=== PATIENT | female | born 1935 | race Caucasian/White ===

== ENCOUNTER 2020-09-19 10:03 | Observation (INO) | payer MEDICARE ==
[2020-09-19] MEDS ORDERED: SODIUM CHLORIDE 0.9% 500 ML 500 ML IV ONE ×2 (10:24→12:01)
--- NOTE | 2020-09-19 10:43 | ED ---
General Adult HPI - General Chief complaint: Chest Pain Stated complaint: chest pain Time Seen by Provider: 09/19/20 10:06 Source: patient, EMS, RN notes reviewed, old records reviewed Mode of arrival: EMS Limitations: no limitations - History of Present Illness Initial comments: 85-year-old female presenting for evaluation of left-sided chest pain which began last night. This is left lateral chest pain. She states she has felt unwell in general and believes she has been dealing with a UTI. She denies significant cough, denies a known history of coronary artery disease. She denies lower extremity pain or swelling. Pain was relieved somewhat with aspirin and nitroglycerin given by EMS. She has minimal pain at the time my evaluation. - Related Data Home Medications Medication Instructions Recorded Confirmed Acetaminophen-Codeine 300-30mg 1 tab PO Q6H PRN 09/19/20 09/19/20 [Tylenol w/codeine #3] Diclofenac Sodium [Voltaren Gel] 4 gram TOPICAL QID PRN 09/19/20 09/19/20 Furosemide [Lasix] 20 mg PO DAILY 09/19/20 09/19/20 Levothyroxine Sodium 88 mcg PO AC-BRKFST 09/19/20 09/19/20 Metoprolol Tartrate [Lopressor] 25 mg PO BID 09/19/20 09/19/20 Mirtazapine 30 mg PO HS 09/19/20 09/19/20 Omeprazole 20 mg PO AC-BRKFST 09/19/20 09/19/20 Pregabalin [Lyrica] 75 mg PO BID 09/19/20 09/19/20 Sulindac [Clinoril] 150 mg PO BID 09/19/20 09/19/20 busPIRone HCl [Buspar] 5 mg PO BID 09/19/20 09/19/20 rOPINIRole HCL [Requip] 0.25 - 0.5 mg PO HS 09/19/20 09/19/20 traZODone HCL [TraZODone HCl] 50 - 100 mg PO HS 09/19/20 09/19/20 Allergies Allergy/AdvReac Type Severity Reaction Status Date / Time diazepam [From Valium] AdvReac Confusion Verified 09/19/20 11:57 Review of Systems ROS Statement: Those systems with pertinent positive or pertinent negative responses have been documented in the HPI. ROS Other: All systems not noted in ROS Statement are negative. Past Medical History Past Medical History: Atrial Fibrillation History of Any Multi-Drug Resistant Organisms: None Reported Past Alcohol Use History: None Reported Past Drug Use History: None Reported General Exam Limitations: no limitations General appearance: alert, in no apparent distress Head exam: Present: atraumatic, normocephalic Eye exam: Present: normal appearance, PERRL ENT exam: Present: mucous membranes dry Neck exam: Present: normal inspection. Absent: tenderness, meningismus Respiratory exam: Present: decreased breath sounds. Absent: respiratory distress, accessory muscle use Cardiovascular Exam: Present: regular rate, normal rhythm GI/Abdominal exam: Present: soft. Absent: distended, tenderness Extremities exam: Present: normal inspection, normal capillary refill. Absent: pedal edema Neurological exam: Present: alert, oriented X3, CN II-XII intact. Absent: motor sensory deficit Psychiatric exam: Present: normal affect, normal mood Skin exam: Present: warm, dry, intact. Absent: cyanosis, diaphoretic Course Vital Signs 09/19/20 09/19/20 09/19/20 10:07 11:22 12:49 Temperature 99.1 F Pulse Rate 103 H 101 H 97 Respiratory 18 18 18 Rate Blood Pressure 141/70 138/70 145/73 O2 Sat by Pulse 94 L 95 97 Oximetry EKG Findings - EKG Comments: EKG Findings:: Normal sinus rhythm, no ST segment elevation, rate of 97, OH interval 128, QRS duration 72, QTC 467 Medical Decision Making - Medical Decision Making 85 year female presenting with chief complaint of chest pain, secondary complaint of dysuria and concern for UTI. Patient has EKG showing sinus rhythm without ST segment elevation. Chest x-ray showing nodularity of uncertain etiology. Patient has a CT angiography which was ordered secondary to elevated d-dimer which is negative for PE. Patient has a negative initial troponin. She has a mild leukocytosis. She has UTI on urinalysis with leukocyte esterase, and multiple white blood cells. Culture pending. Case discussed with Dr. fam he will admit for chest pain rule out. Cardiology placed on consult. Patient will be continued on IV fluids and IV antibiotics for UTI. - Lab Data Result diagrams: 09/19/20 10:40 09/19/20 10:40 Lab Results 09/19/20 09/19/20 09/19/20 Range/Units 10:40 10:40 10:40 WBC 11.2 H (3.8-10.6) k/uL RBC 4.45 (3.80-5.40) m/uL Hgb 13.3 (11.4-16.0) gm/dL Hct 39.8 (34.0-46.0) % MCV 89.4 (80.0-100.0) fL MCH 29.8 (25.0-35.0) pg MCHC 33.4 (31.0-37.0) g/dL RDW 14.7 (11.5-15.5) % Plt Count 320 (150-450) k/uL MPV 7.2 Neutrophils % 72 % Lymphocytes % 16 % Monocytes % 8 % Eosinophils % 1 % Basophils % 1 % Neutrophils # 8.1 H (1.3-7.7) k/uL Lymphocytes # 1.8 (1.0-4.8) k/uL Monocytes # 0.9 (0-1.0) k/uL Eosinophils # 0.1 (0-0.7) k/uL Basophils # 0.1 (0-0.2) k/uL PT 10.5 (9.0-12.0) sec INR 1.0 (<1.2) APTT 24.3 (22.0-30.0) sec D-Dimer 0.82 H (<0.60) mg/L FEU Sodium 135 L (137-145) mmol/L Potassium 3.9 (3.5-5.1) mmol/L Chloride 102 (98-107) mmol/L Carbon Dioxide 25 (22-30) mmol/L Anion Gap 8 mmol/L BUN 11 (7-17) mg/dL Creatinine 0.54 (0.52-1.04) mg/dL Est GFR (CKD-EPI)AfAm >90 (>60 ml/min/1.73 sqM) Est GFR (CKD-EPI)NonAf 85 (>60 ml/min/1.73 sqM) Glucose 98 (74-99) mg/dL Plasma Lactic Acid Frandy (0.7-2.0) mmol/L Calcium 8.6 (8.4-10.2) mg/dL Magnesium 1.8 (1.6-2.3) mg/dL Total Bilirubin 1.0 (0.2-1.3) mg/dL AST 31 (14-36) U/L ALT 31 (4-34) U/L Alkaline Phosphatase 302 H (38-126) U/L Troponin I (0.000-0.034) ng/mL NT-Pro-B Natriuret Pep pg/mL Total Protein 6.4 (6.3-8.2) g/dL Albumin 3.5 (3.5-5.0) g/dL Lipase 77 (23-300) U/L Urine Color Urine Appearance (Clear) Urine pH (5.0-8.0) Ur Specific [place] (1.001-1.035) Urine Protein (Negative) Urine Glucose (UA) (Negative) Urine Ketones (Negative) Urine Blood (Negative) Urine Nitrite (Negative) Urine Bilirubin (Negative) Urine Urobilinogen (<2.0) mg/dL Ur Leukocyte Esterase (Negative) Urine RBC (0-5) /hpf Urine WBC (0-5) /hpf Ur Squamous Epith Cells (0-4) /hpf Urine Bacteria (None) /hpf Urine Mucus (None) /hpf Coronavirus (PCR) (Not Detectd) 09/19/20 09/19/20 09/19/20 Range/Units 10:40 10:40 10:40 WBC (3.8-10.6) k/uL RBC (3.80-5.40) m/uL Hgb (11.4-16.0) gm/dL Hct (34.0-46.0) % MCV (80.0-100.0) fL MCH (25.0-35.0) pg MCHC (31.0-37.0) g/dL RDW (11.5-15.5) % Plt Count (150-450) k/uL MPV Neutrophils % % Lymphocytes % % Monocytes % % Eosinophils % % Basophils % % Neutrophils # (1.3-7.7) k/uL Lymphocytes # (1.0-4.8) k/uL Monocytes # (0-1.0) k/uL Eosinophils # (0-0.7) k/uL Basophils # (0-0.2) k/uL PT (9.0-12.0) sec INR (<1.2) APTT (22.0-30.0) sec D-Dimer (<0.60) mg/L FEU Sodium (137-145) mmol/L Potassium (3.5-5.1) mmol/L Chloride (98-107) mmol/L Carbon Dioxide (22-30) mmol/L Anion Gap mmol/L BUN (7-17) mg/dL Creatinine (0.52-1.04) mg/dL Est GFR (CKD-EPI)AfAm (>60 ml/min/1.73 sqM) Est GFR (CKD-EPI)NonAf (>60 ml/min/1.73 sqM) Glucose (74-99) mg/dL Plasma Lactic Acid Frandy (0.7-2.0) mmol/L Calcium (8.4-10.2) mg/dL Magnesium (1.6-2.3) mg/dL Total Bilirubin (0.2-1.3) mg/dL AST (14-36) U/L ALT (4-34) U/L Alkaline Phosphatase (38-126) U/L Troponin I <0.012 (0.000-0.034) ng/mL NT-Pro-B Natriuret Pep 801 pg/mL Total Protein (6.3-8.2) g/dL Albumin (3.5-5.0) g/dL Lipase (23-300) U/L Urine Color Yellow Urine Appearance Cloudy H (Clear) Urine pH 6.0 (5.0-8.0) Ur Specific [place] 1.017 (1.001-1.035) Urine Protein Trace H (Negative) Urine Glucose (UA) Negative (Negative) Urine Ketones 3+ H (Negative) Urine Blood Trace H (Negative) Urine Nitrite Negative (Negative) Urine Bilirubin Negative (Negative) Urine Urobilinogen <2.0 (<2.0) mg/dL Ur Leukocyte Esterase Large H (Negative) Urine RBC 3 (0-5) /hpf Urine WBC 51 H (0-5) /hpf Ur Squamous Epith Cells 7 H (0-4) /hpf Urine Bacteria Rare H (None) /hpf Urine Mucus Rare H (None) /hpf Coronavirus (PCR) (Not Detectd) 09/19/20 09/19/20 Range/Units 10:40 11:21 WBC (3.8-10.6) k/uL RBC (3.80-5.40) m/uL Hgb (11.4-16.0) gm/dL Hct (34.0-46.0) % MCV (80.0-100.0) fL MCH (25.0-35.0) pg MCHC (31.0-37.0) g/dL RDW (11.5-15.5) % Plt Count (150-450) k/uL MPV Neutrophils % % Lymphocytes % % Monocytes % % Eosinophils % % Basophils % % Neutrophils # (1.3-7.7) k/uL Lymphocytes # (1.0-4.8) k/uL Monocytes # (0-1.0) k/uL Eosinophils # (0-0.7) k/uL Basophils # (0-0.2) k/uL PT (9.0-12.0) sec INR (<1.2) APTT (22.0-30.0) sec D-Dimer (<0.60) mg/L FEU Sodium (137-145) mmol/L Potassium (3.5-5.1) mmol/L Chloride (98-107) mmol/L Carbon Dioxide (22-30) mmol/L Anion Gap mmol/L BUN (7-17) mg/dL Creatinine (0.52-1.04) mg/dL Est GFR (CKD-EPI)AfAm (>60 ml/min/1.73 sqM) Est GFR (CKD-EPI)NonAf (>60 ml/min/1.73 sqM) Glucose (74-99) mg/dL Plasma Lactic Acid Frandy 1.0 (0.7-2.0) mmol/L Calcium (8.4-10.2) mg/dL Magnesium (1.6-2.3) mg/dL Total Bilirubin (0.2-1.3) mg/dL AST (14-36) U/L ALT (4-34) U/L Alkaline Phosphatase (38-126) U/L Troponin I (0.000-0.034) ng/mL NT-Pro-B Natriuret Pep pg/mL Total Protein (6.3-8.2) g/dL Albumin (3.5-5.0) g/dL Lipase (23-300) U/L Urine Color Urine Appearance (Clear) Urine pH (5.0-8.0) Ur Specific [place] (1.001-1.035) Urine Protein (Negative) Urine Glucose (UA) (Negative) Urine Ketones (Negative) Urine Blood (Negative) Urine Nitrite (Negative) Urine Bilirubin (Negative) Urine Urobilinogen (<2.0) mg/dL Ur Leukocyte Esterase (Negative) Urine RBC (0-5) /hpf Urine WBC (0-5) /hpf Ur Squamous Epith Cells (0-4) /hpf Urine Bacteria (None) /hpf Urine Mucus (None) /hpf Coronavirus (PCR) Not Detected (Not Detectd) Disposition Clinical Impression: Chest pain, UTI (urinary tract infection) Disposition: ADMITTED IP TO THIS [facility] Condition: Stable Is patient prescribed a controlled substance at d/c from ED?: No Referrals: Eliza Pollard MD [Primary Care Provider] - 1-2 days Decision to Admit Reason: Admit from EC Decision Date: 09/19/20 Decision Time: 13:33
[2020-09-19 11:01] LABS: Basophils # (A) 0.1 k/uL (0-0.2); Basophils % (A) 1 %; Eosinophils # (A) 0.1 k/uL (0-0.7); Eosinophils % (A) 1 %; HCT 39.8 % (34.0-46.0); HGB 13.3 gm/dL (11.4-16.0); Lymphocytes # (A) 1.8 k/uL (1.0-4.8); Lymphocytes % (A) 16 %; MCH 29.8 pg (25.0-35.0); MCHC 33.4 g/dL (31.0-37.0); MCV 89.4 fL (80.0-100.0); Mean Platelet Volume 7.2; Monocytes # (A) 0.9 k/uL (0-1.0); Monocytes % (A) 8 %; Neutrophils # (A) 8.1 k/uL (1.3-7.7); Neutrophils % (A) 72 %; Platelet Count 320 k/uL (150-450); RBC 4.45 m/uL (3.80-5.40); RDW 14.7 % (11.5-15.5); WBC 11.2 k/uL (3.8-10.6)
[2020-09-19 11:15] LABS: ALT 31 U/L (4-34); AST 31 U/L (14-36); African American GFR (CKD) >90 (>60 ml/min/1.73 sqM); Albumin 3.5 g/dL (3.5-5.0); Alkaline Phosphatase 302 U/L (38-126); Anion Gap 8 mmol/L; Blood Urea Nitrogen 11 mg/dL (7-17); Calcium 8.6 mg/dL (8.4-10.2); Carbon Dioxide 25 mmol/L (22-30); Chloride 102 mmol/L (98-107); Glucose 98 mg/dL (74-99); Lipase 77 U/L (23-300); Magnesium 1.8 mg/dL (1.6-2.3); Non-African American GFR(CKD) 85 (>60 ml/min/1.73 sqM); Potassium 3.9 mmol/L (3.5-5.1); Sodium 135 mmol/L (137-145); Total Protein 6.4 g/dL (6.3-8.2)
[2020-09-19 11:19] LABS: Appearance,Urine Cloudy (Clear); Bacteria,Urine Rare /hpf; Bilirubin,Urine Negative (Negative); Blood,Urine Trace (Negative); Color,Urine Yellow; Glucose,Urine (UA) Negative (Negative); Ketones,Urine 3+ (Negative); Leukocyte Esterase,Urine Large (Negative); Mucus,Urine Rare /hpf; Nitrite,Urine Negative (Negative); Protein,Urine Trace (Negative); RBC,Urine 3 /hpf (0-5); Specific Gravity,Urine 1.017 (1.001-1.035); Squamous Epithelial Cell,Urine 7 /hpf (0-4); Urobilinogen,Urine <2.0 mg/dL (<2.0); WBC,Urine 51 /hpf (0-5)
--- NOTE | 2020-09-19 11:27 | XR ---
EXAMINATION TYPE: XR chest 2V DATE OF EXAM: 09/19/2020 COMPARISON: NONE HISTORY: Chest pain TECHNIQUE: Frontal and lateral views of the chest are obtained. FINDINGS: There is no focal air space opacity, pleural effusion, or pneumothorax seen. The cardiac silhouette size is within normal limits. The aorta is dense. Patient is rotated. Postop changes are noted to the cervical spine. There are overlying cardiac leads. There is evidence of old granulomatou s disease in the right lower lobe. Some probable basilar scarring also present. Thoracic spondylosis is present. The osseous structures are intact. IMPRESSION: Findings suggest old granulomatous disease, some probable basilar scarring. Follow-up as indicated.
[2020-09-19 11:36] LABS: Partial Thromboplastin Time 24.3 sec (22.0-30.0); Prothrombin Time 10.5 sec (9.0-12.0)
[2020-09-19] MEDS ORDERED: ONDANSETRON 4 MG/2 ML VIAL IVP STA (11:49)
[2020-09-19 11:53] LABS: D-Dimer 0.82 mg/L FEU (<0.60)
[2020-09-19] MEDS ORDERED: cefTRIAXone IN SWFI 1,000 MG/10 ML SYRINGE IVP STA (12:00)
--- NOTE | 2020-09-19 13:26 | CT ---
EXAMINATION TYPE: CT angio chest DATE OF EXAM: 09/19/2020 12:54 PM COMPARISON: Chest pain HISTORY: Chest pain with elev. D dimer CT DLP: 158.5 mGycm Automated exposure control for dose reduction was used. CONTRAST: CTA scan of the thorax is performed with IV Contrast, patient injected with 65 mL of Isovue 370, pulm onary embolism protocol. . FINDINGS: There is subsegmental changes involving the lungs most typical of atelectasis. Underlying COPD noted. There is a 5 mm left apical pleural nodule and 2 mm right apical pleural nodule. Additional subpleural nodules measuring 5 mm or less are noted involving the upper lobes. Intraparenc hymal nodules are also seen on axial image 48 in the right middle lobe. Subsegmental area of consolid ation in the right middle lobe is seen. There is an additional pulmonary nodule in the right lower lo be superior segment measuring 5 mm. Multiple additional nodules are seen all measuring 6 mm or less. A calcified nodule in the right lower lobe is compatible with a granuloma area coarsened interlobular septum suggest a degree of underlying interstitial lung disease. There is a indeterminate tubular st ructure in the left upper lobe laterally. Could potentially represent a mucous filled bronchus. Appea rs separate from the pulmonary artery. There is ectasia of the thoracic aorta. Additional 6 mm right lower lobe pulmonary nodule. Heart size is prominent. Pulmonary arteries enhance normally. No diagnostic evidence of pulmonary emb olism. Postcholecystectomy changes are noted. Suggestion of splenic granuloma. IMPRESSION: 1. No diagnostic evidence of pulmonary embolism. There is a low density tubular structure in the genoveva pheral margin of left upper lobe which appears to contain one or 2 calcifications and may represent a dilated distal bronchioles containing mucous plug or endobronchial lesion. Recommend pulmonology con sult. 2. Numerous bilateral subcentimeter pulmonary nodules correlate for history of malignancy. 3. COPD. 4. Ectasia of the aorta with cardiomegaly. Tiny bilateral pleural effusions.
[2020-09-19] MEDS ORDERED: ASPIRIN 325 MG TAB PO STA (13:30)
[2020-09-19] MEDS ORDERED: MORPHINE SULFATE 4 MG/ML SYRINGE IV PRN (13:30)
[2020-09-19] MEDS ORDERED: NALOXONE 0.4 MG/ML 1 ML VIAL IV PRN (13:30)
[2020-09-19] MEDS ORDERED: ACETAMINOPHEN TAB 325 MG TAB PO PRN (13:30)
[2020-09-19] MEDS: SODIUM CHLORIDE 0.9% 1,000 ML IV SCH (13:52)
[2020-09-19] MEDS ORDERED: Acetaminophen-Codeine 300-30mg TAB PO PRN (15:35)
[2020-09-19] MEDS ORDERED: DICLOFENAC SODIUM GEL 100 GM TUBE TOPICAL PRN (15:35)
[2020-09-19] MEDS: FUROSEMIDE 20 MG TAB PO SCH (17:39)
[2020-09-19] MEDS: ETODOLAC 200 MG CAPSULE PO SCH ×2 (17:39→22:19)
[2020-09-19] MEDS: ONDANSETRON 4 MG/2 ML VIAL IVP PRN (17:39)
[2020-09-19] MEDS: PREGABALIN 75 MG CAP PO SCH (22:18)
[2020-09-19] MEDS: traZODone HCL 50 MG TAB PO SCH (22:18)
[2020-09-19] MEDS: busPIRone HCl 5 MG TAB PO SCH (22:18)
[2020-09-19] MEDS: METOPROLOL TARTRATE 25 MG TAB PO SCH (22:18)
[2020-09-19] MEDS: MIRTAZAPINE 15 MG TAB PO SCH (22:19)
[2020-09-20] MEDS: PANTOPRAZOLE 40 MG TABLET PO SCH (06:38)
[2020-09-20] MEDS: ONDANSETRON 4 MG/2 ML VIAL IVP PRN (07:01)
[2020-09-20] MEDS ORDERED: LEVOTHYROXINE 88 MCG TAB PO SCH (07:30)
[2020-09-20] MEDS: PREGABALIN 75 MG CAP PO SCH ×2 (08:49→21:56)
[2020-09-20] MEDS: METOPROLOL TARTRATE 25 MG TAB PO SCH ×2 (08:49→21:56)
[2020-09-20] MEDS: busPIRone HCl 5 MG TAB PO SCH ×2 (08:49→21:57)
[2020-09-20] MEDS: ETODOLAC 200 MG CAPSULE PO SCH ×3 (08:49→21:56)
[2020-09-20] MEDS: SODIUM CHLORIDE 0.9% 1,000 ML IV SCH (08:49)
[2020-09-20] MEDS: FUROSEMIDE 20 MG TAB PO SCH (08:49)
--- NOTE | 2020-09-20 09:28 | P.CRDCN ---
History of Present Illness History of present illness: HISTORY OF PRESENTING ILLNESS This is a pleasant 85-year-old female past medical history significant for hypertension and arthritis. She follows in the office with Dr. Chavez at [facility]. She denies prior history of coronary artery disease. Her history indicates afib however the patient herself is not aware of this diagnosis. We have been asked to see in consultation for chest pain. She states for approximately 2 days ago she started experiencing a pain in the left anterior upper chest described as a tight heavy sensation. There is some reproducibility when chest wall is palpated. She has associated nausea and some intermittent vomiting. The pain does not radiate down the arm, into the neck, jaw or back. She denies shortness of breath, dizziness or palpitations. The pain has been constant with no real alleviating factors. EMS did give NTG and she did feel like that helped somewhat. However, the pain has returned and she has not been given it again. She has been requiring some anti-emetics. Currently also being treated with IV antibiotics for a urinary tract infection. 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 There is no old EKG for comparison. Telemetry tracings indicate sinus mechanism with no acute arrhythmias. Chest xray old granulomatous disease. CTA is negative for pulmonary embolism, low density tubular structure in the peripheral margin of the left upper lobe appears to contain one or 2 calcifications and may represent a dilated distal bronchial containing mucous plug or endobronchial lesion, underlying COPD, numerous bilateral subcentimeter pulmonary nodules and ectasia of the aorta with cardiomegaly and tiny bilateral pleural effusions. Laboratory reviewed, WBC 11.2, hemoglobin 13.3, platelets 320, d-dimer 0.82, sodium 135, potassium 3.9, creatinine 0.54, cardiac enzymes negative 3, NT proBNP 801 and Covid negative. Current cardiac medications include Lopressor 25 mg twice a day and Lasix 20 mg daily. REVIEW OF SYSTEMS At the time of my exam: CONSTITUTIONAL: Denies fever or chills. CARDIOVASCULAR: Denies chest pain, shortness of breath, orthopnea, PND or palpitations. RESPIRATORY: Denies cough. GASTROINTESTINAL: Denies abdominal pain, diarrhea, constipation, nausea or vomiting. MUSCULOSKELETAL: Denies myalgias. NEUROLOGIC: Denies numbness, tingling, headacbe or weakness. ENDOCRINE: Denies fatigue, weight change, polydipsia or polyurina. GENITOURINARY: Denies burning, hematuria or urgency with micturation. HEMATOLOGIC: Denies history of anemia or bleeding. PHYSICAL EXAMINATION Blood pressure 172/72 heart rate 87 afebrile and maintaining oxygen saturation on room air. CONSTITUTIONAL: No apparent distress. Frail. HEENT: Head is normocephalic. Pupils are equal, round. Sclerae anicteric. Mucous membranes of the mouth are moist. No JVD. No carotid bruit. CHEST EXAMINATION: Lungs are clear to auscultation. Mild left lower mid chest wall tenderness is noted on palpation. HEART EXAMINATION: Regular rate and rhythm. S1, S2 heard. No murmurs, gallops or rub. ABDOMEN: Soft, mild epigastric tenderness. Positive bowel sounds. EXTREMITIES: 2+ peripheral pulses, no lower extremity edema and no calf tenderness. NEUROLOGIC EXAMINATION: Patient is awake, alert and oriented x3. ASSESSMENT Chest pain Abdominal pain and tenderness Hypertension Arthritis, takes NSAIDS daily Leukocytosis Urinary tract infection PLAN An acute coronary event has been ruled out. Obtain 2D echocardiogram and doppler study to assess cardiac structure and function. Obtain ultrasound of the abdomen. Discussed with the patient further cardiac testing to include possible cardiac catheterization, she would prefer to try medication and see how she feels over the next 24 hours. We continue lopressor as previously ordered and initiate aspirin and imdur to her regimen. She can eat after her abdominal ultrasound. Request records from her primary template cutter for review. Further recommendations to follow based on clinical course. Thank you kindly for this consultation. Nurse Practitioner note has been reviewed, I agree with a documented findings and plan of care. Patient was seen and examined. Past Medical History Past Medical History: Atrial Fibrillation, Osteoarthritis (OA) History of Any Multi-Drug Resistant Organisms: None Reported Past Surgical History: Bowel Resection, Hysterectomy, Orthopedic Surgery Additional Past Surgical History / Comment(s): Neck sx, right hip sx Past Psychological History: No Psychological Hx Reported Smoking Status: Never smoker Past Alcohol Use History: None Reported Past Drug Use History: None Reported Medications and Allergies Home Medications Medication Instructions Recorded Confirmed Type Acetaminophen-Codeine 300-30mg 1 tab PO Q6H PRN 09/19/20 09/19/20 History [Tylenol w/codeine #3] Diclofenac Sodium [Voltaren Gel] 4 gram TOPICAL QID PRN 09/19/20 09/19/20 History Furosemide [Lasix] 20 mg PO DAILY 09/19/20 09/19/20 History Levothyroxine Sodium 88 mcg PO [facility] 09/19/20 09/19/20 History Metoprolol Tartrate [Lopressor] 25 mg PO BID 09/19/20 09/19/20 History Mirtazapine 30 mg PO HS 09/19/20 09/19/20 History Omeprazole 20 mg PO [facility] 09/19/20 09/19/20 History Pregabalin [Lyrica] 75 mg PO BID 09/19/20 09/19/20 History Sulindac [Clinoril] 150 mg PO BID 09/19/20 09/19/20 History busPIRone HCl [Buspar] 5 mg PO BID 09/19/20 09/19/20 History rOPINIRole HCL [Requip] 0.25 - 0.5 mg PO HS 09/19/20 09/19/20 History traZODone HCL [TraZODone HCl] 50 - 100 mg PO HS 09/19/20 09/19/20 History Allergies Allergy/AdvReac Type Severity Reaction Status Date / Time diazepam [From Valium] AdvReac Confusion Verified 09/19/20 11:57 Physical Exam Vitals: Vital Signs Temp Pulse Pulse Resp BP BP Pulse Ox 09/20/20 07:49 97.4 F L 87 16 172/72 95 09/20/20 04:45 97.9 F 78 18 159/68 95 09/19/20 23:15 127/66 09/19/20 21:58 97.8 F 84 18 172/72 95 09/19/20 18:23 79 136/72 96 09/19/20 14:23 98.0 F 91 166/70 96 09/19/20 13:57 98.1 F 95 18 146/67 97 09/19/20 13:48 90 18 153/65 95 09/19/20 12:49 97 18 145/73 97 09/19/20 11:22 101 H 18 138/70 95 09/19/20 10:07 99.1 F 103 H 18 141/70 94 L Intake and Output 09/19/20 09/20/20 09/20/20 22:59 06:59 14:59 Other: Voiding Method Toilet Toilet Toilet # Voids 1 1 # Bowel Movements 1 1 Results 09/19/20 10:40 09/19/20 10:40 Cardiac Enzymes 09/19/20 09/19/20 09/19/20 Range/Units 10:40 10:40 14:02 AST 31 (14-36) U/L Troponin I <0.012 <0.012 (0.000-0.034) ng/mL 09/19/20 Range/Units 17:11 AST (14-36) U/L Troponin I <0.012 (0.000-0.034) ng/mL Coagulation 09/19/20 Range/Units 10:40 PT 10.5 (9.0-12.0) sec APTT 24.3 (22.0-30.0) sec CBC 09/19/20 Range/Units 10:40 WBC 11.2 H (3.8-10.6) k/uL RBC 4.45 (3.80-5.40) m/uL Hgb 13.3 (11.4-16.0) gm/dL Hct 39.8 (34.0-46.0) % Plt Count 320 (150-450) k/uL Comprehensive Metabolic Panel 09/19/20 Range/Units 10:40 Sodium 135 L (137-145) mmol/L Potassium 3.9 (3.5-5.1) mmol/L Chloride 102 (98-107) mmol/L Carbon Dioxide 25 (22-30) mmol/L BUN 11 (7-17) mg/dL Creatinine 0.54 (0.52-1.04) mg/dL Glucose 98 (74-99) mg/dL Calcium 8.6 (8.4-10.2) mg/dL AST 31 (14-36) U/L ALT 31 (4-34) U/L Alkaline Phosphatase 302 H (38-126) U/L Total Protein 6.4 (6.3-8.2) g/dL Albumin 3.5 (3.5-5.0) g/dL Current Medications Generic Name Dose Route Start Last Admin Trade Name Freq PRN Reason Stop Dose Admin Acetaminophen 650 mg 09/19/20 13:30 09/19/20 13:51 Acetaminophen Tab 325 Mg Tab PO 650 mg Q6HR PRN Administration Mild Pain or Fever > 100.5 Acetaminophen/Codeine Phosphate 1 each 09/19/20 15:35 Acetaminophen-Codeine 300-30mg Tab PO Q6H PRN Pain Buspirone HCl 5 mg 09/19/20 21:00 09/19/20 22:18 Buspirone Hcl 5 Mg Tab PO 5 mg BID RAMÍREZ Administration Diclofenac Sodium 4 gm 09/19/20 15:35 Diclofenac Sodium Gel 100 Gm Tube TOPICAL QID PRN Pain Etodolac 200 mg 09/19/20 16:00 09/19/20 22:19 Etodolac 200 Mg Capsule PO 200 mg TID RAMÍREZ Administration Furosemide 20 mg 09/19/20 15:45 09/19/20 17:39 Furosemide 20 Mg Tab PO Not Given DAILY RAMÍREZ Sodium Chloride 1,000 mls @ 50 mls/hr 09/19/20 13:30 09/19/20 13:52 Saline 0.9% IV 50 mls/hr .Q20H RAMÍREZ Administration Ceftriaxone Sodium 1 gm/ 50 mls @ 100 mls/hr 09/20/20 09:00 Sodium Chloride IVPB Q24HR RAMÍREZ Levothyroxine Sodium 88 mcg 09/20/20 07:30 09/20/20 06:38 Levothyroxine 88 Mcg Tab PO 88 mcg [id number]-[id number] RAMÍREZ Administration Metoprolol Tartrate 25 mg 09/19/20 21:00 09/19/20 22:18 Metoprolol Tartrate 25 Mg Tab PO 25 mg BID RAMÍREZ Administration Mirtazapine 30 mg 09/19/20 21:00 09/19/20 22:19 Mirtazapine 15 Mg Tab PO 30 mg HS RAMÍREZ Administration Morphine Sulfate 4 mg 09/19/20 13:30 09/19/20 16:22 Morphine Sulfate 4 Mg/Ml Syringe IV 4 mg Q4HR PRN Administration Severe Pain Naloxone HCl 0.2 mg 09/19/20 13:30 Naloxone 0.4 Mg/Ml 1 Ml Vial IV Q2M PRN Opioid Reversal Ondansetron HCl 4 mg 09/19/20 16:38 09/20/20 07:01 Ondansetron 4 Mg/2 Ml Vial IVP 4 mg Q6HR PRN Administration Nausea And Vomiting Pantoprazole Sodium 40 mg 09/20/20 07:30 09/20/20 06:38 Pantoprazole 40 Mg Tablet PO 40 mg [id number] RAMÍREZ Administration Pregabalin 75 mg 09/19/20 21:00 09/19/20 22:18 Pregabalin 75 Mg Cap PO 75 mg BID RAMÍREZ Administration Ropinirole HCl 0.25 mg 09/19/20 21:00 09/19/20 22:19 Ropinirole Hcl 0.25 Mg Tab PO 0.25 mg HS RAMÍREZ Administration Trazodone HCl 50 mg 09/19/20 21:00 09/19/20 22:18 Trazodone Hcl 50 Mg Tab PO 50 mg HS RAMÍREZ Administration Intake and Output 09/19/20 09/20/20 09/20/20 22:59 06:59 14:59 Other: Voiding Method Toilet Toilet Toilet # Voids 1 1 # Bowel Movements 1 1 09/19/20 10:40 09/19/20 10:40
[2020-09-20] MEDS: ISOSORBIDE MONONITRATE ER 30 MG TAB.ER.24H PO SCH (10:14)
--- NOTE | 2020-09-20 10:45 | US ---
EXAMINATION TYPE: US abdomen complete DATE OF EXAM: 09/20/2020 COMPARISON: NONE CLINICAL HISTORY: pain. EXAM MEASUREMENTS: Liver Length: 11.4 cm Gallbladder Wall: not visualized CBD: 0.3 cm Spleen: 9.5 cm Right Kidney: 8.6 x 4.1 x 3.9 cm Left Kidney: 8.4 x 4.4 x 4.4 cm Severe midline bowel gas obscuring structures and limiting study. Pancreas: Obscured by bowel gas Liver: portions visualized wnl, somewhat obscured by overlying bowel, dome not visualized Gallbladder: Either surgically absent or obscured by overlying bowel. 85 year old patient unsure if s he has her gallbladder Evidence for sonographic Johnson's sign: no CBD: wnl Spleen: wnl Right Kidney: No hydronephrosis or masses seen, measures small Left Kidney: No hydronephrosis or masses seen, measures small Upper IVC: wnl Abd Aorta: only able to visualized distal, distal wnl IMPRESSION: 1. Gallbladder not seen with certainty. Suggestive of previous cholecystectomy. 2. There is extensive overlying bowel gas consider abdominal x-ray if there is concern for abdominal distention.
[2020-09-20 13:55] VITALS: BMI 18.1
--- NOTE | 2020-09-20 16:46 | ECHOF ---
Referral Reason:cp MEASUREMENTS -------- HEIGHT: 162.6 cm WEIGHT: 48.1 kg BP: 172/72 RVIDd: 3.6 cm (< 3.3) IVSd: 1.5 cm (0.6 - 1.1) LVIDd: 2.8 cm (3.9 - 5.3) LVPWd: 1.2 cm (0.6 - 1.1) IVSs: 1.8 cm LVIDs: 1.9 cm LVPWs: 1.6 cm LAESV Index (A-L): 25.94 ml/m Ao Diam: 3.9 cm (2.0 - 3.7) AV Cusp: 2.1 cm (1.5 - 2.6) MV EXCURSION: 17.153 mm (> 18.000) MV EF SLOPE: 30 mm/s (70 - 150) EPSS: 0.4 cm MV E Robb: 0.54 m/s MV DecT: 224 ms MV A Robb: 0.84 m/s MV E/A Ratio: 0.64 AV maxP.09 mmHg AV meanP.11 mmHg AR PHT: 335 ms RAP: 5.00 mmHg RVSP: 17.12 mmHg FINDINGS -------- Sinus rhythm. This was a technically adequate study. The left ventricular size is normal. There is moderate concentric left ventricular hypertrophy. O verall left ventricular systolic function is low-normal with, an EF between 50 - 55 %. The right ventricle is mildly enlarged. Normal LA size by volume 22+/-6 ml/m2. The right atrial size is normal. Interatrial and interventricular septum intact. The aortic valve is trileaflet and appears structurally normal. There is mild aortic valve sclerosi s. There is [id number] aortic regurgitation. There is no evidence of aortic stenosis. Mild mitral annular calcification present. Mild mitral regurgitation is present. Mild tricuspid regurgitation present. There is no evidence of pulmonary hypertension. There is no pulmonic regurgitation present. The aortic root size is normal. IVC Not well visulized. There is no pericardial effusion. CONCLUSIONS -------- 1. The left ventricular size is normal. 2. There is moderate concentric left ventricular hypertrophy. 3. Overall left ventricular systolic function is low-normal with, an EF between 50 - 55 %. 4. The right ventricle is mildly enlarged. 5. There is mild aortic valve sclerosis. 6. There is [id number] aortic regurgitation. 7. Mild mitral annular calcification present. 8. Mild mitral regurgitation is present. 9. Mild tricuspid regurgitation present. MANUFACTURERS REPRESENTATIVE: Viviana Menezes RDCS
[2020-09-20] MEDS: traZODone HCL 50 MG TAB PO SCH (21:55)
[2020-09-20] MEDS: MIRTAZAPINE 15 MG TAB PO SCH (21:56)
--- NOTE | 2020-09-20 23:08 | P.HPIM ---
History of Present Illness H&P Date: 09/20/20 Chief Complaint: Chest pain History of presenting complaint: This is a pleasant 85-year-old patient of Dr. Pollard. Chronic stable medical conditions include osteoarthritis, hypothyroid, hypertension, depression, restless leg syndrome. Patient presented with left-sided chest pain for a few hours. No radiation. No dizziness, lightheadedness. My shortness of breath. Did break out in a sweat. Decreased appetite. A few days patient is also urinary frequency.. No fever. Does live alone. Does use a walker. Review of systems: GEN.: Tired decreased appetite EYES: None HEENT: None NECK: None RESPIRATORY: None CARDIOVASCULAR: As above GASTROINTESTINAL: None GENITOURINARY: As above MUSCULOSKELETAL: Joint pains LYMPHATICS: None HEMATOLOGICAL: None PSYCHIATRY: None NEUROLOGICAL: Uses a walker Past medical history to include: Osteoarthritis, hypothyroid, hypertension, depression, restless leg syndrome, atrial fibrillation Social history: Lives alone. Uses a walker. No history of alcohol or smoking. Physical examination: VITAL SIGNS: 97.4, 87, 16, 172/72, 95% room air GENERAL: BMI 18.2, laying in bed, but tired. EYES: Pupils equal. Conjunctiva normal. HEENT: External appearance of nose and ears normal, oral cavity grossly normal. NECK: JVD not raised; masses not palpable. HEART: First and second heart sounds are normal; no edema. LUNGS: Respiratory rate normal; clear to auscultation. ABDOMEN: Soft, nontender, liver spleen not palpable, no masses palpable. PSYCH: [Able to answer questions, appropriately. NEUROLOGICAL: Cranial nerves grossly intact; no facial asymmetry, power and sensation grossly intact. LYMPHATICS: No lymph nodes palpable in the axilla and neck INVESTIGATIONS, reviewed in the clinical context: White count 11.2 hemoglobin 13.3 platelets 320 Potassium 3.9 creatinine 0.5 for Troponin I 3 negative proBNP 801 TSH 0.581 UA positive for leukoesterase, WBC Coronavirus, P/Cr-not detected EKG tracing personally reviewed by me-normal sinus rhythm Chest x-ray film personally reviewed by me-some chronic changes possibly CT chest-no evidence of PE. Numerous bilateral subcentimeter pulmonary nodules. Assessment: -Left-sided chest pain lasting for a few hours. No specific EKG changes. Patient rather reluctant for any further testing.. It is very reasonable to manage the patient medically given that she is not keen for any cardiac catheterization. Possible unstable angina -Multiple pulmonary nodules. Given her age and frailty status patient not really a candidate for much intervention. We'll discuss further with the patient. -Primary osteoarthritis -Hypothyroid -Essential hypertension -Restless leg syndrome -Chronic gait dysfunction uses a walker -Acute UTI with cystitis Plan: Patient be continued on ceftriaxone. Gentle hydration. Patient's TSH is on the low side. We'll cut back on the dose of Synthroid. We will skip couple of days given the long half life. Care was discussed with the patient. Questions were answered. Cardiology was consulted. Past Medical History Past Medical History: Atrial Fibrillation, Osteoarthritis (OA) History of Any Multi-Drug Resistant Organisms: None Reported Past Surgical History: Bowel Resection, Hysterectomy, Orthopedic Surgery Additional Past Surgical History / Comment(s): Neck sx, right hip sx Past Psychological History: No Psychological Hx Reported Smoking Status: Never smoker Past Alcohol Use History: None Reported Past Drug Use History: None Reported Medications and Allergies Home Medications Medication Instructions Recorded Confirmed Type Acetaminophen-Codeine 300-30mg 1 tab PO Q6H PRN 09/19/20 09/19/20 History [Tylenol w/codeine #3] Diclofenac Sodium [Voltaren Gel] 4 gram TOPICAL QID PRN 09/19/20 09/19/20 History Furosemide [Lasix] 20 mg PO DAILY 09/19/20 09/19/20 History Levothyroxine [facility] 09/19/20 09/19/20 History Metoprolol Tartrate [Lopressor] 25 mg PO BID 09/19/20 09/19/20 History Mirtazapine 30 mg PO 09/19/20 09/19/20 History Omeprazole 20 mg [facility] 09/19/20 09/19/20 History Pregabalin [Lyrica] 75 mg PO BID 09/19/20 09/19/20 History Sulindac [Clinoril] 150 mg PO BID 09/19/20 09/19/20 History busPIRone HCl [Buspar] 5 mg PO BID 09/19/20 09/19/20 History rOPINIRole HCL [Requip] 0.25 - 0.5 mg PO 09/19/20 09/19/20 History traZODone HCL [TraZODone HCl] 50 - 100 mg PO HS 09/19/20 09/19/20 History Allergies Allergy/AdvReac Type Severity Reaction Status Date / Time diazepam [From Valium] AdvReac Confusion Verified 09/19/20 11:57 Physical Exam Vitals: Vital Signs Temp Pulse Pulse Resp BP BP Pulse Ox 09/20/20 07:49 97.4 F L 87 16 172/72 95 09/20/20 04:45 97.9 F 78 18 159/68 95 09/19/20 23:15 127/66 09/19/20 21:58 97.8 F 84 18 172/72 95 09/19/20 18:23 79 136/72 96 09/19/20 14:23 98.0 F 91 166/70 96 09/19/20 13:57 98.1 F 95 18 146/67 97 09/19/20 13:48 90 18 153/65 95 09/19/20 12:49 97 18 145/73 97 09/19/20 11:22 101 H 18 138/70 95 Intake and Output 09/19/20 09/20/20 09/20/20 22:59 06:59 14:59 Other: Voiding Method Toilet Toilet Toilet # Voids 1 1 # Bowel Movements 1 1 Results CBC & Chem 7: 09/19/20 10:40 09/19/20 10:40 Labs: Abnormal Lab Results - Last 24 Hours (Table) 09/19/20 09/19/20 09/19/20 Range/Units 10:40 10:40 10:40 D-Dimer 0.82 H (<0.60) mg/L FEU Sodium 135 L (137-145) mmol/L Alkaline Phosphatase 302 H (38-126) U/L Urine Appearance Cloudy H (Clear) Urine Protein Trace H (Negative) Urine Ketones 3+ H (Negative) Urine Blood Trace H (Negative) Ur Leukocyte Esterase Large H (Negative) Urine WBC 51 H (0-5) /hpf Ur Squamous Epith Cells 7 H (0-4) /hpf Urine Bacteria Rare H (None) /hpf Urine Mucus Rare H (None) /hpf Microbiology - Last 24 Hours (Table) 09/19/20 10:40 Urine Culture - Preliminary Urine,Voided Thrombosis Risk Factor Assmnt - Choose All That Apply Any of the Below Risk Factors Present?: No Other Risk Factors: Yes Each Risk Factor Represents 3 Points: Age 75 years or older Thrombosis Risk Factor Assessment Total Risk Factor Score: 3 Thrombosis Risk Factor Assessment Level: Moderate Risk
[2020-09-21] MEDS: PANTOPRAZOLE 40 MG TABLET PO SCH (06:37)
[2020-09-21] MEDS: SODIUM CHLORIDE 0.9% 1,000 ML IV SCH (06:37)
[2020-09-21] MEDS ORDERED: NITROGLYCERIN SL TABS 0.4 MG TAB SUBLINGUAL PRN (08:11)
[2020-09-21] MEDS ORDERED: ASPIRIN 325 MG TAB PO STA (08:11)
[2020-09-21] MEDS ORDERED: ATORVASTATIN 80 MG TAB PO STA (08:11)
[2020-09-21 08:21] VITALS: TEMP 98
[2020-09-21] MEDS: FUROSEMIDE 20 MG TAB PO SCH (08:22)
[2020-09-21] MEDS: ISOSORBIDE MONONITRATE ER 30 MG TAB.ER.24H PO SCH (08:23)
[2020-09-21] MEDS: ETODOLAC 200 MG CAPSULE PO SCH (08:23)
[2020-09-21] MEDS: busPIRone HCl 5 MG TAB PO SCH (08:23)
[2020-09-21] MEDS: PREGABALIN 75 MG CAP PO SCH (08:23)
[2020-09-21] MEDS: METOPROLOL TARTRATE 25 MG TAB PO SCH (08:23)
[2020-09-21] MEDS ORDERED: IV FLUID CONTINUATION 700 ML IV ONE (09:33)
[2020-09-21] MEDS ORDERED: LIDOCAINE 1% INJ 10MG/ML (20 ML MDV) ONE (09:47)
[2020-09-21] MEDS ORDERED: MIDAZOLAM 2 MG/2 ML VIAL IV ONE (10:10)
--- NOTE | 2020-09-21 10:10 | P.PN ---
Subjective HISTORY OF PRESENTING ILLNESS This is a pleasant 85-year-old female past medical history significant for hypertension and arthritis. She follows in the office with Dr. Chavez at [facility]. She denies prior history of coronary artery disease. She is seen and examined sitting up in bed in no acute distress. She states she still is hav ing some heaviness in the chest but it has improved since yesterday somewhat. She is no longer nauseated. U/S of the abdomen was unremarkable. Echocardiogram revealed preserved LV systolic function with ejection fraction 50-55% with mild MR, mild TR and mild to moderate aortic regurgitation. Blood pressure 155/62 heart rate 88 afebrile maintaining oxygen saturation on room air. PHYSICAL EXAMINATION CONSTITUTIONAL: No apparent distress. Frail. HEENT: Head is normocephalic. Pupils are equal, round. Sclerae anicteric. Mucous membranes of the mouth are moist. No JVD. No carotid bruit. CHEST EXAMINATION: Lungs are clear to auscultation. Mild left lower mid chest wall tenderness is noted on palpation. HEART EXAMINATION: Regular rate and rhythm. S1, S2 heard. No murmurs, gallops or rub. EXTREMITIES: 2+ peripheral pulses, no lower extremity edema and no calf tenderness. ASSESSMENT Chest pain Abdominal pain and tenderness Hypertension Arthritis, takes NSAIDS daily Leukocytosis Urinary tract infection PLAN Discussed with the patient and she would now like to proceed with catheterization given her ongoing pain and discussion with her family. I have discussed the risks, benefits and alternative therapies for the above-mentioned procedure and for both sedation/analgesia as well as necessary blood product administration, if indicated, as they pertain to this patient. The patient has indicated understanding and acceptance of the risks and procedures discussed. Further recommendations to follow based on clinical course. Nurse Practitioner note has been reviewed, I agree with a documented findings and plan of care. Patient was seen and examined. Objective - Vital Signs Vital signs: Vital Signs Temp 98 F 09/21/20 08:20 Pulse 80 09/21/20 08:20 Resp 16 09/21/20 08:20 BP 155/62 09/21/20 08:20 Pulse Ox 94 L 09/21/20 08:20 Intake & Output 09/20/20 09/21/20 09/21/20 18:59 06:59 18:59 Output Total 2 Balance -2 Weight 48.081 kg Output: Urine/Stool Mix 2 Other: Voiding Method Toilet Toilet # Voids 1 # Bowel Movements 1 1 - Labs CBC & Chem 7: 09/19/20 10:40 09/19/20 10:40 Labs: Microbiology - Last 24 Hours (Table) 09/19/20 10:40 Urine Culture - Final Urine,Voided
[2020-09-21] MEDS ORDERED: LIDOCAINE 1% INJ 10MG/ML (20 ML MDV) SQ ONE (10:11)
[2020-09-21] MEDS ORDERED: RX INFO: IV CONTRAST WAS GIVEN 1 EACH MISC MISCELLANE PRN (10:23)
[2020-09-21] MEDS ORDERED: SODIUM CHLORIDE 0.9% 1,000 ML IV SCH (10:30)
--- NOTE | 2020-09-21 11:06 | CC ---
CARDIAC CATHETERIZATION REPORT DATE OF SERVICE: September 21, 2019 PERFORMING PHYSICIAN: Nicolás Pan MD. PROCEDURE PERFORMED: 1. Selective right and left coronary angiogram. 2. Left heart catheterization. INDICATION: This is an 85-year-old female patient who presented to the hospital with chest discomfort and continues to have ongoing chest discomfort. Because of that, a heart catheterization was advised. APPROACH: Right common femoral artery. COMPLICATION: None. LEVEL OF SEDATION: Moderate with sedation length of 10 minutes. PROCEDURE DESCRIPTION: After obtaining an informed consent, the patient was brought to the cardiac cath lab nurse. The right common femoral artery was cannulated using micropuncture technique and a micropuncture wire passed easily then I placed a 6-Yakut sheath. I did selective right and left coronary angiogram with JR4 and JL4 catheters. Left heart catheterization was performed using 5-Yakut pigtail catheter. The procedure was completed without any complication. SELECTIVE CORONARY ANGIOGRAM: 1. The right coronary artery is a large caliber vessel and it is a dominant vessel. The RCA is angiographically normal. Distally bifurcates into PDA and PLV branches, both appeared to be angiographically normal. 2. The left main is angiographically normal. It bifurcates into LCX and LAD. 3. The LCX is an is a large caliber vessel. It is a nondominant vessel. The LCX is angiographically normal. In the proximal to midportion, it gives rise into OM1 which bifurcates into 2 subbranches both appeared to be angiographically normal. 4. The LAD: The proximal LAD appeared to be angiographically normal. The mid and distal LAD appeared to be angiographically normal as well. The LAD gives rise into a diagonal branch which seems to be angiographically normal. HEMODYNAMIC: The LVEDP was about 10 mmHg without significant gradient across the aortic valve. CONCLUSION: 1. Normal coronary angiogram. 2. Normal LVEDP. POSTPROCEDURE MANAGEMENT: 1. Medical treatment. 2. Follow up with the patient. MMODL / IJN: [id number] /
[2020-09-21 14:01] VITALS: RESP 16
[2020-09-21 15:36] VITALS: BP 100/53; PULSE 90
--- NOTE | 2020-09-21 23:34 | P.DS ---
Providers Date of admission: 09/19/20 13:30 Expected date of discharge: 09/21/20 Attending physician: Nakul Toledo Consults: 09/19/20 13:31 Consult Physician Routine Consulting Provider: Nicolás Pan Consult Reason/Comments: CP R/U Do you want consulting provider notified?: Yes Primary care physician: Eliza Pollard [facility] Course: Chief Complaint: Chest pain History of presenting complaint: This is a pleasant 85-year-old patient of Dr. Pollard. Chronic stable medical conditions include osteoarthritis, hypothyroid, hypertension, depression, restle ss leg syndrome. Patient presented with left-sided chest pain for a few hours. No radiation. No dizziness, lightheadedness. Mild shortness of breath. Did break out in a sweat. Decreased appetite. A few days patient is also urinary frequency.. No fever. Does live alone. Does use a walker. Admitted unstable angina. Acute UTI. Given ceftriaxone. Today-underwent a cardiac catheterization. No stenosis. Chest CT showed some nodules. Discussed with the patient. Given her age and frailty she decided not to pursue the same. Hence to respect her wishes. Otherwise patient is feeling well. Dose of Synthroid cutback to 50 g. Prescription sent to her pharmacy. Discussion and discharge planning more than 35 minutes Consultation: Dr. Mallory from cardiology Past medical history to include: Osteoarthritis, hypothyroid, hypertension, depression, restless leg syndrome, atrial fibrillation Social history: Lives alone. Uses a walker. No history of alcohol or smoking. Physical examination: VITAL SIGNS: Afebrile, 90, 16, 100/53, 96% room air GENERAL: BMI 18.2, laying in bed, comfortable EYES: Pupils equal. Conjunctiva normal. HEENT: External appearance of nose and ears normal, oral cavity grossly normal. NECK: JVD not raised; masses not palpable. HEART: First and second heart sounds are normal; no edema. LUNGS: Respiratory rate normal; clear to auscultation. ABDOMEN: Soft, nontender, liver spleen not palpable, no masses palpable. PSYCH: [Able to answer questions, appropriately. INVESTIGATIONS, reviewed in the clinical context: White count 11.2 hemoglobin 13.3 platelets 320 Potassium 3.9 creatinine 0.5 for Troponin I 3 negative proBNP 801 TSH 0.581 UA positive for leukoesterase, WBC Coronavirus, P/Cr-not detected EKG tracing personally reviewed by me-normal sinus rhythm Chest x-ray film personally reviewed by me-some chronic changes possibly CT chest-no evidence of PE. Numerous bilateral subcentimeter pulmonary nodules. Assessment: -Left chest wall pain. Likely muscular skeletal. -Cardiac catheterization-normal coronaries -Multiple pulmonary nodules. Given her age and frailty status patient not really a candidate for much intervention. Patient does not want any further treatment. -Primary osteoarthritis -Hypothyroid -Essential hypertension -Restless leg syndrome -Chronic gait dysfunction uses a walker -Acute UTI with cystitis Disposition: Home Patient Condition at Discharge: Stable Plan - Discharge Summary New Discharge Prescriptions: Continue rOPINIRole HCL [Requip] 0.25 - 0.5 mg PO HS Sulindac [Clinoril] 150 mg PO BID Pregabalin [Lyrica] 75 mg PO BID Omeprazole 20 mg PO AC-BRKFST Mirtazapine 30 mg PO HS Metoprolol Tartrate [Lopressor] 25 mg PO BID Levothyroxine Sodium 88 mcg PO AC-T busPIRone HCl [Buspar] 5 mg PO BID Diclofenac Sodium [Voltaren Gel] 4 gram TOPICAL QID PRN PRN Reason: Pain Acetaminophen-Codeine 300-30mg [Tylenol w/codeine #3] 1 tab PO Q6H PRN PRN Reason: Pain traZODone HCL 50 - 100 mg PO HS Discontinued Furosemide [Lasix] 20 mg PO DAILY Discharge Medication List Acetaminophen-Codeine 300-30mg [Tylenol w/codeine #3] 1 tab PO Q6H PRN 09/19/20 [History] Diclofenac Sodium [Voltaren Gel] 4 gram TOPICAL QID PRN 09/19/20 [History] Levothyroxine Sodium 88 mcg PO AC-BRKFST 09/19/20 [History] Metoprolol Tartrate [Lopressor] 25 mg PO BID 09/19/20 [History] Mirtazapine 30 mg PO HS 09/19/20 [History] Omeprazole 20 mg PO AC-BRKFST 09/19/20 [History] Pregabalin [Lyrica] 75 mg PO BID 09/19/20 [History] Sulindac [Clinoril] 150 mg PO BID 09/19/20 [History] busPIRone HCl [Buspar] 5 mg PO BID 09/19/20 [History] rOPINIRole HCL [Requip] 0.25 - 0.5 mg PO HS 09/19/20 [History] traZODone HCL 50 - 100 mg PO HS 09/19/20 [History] Follow up Appointment(s)/Referral(s): Nicolás Pan MD [STAFF PHYSICIAN] - 09/29/20 1:45 pm Eliza Pollard MD [Primary Care Provider] - 1-2 days Patient Instructions/Handouts: Chest Pain (DC)
[2020-09-22] MEDS ORDERED: LEVOTHYROXINE 75 MCG TAB PO SCH (06:30)
[2020-09-22] MEDS ORDERED: HEPARIN SODIUM,PORCINE 10,000 UNIT in SODIUM CHLORIDE 0.9% 1,000 ML IRRIGATION PRN (07:00)
[2020-09-22] MEDS ORDERED: HEPARIN SODIUM,PORCINE 2,500 UNIT in SODIUM CHLORIDE 0.9% 250 ML IRRIGATION PRN (07:00)
[2020-09-22] MEDS ORDERED: ASPIRIN 81 MG PO SCH (09:00)
== END 2020-09-21 17:00 ==
LOC: EC 10:03 → 1SOBS 13:30
PROVIDERS: ADMIT Hospitalist; ATTEND Hospitalist
DX: I25.110 Atherosclerotic heart disease of native coronary artery with unstable angina pectoris (principal); R91.8 Other nonspecific abnormal finding of lung field; M19.91 Primary osteoarthritis, unspecified site; E03.9 Hypothyroidism, unspecified; F32.9 Major depressive disorder, single episode, unspecified; I10 Essential (primary) hypertension; G25.81 Restless legs syndrome; I08.3 Combined rheumatic disorders of mitral, aortic and tricuspid valves; Z20.828 Contact with and (suspected) exposure to other viral communicable diseases; R26.9 Unspecified abnormalities of gait and mobility; N30.00 Acute cystitis without hematuria; E78.00 Pure hypercholesterolemia, unspecified; I48.91 Unspecified atrial fibrillation; Z90.49 Acquired absence of other specified parts of digestive tract; Z90.710 Acquired absence of both cervix and uterus; Z98.890 Other specified postprocedural states; Z79.1 Long term (current) use of non-steroidal anti-inflammatories (NSAID); Z79.890 Hormone replacement therapy; Z79.891 Long term (current) use of opiate analgesic; Z79.899 Other long term (current) drug therapy; Z88.8 Allergy status to other drugs, medicaments and biological substances
CPT/HCPCS: 96365; 96375 ×2; 96376 ×3; 99285; 36415; 93005; 93306; 93458; 85379; 83880; 80053; 84443; 83605; 83690; 83735; 84484; 85025; 85610; 85730; 81001; 87086; 87635; 71046; 76700; 71275; G0378 ×3; C1760; C1894; C1769 ×2; J2250; J2270; J2405 ×2; J2001; J0696 ×3; Q9967

== ENCOUNTER 2021-03-17 14:12 | Emergency (ER) | payer MEDICARE ==
[2021-03-17 14:21] VITALS: BP 167/70; PULSE 86; RESP 18; TEMP 98.2
[2021-03-17] MEDS ORDERED: DIPH,PERTUS(ACELL)TETVAC-LF 0.5 ML VIAL IM ONE ×2 (15:22→15:36)
[2021-03-17] MEDS ORDERED: Acetaminophen-Codeine 300-30mg TAB PO STA (15:22)
--- NOTE | 2021-03-17 15:58 | ED ---
General Adult HPI - General Chief complaint: Wound/Laceration Stated complaint: Leg lac Time Seen by Provider: 03/17/21 15:06 Source: patient, EMS, RN notes reviewed Mode of arrival: EMS Limitations: no limitations - History of Present Illness Initial comments: 85-year-old female presents to the emergency room for a chief complaint of skin tear of the right lower leg. Patient reports that she was vacuuming the vacuum handle fell and hit her in the right calf area causing a skin tear. Patient states she has had similar problems before. Patient denies difficulty walking on the leg. Patient does not take blood thinners. She does not think her tetanus is up-to-date in the past 5 years.Patient has no other complaints at this time including shortness of breath, chest pain, abdominal pain, nausea or vomiting, headache, or visual changes. - Related Data Home Medications Medication Instructions Recorded Confirmed Acetaminophen-Codeine 300-30mg 1 tab PO Q6H PRN 09/19/20 09/19/20 [Tylenol w/codeine #3] Diclofenac Sodium [Voltaren Gel] 4 gram TOPICAL QID PRN 09/19/20 09/19/20 Metoprolol Tartrate [Lopressor] 25 mg PO BID 09/19/20 09/19/20 Mirtazapine 30 mg PO HS 09/19/20 09/19/20 Omeprazole 20 mg PO AC-BRKFST 09/19/20 09/19/20 Pregabalin [Lyrica] 75 mg PO BID 09/19/20 09/19/20 Sulindac [Clinoril] 150 mg PO BID 09/19/20 09/19/20 busPIRone HCl [Buspar] 5 mg PO BID 09/19/20 09/19/20 rOPINIRole HCL [Requip] 0.25 - 0.5 mg PO HS 09/19/20 09/19/20 traZODone HCL 50 - 100 mg PO HS 09/19/20 09/19/20 Previous Rx's Medication Instructions Recorded Levothyroxine Sodium [Synthroid] 50 mcg PO DAILY #30 tab 09/21/20 Allergies Allergy/AdvReac Type Severity Reaction Status Date / Time diazepam [From Valium] AdvReac Confusion Verified 09/19/20 11:57 Review of Systems ROS Statement: Those systems with pertinent positive or pertinent negative responses have been documented in the HPI. ROS Other: All systems not noted in ROS Statement are negative. Past Medical History Past Medical History: Atrial Fibrillation, Osteoarthritis (OA) History of Any Multi-Drug Resistant Organisms: None Reported Past Surgical History: Bowel Resection, Hysterectomy, Orthopedic Surgery Additional Past Surgical History / Comment(s): Neck sx, right hip sx Past Psychological History: No Psychological Hx Reported Smoking Status: Never smoker Past Alcohol Use History: None Reported Past Drug Use History: None Reported General Exam Limitations: no limitations General appearance: alert, in no apparent distress Head exam: Present: atraumatic, normocephalic, normal inspection Eye exam: Present: normal appearance, PERRL, EOMI. Absent: scleral icterus, conjunctival injection, periorbital swelling ENT exam: Present: normal exam Neck exam: Present: normal inspection, full ROM Respiratory exam: Present: normal lung sounds bilaterally. Absent: respiratory distress, wheezes Cardiovascular Exam: Present: regular rate, normal rhythm, normal heart sounds GI/Abdominal exam: Present: soft. Absent: distended, tenderness Extremities exam: Present: full ROM (Full range of motion of the right lower extremity.), normal capillary refill (cap Refill less than 2 seconds, DP pulse 2+.), other (Patient has a 10 cm x 4 cm skin tear of the right lower leg, medial aspect calf.) Course Vital Signs 03/17/21 14:17 Temperature 98.2 F Pulse Rate 86 Respiratory 18 Rate Blood Pressure 167/70 O2 Sat by Pulse 97 Oximetry Procedures - Laceration Laceration #1 Consent Obtained: verbal consent Indication: laceration Site: lower extremity Size (cm): 10 Description: flap (Skin tear) Depth: simple, single layer Type of Sutures: other (Steri-Strips) Patient Tolerated Procedure: well, no complications Medical Decision Making - Medical Decision Making Wound margins were approximated as much as possible and Steri-Strips were applied. Vaseline gauze was applied to exposed area and wound was wrapped. I did discuss care parameters. Discussed following up with primary care. Discussed possibility of poor wound healing given the location of wound. She will return here for any worsening symptoms. Patient takes Tylenol 3 at home and was given one here in the emergency room however upon discharge requests additional pain medication. Patient will be given a [place] however heard friend is with her and will be able to stay with her throughout the day and is aware of increased risk of falls. Disposition Clinical Impression: Skin tear Disposition: HOME SELF-CARE Condition: Good Instructions (If sedation given, give patient instructions): Skin Tear (ED) Additional Instructions: Please remove gauze and redressed every 1-2 days. Keep the wound clean with gentle soap and water when you do this. Monitor for signs of infection such as spreading or streaking redness, drainage, or fever and return if these occur. Make sure you leave the Steri-Strips in place until they fall off. Return to the emergency room for any worsening symptoms. In the meantime follow-up with your primary care provider to ensure proper wound healing. Is patient prescribed a controlled substance at d/c from ED?: No Referrals: Eliza Pollard MD [Primary Care Provider] - 1-2 days Time of Disposition: 15:56
[2021-03-17] MEDS ORDERED: HYDROcodone/APAP 5-325MG 1 EACH TAB PO STA (16:07)
== END 2021-03-17 16:21 | disposition home or self-care (01) ==
LOC: EC 14:12
DX: S81.811A Laceration without foreign body, right lower leg, initial encounter (principal); Z23 Encounter for immunization; I48.91 Unspecified atrial fibrillation; M19.90 Unspecified osteoarthritis, unspecified site; Z79.1 Long term (current) use of non-steroidal anti-inflammatories (NSAID); W20.8XXA Other cause of strike by thrown, projected or falling object, initial encounter
CPT/HCPCS: 12004; 90471; 90715; 99283

== ENCOUNTER 2021-06-16 05:04 | Inpatient (IN) | payer MEDICARE ==
[2021-06-16] MEDS ORDERED: LORazepam 2 MG/ML INJ IV STA (05:16)
[2021-06-16] MEDS ORDERED: SODIUM CHLORIDE 0.9% 1,000 ML IV STA ×2 (05:16)
[2021-06-16] MEDS ORDERED: LORazepam 2 MG/ML INJ IV PRN (05:16)
[2021-06-16] MEDS ORDERED: PANTOPRAZOLE 40 MG/10 ML VIAL IVP STA (05:16)
[2021-06-16] MEDS ORDERED: cefTRIAXone IN SWFI 1,000 MG/10 ML SYRINGE IVP STA (05:17)
--- NOTE | 2021-06-16 05:17 | ED ---
GI Bleed HPI - General Chief complaint: GI Bleed Stated complaint: GI bleed Time Seen by Provider: 06/16/21 05:05 Source: EMS Mode of arrival: EMS Limitations: no limitations - Related Data Home Medications Medication Instructions Recorded Confirmed Acetaminophen-Codeine 300-30mg 1 tab PO Q6H PRN 09/19/20 09/19/20 [Tylenol w/codeine #3] Diclofenac Sodium [Voltaren Gel] 4 gram TOPICAL QID PRN 09/19/20 09/19/20 Metoprolol Tartrate [Lopressor] 25 mg PO BID 09/19/20 09/19/20 Mirtazapine 30 mg PO HS 09/19/20 09/19/20 Omeprazole 20 mg PO AC-BRKFST 09/19/20 09/19/20 Pregabalin [Lyrica] 75 mg PO BID 09/19/20 09/19/20 Sulindac [Clinoril] 150 mg PO BID 09/19/20 09/19/20 busPIRone HCl [Buspar] 5 mg PO BID 09/19/20 09/19/20 rOPINIRole HCL [Requip] 0.25 - 0.5 mg PO HS 09/19/20 09/19/20 traZODone HCL 50 - 100 mg PO HS 09/19/20 09/19/20 Previous Rx's Medication Instructions Recorded Levothyroxine Sodium [Synthroid] 50 mcg PO DAILY #30 tab 09/21/20 Allergies Allergy/AdvReac Type Severity Reaction Status Date / Time diazepam [From Valium] AdvReac Confusion Verified 06/16/21 05:10 Review of Systems ROS Statement: Those systems with pertinent positive or pertinent negative responses have been documented in the HPI. ROS Other: All systems not noted in ROS Statement are negative. Past Medical History Past Medical History: Atrial Fibrillation, Osteoarthritis (OA) History of Any Multi-Drug Resistant Organisms: None Reported Past Surgical History: Bowel Resection, Hysterectomy, Orthopedic Surgery Additional Past Surgical History / Comment(s): Neck sx, right hip sx Past Psychological History: No Psychological Hx Reported Smoking Status: Never smoker Past Alcohol Use History: None Reported Past Drug Use History: None Reported General Exam Limitations: no limitations Course Vital Signs 06/16/21 05:06 Temperature 98.6 F Pulse Rate 92 Respiratory 18 Rate Blood Pressure 134/113 O2 Sat by Pulse 95 Oximetry Medical Decision Making - Lab Data Lab Results 06/16/21 Range/Units 05:21 Blood Type Recheck No Previous Record Bld Type Recheck Status CABO Indicated Spec Expiration Date 06/19/2021 - 2320 Disposition Clinical Impression: GI bleed Disposition: ADMITTED IP TO THIS HOSP Condition: Fair Is patient prescribed a controlled substance at d/c from ED?: No Referrals: Eliza Pollard MD [Primary Care Provider] - 1-2 days
[2021-06-16] MEDS ORDERED: NALOXONE 0.4 MG/ML 1 ML VIAL IV PRN (05:31)
[2021-06-16] MEDS ORDERED: MORPHINE SULFATE 4 MG/ML SYRINGE IV PRN (05:31)
[2021-06-16 05:36] LABS: Basophils % (A) 0 %; Eosinophils # (A) 0.1 k/uL (0-0.7); Eosinophils % (A) 1 %; HCT 46.7 % (34.0-46.0); HGB 15.6 gm/dL (11.4-16.0); Lymphocytes # (A) 2.2 k/uL (1.0-4.8); Lymphocytes % (A) 24 %; MCH 31.7 pg (25.0-35.0); MCHC 33.4 g/dL (31.0-37.0); MCV 94.8 fL (80.0-100.0); Mean Platelet Volume 7.9; Monocytes # (A) 0.3 k/uL (0-1.0); Monocytes % (A) 3 %; Neutrophils # (A) 6.6 k/uL (1.3-7.7); Neutrophils % (A) 71 %; Platelet Count 243 k/uL (150-450); RBC 4.92 m/uL (3.80-5.40); RDW 13.8 % (11.5-15.5); WBC 9.3 k/uL (3.8-10.6)
[2021-06-16] MEDS: SODIUM CHLORIDE 0.9% 1,000 ML IV SCH ×5 (05:39→20:53)
[2021-06-16 05:56] LABS: ALT 21 U/L (4-34); AST 33 U/L (14-36); African American GFR (CKD) >90 (>60 ml/min/1.73 sqM); Albumin 4.5 g/dL (3.5-5.0); Alkaline Phosphatase 97 U/L (38-126); Anion Gap 11 mmol/L; Blood Urea Nitrogen 34 mg/dL (7-17); Calcium 9.4 mg/dL (8.4-10.2); Carbon Dioxide 28 mmol/L (22-30); Chloride 101 mmol/L (98-107); Glucose 151 mg/dL (74-99); Lipase 108 U/L (23-300); Non-African American GFR(CKD) 83 (>60 ml/min/1.73 sqM); Potassium 4.2 mmol/L (3.5-5.1); Sodium 140 mmol/L (137-145); Total Bilirubin 0.5 mg/dL (0.2-1.3); Total Protein 7.2 g/dL (6.3-8.2)
[2021-06-16 06:00] LABS: Partial Thromboplastin Time 21.6 sec (22.0-30.0); Prothrombin Time 10.4 sec (9.0-12.0)
[2021-06-16 07:49] LABS: Appearance,Urine Cloudy (Clear); Bacteria,Urine Occasional /hpf; Bilirubin,Urine Negative (Negative); Blood,Urine Large (Negative); Color,Urine Light Yellow; Glucose,Urine (UA) Negative (Negative); Ketones,Urine Negative (Negative); Leukocyte Esterase,Urine Negative (Negative); Mucus,Urine Rare /hpf; Nitrite,Urine Positive (Negative); PH, Urine 5.5 (5.0-8.0); Protein,Urine Negative (Negative); RBC,Urine 1 /hpf (0-5); Specific Gravity,Urine 1.008 (1.001-1.035); Squamous Epithelial Cell,Urine 1 /hpf (0-4); Urobilinogen,Urine <2.0 mg/dL (<2.0); WBC,Urine 1 /hpf (0-5)
[2021-06-16] MEDS: ONDANSETRON 4 MG/2 ML VIAL IVP PRN (08:56)
--- NOTE | 2021-06-16 10:34 | P.HPIM ---
History of Present Illness H&P Date: 06/16/21 This is a 85-year-old female with past medical history noted below that presented to the emergency room with rectal bleeding. Patient was seen by me in the ER. She appeared lethargic and easily arousable. She was a poor historian. Her nurse told me that she just received IV morphine and this why she might be lethargic. Patient was complaining of severe abdominal pain all across her abdomen. Nursing staff informed me that her chief complaint was rectal bleed. Her hemoglobin is stable. Patient is unable to provide any further history. She was evaluated in the ER and placed on observation. Patient heart rate noted to be in the 1:30 at the time of my evaluation. She is hemodynamically stable. No documented fever. Review of Systems Review of system: 14 points review of systems were obtained and were negative except to what were mentioned in the HPI. Past Medical History Past Medical History: Atrial Fibrillation, Osteoarthritis (OA) History of Any Multi-Drug Resistant Organisms: None Reported Past Surgical History: Bowel Resection, Hysterectomy, Orthopedic Surgery Additional Past Surgical History / Comment(s): Neck sx, right hip sx Past Psychological History: No Psychological Hx Reported Smoking Status: Never smoker Past Alcohol Use History: None Reported Past Drug Use History: None Reported Medications and Allergies Home Medications Medication Instructions Recorded Confirmed Type Acetaminophen-Codeine 300-30mg 1 tab PO Q6H PRN 09/19/20 06/16/21 History [Tylenol w/codeine #3] Diclofenac Sodium [Voltaren Gel] 4 gram TOPICAL QID PRN 09/19/20 06/16/21 History Metoprolol Tartrate [Lopressor] 25 mg PO BID 09/19/20 06/16/21 History Mirtazapine 30 mg PO HS 09/19/20 06/16/21 History Omeprazole 20 mg PO AC-BRKFST 09/19/20 06/16/21 History Pregabalin [Lyrica] 75 mg PO BID 09/19/20 06/16/21 History Sulindac [Clinoril] 150 mg PO BID 09/19/20 06/16/21 History busPIRone HCl [Buspar] 5 mg PO BID 09/19/20 06/16/21 History rOPINIRole HCL [Requip] 0.25 - 0.5 mg PO HS 09/19/20 06/16/21 History traZODone HCL 50 - 100 mg PO HS 09/19/20 06/16/21 History Levothyroxine Sodium [Synthroid] 50 mcg PO DAILY #30 tab 09/21/20 06/16/21 Rx Docusate [Colace] 100 mg PO BID 06/16/21 06/16/21 History Lactobacillus Acidophilus 1 cap PO DAILY 06/16/21 06/16/21 History [Acidophilus Probiotic] Mirabegron [Myrbetriq] 25 mg PO DAILY 06/16/21 06/16/21 History Vit C/E/Zn/Coppr/Lutein/Zeaxan 1 cap PO BID 06/16/21 06/16/21 History [Preservision Areds 2 Softgel] Allergies Allergy/AdvReac Type Severity Reaction Status Date / Time diazepam [From Valium] AdvReac Confusion Verified 06/16/21 10:15 Physical Exam Vitals: Vital Signs Temp Pulse Resp BP Pulse Ox 06/16/21 08:43 101 H 18 149/84 91 L 06/16/21 05:06 98.6 F 92 18 134/113 95 Intake and Output 06/15/21 06/16/21 06/16/21 22:59 06:59 14:59 Other: Weight 54.431 kg General: The patient is awake and alert, in no distress Eye: there is normal conjunctiva bilaterally. Neck: The neck is supple, there is no JVD. Cardiovascular: Normal S1-S2, no S3-S4, no murmurs. Respiratory: Lungs clear to auscultation bilaterally Gastrointestinal: Abdomen is distended with moderate to severe palpation all over Musculoskeletal: There is no pedal edema. Neurological:. Speech is normal. Skin: Skin is warm and dry Results CBC & Chem 7: 06/16/21 05:21 06/16/21 05:21 Labs: Abnormal Lab Results - Last 24 Hours (Table) 06/16/21 06/16/21 06/16/21 Range/Units 05:21 05:21 05:21 Hct 46.7 H (34.0-46.0) % APTT 21.6 L (22.0-30.0) sec BUN 34 H (7-17) mg/dL Glucose 151 H (74-99) mg/dL Urine Appearance (Clear) Urine Blood (Negative) Urine Nitrite (Negative) Urine Bacteria (None) /hpf Urine Mucus (None) /hpf 06/16/21 Range/Units 07:28 Hct (34.0-46.0) % APTT (22.0-30.0) sec BUN (7-17) mg/dL Glucose (74-99) mg/dL Urine Appearance Cloudy H (Clear) Urine Blood Large H (Negative) Urine Nitrite Positive H (Negative) Urine Bacteria Occasional H (None) /hpf Urine Mucus Rare H (None) /hpf Assessment and Plan Assessment: 1. Rectal bleed 2. Abdominal pain with distention and tenderness 3. Hematuria with questionable UTI 4. Chronic medical problems: Hypothyroidism, GERD, underlying anxiety Today, I reviewed her medication list and lab work results I would obtain a stat lactic acid Stat computed tomography scan of the abdomen and pelvis for further evaluation Continue empiric antibiotic with IV ceftriaxone 2 g daily awaiting urine culture Pain control and anti-emetic as needed Continue aggressive IV fluid hydration with normal saline at 1:30 per hour Nothing by mouth except ice chips and medications Awaiting general surgery evaluation
--- NOTE | 2021-06-16 12:24 | CT ---
EXAMINATION TYPE: CT abdomen pelvis wo con DATE OF EXAM: 06/16/2021 COMPARISON: None HISTORY: Abdominal pain, distention, rectal bleeding CT DLP: 500.5 mGycm Automated exposure control for dose reduction was used. TECHNIQUE: Helical acquisition of images from the lung bases through the pelvis. FINDINGS: There is motion on the exam. Lack of intravenous contrast could compromise sensitivity. Sma ll hiatal hernia suspected. LUNG BASES: Some dependent atelectatic changes are present, there may be some interstitial changes wi thin the lungs. AORTA: No significant abnormality is appreciated. LIVER/GB: Patient is postcholecystectomy. Prominence of the bile duct especially towards the head of the pancreas may be due to postcholecystectomy change PANCREAS: No significant abnormality is seen. SPLEEN: Punctate calcifications suggest old granulomatous disease.. ADRENALS: No significant abnormality is seen. KIDNEYS: Punctate nonobstructive calculus is present in the lower pole of the left kidney. REPRODUCTIVE ORGANS: No significant abnormality is seen. URINARY BLADDER: Distended with urine. BOWEL: Large amount of retained fecal debris is present withi n the colon. There is colonic wall thickening especially in the sigmoid colon region, redundancy is p resent, large focus of stool which shows increased attenuation is present in the left lower quadrant. There is pneumatosis present at this level. Free air is also noted in the left hemiabdomen, along Ge rota's fascia, and underneath the left hemidiaphragm and along the pericolonic region. Impacted stool s shows a diameter of approximately 6.5 cm in transverse dimension. The sigmoid colon, rectosigmoid region shows extensive diverticular change, colonic wall thickening, there is pericolonic inflammatory change. Within the sigmoid colon more peripherally there is a hypod ense area with focal air collection which is indeterminate and may be related to local intramural abs cess. This area measures approximately 2 cm. Metallic densities associated with the bowel anteriorly in the left for quadrant FREE AIR: No Free Air is visible. ASCITES: None visible. PELVIC ADENOPATHY: None visualized. RETROPERITONEAL ADENOPATHY: No Retroperitoneal Adenopathy visible. OSSEOUS STRUCTURES: Streak artifact from patient's right hip prosthesis could limit sensitivity.. Ma rked degenerative disc changes, scoliosis, facet arthropathy change within the visualized spine IMPRESSION: IMPACTED STOOL BUT PRESENT AT THE LEVEL OF THE DESCENDING COLON AT ITS JUNCTION WITH THE SIGMOID COLO N WITH POSSIBLE LOCAL ISCHEMIC CHANGES, PERFORATION, THERE IS PNEUMOPERITONEUM. RESULTS RELAYED AT TH E TIME OF INTERPRETATION TO THE REFERRING CLINICIAN.
[2021-06-16] MEDS ORDERED: ROCURONIUM 10 MG/ML (5 ML VIAL) IV ONE (14:30)
[2021-06-16] MEDS ORDERED: ETOMIDATE 2 MG/ML 10 ML VIAL ONE (14:30)
[2021-06-16] MEDS ORDERED: SUCCINYLCHOLINE CHLORIDE 100 MG/5 ML SYR IV ONE (14:30)
[2021-06-16] MEDS ORDERED: ALBUMIN HUMAN 5% (25gm) 500 ML VIAL IVPB ONE (14:30)
[2021-06-16] MEDS ORDERED: fentaNYL (PF) 50 MCG/ML 2 ML AMP ONE (14:30)
[2021-06-16] MEDS ORDERED: LIDOCAINE 1% INJ 10MG/ML (20 ML MDV) ONE (14:30)
[2021-06-16] MEDS ORDERED: metroNIDAZOLE-NS PMX 500 MG in SALINE 1 100ML.BAG IVPB STA (14:30)
[2021-06-16] MEDS ORDERED: SODIUM CHLORIDE 0.9% 100 ML with ceFAZolin 2,000 MG IV ONE ×2 (14:35)
[2021-06-16] MEDS ORDERED: LACTATED RINGERS 1,000 ML IV ONE ×3 (14:35)
--- NOTE | 2021-06-16 14:37 | P.GSCN ---
History of Present Illness Consult date: 06/16/21 Reason for Consult: Colon perforation History of present illness: 85-year-old female presents to the ER with complaints of abdominal pain and r ectal bleeding. Patient was seen by the admitting physician and her abdominal examination was impressive. Stat CAT scan was ordered which demonstrates findings consistent with perforation of the left side of her colon. She appears to have had a previous colon resection in the past. She is tachycardic with atrial fibrillation and rapid ventricular response. Her white blood cell count is elevated. She is afebrile. She was evaluated in preop. She is actually quite alert and able to provide good history. She had a bowel resection in the past she states. Her daughter is traveling on a camping trip to [place]. History of chronic constipation. Some blood in her stool recently. Review of Systems The patient denies any acute changes in vision or hearing, no dysphagia or odynophagia, no chest pain or shortness of breath, no dysuria or hematuria, no headache, no runny nose, no melena, no unexplained weight loss Past Medical History Past Medical History: Atrial Fibrillation, Osteoarthritis (OA) History of Any Multi-Drug Resistant Organisms: None Reported Past Surgical History: Bowel Resection, Hysterectomy, Orthopedic Surgery Additional Past Surgical History / Comment(s): Neck sx, right hip sx Past Psychological History: No Psychological Hx Reported Smoking Status: Never smoker Past Alcohol Use History: None Reported Past Drug Use History: None Reported Medications and Allergies Home Medications Medication Instructions Recorded Confirmed Type Acetaminophen-Codeine 300-30mg 1 tab PO Q6H PRN 09/19/20 06/16/21 History [Tylenol w/codeine #3] Diclofenac Sodium [Voltaren Gel] 4 gram TOPICAL QID PRN 09/19/20 06/16/21 History Metoprolol Tartrate [Lopressor] 25 mg PO BID 09/19/20 06/16/21 History Mirtazapine 30 mg PO HS 09/19/20 06/16/21 History Omeprazole 20 mg PO AC-BRKFST 09/19/20 06/16/21 History Pregabalin [Lyrica] 75 mg PO BID 09/19/20 06/16/21 History Sulindac [Clinoril] 150 mg PO BID 09/19/20 06/16/21 History busPIRone HCl [Buspar] 5 mg PO BID 09/19/20 06/16/21 History rOPINIRole HCL [Requip] 0.25 - 0.5 mg PO HS 09/19/20 06/16/21 History traZODone HCL 50 - 100 mg PO HS 09/19/20 06/16/21 History Levothyroxine Sodium [Synthroid] 50 mcg PO DAILY #30 tab 09/21/20 06/16/21 Rx Docusate [Colace] 100 mg PO BID 06/16/21 06/16/21 History Lactobacillus Acidophilus 1 cap PO DAILY 06/16/21 06/16/21 History [Acidophilus Probiotic] Mirabegron [Myrbetriq] 25 mg PO DAILY 06/16/21 06/16/21 History Vit C/E/Zn/Coppr/Lutein/Zeaxan 1 cap PO BID 06/16/21 06/16/21 History [Preservision Areds 2 Softgel] Allergies Allergy/AdvReac Type Severity Reaction Status Date / Time diazepam [From Valium] AdvReac Confusion Verified 06/16/21 10:15 Surgical - Exam Vital Signs Temp Pulse Resp BP Pulse Ox 98.6 F 92 18 134/113 95 06/16/21 05:06 06/16/21 05:06 06/16/21 05:06 06/16/21 05:06 06/16/21 05:06 Physical exam: General: Well-developed, well-nourished HEENT: Normocephalic, sclerae nonicteric Abdomen: Diffuse tenderness with peritonitis Extremities: No edema Neuro: Alert and oriented Results - Labs 06/16/21 05:21 06/16/21 05:21 Abnormal Lab Results - Last 24 Hours (Table) 06/16/21 06/16/21 06/16/21 Range/Units 05:21 05:21 05:21 Hct 46.7 H (34.0-46.0) % APTT 21.6 L (22.0-30.0) sec BUN 34 H (7-17) mg/dL Glucose 151 H (74-99) mg/dL Plasma Lactic Acid Frandy (0.7-2.0) mmol/L Urine Appearance (Clear) Urine Blood (Negative) Urine Nitrite (Negative) Urine Bacteria (None) /hpf Urine Mucus (None) /hpf 06/16/21 06/16/21 Range/Units 07:28 11:12 Hct (34.0-46.0) % APTT (22.0-30.0) sec BUN (7-17) mg/dL Glucose (74-99) mg/dL Plasma Lactic Acid Frandy 2.5 H* (0.7-2.0) mmol/L Urine Appearance Cloudy H (Clear) Urine Blood Large H (Negative) Urine Nitrite Positive H (Negative) Urine Bacteria Occasional H (None) /hpf Urine Mucus Rare H (None) /hpf Diabetes panel 06/16/21 Range/Units 05:21 Sodium 140 (137-145) mmol/L Potassium 4.2 (3.5-5.1) mmol/L Chloride 101 (98-107) mmol/L Carbon Dioxide 28 (22-30) mmol/L BUN 34 H (7-17) mg/dL Creatinine 0.59 (0.52-1.04) mg/dL Glucose 151 H (74-99) mg/dL Calcium 9.4 (8.4-10.2) mg/dL AST 33 (14-36) U/L ALT 21 (4-34) U/L Alkaline Phosphatase 97 (38-126) U/L Total Protein 7.2 (6.3-8.2) g/dL Albumin 4.5 (3.5-5.0) g/dL Calcium panel 06/16/21 Range/Units 05:21 Calcium 9.4 (8.4-10.2) mg/dL Albumin 4.5 (3.5-5.0) g/dL Pituitary panel 06/16/21 Range/Units 05:21 Sodium 140 (137-145) mmol/L Potassium 4.2 (3.5-5.1) mmol/L Chloride 101 (98-107) mmol/L Carbon Dioxide 28 (22-30) mmol/L BUN 34 H (7-17) mg/dL Creatinine 0.59 (0.52-1.04) mg/dL Glucose 151 H (74-99) mg/dL Calcium 9.4 (8.4-10.2) mg/dL Adrenal panel 06/16/21 Range/Units 05:21 Sodium 140 (137-145) mmol/L Potassium 4.2 (3.5-5.1) mmol/L Chloride 101 (98-107) mmol/L Carbon Dioxide 28 (22-30) mmol/L BUN 34 H (7-17) mg/dL Creatinine 0.59 (0.52-1.04) mg/dL Glucose 151 H (74-99) mg/dL Calcium 9.4 (8.4-10.2) mg/dL Total Bilirubin 0.5 (0.2-1.3) mg/dL AST 33 (14-36) U/L ALT 21 (4-34) U/L Alkaline Phosphatase 97 (38-126) U/L Total Protein 7.2 (6.3-8.2) g/dL Albumin 4.5 (3.5-5.0) g/dL Assessment and Plan (1) Colon perforation Narrative/Plan: 85-year-old female with CAT scan findings of colonic perforation. Spoke briefly with the patient's daughter 3 separate times but kept losing our phone signal. She was able to hear that we were taking her for emergency surgery for the colon perforation. I believe she heard that we were proceeding with colostomy at this time. The operative plans were discussed with the patient who is awake and alert and oriented. Need for colectomy with end colostomy reviewed. Risks of bleeding, infection, hernia, abscess, bladder bowel and ureteral injury, respiratory and cardiac failure, reviewed. She understands and wishes to proceed. I will continue to try to reach the patient's daughter who is the [employer]. Current Visit: Yes Status: Acute Code(s): K63.1 - PERFORATION OF INTESTINE (NONTRAUMATIC) SNOMED Code(s): 68288866
[2021-06-16] MEDS ORDERED: ALBUMIN HUMAN 5% 500 ML IVPB ONE (15:15)
[2021-06-16 16:44] LABS: Glucose,Whole Blood 108 mg/dL (75-99)
--- NOTE | 2021-06-16 16:44 | P.OP ---
Date of Procedure: 06/16/21 Procedure(s) Performed: PREOPERATIVE DIAGNOSIS: Colon perforation POSTOPERATIVE DIAGNOSIS: Same PROCEDURE: Partial colectomy with end colostomy, mobilization splenic flexure SURGEON: Zeeshan EBL: 20 mL ANESTHESIA: General COMPLICATIONS: None OPERATIVE PROCEDURE: Patient place in the operative table in the supine position. The patient was placed under general anesthesia. The abdomen was prepped and draped in usual sterile fashion. A vertical incision was made encompassing extending from the supraumbilical to the infraumbilical location. The fascia was divided as well. Serous fluid was identified in the abdomen. The Bookwalter retractor was utilized. The patient had a few adhesions between the small bowel loops and the anterior abdominal wall that were lysed sharply. The patient's left colon was inspected. There was evidence of stool present beneath the peritoneal surface along the left gutter. Blunt dissection entered into a abscess cavity where there was a large piece of stool present that had perforated through a defect in the lateral wall of the descending colon. The bowel was divided distal to this using a linear green load stapler. The mesentery was then divided using the LigaSure device and 0 silk ties. In mobilizing the left colon the splenic flexure was fully mobilized using both electrocautery and the LigaSure. No bleeding was seen. Once we had an adequate section of bowel in the mid transverse colon the bowel was divided using a blue load stapler. The specimen was passed off at this point. A circular incision was made in the left midabdomen. Dissection through the subcutaneous fat and fascia took place using electrocautery. I bluntly entered the peritoneal cavity and this was further bluntly opened. The bowel was brought out through this defect in the left midabdomen. The patient had a large volume of stool that was still firm in nature in the transverse colon. There was softer stool present in the ascending colon. I actually took the staple line off of the end ostomy and we milked out the firm stool into a container. The colostomy was then matured in a [place] fashion using interrupted 3-0 Vicryl sutures. That area was then cleaned off and a Tegaderm dressing was applied to that. The patient's abdomen was copiously irrigated with 4 L of saline. Our gloves had been changed obviously. No bleeding was seen in the abdomen. The midline fascia was then reapproximated using 2 separate double-stranded #1 PDS sutures. The subcutaneous tissues were irrigated. The skin was loosely reapproximated with brooke. A sterile midline dressing was then placed. The ostomy appliance was then placed. DISPOSITION: Stable to recovery room in guarded condition to the ICU on the ventilator. The patient's family was informed of her condition and the operative findings. I spoke to both Lor and her friend Zena.
[2021-06-16] MEDS: METOPROLOL TARTRATE 25 MG TAB PO SCH ×2 (16:49→20:52)
[2021-06-16] MEDS: PANTOPRAZOLE 40 MG/10 ML VIAL IV SCH ×2 (16:49→20:52)
[2021-06-16] MEDS: PIPERACILLIN-TAZOBACTAM 3.375 GM in SODIUM CHLORIDE 0.9% 100 ML IVPB SCH ×2 (16:49→20:53)
[2021-06-16] MEDS ORDERED: propofoL 100 ML IV ONE (16:54)
[2021-06-16 17:33] LABS: ABG Base Excess -5.6 mmol/L; ABG HCO3 21 mmol/L (21-25); ABG Oxygen Saturation 99.7 % (94-97); ABG PCO2 42 mmHg (35-45); ABG PO2 362 mmHg (83-108); ABG TCO2 22 mmol/L (19-24)
--- NOTE | 2021-06-16 17:39 | XR ---
EXAMINATION TYPE: XR chest 1V portable DATE OF EXAM: 06/16/2021 COMPARISON: NONE HISTORY: Tube placement TECHNIQUE: 2 views FINDINGS: There is some mild interstitial infiltrate and atelectasis at the lung bases. There is slig ht blunting left costophrenic angle. There is no gross heart failure. There is endotracheal tube whic h is 1.5 cm extending into the right mainstem bronchus. There is nasogastric tube in the distal stoma ch. There are chest leads. IMPRESSION: There is malposition of the endotracheal tube and should BE pulled back 5 cm. There is so me pleural reaction and mild atelectasis at the lung bases.
--- NOTE | 2021-06-16 18:28 | XR ---
EXAMINATION TYPE: XR chest 1V portable DATE OF EXAM: 06/16/2021 COMPARISON: Today HISTORY: Check tube placement TECHNIQUE: FINDINGS: Endotracheal tube is 4 cm from the urvashi in good position. There is some atelectasis and i nfiltrate left lung base. There is no heart failure. Heart size is normal. There is nasogastric tube in the distal stomach. IMPRESSION: Endotracheal tube in good position. There is some mild infiltrate and atelectasis left michael ng base without change.
[2021-06-16] MEDS: traZODone HCL 50 MG TAB PO SCH (21:36)
[2021-06-16] MEDS: busPIRone HCl 5 MG TAB PO SCH (21:36)
[2021-06-16] MEDS: MIRTAZAPINE 15 MG TAB PO SCH (21:36)
[2021-06-16] MEDS ORDERED: SODIUM CHLORIDE 0.9% 1,000 ML IV ONE (22:20)
[2021-06-16] MEDS: NOREPINEPHRINE 4 MG in SODIUM CHLORIDE 0.9% 250 ML IV SCH (22:32)
[2021-06-17] MEDS: metroNIDAZOLE-NS PMX 500 MG in SALINE 1 100ML.BAG IVPB SCH ×3 (00:14→17:48)
[2021-06-17 00:15] LABS: Glucose,Whole Blood 92 mg/dL (75-99)
[2021-06-17] MEDS ORDERED: SODIUM CHLORIDE 0.9% 500 ML 500 ML IV ONE (01:50)
[2021-06-17 04:34] LABS: HCT 38.4 % (34.0-46.0); MCH 30.6 pg (25.0-35.0); MCHC 32.8 g/dL (31.0-37.0); MCV 93.5 fL (80.0-100.0); Mean Platelet Volume 8.2; Platelet Count 191 k/uL (150-450); RDW 14.3 % (11.5-15.5); WBC 14.5 k/uL (3.8-10.6)
[2021-06-17 04:40] LABS: HGB 12.6 gm/dL (11.4-16.0)
[2021-06-17 05:03] LABS: Calcium 6.9 mg/dL (8.4-10.2); Potassium 3.3 mmol/L (3.5-5.1)
[2021-06-17 05:07] LABS: ABG HCO3 20 mmol/L (21-25); ABG Oxygen Saturation 99.3 % (94-97); ABG PCO2 32 mmHg (35-45); ABG PO2 142 mmHg (83-108); ABG TCO2 21 mmol/L (19-24); Allen Test Performed? Yes
[2021-06-17 05:20] LABS: Band Neutrophils % 14 %; Eosinophils # (M) 0.15 k/uL (0-0.7); Lymphocytes # (M) 1.31 k/uL (1.0-4.8); Monocytes # (M) 0.58 k/uL (0-1.0); Neutrophils % (M) 72 %; Nucleated Red Blood Cells 0 /100 WBC (0-0); Total Cells Counted 100
[2021-06-17] MEDS ORDERED: Potassium Replacement Protocol 1 EACH MISC MISCELLANE PRN (06:20)
[2021-06-17] MEDS: PIPERACILLIN-TAZOBACTAM 3.375 GM in SODIUM CHLORIDE 0.9% 100 ML IVPB SCH ×3 (06:24→20:22)
[2021-06-17] MEDS: SODIUM CHLORIDE 0.9% 1,000 ML IV SCH ×2 (06:24→13:27)
[2021-06-17] MEDS: LEVOTHYROXINE 50 MCG TAB PO SCH (06:25)
[2021-06-17] MEDS: POTASSIUM BICARBONATE/CIT AC 20 MEQ TABLET.EFF NG-TUBE SCH ×3 (06:59→22:01)
[2021-06-17] MEDS: NOREPINEPHRINE 4 MG in SODIUM CHLORIDE 0.9% 250 ML IV SCH (07:10)
--- NOTE | 2021-06-17 07:20 | XR ---
EXAMINATION TYPE: XR chest 1V portable DATE OF EXAM: 06/17/2021 COMPARISON: Chest x-ray 06/16/2021 HISTORY: Intubated TECHNIQUE: Single frontal view of the chest is obtained. FINDINGS: Endotracheal tube and NG tube, overlying leads are present, surgical clips present in the right upper quadrant. Patchy basilar density persists. Cardiac mediastinal silhouette is stable. Ther e is no evident pneumothorax or sizable effusion. Patient is likely kyphotic, rotated. Aorta is dense . IMPRESSION: Probable basilar atelectasis.
[2021-06-17] MEDS: NON FORMULARY DRUG (Mirabegron [Myrbetriq] 25 MG Tablet) PO SCH (11:05)
[2021-06-17] MEDS: ONDANSETRON 4 MG/2 ML VIAL IVP PRN ×2 (11:20→18:55)
[2021-06-17] MEDS: MORPHINE SULFATE 2 MG/ML SYRINGE IV PRN ×3 (11:20→18:55)
[2021-06-17] MEDS: PANTOPRAZOLE 40 MG/10 ML VIAL IV SCH (11:20)
[2021-06-17] MEDS: METOPROLOL TARTRATE 25 MG TAB PO SCH ×2 (11:21→21:05)
[2021-06-17] MEDS: busPIRone HCl 5 MG TAB PO SCH ×2 (11:43→22:01)
--- NOTE | 2021-06-17 11:54 | P.PN ---
Subjective Progress Note Date: 06/17/21 Principal diagnosis: Left-sided colon perforation Patient was extubated this morning around 9:00. Patient had an episode of emesis following that. It sounds like the nasogastric tube may have not been hooked up to suction. After the nursing staff. The nasogastric tube to suction 700 mL of output was obtained. The patient's lactic acid postoperatively yesterday was quite elevated at 6.9. Today is down to 2.1. She has had adequate urine output. White blood cell count 14.5, hemoglobin 12.6. Objective - Vital Signs Vital signs: Vital Signs Temp 99 F 06/17/21 04:00 Pulse 101 H 06/17/21 07:00 Resp 21 06/17/21 07:00 BP 127/61 06/17/21 07:00 Pulse Ox 100 06/17/21 07:00 Intake & Output 06/16/21 06/17/21 06/17/21 18:59 06:59 18:59 Intake Total 6651.594 7471.955 283.921 Output Total 550 595 35 Balance 197.777 9269.955 248.921 Weight 56.2 kg 58.9 kg Intake: IV 1000 2300 100 Sodium Chloride 0.9% 1, 1300 100 000 ml @ 100 mls/hr IV . Q10H STA Rx#:[id number] Sodium Chloride 0.9% 1, 1000 000 ml @ 999 mls/hr IV . Q1H1M STA Rx#:[id number] Intake, IV Titration 8.356 118.955 183.921 Amount Norepinephrine 4 mg In 114.628 126.260 Sodium Chloride 0.9% 250 ml @ 0.05 MCG/KG/MIN 10. 706 mls/hr IV .[id number] RAMÍREZ Rx#:[id number] propofoL 1,000 mg In 8.356 4.327 57.661 Empty Bag 1 bag @ Titrate IV .Q0M RAMÍREZ Rx#: [id number] Output: Urine 500 595 35 Estimated Blood Loss 50 Other: Voiding Method Indwelling Catheter ABP, PAP, CO, CI - Last Documented Arterial Blood Pressure 141/50 - Exam Abdomen: Soft, nondistended, dressing clean and dry, ostomy pink - Labs CBC & Chem 7: 06/17/21 03:55 06/17/21 03:55 Labs: Abnormal Lab Results - Last 24 Hours (Table) 06/16/21 06/16/21 06/16/21 Range/Units 16:37 17:30 18:35 WBC (3.8-10.6) k/uL Neutrophils # (Manual) (1.3-7.7) k/uL ABG pH 7.30 L (7.35-7.45) ABG pCO2 (35-45) mmHg ABG pO2 362 H (83-108) mmHg ABG HCO3 (21-25) mmol/L ABG O2 Saturation 99.7 H (94-97) % Potassium (3.5-5.1) mmol/L Chloride (98-107) mmol/L Carbon Dioxide (22-30) mmol/L BUN (7-17) mg/dL POC Glucose (mg/dL) 108 H (75-99) mg/dL Plasma Lactic Acid Frandy 6.9 H* (0.7-2.0) mmol/L Calcium (8.4-10.2) mg/dL 06/16/21 06/17/21 06/17/21 Range/Units 21:27 00:55 03:55 WBC 14.5 H (3.8-10.6) k/uL Neutrophils # (Manual) 12.40 H (1.3-7.7) k/uL ABG pH (7.35-7.45) ABG pCO2 (35-45) mmHg ABG pO2 (83-108) mmHg ABG HCO3 (21-25) mmol/L ABG O2 Saturation (94-97) % Potassium (3.5-5.1) mmol/L Chloride (98-107) mmol/L Carbon Dioxide (22-30) mmol/L BUN (7-17) mg/dL POC Glucose (mg/dL) (75-99) mg/dL Plasma Lactic Acid Frandy 3.7 H* 2.5 H* (0.7-2.0) mmol/L Calcium (8.4-10.2) mg/dL 06/17/21 06/17/21 06/17/21 Range/Units 03:55 03:55 05:03 WBC (3.8-10.6) k/uL Neutrophils # (Manual) (1.3-7.7) k/uL ABG pH (7.35-7.45) ABG pCO2 32 L (35-45) mmHg ABG pO2 142 H (83-108) mmHg ABG HCO3 20 L (21-25) mmol/L ABG O2 Saturation 99.3 H (94-97) % Potassium 3.3 L (3.5-5.1) mmol/L Chloride 114 H (98-107) mmol/L Carbon Dioxide 19 L (22-30) mmol/L BUN 26 H (7-17) mg/dL POC Glucose (mg/dL) (75-99) mg/dL Plasma Lactic Acid Frandy 2.1 H* (0.7-2.0) mmol/L Calcium 6.9 L (8.4-10.2) mg/dL Microbiology - Last 24 Hours (Table) 06/16/21 20:23 Sputum Culture - Preliminary Sputum Assessment and Plan (1) Colon perforation Narrative/Plan: Patient with episodes of vomiting. Keep nasogastric tube to suction. Continue analgesics. Continue pulmonary toilet. Continue IV antibiotics. Out of bed to chair today hopefully. Current Visit: Yes Status: Acute Code(s): K63.1 - PERFORATION OF INTESTINE (NONTRAUMATIC) SNOMED Code(s): 37260040
[2021-06-17 12:01] LABS: Glucose,Whole Blood 78 mg/dL (75-99)
--- NOTE | 2021-06-17 12:19 | P.CNPUL ---
History of Present Illness Consult date: 06/17/21 Reason for consult: other (Patient is status post partial colectomy with end colostomy, on mechanical ventilation since her surgery.) Chief complaint: Abdominal pain and rectal bleeding History of present illness: This is an 85-year-old female with history of chronic atrial fibrillation, history of bowel resection, hysterectomy, right hip surgery, patient was brought into the ER on 06/16 with acute onset of abdominal pain and rectal bleeding. Computed tomography scan of the abdomen and pelvis showed perforation and free air suggestive of bowel rupture. Patient was also noted to be tachycardic, she was in atrial fibrillation with RVR, and she was noted to have leukocytosis. Patient underwent surgery yesterday by Dr. barney, patient had partial colectomy and end colostomy and mobilization of splenic flexure. There was evidence of stool present beneath that peritoneal surface along the left gutter the patient underwent blunt dissection, and a drainage of abscess cavity and the perforation was basically through a defect in the lateral wall of the descending colon. Postoperatively, the patient was sent to the intensive care unit, intubated and mechanically ventilated. Patient could not be extubated in the recovery room. I saw this patient this morning, and I was made aware of her ventilator settings last night. Today the patient is on assist control rate of 14 volume 400 FiO2 30% and PEEP of 5. ABG showed a pO2 of 142 pCO2 of 32 pH of 7.40 and this was on 40% FiO2. Basic metabolic profile was relatively unremarkable except for low potassium of 3.3 and last night she had a lactic acid of 2.1 patient was noted to be hemodynamically stable, and after evaluating the patient, I discontinued her propofol which was a 55 mcg/kg/m, she was earlier on norepinephrine at 0.08 mcg/kg/m, patient was awakened, placed on a short trial of pressure support of 8 and CPAP, clinically she was noted to tolerate the weaning mode quite well, hence I proceeded to extubating the patient to a nasal cannula. Chest x-ray prior to extubation showed mostly basilar atelectasis, no evidence of infiltrate, and no evidence of pulmonary edema. Review of Systems ROS unobtainable: due to endotracheal tube Past Medical History Past Medical History: Atrial Fibrillation, Osteoarthritis (OA) History of Any Multi-Drug Resistant Organisms: None Reported Date of last positivie culture/infection: 2016 MDRO Source:: stool Past Surgical History: Bowel Resection, Hysterectomy, Orthopedic Surgery Additional Past Surgical History / Comment(s): Neck sx, right hip sx Past Anesthesia/Blood Transfusion Reactions: No Reported Reaction Past Psychological History: No Psychological Hx Reported Smoking Status: Never smoker Past Alcohol Use History: None Reported Past Drug Use History: None Reported Medications and Allergies Home Medications Medication Instructions Recorded Confirmed Type Acetaminophen-Codeine 300-30mg 1 tab PO Q6H PRN 09/19/20 06/16/21 History [Tylenol w/codeine #3] Diclofenac Sodium [Voltaren Gel] 4 gram TOPICAL QID PRN 09/19/20 06/16/21 History Metoprolol Tartrate [Lopressor] 25 mg PO BID 09/19/20 06/16/21 History Mirtazapine 30 mg PO HS 09/19/20 06/16/21 History Omeprazole 20 mg PO AC-BRKFST 09/19/20 06/16/21 History Pregabalin [Lyrica] 75 mg PO BID 09/19/20 06/16/21 History Sulindac [Clinoril] 150 mg PO BID 09/19/20 06/16/21 History busPIRone HCl [Buspar] 5 mg PO BID 09/19/20 06/16/21 History rOPINIRole HCL [Requip] 0.25 - 0.5 mg PO HS 09/19/20 06/16/21 History traZODone HCL 50 - 100 mg PO HS 09/19/20 06/16/21 History Levothyroxine Sodium [Synthroid] 50 mcg PO DAILY #30 tab 09/21/20 06/16/21 Rx Docusate [Colace] 100 mg PO BID 06/16/21 06/16/21 History Lactobacillus Acidophilus 1 cap PO DAILY 06/16/21 06/16/21 History [Acidophilus Probiotic] Mirabegron [Myrbetriq] 25 mg PO DAILY 06/16/21 06/16/21 History Vit C/E/Zn/Coppr/Lutein/Zeaxan 1 cap PO BID 06/16/21 06/16/21 History [Preservision Areds 2 Softgel] Allergies Allergy/AdvReac Type Severity Reaction Status Date / Time diazepam [From Valium] AdvReac Confusion Verified 06/16/21 10:15 Physical Exam Vitals: Vital Signs Temp Pulse Resp BP Pulse Ox 06/17/21 07:00 101 H 21 127/61 100 06/17/21 06:45 101 H 21 100 06/17/21 06:30 100 22 100 06/17/21 06:15 99 22 127/61 100 06/17/21 06:00 98 20 100 06/17/21 05:45 100 21 100 06/17/21 05:30 98 19 100 06/17/21 05:15 100 20 124/62 100 06/17/21 05:00 101 H 20 100 06/17/21 04:45 98 20 100 06/17/21 04:30 98 22 100 06/17/21 04:15 99 20 113/56 100 06/17/21 04:00 99 F 98 20 100 06/17/21 03:45 103 H 18 100 06/17/21 03:30 99 18 100 06/17/21 03:15 101 H 18 100 06/17/21 03:00 99 20 100/51 100 06/17/21 02:45 98 17 100 06/17/21 02:30 98 21 100 06/17/21 02:15 99 15 100 06/17/21 02:00 100 15 96/53 100 06/17/21 01:45 101 H 17 100 06/17/21 01:30 100 19 100 06/17/21 01:15 101 H 17 96/53 100 06/17/21 01:00 99 18 100 06/17/21 00:45 98 24 100 06/17/21 00:30 99 17 100 06/17/21 00:15 99 15 100 06/17/21 00:11 101 H 19 100 06/17/21 00:00 99.5 F 101 H 20 100 06/16/21 23:45 101 H 16 100 06/16/21 23:30 100 18 100 06/16/21 23:15 100 19 87/54 100 06/16/21 23:00 102 H 0 L 100 06/16/21 22:45 105 H 17 100 06/16/21 22:30 108 H 14 100 06/16/21 22:15 112 H 17 97/51 100 06/16/21 22:00 115 H 19 99/56 100 06/16/21 21:45 116 H 20 100 06/16/21 21:30 115 H 20 100 06/16/21 21:15 116 H 19 100 06/16/21 21:00 114 H 12 100 06/16/21 20:45 116 H 8 L 101/52 100 06/16/21 20:30 115 H 17 100 06/16/21 20:15 116 H 11 L 96/51 100 06/16/21 20:00 97.4 F L 116 H 13 105/53 100 06/16/21 19:45 117 H 12 105/53 100 06/16/21 19:30 117 H 14 105/52 100 06/16/21 19:15 116 H 14 105/52 100 06/16/21 19:00 115 H 20 104/62 100 06/16/21 18:45 115 H 12 104/62 100 06/16/21 18:30 115 H 18 101/43 100 06/16/21 18:15 115 H 7 L 101/43 100 06/16/21 18:00 117 H 18 119/57 100 06/16/21 17:45 122 H 18 102/50 100 06/16/21 17:30 117 H 18 98/51 100 06/16/21 17:15 121 H 24 137/65 100 06/16/21 17:00 99.0 F 121 H 28 H 137/64 100 Intake and Output 06/16/21 06/17/21 06/17/21 22:59 06:59 14:59 Intake Total 1515.895 911.416 283.921 Output Total 830 315 35 Balance 685.895 596.416 248.921 Intake: IV 1500 800 100 Sodium Chloride 0.9% 1, 500 800 100 000 ml @ 100 mls/hr IV . Q10H STA Rx#:[id number] Sodium Chloride 0.9% 1, 1000 000 ml @ 999 mls/hr IV . Q1H1M STA Rx#:[id number] Intake, IV Titration 15.895 111.416 183.921 Amount Norepinephrine 4 mg In 3.212 111.416 126.260 Sodium Chloride 0.9% 250 ml @ 0.05 MCG/KG/MIN 10. 706 mls/hr IV .[id number] RAMÍREZ Rx#:[id number] propofoL 1,000 mg In 12.683 57.661 Empty Bag 1 bag @ Titrate IV .Q0M RAMÍREZ Rx#: [id number] Output: Urine 780 315 35 Estimated Blood Loss 50 Other: Voiding Method Indwelling Catheter Indwelling Catheter Weight 58.9 kg ABP, PAP, CO, CI - Last 8 Hours Arterial Blood Pressure 141/50 Arterial Blood Pressure 138/51 Arterial Blood Pressure 140/51 Arterial Blood Pressure 135/51 Arterial Blood Pressure 139/52 Arterial Blood Pressure 137/52 Arterial Blood Pressure 127/50 Arterial Blood Pressure 134/48 Arterial Blood Pressure 144/52 Arterial Blood Pressure 130/46 Arterial Blood Pressure 138/51 Arterial Blood Pressure 135/48 Physical Exam: Revealed an 85-year-old female, intubated and mechanically ventilated, in no distress. Head: Atraumatic, normocephalic. HEENT:[Neck is supple.] [No neck masses.] [No thyromegaly.] [No JVD.] Endotracheal tube and orogastric tube are intact moist mucous membranes noted. Chest: [Symmetrical chest expansion, diminished at the bases, no crackles or rhonchi or wheezes.] Cardiac Exam: [Normal S1 and S2, no S3 gallop, 2/6 systolic murmur thought the precordium. Abdomen: [Postsurgical, soft, nontender, colostomy seems to be intact. Negative bowel sounds Extremities: [No clubbing, no edema, no cyanosis.] Neurological Exam: Arousable, alert oriented, follows simple instructions, no gross focal neurologic deficits. Psychiatric: Normal mood, affect and normal mental status examination. Skin: No rashes Results - Laboratory Findings CBC and BMP: 06/17/21 03:55 06/17/21 03:55 ABG ABG pH 7.40 (7.35-7.45) 06/17/21 05:03 ABG pCO2 32 mmHg (35-45) L 06/17/21 05:03 ABG pO2 142 mmHg (83-108) H 06/17/21 05:03 ABG O2 Saturation 99.3 % (94-97) H 06/17/21 05:03 PT/INR, D-dimer PT 10.4 sec (9.0-12.0) 06/16/21 05:21 INR 1.0 (<1.2) 06/16/21 05:21 Abnormal lab findings: Abnormal Labs 06/16/21 06/16/21 06/16/21 05:21 05:21 05:21 WBC Hct 46.7 H Neutrophils # (Manual) APTT 21.6 L ABG pH ABG pCO2 ABG pO2 ABG HCO3 ABG O2 Saturation Potassium Chloride Carbon Dioxide BUN 34 H Glucose 151 H POC Glucose (mg/dL) Plasma Lactic Acid Frandy Calcium Urine Appearance Urine Blood Urine Nitrite Urine Bacteria Urine Mucus 06/16/21 06/16/21 06/16/21 07:28 11:12 16:37 WBC Hct Neutrophils # (Manual) APTT ABG pH ABG pCO2 ABG pO2 ABG HCO3 ABG O2 Saturation Potassium Chloride Carbon Dioxide BUN Glucose POC Glucose (mg/dL) 108 H Plasma Lactic Acid Frandy 2.5 H* Calcium Urine Appearance Cloudy H Urine Blood Large H Urine Nitrite Positive H Urine Bacteria Occasional H Urine Mucus Rare H 06/16/21 06/16/21 06/16/21 17:30 18:35 21:27 WBC Hct Neutrophils # (Manual) APTT ABG pH 7.30 L ABG pCO2 ABG pO2 362 H ABG HCO3 ABG O2 Saturation 99.7 H Potassium Chloride Carbon Dioxide BUN Glucose POC Glucose (mg/dL) Plasma Lactic Acid Frandy 6.9 H* 3.7 H* Calcium Urine Appearance Urine Blood Urine Nitrite Urine Bacteria Urine Mucus 06/17/21 06/17/21 06/17/21 00:55 03:55 03:55 WBC 14.5 H Hct Neutrophils # (Manual) 12.40 H APTT ABG pH ABG pCO2 ABG pO2 ABG HCO3 ABG O2 Saturation Potassium 3.3 L Chloride 114 H Carbon Dioxide 19 L BUN 26 H Glucose POC Glucose (mg/dL) Plasma Lactic Acid Frandy 2.5 H* Calcium 6.9 L Urine Appearance Urine Blood Urine Nitrite Urine Bacteria Urine Mucus 06/17/21 06/17/21 03:55 05:03 WBC Hct Neutrophils # (Manual) APTT ABG pH ABG pCO2 32 L ABG pO2 142 H ABG HCO3 20 L ABG O2 Saturation 99.3 H Potassium Chloride Carbon Dioxide BUN Glucose POC Glucose (mg/dL) Plasma Lactic Acid Frandy 2.1 H* Calcium Urine Appearance Urine Blood Urine Nitrite Urine Bacteria Urine Mucus - Diagnostic Findings Chest x-ray: image reviewed (As noted in HPI.) Assessment and Plan Assessment: Impression: Status post partial colectomy with end colostomy and mobilization of splenic flexure, postoperative day #1. Acute surgical abdomen secondary to bowel perforation. Requiring surgery as above. Postoperative hypoxic respiratory failure last expected secondary to atrial fibrillation with RVR, and secondary to pain medications, and anesthetic medications intraoperatively. Again this is expected considering the patient's age and multiple medical problems Neck atrial fibrillation. History of previous bowel resection History of degenerative joint disease Recommendation: Patient was seen and evaluated in the ICU, Ventilator settings were noted and reviewed. Trial of weaning was initiated using pressure support and CPAP as the patient was extubated shortly after. Resume home [facility] to see on consultation for her atrial fibrillation. Continue antibiotics for her abdominal sepsis and initial bowel perforation. Continue to monitor in the ICU for the next 24 hours. Encourage incentive spirometer. Early ambulation. Keep the patient nothing by mouth for now, and continue nasogastric tube in place. We'll continue to follow Critical care time is over 55 minutes Time with Patient: Greater than 30
--- NOTE | 2021-06-17 13:48 | P.PN ---
Subjective Patient is awake and alert today. She was extubated this morning. She is postoperative day #1. She is still having some abdominal pain. No acute events overnight reported by nursing staff. Objective - Vital Signs Vital signs: Vital Signs Temp 98.4 F 06/17/21 12:00 Pulse 104 H 06/17/21 13:00 Resp 27 H 06/17/21 13:00 BP 127/61 06/17/21 07:00 Pulse Ox 100 06/17/21 13:00 Intake & Output 06/16/21 06/17/21 06/17/21 18:59 06:59 18:59 Intake Total 9578.270 6998.955 321.241 Output Total 550 595 35 Balance 158.798 4440.955 286.241 Weight 56.2 kg 58.9 kg Intake: IV 1000 2300 100 Sodium Chloride 0.9% 1, 1300 100 000 ml @ 100 mls/hr IV . Q10H STA Rx#:[id number] Sodium Chloride 0.9% 1, 1000 000 ml @ 999 mls/hr IV . Q1H1M STA Rx#:[id number] Intake, IV Titration 8.356 118.955 221.241 Amount Norepinephrine 4 mg In 114.628 159.449 Sodium Chloride 0.9% 250 ml @ 0.05 MCG/KG/MIN 10. 706 mls/hr IV .[id number] RAMÍREZ Rx#:[id number] propofoL 1,000 mg In 8.356 4.327 61.792 Empty Bag 1 bag @ Titrate IV .Q0M RAMÍREZ Rx#: [id number] Output: Urine 500 595 35 Estimated Blood Loss 50 Other: Voiding Method Indwelling Catheter ABP, PAP, CO, CI - Last Documented Arterial Blood Pressure 110/41 - Exam General: The patient is awake and alert, in no distress Eye: there is normal conjunctiva bilaterally. Neck: The neck is supple, there is no JVD. Cardiovascular: Normal S1-S2, no S3-S4, no murmurs. Respiratory: Lungs clear to auscultation bilaterally Gastrointestinal: Abdomen is soft, there is moderate tenderness to palpation throughout the abdomen. Colostomy bag in place. Musculoskeletal: There is no pedal edema. Neurological:. Speech is normal. Skin: Skin is warm and dry - Labs CBC & Chem 7: 06/17/21 03:55 06/17/21 03:55 Labs: Abnormal Lab Results - Last 24 Hours (Table) 06/16/21 06/16/21 06/16/21 Range/Units 16:37 17:30 18:35 WBC (3.8-10.6) k/uL Neutrophils # (Manual) (1.3-7.7) k/uL ABG pH 7.30 L (7.35-7.45) ABG pCO2 (35-45) mmHg ABG pO2 362 H (83-108) mmHg ABG HCO3 (21-25) mmol/L ABG O2 Saturation 99.7 H (94-97) % Potassium (3.5-5.1) mmol/L Chloride (98-107) mmol/L Carbon Dioxide (22-30) mmol/L BUN (7-17) mg/dL POC Glucose (mg/dL) 108 H (75-99) mg/dL Plasma Lactic Acid Frandy 6.9 H* (0.7-2.0) mmol/L Calcium (8.4-10.2) mg/dL 06/16/21 06/17/21 06/17/21 Range/Units 21:27 00:55 03:55 WBC 14.5 H (3.8-10.6) k/uL Neutrophils # (Manual) 12.40 H (1.3-7.7) k/uL ABG pH (7.35-7.45) ABG pCO2 (35-45) mmHg ABG pO2 (83-108) mmHg ABG HCO3 (21-25) mmol/L ABG O2 Saturation (94-97) % Potassium (3.5-5.1) mmol/L Chloride (98-107) mmol/L Carbon Dioxide (22-30) mmol/L BUN (7-17) mg/dL POC Glucose (mg/dL) (75-99) mg/dL Plasma Lactic Acid Frandy 3.7 H* 2.5 H* (0.7-2.0) mmol/L Calcium (8.4-10.2) mg/dL 06/17/21 06/17/21 06/17/21 Range/Units 03:55 03:55 05:03 WBC (3.8-10.6) k/uL Neutrophils # (Manual) (1.3-7.7) k/uL ABG pH (7.35-7.45) ABG pCO2 32 L (35-45) mmHg ABG pO2 142 H (83-108) mmHg ABG HCO3 20 L (21-25) mmol/L ABG O2 Saturation 99.3 H (94-97) % Potassium 3.3 L (3.5-5.1) mmol/L Chloride 114 H (98-107) mmol/L Carbon Dioxide 19 L (22-30) mmol/L BUN 26 H (7-17) mg/dL POC Glucose (mg/dL) (75-99) mg/dL Plasma Lactic Acid Frandy 2.1 H* (0.7-2.0) mmol/L Calcium 6.9 L (8.4-10.2) mg/dL Microbiology - Last 24 Hours (Table) 06/16/21 20:23 Sputum Culture - Preliminary Sputum Assessment and Plan Assessment: This is a 85-year-old female with complex past medical history noted below that presented to the emergency room with worsening abdominal pain and rectal bleed. Patient was evaluated in the ER and admitted to the hospital for further management of her medical problems noted below 1. Perforated colon with ischemic changes noted on computed tomography scan of the abdomen, postoperative day #1 status post partial colectomy with end colostomy placement. Postoperative care per general surgery 2. Peritonitis with sepsis and septic shock requiring vasopressors for short period of time. Currently maintained on IV Zosyn and aggressive IV fluid hydration. Lactic acid back to normal. 3. Hypokalemia, replacement per protocol 4. Chronic medical problems: Hypothyroidism, GERD, underlying anxiety, previous history of partial colectomy Today, I reviewed her medication list and lab work results Pain control and anti-emetic as needed Continue IV fluid hydration with normal saline at 100 per hour Nothing by mouth except ice chips and medications GI prophylaxis with IV Protonix DVT prophylaxis with subcu Lovenox
[2021-06-17] MEDS: ENOXAPARIN 40 MG/0.4 ML SYRINGE SQ SCH (17:48)
[2021-06-17 17:54] LABS: Glucose,Whole Blood 84 mg/dL (75-99)
[2021-06-17] MEDS ORDERED: POTASSIUM CHLORIDE ER 20 MEQ TAB.ER PO SCH (18:00)
[2021-06-17] MEDS: POTASSIUM CHLORIDE 10 MEQ in WATER FOR INJECTION 1 100ML.BAG IVPB SCH ×3 (18:55→21:08)
[2021-06-17] MEDS: ACETAMINOPHEN IV (For NPO) 1,000 MG in EMPTY BAG 1 BAG IVPB PRN (20:09)
[2021-06-17] MEDS: MIRTAZAPINE 15 MG TAB PO SCH (21:06)
[2021-06-17] MEDS: traZODone HCL 50 MG TAB PO SCH (21:06)
[2021-06-18 00:06] LABS: Glucose,Whole Blood 73 mg/dL (75-99)
[2021-06-18] MEDS: ONDANSETRON 4 MG/2 ML VIAL IVP PRN ×5 (02:14→22:14)
[2021-06-18] MEDS: MORPHINE SULFATE 2 MG/ML SYRINGE IV PRN ×5 (02:15→20:11)
[2021-06-18] MEDS: SODIUM CHLORIDE 0.9% 1,000 ML IV SCH ×2 (03:17→11:16)
[2021-06-18 04:14] LABS: Basophils % (A) 0 %; Eosinophils # (A) 0.1 k/uL (0-0.7); Eosinophils % (A) 1 %; HCT 35.2 % (34.0-46.0); HGB 11.5 gm/dL (11.4-16.0); Lymphocytes # (A) 0.7 k/uL (1.0-4.8); Lymphocytes % (A) 5 %; MCH 31.4 pg (25.0-35.0); MCHC 32.6 g/dL (31.0-37.0); MCV 96.3 fL (80.0-100.0); Mean Platelet Volume 9.3; Monocytes # (A) 0.3 k/uL (0-1.0); Monocytes % (A) 2 %; Neutrophils % (A) 91 %; Platelet Count 134 k/uL (150-450); RBC 3.66 m/uL (3.80-5.40); WBC 13.1 k/uL (3.8-10.6)
[2021-06-18] MEDS: PIPERACILLIN-TAZOBACTAM 3.375 GM in SODIUM CHLORIDE 0.9% 100 ML IVPB SCH ×3 (04:33→22:12)
[2021-06-18 04:34] LABS: African American GFR (CKD) >90 (>60 ml/min/1.73 sqM); Anion Gap 4 mmol/L; Blood Urea Nitrogen 20 mg/dL (7-17); Calcium 7.3 mg/dL (8.4-10.2); Carbon Dioxide 21 mmol/L (22-30); Chloride 116 mmol/L (98-107); Glucose 78 mg/dL (74-99); Magnesium 1.7 mg/dL (1.6-2.3); Non-African American GFR(CKD) 82 (>60 ml/min/1.73 sqM); Potassium 3.2 mmol/L (3.5-5.1); Sodium 141 mmol/L (137-145)
[2021-06-18] MEDS: ACETAMINOPHEN IV (For NPO) 1,000 MG in EMPTY BAG 1 BAG IVPB PRN ×2 (04:47→11:15)
[2021-06-18] MEDS ORDERED: Magnesium Replacement Protocol 1 EACH MISC MISCELLANE PRN (05:15)
[2021-06-18] MEDS: MAGNESIUM SULFATE-D5W PMX 1 GM in DEXTROSE/WATER 1 100ML.BAG IVPB SCH ×2 (05:19→06:15)
[2021-06-18] MEDS: POTASSIUM BICARBONATE/CIT AC 20 MEQ TABLET.EFF NG-TUBE SCH ×3 (05:23→06:16)
[2021-06-18 06:00] LABS: Glucose,Whole Blood 78 mg/dL (75-99)
[2021-06-18] MEDS: LEVOTHYROXINE 50 MCG TAB PO SCH (06:16)
[2021-06-18] MEDS: PANTOPRAZOLE 40 MG/10 ML VIAL IV SCH (08:41)
[2021-06-18] MEDS: HYDROmorphone 0.5 MG/0.5 ML SYRINGE IVP PRN ×4 (09:14→22:13)
[2021-06-18] MEDS: metroNIDAZOLE-NS PMX 500 MG in SALINE 1 100ML.BAG IVPB SCH ×3 (09:17→20:08)
[2021-06-18] MEDS: NON FORMULARY DRUG (Mirabegron [Myrbetriq] 25 MG Tablet) PO SCH (10:09)
--- NOTE | 2021-06-18 10:40 | P.PN ---
Subjective Progress Note Date: 06/18/21 Principal diagnosis: Bowel perforation. This is an 85-year-old female with history of chronic atrial fibrillation, history of bowel resection, hysterectomy, right hip surgery, patient was brought into the ER on 06/16 with acute onset of abdominal pain and rectal bleeding. Computed tomography scan of the abdomen and pelvis showed perforation and free air suggestive of bowel rupture. Patient was also noted to be tachycardic, she was in atrial fibrillation with RVR, and she was noted to have leukocytosis. Patient underwent surgery yesterday by Dr. barney, patient had partial colectomy and end colostomy and mobilization of splenic flexure. There was evidence of stool present beneath that peritoneal surface along the left gutter the patient underwent blunt dissection, and a drainage of abscess cavity and the perforation was basically through a defect in the lateral wall of the descending colon. Postoperatively, the patient was sent to the intensive care unit, intubated and mechanically ventilated. Patient could not be extubated in the recovery room. I saw this patient this morning, and I was made aware of her ventilator settings last night. Today the patient is on assist control rate of 14 volume 400 FiO2 30% and PEEP of 5. ABG showed a pO2 of 142 pCO2 of 32 pH of 7.40 and this was on 40% FiO2. Basic metabolic profile was relatively unremarkable except for low potassium of 3.3 and last night she had a lactic acid of 2.1 patient was noted to be hemodynamically stable, and after evaluating the patient, I discontinued her propofol which was a 55 mcg/kg/m, she was earlier on norepinephrine at 0.08 mcg/kg/m, patient was awakened, placed on a short trial of pressure support of 8 and CPAP, clinically she was noted to tolerate the weaning mode quite well, hence I proceeded to extubating the patient to a nasal cannula. Chest x-ray prior to extubation showed mostly basilar atelectasis, no evidence of infiltrate, and no evidence of pulmonary edema. Progress note dated 06/18/2021. This is a 85-year-old female was admitted to the hospital on June 16, with abdominal pain. She went to the operating room on June 16, for bowel perforation. She ended up with a colectomy, and end colostomy, and mobilization of the splenic flexure. Today, she is postop day #2. She also has a history of atrial fibrillation, previous bowel resection, and degenerative joint disease. She is currently resting comfortably. She's on room air. An NG tube is in sara ce. She's getting saline at 100 mL an hour. She's also getting Zosyn and Flagyl with antibiotics prophylactically. The surgery was done by Dr. Byers. She had surgery on June 16, and was extubated from the mechanical ventilator yesterday, June 17. White count 13.1, hemoglobin 11.5, hematocrit 35.2, and platelet count 134,000. Sodium 141, potassium 3.2, chlorides 116, CO2 21, anion gap 4, BUN 20, and creatinine 0.62. Microbiology is currently negative. No chest x-ray noted from today. Clinically, the patient looks pretty good. Objective - Vital Signs Vital signs: Vital Signs Temp 98.4 F 06/18/21 09:00 Pulse 88 06/18/21 09:00 Resp 18 06/18/21 09:00 BP 161/72 06/18/21 09:00 Pulse Ox 100 06/18/21 09:00 Intake & Output 06/17/21 06/18/21 06/18/21 18:59 06:59 18:59 Intake Total 8759.041 7863 Output Total 1670 555 Balance -48.759 745 Weight 61 kg Intake: IV 1400 1300 Sodium Chloride 0.9% 1, 1200 000 ml @ 100 mls/hr IV . Q10H RAMÍREZ Rx#:[id number] Sodium Chloride 0.9% 1, 1300 000 ml @ 100 mls/hr IV . Q10H STA Rx#:[id number] metroNIDAZOLE-NS PMX 500 100 100 mg In Saline 1 100ml.bag @ 100 mls/hr IVPB Q8HR RAMÍREZ Rx#:[id number] Intake, IV Titration 221.241 Amount Norepinephrine 4 mg In 159.449 Sodium Chloride 0.9% 250 ml @ 0.05 MCG/KG/MIN 10. 706 mls/hr IV .[id number] RAMÍREZ Rx#:[id number] propofoL 1,000 mg In 61.792 Empty Bag 1 bag @ Titrate IV .Q0M RAMÍREZ Rx#: [id number] Output: Gastric Drainage 850 Urine 820 555 Other: Voiding Method Indwelling Catheter Indwelling Catheter ABP, PAP, CO, CI - Last Documented Arterial Blood Pressure 150/58 - Exam No acute distress, oriented 3.No supplemental oxygen. Nasogastric tube in place. HEENT examination is grossly unremarkable. Neck supple. Full range of motion. No adenopathy thyromegaly or neck vein distention. Cardiovascular examination reveals regular rhythm rate. S1-S2 normal. No S3 or S4. A soft systolic murmurs noted. Heart sounds are distant. Heart rate 88 bpm. Lungs reveal diminished bilateral breath sounds. Scattered rhonchi are noted. No wheezes or crackles. She does not take deep breaths. Abdomen is soft. No bowel sounds. Colostomy is noted. Minimal tenderness on palpation. Extremities are intact. No cyanosis clubbing or edema. Skin is without rash or lesion. Neurologic examination is brief but nonfocal. - Labs CBC & Chem 7: 06/18/21 04:00 06/18/21 08:36 Labs: Abnormal Lab Results - Last 24 Hours (Table) 06/18/21 06/18/21 06/18/21 Range/Units 00:04 04:00 04:00 WBC 13.1 H (3.8-10.6) k/uL RBC 3.66 L (3.80-5.40) m/uL Plt Count 134 L (150-450) k/uL Neutrophils # 12.0 H (1.3-7.7) k/uL Lymphocytes # 0.7 L (1.0-4.8) k/uL Potassium 3.2 L (3.5-5.1) mmol/L Chloride 116 H (98-107) mmol/L Carbon Dioxide 21 L (22-30) mmol/L BUN 20 H (7-17) mg/dL POC Glucose (mg/dL) 73 L (75-99) mg/dL Calcium 7.3 L (8.4-10.2) mg/dL Microbiology - Last 24 Hours (Table) 06/16/21 20:23 Gram Stain - Preliminary Sputum Sputum Culture - Preliminary Assessment and Plan Assessment: Postop day #2, status post exploratory laparotomy, partial colectomy with end colostomy and mobilization of splenic flexure, secondary to bowel perforation. Routine postoperative ventilator management, status post intubation on June 16, and subsequent extubation on June 17. History of atrial fibrillation with RVR. History of previous bowel resection. History of degenerative joint disease. Plan: Plan dated 06/18/2021. The patient remains on Zosyn and Flagyl empirically for possible abdominal sepsis. NG tube in place. No supplemental oxygen at this time. We do encourage the patient to use the incentive spirometer every hour while awake. In addition, we recommend deep breathing, coughing, clearing secretions. Labs, x-rays, and medications are all reviewed. Prognosis remains guarded. The patient will continue to be monitored, and managed in the intensive care unit. We will continue to follow and make recommendations where appropriate. Time with Patient: Greater than 30
[2021-06-18] MEDS: busPIRone HCl 5 MG TAB PO SCH ×2 (10:48→20:08)
[2021-06-18] MEDS: ENOXAPARIN 40 MG/0.4 ML SYRINGE SQ SCH (10:49)
[2021-06-18] MEDS: METOPROLOL TARTRATE 25 MG TAB PO SCH ×2 (10:49→20:08)
[2021-06-18 11:40] LABS: Glucose,Whole Blood 68 mg/dL (75-99)
--- NOTE | 2021-06-18 11:40 | P.PN ---
<Anna Ramos - Last Filed: 06/18/21 11:35> Subjective Progress Note Date: 06/18/21 CHIEF COMPLAINT: Colon perforation HISTORY OF PRESENT ILLNESS: Patient is postop day #2 status post partial colectomy with end colostomy and mobilization of splenic flexure. Patient is sitting up in ICU bed. She reports that her pain is controlled. She denies any nausea. She has NG tube in place. Afebrile. WBC decreased from 14.5-13.1 hemoglobin 11.5 platelets 134 potassium 3.2 has been replaced and is at 3.7 urine output adequate. PHYSICAL EXAM: VITAL SIGNS: Reviewed. GENERAL: Well-developed in no acute distress. HEENT: No sclera icterus. Extraocular movements grossly intact. Moist buccal mucosa. Head is atraumatic, normocephalic. ABDOMEN: Soft. Nondistended. Dressing clean and dry, ostomy pink NEUROLOGIC: Alert and oriented. Cranial nerves II through XII grossly intact. ASSESSMENT: 1. Colon perforation status post partial colectomy with end colostomy and mobilization of splenic flexure PLAN: -Continue ICU management -Continue supportive care -Continue NG tube -Continue pain medication as needed -continue IV antibiotics -Encouraged patient to use incentive spirometer -Encouraged patient to increase activity level -GI prophylaxis Protonix and DVT prophylaxis Lovenox Physician Ore Feeder note has been reviewed by physician. Signing provider agrees with the documented findings, assessment, and plan of care. Objective - Vital Signs Vital signs: Vital Signs Temp 98.4 F 06/18/21 09:00 Pulse 88 06/18/21 09:00 Resp 18 06/18/21 09:00 BP 161/72 06/18/21 09:00 Pulse Ox 100 06/18/21 09:00 Intake & Output 06/17/21 06/18/21 06/18/21 18:59 06:59 18:59 Intake Total 3568.650 3820 Output Total 1670 555 Balance -48.759 745 Weight 61 kg Intake: IV 1400 1300 Sodium Chloride 0.9% 1, 1200 000 ml @ 100 mls/hr IV . Q10H RAMÍREZ Rx#:[id number] Sodium Chloride 0.9% 1, 1300 000 ml @ 100 mls/hr IV . Q10H STA Rx#:[id number] metroNIDAZOLE-NS PMX 500 100 100 mg In Saline 1 100ml.bag @ 100 mls/hr IVPB Q8HR RAMRÍEZ Rx#:[id number] Intake, IV Titration 221.241 Amount Norepinephrine 4 mg In 159.449 Sodium Chloride 0.9% 250 ml @ 0.05 MCG/KG/MIN 10. 706 mls/hr IV .[id number] RAMÍREZ Rx#:[id number] propofoL 1,000 mg In 61.792 Empty Bag 1 bag @ Titrate IV .Q0M RAMÍREZ Rx#: [id number] Output: Gastric Drainage 850 Urine 820 555 Other: Voiding Method Indwelling Catheter Indwelling Catheter ABP, PAP, CO, CI - Last Documented Arterial Blood Pressure 150/58 - Labs CBC & Chem 7: 06/18/21 04:00 06/18/21 08:36 Labs: Abnormal Lab Results - Last 24 Hours (Table) 06/18/21 06/18/21 06/18/21 Range/Units 00:04 04:00 04:00 WBC 13.1 H (3.8-10.6) k/uL RBC 3.66 L (3.80-5.40) m/uL Plt Count 134 L (150-450) k/uL Neutrophils # 12.0 H (1.3-7.7) k/uL Lymphocytes # 0.7 L (1.0-4.8) k/uL Potassium 3.2 L (3.5-5.1) mmol/L Chloride 116 H (98-107) mmol/L Carbon Dioxide 21 L (22-30) mmol/L BUN 20 H (7-17) mg/dL POC Glucose (mg/dL) 73 L (75-99) mg/dL Calcium 7.3 L (8.4-10.2) mg/dL Microbiology - Last 24 Hours (Table) 06/16/21 20:23 Gram Stain - Preliminary Sputum Sputum Culture - Preliminary <Tye Byers - Last Filed: 06/18/21 15:15> Subjective As above. Patient having increased discomfort earlier today. She was only getting 2 mg of morphine however. More comfortable after 0.5 mg of Dilaudid. N asogastric output still remains intermittently heavy. No bowel function. Keep nasogastric tube to suction. Increase activity gradually. Objective - Vital Signs Vital signs: Vital Signs Temp 98.7 F 06/18/21 12:00 Pulse 80 06/18/21 15:00 Resp 14 06/18/21 15:00 BP 145/63 06/18/21 15:00 Pulse Ox 99 06/18/21 15:00 Intake & Output 06/17/21 06/18/21 06/18/21 18:59 06:59 18:59 Intake Total 6611.645 9997 875 Output Total 1670 555 325 Balance -48.759 745 550 Weight 61 kg Intake: IV 1400 1300 875 Dextrose 5%-0.45% NaCl 1, 375 000 ml @ 125 mls/hr IV . Q8H RAMÍREZ Rx#:[id number] Sodium Chloride 0.9% 1, 1200 500 000 ml @ 100 mls/hr IV . Q10H RAMÍREZ Rx#:[id number] Sodium Chloride 0.9% 1, 1300 000 ml @ 100 mls/hr IV . Q10H STA Rx#:[id number] metroNIDAZOLE-NS PMX 500 100 100 mg In Saline 1 100ml.bag @ 100 mls/hr IVPB Q8HR RAMÍREZ Rx#:[id number] Intake, IV Titration 221.241 Amount Norepinephrine 4 mg In 159.449 Sodium Chloride 0.9% 250 ml @ 0.05 MCG/KG/MIN 10. 706 mls/hr IV .[id number] RAMÍREZ Rx#:[id number] propofoL 1,000 mg In 61.792 Empty Bag 1 bag @ Titrate IV .Q0M RAMÍREZ Rx#: [id number] Output: Gastric Drainage 850 50 Urine 820 555 275 Other: Voiding Method Indwelling Catheter Indwelling Catheter ABP, PAP, CO, CI - Last Documented Arterial Blood Pressure 153/60 - Labs CBC & Chem 7: 06/18/21 04:00 06/18/21 08:36 Labs: Abnormal Lab Results - Last 24 Hours (Table) 06/18/21 06/18/21 06/18/21 Range/Units 00:04 04:00 04:00 WBC 13.1 H (3.8-10.6) k/uL RBC 3.66 L (3.80-5.40) m/uL Plt Count 134 L (150-450) k/uL Neutrophils # 12.0 H (1.3-7.7) k/uL Lymphocytes # 0.7 L (1.0-4.8) k/uL Potassium 3.2 L (3.5-5.1) mmol/L Chloride 116 H (98-107) mmol/L Carbon Dioxide 21 L (22-30) mmol/L BUN 20 H (7-17) mg/dL POC Glucose (mg/dL) 73 L (75-99) mg/dL Calcium 7.3 L (8.4-10.2) mg/dL 06/18/21 06/18/21 Range/Units 11:38 14:45 WBC (3.8-10.6) k/uL RBC (3.80-5.40) m/uL Plt Count (150-450) k/uL Neutrophils # (1.3-7.7) k/uL Lymphocytes # (1.0-4.8) k/uL Potassium (3.5-5.1) mmol/L Chloride (98-107) mmol/L Carbon Dioxide (22-30) mmol/L BUN (7-17) mg/dL POC Glucose (mg/dL) 68 L 113 H (75-99) mg/dL Calcium (8.4-10.2) mg/dL Microbiology - Last 24 Hours (Table) 06/16/21 20:23 Gram Stain - Preliminary Sputum Sputum Culture - Preliminary Leatha albicans Assessment and Plan (1) Colon perforation Current Visit: Yes Status: Acute Code(s): K63.1 - PERFORATION OF INTESTINE (NONTRAUMATIC) SNOMED Code(s): 68196719
[2021-06-18] MEDS: DEXTROSE 5%-0.45% NACL 1,000 ML IV SCH ×2 (12:08→20:08)
--- NOTE | 2021-06-18 14:02 | CONS ---
CONSULTATION CHIEF COMPLAINT: Atrial fibrillation. Selena is an 85-year-old lady with a history of hypothyroidism and paroxysmal atrial fibrillation who presented to hospital with acute-onset abdominal pain and was found to have a perforated , for which she underwent surgery. Cardiology has been consulted because of an episode of atrial fibrillation. I do not have any EKG on her, and on meticulous evaluation of the rhythm strips, there was one brief episode where she went into atrial fibrillation. She is currently in sinus rhythm and is free of cardiac symptoms. Still has an NG tube in. Stable hemodynamically. We will continue the beta cecilio that she is on, and she does not need anticoagulation at this time. However, if she has recurrent episodes of atrial fibrillation, I will start her on an oral anticoagulant. The patient had a cardiac catheterization in September that revealed normal coronaries and had an echocardiogram at that time that showed normal LV systolic function. PAST MEDICAL HISTORY: Significant for hypothyroidism, paroxysmal atrial fibrillation. MEDICATIONS: Medications at home include Synthroid, Lyrica, BuSpar, omeprazole, Lopressor 25 b.i.d. ALLERGIES: VALIUM. FAMILY HISTORY: Negative for premature coronary artery disease. SOCIAL HISTORY: Negative for current smoking, EtOH abuse or drug abuse. REVIEW OF SYSTEMS: HEENT is unremarkable. CARDIAC: As described above. RESPIRATORY: Negative. GI: As described above. GENITOURINARY: Negative. ALLERGY/IMMUNOLOGY: Negative. SKIN: Negative. MUSCULOSKELETAL: Negative. ENDOCRINE: Negative. HEMATOLOGICAL: Negative. DERMATOLOGY: Negative. CONSTITUTIONAL: As described above. PSYCHOSOCIAL: Negative. PHYSICAL EXAMINATION: Patient is comfortable at rest. Heart rate is 87 beats per minute. Blood pressure is 145/82, respiratory rate is 18. Chest exam reveals good air entry bilaterally. Heart exam reveals first and second heart sounds. No gallop. No murmur. Abdomen is status post surgery. Examination of extremities did not reveal any edema. Peripheral pulses are felt. LABS: The hemoglobin is 7.5, platelet count is 134, potassium is low at 3.2, creatinine is 0.6. ASSESSMENT: Paroxysmal atrial fibrillation. PLAN: Patient is in sinus rhythm. We will continue her on her current medications, obtain a 2D echo. MMODL / IJN: [id number] /
--- NOTE | 2021-06-18 14:28 | P.PN ---
Progress Note - Text Progress Note Date: 06/18/21 History of presenting complaint: This is a pleasant 85-year-old patient of Dr. Pollard. Chronic stable medical conditions include osteoarthritis, hypothyroid, hypertension, depression, restless leg syndrome. CT change showing some nodules [patient has declined any further workup in the past Patient now presented with abdominal pain or rectal bleeding. Computed tomography scan did confirm colon perforation. Patient had prior colon resection. Also was in atrial fibrillation with rapid ventricular rate. On June 16 patient underwent partial colectomy with end colostomy. There was stool in the peritoneal cavity. 06/18/2021: ICU. Patient was extubated yesterday. Remains nothing by mouth. NG tube to low intermittent suction. Has some nausea and some operative site.. No output through the colostomy bag. Review of systems: Was done for constitutional, cardiovascular, GI, pulmonary. relevant finding as above Past medical history to include: Osteoarthritis, hypothyroid, hypertension, depression, restless leg syndrome, atrial fibrillation Social history: Lives alone. Uses a walker. No history of alcohol or smoking. On examination: VITAL SIGNS: [98.7, 80, 16, 128/68, 99% on room air] GENERAL APPEARANCE: BMI 23.1, laying in bed, awake, tired HEENT: Normal external appearance of nose and ear. NG tube to suction EYES: Pupils equal. Conjunctiva normal. NECK: JVD not raised. Mass not palpable. RESPIRATORY: Respiratory effort normal. Lungs clear to auscultation. CARDIOVASCULAR: First and second sounds normal. No edema. MUSCULAR skeletal: Evidence of OA ABDOMEN: Soft. Tender. Dressing over the midline incision. Colostomy bag Liver and spleen not palpable. Some tenderness. No mass palpable. No bowel sounds PSYCHIATRY: Patient is able to answer simple questions INVESTIGATIONS, reviewed in the clinical context: WBC 13.1 hemoglobin 11.5 platelets 134 potassium 3.2 BUN 20 creatinine 0.62 Computed tomography scan of the abdomen pelvis: June 16] perforation. Pneumoperitoneum. Assessment and plan: -Acute sigmoid perforation, secondary to fecal impaction, followed by partial bowel resection and colostomy Surgery done on June [address] Gallo. Nothing by mouth. NG tube to suction -Secondary peritonitis with fecal soiling from sigmoid perforation IV Flagyl 500 mg every 8, IV Zosyn every 8 -Multiple chronic pulmonary nodules. Patient does not want any further treatment. -Primary osteoarthritis Use pain medications as needed -Hypothyroid Synthroid 50 g daily -Essential hypertension Lopressor 25 mg twice a day -Restless leg syndrome Recurrent 0.5 mg daily at bedtime -Chronic gait dysfunction uses a walker Fall precautions -Depression BuSpar 5 mg twice a day -Chronic insomnia Trazodone 50 mg daily at bedtime -Hypokalemia Replace potassium -Hypoglycemia from poor oral intake:new diagnosis Change IV fluids to D5 0.45 at 125 an hour -Acute thrombocytopenia, likely from infection:new echinosis Follow closely IV fluids. NG tube to suction. Continue IV Flagyl and IV Zosyn. Discussed with the patient. Change IV fluids to D5 0.45 at 1 25 mL an hour. Replace potassium. Follow labs.
[2021-06-18 14:47] LABS: Glucose,Whole Blood 113 mg/dL (75-99)
[2021-06-18] MEDS: POTASSIUM CHLORIDE 10 MEQ in WATER FOR INJECTION 1 100ML.BAG IVPB SCH ×2 (14:53→16:11)
[2021-06-18 18:15] LABS: Glucose,Whole Blood 129 mg/dL (75-99)
[2021-06-18] MEDS: MIRTAZAPINE 15 MG TAB PO SCH (20:09)
[2021-06-18] MEDS: traZODone HCL 50 MG TAB PO SCH (20:09)
[2021-06-18] MEDS: NOREPINEPHRINE 4 MG in SODIUM CHLORIDE 0.9% 250 ML IV SCH (21:45)
[2021-06-19 00:23] LABS: Glucose,Whole Blood 133 mg/dL (75-99)
[2021-06-19] MEDS: MORPHINE SULFATE 2 MG/ML SYRINGE IV PRN ×2 (00:26→05:37)
[2021-06-19] MEDS: metroNIDAZOLE-NS PMX 500 MG in SALINE 1 100ML.BAG IVPB SCH ×4 (00:27→23:15)
[2021-06-19] MEDS: HYDROmorphone 0.5 MG/0.5 ML SYRINGE IVP PRN ×4 (03:55→21:24)
[2021-06-19] MEDS: DEXTROSE 5%-0.45% NACL 1,000 ML IV SCH ×3 (03:55→17:00)
[2021-06-19] MEDS: PIPERACILLIN-TAZOBACTAM 3.375 GM in SODIUM CHLORIDE 0.9% 100 ML IVPB SCH ×3 (03:59→20:42)
[2021-06-19 04:22] LABS: Basophils % (A) 0 %; Eosinophils # (A) 0.2 k/uL (0-0.7); Eosinophils % (A) 1 %; HCT 34.5 % (34.0-46.0); HGB 11.1 gm/dL (11.4-16.0); Lymphocytes # (A) 0.9 k/uL (1.0-4.8); Lymphocytes % (A) 7 %; MCH 31.1 pg (25.0-35.0); MCHC 32.1 g/dL (31.0-37.0); MCV 96.8 fL (80.0-100.0); Mean Platelet Volume 9.7; Monocytes # (A) 0.4 k/uL (0-1.0); Monocytes % (A) 3 %; Neutrophils # (A) 10.4 k/uL (1.3-7.7); Neutrophils % (A) 88 %; Platelet Count 117 k/uL (150-450); RBC 3.56 m/uL (3.80-5.40); RDW 13.8 % (11.5-15.5); WBC 11.9 k/uL (3.8-10.6)
[2021-06-19 04:45] LABS: Chloride 112 mmol/L (98-107)
[2021-06-19 04:47] LABS: African American GFR (CKD) >90 (>60 ml/min/1.73 sqM); Anion Gap 3 mmol/L; Blood Urea Nitrogen 15 mg/dL (7-17); Calcium 7.6 mg/dL (8.4-10.2); Carbon Dioxide 23 mmol/L (22-30); Glucose 149 mg/dL (74-99); Magnesium 2.1 mg/dL (1.6-2.3); Non-African American GFR(CKD) 88 (>60 ml/min/1.73 sqM); Potassium 3.4 mmol/L (3.5-5.1); Sodium 138 mmol/L (137-145)
[2021-06-19] MEDS: ONDANSETRON 4 MG/2 ML VIAL IVP PRN ×3 (05:30→19:41)
[2021-06-19] MEDS: LEVOTHYROXINE 50 MCG TAB PO SCH (05:30)
[2021-06-19] MEDS: POTASSIUM BICARBONATE/CIT AC 20 MEQ TABLET.EFF NG-TUBE SCH ×2 (05:38→06:34)
[2021-06-19 06:38] LABS: Glucose,Whole Blood 118 mg/dL (75-99)
[2021-06-19] MEDS: NON FORMULARY DRUG (Mirabegron [Myrbetriq] 25 MG Tablet) PO SCH (07:56)
--- NOTE | 2021-06-19 08:48 | XR ---
EXAMINATION TYPE: XR chest 1V portable DATE OF EXAM: 06/19/2021 COMPARISON: Chest x-ray 06/17/2021 HISTORY: Dyspnea TECHNIQUE: Single frontal view of the chest is obtained. FINDINGS: NG tube is in appropriate position. Surgical clips are present right upper quadrant, stapl es are present in the midline. Postop change noted to the cervical spine. There are dense vascular ca lcifications. Cardiac mediastinal sweat shows a similar appearance. Basilar density is again noted, t here is blunting of the costophrenic angles. No evident pneumothorax. Patient is rotated. IMPRESSION: Basilar effusions may be present and associated atelectasis, correlate to exclude pneumo carrie
[2021-06-19] MEDS: METOCLOPRAMIDE 5 MG/ML 2 ML VIAL IVP SCH ×3 (09:52→23:15)
[2021-06-19] MEDS: PANTOPRAZOLE 40 MG/10 ML VIAL IV SCH (09:52)
--- NOTE | 2021-06-19 09:58 | P.PN ---
Subjective Progress Note Date: 06/19/21 Principal diagnosis: Bowel perforation. This is an 85-year-old female with history of chronic atrial fibrillation, history of bowel resection, hysterectomy, right hip surgery, patient was brought into the ER on 06/16 with acute onset of abdominal pain and rectal bleeding. Computed tomography scan of the abdomen and pelvis showed perforation and free air suggestive of bowel rupture. Patient was also noted to be tachycardic, she was in atrial fibrillation with RVR, and she was noted to have leukocytosis. Patient underwent surgery yesterday by Dr. barney, patient had partial colectomy and end colostomy and mobilization of splenic flexure. There was evidence of stool present beneath that peritoneal surface along the left gutter the patient underwent blunt dissection, and a drainage of abscess cavity and the perforation was basically through a defect in the lateral wall of the descending colon. Postoperatively, the patient was sent to the intensive care unit, intubated and mechanically ventilated. Patient could not be extubated in the recovery room. I saw this patient this morning, and I was made aware of her ventilator settings last night. Today the patient is on assist control rate of 14 volume 400 FiO2 30% and PEEP of 5. ABG showed a pO2 of 142 pCO2 of 32 pH of 7.40 and this was on 40% FiO2. Basic metabolic profile was relatively unremarkable except for low potassium of 3.3 and last night she had a lactic acid of 2.1 patient was noted to be hemodynamically stable, and after evaluating the patient, I discontinued her propofol which was a 55 mcg/kg/m, she was earlier on norepinephrine at 0.08 mcg/kg/m, patient was awakened, placed on a short trial of pressure support of 8 and CPAP, clinically she was noted to tolerate the weaning mode quite well, hence I proceeded to extubating the patient to a nasal cannula. Chest x-ray prior to extubation showed mostly basilar atelectasis, no evidence of infiltrate, and no evidence of pulmonary edema. Progress note dated 06/18/2021. This is a 85-year-old female was admitted to the hospital on June 16, with abdominal pain. She went to the operating room on June 16, for bowel perforation. She ended up with a colectomy, and end colostomy, and mobilization of the splenic flexure. Today, she is postop day #2. She also has a history of atrial fibrillation, previous bowel resection, and degenerative joint disease. She is currently resting comfortably. She's on room air. An NG tube is in sara ce. She's getting saline at 100 mL an hour. She's also getting Zosyn and Flagyl with antibiotics prophylactically. The surgery was done by Dr. Byers. She had surgery on June 16, and was extubated from the mechanical ventilator yesterday, June 17. White count 13.1, hemoglobin 11.5, hematocrit 35.2, and platelet count 134,000. Sodium 141, potassium 3.2, chlorides 116, CO2 21, anion gap 4, BUN 20, and creatinine 0.62. Microbiology is currently negative. No chest x-ray noted from today. Clinically, the patient looks pretty good. Progress note dated 06/19/2021. 85-year-old female, again in the ICU. She was admitted to the hospital June 16 with abdominal pain. She went to the operating room on June 16 for bowel perforation. She ended up with a colectomy and end colostomy and mobilization of her splenic flexure. Today is postop day #3. She's getting an echocardiogram today. She has a history of atrial fibrillation, previous bowel resection, and degenerative joint disease. Currently, she's not receiving any supplemental oxygen. She's had an NG tube in place. She's getting D5.45 at 125 mL an hour. She is on Zosyn and Flagyl. White count 11.9, hemoglobin 11.1, hematocrit 34.5, platelet count 117,000. Sodium 138, potassium 3.4, chlorides 112, CO2 23, anion gap 3, BUN 15, and creatinine 0.49. Chest x-ray shows some bibasilar atelectasis and small effusions. Objective - Vital Signs Vital signs: Vital Signs Temp 98.3 F 06/18/21 20:00 Pulse 74 06/19/21 07:00 Resp 13 06/19/21 07:00 BP 156/69 06/19/21 07:00 Pulse Ox 99 06/19/21 07:00 Intake & Output 06/18/21 06/19/21 06/19/21 18:59 06:59 18:59 Intake Total 1250 1800 125 Output Total 415 415 30 Balance 835 1385 95 Weight 62 kg Intake: IV 1250 1800 125 Dextrose 5%-0.45% NaCl 1, 750 1500 125 000 ml @ 125 mls/hr IV . Q8H RAMÍREZ Rx#:[id number] Piperacillin-Tazobactam 3 100 .375 gm In Sodium Chloride 0.9% 100 ml @ 25 mls/hr IVPB Q8H RAMÍREZ Rx#: [id number] Sodium Chloride 0.9% 1, 500 000 ml @ 100 mls/hr IV . Q10H RAMÍREZ Rx#:[id number] metroNIDAZOLE-NS PMX 500 200 mg In Saline 1 100ml.bag @ 100 mls/hr IVPB Q8HR RAMÍREZ Rx#:[id number] Output: Gastric Drainage 50 Urine 365 415 30 Other: Voiding Method Indwelling Catheter Indwelling Catheter ABP, PAP, CO, CI - Last Documented Arterial Blood Pressure 141/54 - Exam No acute distress, oriented 3.No supplemental oxygen. Nasogastric tube in place. HEENT examination is grossly unremarkable. Neck supple. Full range of motion. No adenopathy thyromegaly or neck vein dist ention. Cardiovascular examination reveals regular rhythm rate. S1-S2 normal. No S3 or S4. A soft systolic murmurs noted. Heart sounds are distant. Heart rate 74 bpm. Lungs reveal diminished bilateral breath sounds. Scattered rhonchi are noted. No wheezes or crackles. She does not take deep breaths. Abdomen is soft. No bowel sounds. Colostomy is noted. Minimal tenderness on palpation. Extremities are intact. No cyanosis clubbing or edema. Skin is without rash or lesion. Neurologic examination is brief but nonfocal. - Labs CBC & Chem 7: 06/19/21 04:10 06/19/21 04:10 Labs: Abnormal Lab Results - Last 24 Hours (Table) 06/18/21 06/18/21 06/18/21 Range/Units 11:38 14:45 18:13 WBC (3.8-10.6) k/uL RBC (3.80-5.40) m/uL Hgb (11.4-16.0) gm/dL Plt Count (150-450) k/uL Neutrophils # (1.3-7.7) k/uL Lymphocytes # (1.0-4.8) k/uL Potassium (3.5-5.1) mmol/L Chloride (98-107) mmol/L Creatinine (0.52-1.04) mg/dL Glucose (74-99) mg/dL POC Glucose (mg/dL) 68 L 113 H 129 H (75-99) mg/dL Calcium (8.4-10.2) mg/dL 06/19/21 06/19/21 06/19/21 Range/Units 00:21 04:10 04:10 WBC 11.9 H (3.8-10.6) k/uL RBC 3.56 L (3.80-5.40) m/uL Hgb 11.1 L (11.4-16.0) gm/dL Plt Count 117 L (150-450) k/uL Neutrophils # 10.4 H (1.3-7.7) k/uL Lymphocytes # 0.9 L (1.0-4.8) k/uL Potassium 3.4 L (3.5-5.1) mmol/L Chloride 112 H (98-107) mmol/L Creatinine 0.49 L (0.52-1.04) mg/dL Glucose 149 H (74-99) mg/dL POC Glucose (mg/dL) 133 H (75-99) mg/dL Calcium 7.6 L (8.4-10.2) mg/dL 06/19/21 Range/Units 06:37 WBC (3.8-10.6) k/uL RBC (3.80-5.40) m/uL Hgb (11.4-16.0) gm/dL Plt Count (150-450) k/uL Neutrophils # (1.3-7.7) k/uL Lymphocytes # (1.0-4.8) k/uL Potassium (3.5-5.1) mmol/L Chloride (98-107) mmol/L Creatinine (0.52-1.04) mg/dL Glucose (74-99) mg/dL POC Glucose (mg/dL) 118 H (75-99) mg/dL Calcium (8.4-10.2) mg/dL Microbiology - Last 24 Hours (Table) 06/16/21 20:23 Gram Stain - Preliminary Sputum Sputum Culture - Preliminary Leatha albicans Assessment and Plan Assessment: Postop day #3, status post exploratory laparotomy, partial colectomy with end colostomy and mobilization of splenic flexure, secondary to bowel perforation. Routine postoperative ventilator management, status post intubation on June 16, and subsequent extubation on June 17. History of atrial fibrillation with RVR. History of previous bowel resection. History of degenerative joint disease. Plan: Plan dated 06/18/2021. The patient remains on Zosyn and Flagyl empirically for possible abdominal sepsis. NG tube in place. No supplemental oxygen at this time. We do enco urage the patient to use the incentive spirometer every hour while awake. In addition, we recommend deep breathing, coughing, clearing secretions. Labs, x- rays, and medications are all reviewed. Prognosis remains guarded. The patient will continue to be monitored, and managed in the intensive care unit. We will continue to follow and make recommendations where appropriate. Plan dated 06/19/2021. The patient remains on Zosyn and Flagyl empirically. NG tube remains in place. The patient is not receiving any supplemental oxygen. Labs, x-rays, and medications are all reviewed. We encouraged to take deep breaths, cough, and clear secretions. She's not doing a very good job with BiPAP. In addition, she is not doing a very good job using the incentive spirometer. We will encourage her more. We will continue to follow make recommendations and suggestions where appropriate. Prognosis is guarded. Time with Patient: Less than 30
[2021-06-19] MEDS: busPIRone HCl 5 MG TAB PO SCH ×2 (10:14→22:14)
[2021-06-19] MEDS: METOPROLOL TARTRATE 25 MG TAB PO SCH ×2 (10:14→22:14)
[2021-06-19] MEDS: ACETAMINOPHEN IV (For NPO) 1,000 MG in EMPTY BAG 1 BAG IVPB SCH ×2 (10:44→17:21)
[2021-06-19] MEDS: ENOXAPARIN 40 MG/0.4 ML SYRINGE SQ SCH (10:48)
[2021-06-19] MEDS: KETOROLAC 15 MG/ML 1 ML VIAL IVP SCH ×3 (11:32→23:15)
[2021-06-19 11:33] LABS: Glucose,Whole Blood 113 mg/dL (75-99)
--- NOTE | 2021-06-19 11:42 | PN ---
PROGRESS NOTE FOLLOW-UP NOTE: Selena is an 85-year-old lady who was admitted to hospital with perforated bowel and underwent surgery for the same. Cardiology had been consulted because of a history of paroxysmal atrial fibrillation. She had an episode of atrial fibrillation in the perioperative setting. She is doing well, making slow recovery. She still has the NG tube in place. She remains in sinus rhythm and hemodynamically stable. Currently on Lopressor 25 b.i.d. On exam, patient's heart rate is 74 beats per minute. Blood pressure is 138/62, respiratory rate is 12, O2 saturation is 99%. Chest exam reveals diminished air entry at the bases. Heart exam reveals first and second heart sounds. No gallop. No murmur. Abdomen is status post surgery. Examination of extremities did not reveal any edema. Peripheral pulses are felt. Labs show a hemoglobin of 11.1, platelet count is 117, potassium is 3.4, creatinine is 0.49. I reviewed telemetry data. The patient had a short self-limited run of SVT this morning. ASSESSMENT: 1. Paroxysmal atrial fibrillation. 2. Status post perforated bowel, status post surgery. PLAN: Patient is stable from cardiac standpoint. Continue the metoprolol that she is on. MMODL / IJN: [id number] /
--- NOTE | 2021-06-19 12:10 | P.PN ---
<Anna Ramos - Last Filed: 06/19/21 12:03> Subjective Progress Note Date: 06/19/21 CHIEF COMPLAINT: Colon perforation HISTORY OF PRESENT ILLNESS: Patient is postop day #3 status post partial colectomy with end colostomy and mobilization of splenic flexure. Patient is sitting up in ICU bed. She is complaining of more abdominal pain. She is a little more distended today. Her pain is about 9 out of 10. She is having nausea and spitting up clearish fluid passed the NG tube. She's had minimal output through the NG tube. The morphine appears to make her more nauseated. No bowel function. Afebrile. WBC 11.9 hemoglobin 11.1 platelets 117 potassium 3.4 creatinine 0.49. Patient is not moving much. Patient has not gotten out of bed. She is not using the incentive spirometer. Patient has had episodes of SVT. Cardiology following. PHYSICAL EXAM: VITAL SIGNS: Reviewed. GENERAL: Well-developed in no acute distress. HEENT: No sclera icterus. Extraocular movements grossly intact. Moist buccal mucosa. Head is atraumatic, normocephalic. ABDOMEN: Soft. Distended. Diffuse tenderness. Dressing clean and dry, ostomy pink NEUROLOGIC: Alert and oriented. Cranial nerves II through XII grossly intact. ASSESSMENT: 1. Colon perforation status post partial colectomy with end colostomy and mobilization of splenic flexure PLAN: -Add Toradol for pain control -Change IV Tylenol to scheduled -Add Reglan scheduled for nausea -Continue ICU management -Continue supportive care -Continue NG tube -Continue pain medication as needed -continue IV antibiotics -Encouraged patient to use incentive spirometer -Encouraged patient to increase activity level -GI prophylaxis Protonix and DVT prophylaxis Lovenox Physician Sleeping Room Cleaner note has been reviewed by physician. Signing provider agrees with the documented findings, assessment, and plan of care. Objective - Vital Signs Vital signs: Vital Signs Temp 98.3 F 06/18/21 20:00 Pulse 85 06/19/21 10:00 Resp 16 06/19/21 10:00 BP 158/73 06/19/21 10:00 Pulse Ox 98 06/19/21 10:00 Intake & Output 06/18/21 06/19/21 06/19/21 18:59 06:59 18:59 Intake Total 1250 1800 850 Output Total 415 415 280 Balance 835 1385 570 Weight 62 kg Intake: IV 1250 1800 850 Dextrose 5%-0.45% NaCl 1, 750 1500 750 000 ml @ 125 mls/hr IV . Q8H RAMÍREZ Rx#:[id number] Piperacillin-Tazobactam 3 100 .375 gm In Sodium Chloride 0.9% 100 ml @ 25 mls/hr IVPB Q8H RAMÍREZ Rx#: [id number] Sodium Chloride 0.9% 1, 500 000 ml @ 100 mls/hr IV . Q10H RAMÍREZ Rx#:[id number] metroNIDAZOLE-NS PMX 500 200 100 mg In Saline 1 100ml.bag @ 100 mls/hr IVPB Q8HR RAMÍREZ Rx#:[id number] Output: Gastric Drainage 50 Urine 365 415 280 Other: Voiding Method Indwelling Catheter Indwelling Catheter Indwelling Catheter ABP, PAP, CO, CI - Last Documented Arterial Blood Pressure 174/65 - Labs CBC & Chem 7: 06/19/21 04:10 06/19/21 04:10 Labs: Abnormal Lab Results - Last 24 Hours (Table) 06/18/21 06/18/21 06/19/21 Range/Units 14:45 18:13 00:21 WBC (3.8-10.6) k/uL RBC (3.80-5.40) m/uL Hgb (11.4-16.0) gm/dL Plt Count (150-450) k/uL Neutrophils # (1.3-7.7) k/uL Lymphocytes # (1.0-4.8) k/uL Potassium (3.5-5.1) mmol/L Chloride (98-107) mmol/L Creatinine (0.52-1.04) mg/dL Glucose (74-99) mg/dL POC Glucose (mg/dL) 113 H 129 H 133 H (75-99) mg/dL Calcium (8.4-10.2) mg/dL 06/19/21 06/19/21 06/19/21 Range/Units 04:10 04:10 06:37 WBC 11.9 H (3.8-10.6) k/uL RBC 3.56 L (3.80-5.40) m/uL Hgb 11.1 L (11.4-16.0) gm/dL Plt Count 117 L (150-450) k/uL Neutrophils # 10.4 H (1.3-7.7) k/uL Lymphocytes # 0.9 L (1.0-4.8) k/uL Potassium 3.4 L (3.5-5.1) mmol/L Chloride 112 H (98-107) mmol/L Creatinine 0.49 L (0.52-1.04) mg/dL Glucose 149 H (74-99) mg/dL POC Glucose (mg/dL) 118 H (75-99) mg/dL Calcium 7.6 L (8.4-10.2) mg/dL 06/19/21 Range/Units 11:31 WBC (3.8-10.6) k/uL RBC (3.80-5.40) m/uL Hgb (11.4-16.0) gm/dL Plt Count (150-450) k/uL Neutrophils # (1.3-7.7) k/uL Lymphocytes # (1.0-4.8) k/uL Potassium (3.5-5.1) mmol/L Chloride (98-107) mmol/L Creatinine (0.52-1.04) mg/dL Glucose (74-99) mg/dL POC Glucose (mg/dL) 113 H (75-99) mg/dL Calcium (8.4-10.2) mg/dL Microbiology - Last 24 Hours (Table) 06/16/21 20:23 Gram Stain - Final Sputum Sputum Culture - Final Leatha albicans <Tye Byers - Last Filed: 06/19/21 14:11> Subjective As above. Patient was having nausea and some pain earlier today. That is resolved. NG output minimal. White blood cell count 11.9. Minimal ostomy output. We'll remove nasogastric tube at this time. Increase activity. Objective - Vital Signs Vital signs: Vital Signs Temp 98.5 F 06/19/21 12:00 Pulse 82 06/19/21 13:00 Resp 18 06/19/21 13:00 BP 128/57 06/19/21 13:00 Pulse Ox 98 06/19/21 13:00 Intake & Output 06/18/21 06/19/21 06/19/21 18:59 06:59 18:59 Intake Total 1250 1800 850 Output Total 415 415 280 Balance 835 1385 570 Weight 62 kg Intake: IV 1250 1800 850 Dextrose 5%-0.45% NaCl 1, 750 1500 750 000 ml @ 125 mls/hr IV . Q8H RAMÍREZ Rx#:[id number] Piperacillin-Tazobactam 3 100 .375 gm In Sodium Chloride 0.9% 100 ml @ 25 mls/hr IVPB Q8H RAMÍREZ Rx#: [id number] Sodium Chloride 0.9% 1, 500 000 ml @ 100 mls/hr IV . Q10H RAMÍREZ Rx#:[id number] metroNIDAZOLE-NS PMX 500 200 100 mg In Saline 1 100ml.bag @ 100 mls/hr IVPB Q8HR RAMÍREZ Rx#:[id number] Output: Gastric Drainage 50 Urine 365 415 280 Other: Voiding Method Indwelling Catheter Indwelling Catheter Indwelling Catheter ABP, PAP, CO, CI - Last Documented Arterial Blood Pressure 126/49 - Labs CBC & Chem 7: 06/19/21 04:10 06/19/21 04:10 Labs: Abnormal Lab Results - Last 24 Hours (Table) 06/18/21 06/18/21 06/19/21 Range/Units 14:45 18:13 00:21 WBC (3.8-10.6) k/uL RBC (3.80-5.40) m/uL Hgb (11.4-16.0) gm/dL Plt Count (150-450) k/uL Neutrophils # (1.3-7.7) k/uL Lymphocytes # (1.0-4.8) k/uL Potassium (3.5-5.1) mmol/L Chloride (98-107) mmol/L Creatinine (0.52-1.04) mg/dL Glucose (74-99) mg/dL POC Glucose (mg/dL) 113 H 129 H 133 H (75-99) mg/dL Calcium (8.4-10.2) mg/dL 06/19/21 06/19/21 06/19/21 Range/Units 04:10 04:10 06:37 WBC 11.9 H (3.8-10.6) k/uL RBC 3.56 L (3.80-5.40) m/uL Hgb 11.1 L (11.4-16.0) gm/dL Plt Count 117 L (150-450) k/uL Neutrophils # 10.4 H (1.3-7.7) k/uL Lymphocytes # 0.9 L (1.0-4.8) k/uL Potassium 3.4 L (3.5-5.1) mmol/L Chloride 112 H (98-107) mmol/L Creatinine 0.49 L (0.52-1.04) mg/dL Glucose 149 H (74-99) mg/dL POC Glucose (mg/dL) 118 H (75-99) mg/dL Calcium 7.6 L (8.4-10.2) mg/dL 06/19/21 Range/Units 11:31 WBC (3.8-10.6) k/uL RBC (3.80-5.40) m/uL Hgb (11.4-16.0) gm/dL Plt Count (150-450) k/uL Neutrophils # (1.3-7.7) k/uL Lymphocytes # (1.0-4.8) k/uL Potassium (3.5-5.1) mmol/L Chloride (98-107) mmol/L Creatinine (0.52-1.04) mg/dL Glucose (74-99) mg/dL POC Glucose (mg/dL) 113 H (75-99) mg/dL Calcium (8.4-10.2) mg/dL Microbiology - Last 24 Hours (Table) 06/16/21 20:23 Gram Stain - Final Sputum Sputum Culture - Final Leatha albicans Assessment and Plan (1) Colon perforation Current Visit: Yes Status: Acute Code(s): K63.1 - PERFORATION OF INTESTINE (NONTRAUMATIC) SNOMED Code(s): 24258742
--- NOTE | 2021-06-19 12:30 | ECHOF ---
Referral Reason:Epidose of Afib MEASUREMENTS -------- HEIGHT: 162.6 cm WEIGHT: 61.7 kg BP: RVIDd: 2.6 cm (< 3.3) IVSd: 1.1 cm (0.6 - 1.1) LVIDd: 3.8 cm (3.9 - 5.3) LVPWd: 1.1 cm (0.6 - 1.1) IVSs: 1.2 cm LVIDs: 3.5 cm LVPWs: 1.2 cm LA Diam: 3.8 cm (2.7 - 3.8) Ao Diam: 3.3 cm (2.0 - 3.7) AV Cusp: 1.6 cm (1.5 - 2.6) LA Diam: 3.8 cm (2.7 - 3.8) MV E Robb: 0.58 m/s MV DecT: 144 ms MV A Robb: 0.73 m/s MV E/A Ratio: 0.79 AR PHT: 271 ms RAP: 5.00 mmHg RVSP: 29.76 mmHg FINDINGS -------- Atrial fibrillation. This was a technically good study. The left ventricular size is normal. Left ventricular wall thickness is normal. Overall left vent ricular systolic function is mildly impaired with, an EF between 45 - 50 %. The right ventricle is normal in size. The left atrium is moderately dilated. The right atrial size is normal. There is mild aortic regurgitation. Moderate mitral regurgitation is present. Mild tricuspid regurgitation present. Right ventricular systolic pressure is normal at < 35 mmHg. There is no pulmonic regurgitation present. There is a trivial pericardial effusion present. CONCLUSIONS -------- 1. The left ventricular size is normal. 2. Left ventricular wall thickness is normal. 3. Overall left ventricular systolic function is mildly impaired with, an EF between 45 - 50 %. 4. The right ventricle is normal in size. 5. The left atrium is moderately dilated. 6. The right atrial size is normal. 7. There is mild aortic regurgitation. 8. Moderate mitral regurgitation is present. 9. Mild tricuspid regurgitation present. 10. There is a trivial pericardial effusion present. WARP TENSION TESTER: Alejandra Moraes, ELOISA
--- NOTE | 2021-06-19 13:56 | P.PN ---
Progress Note - Text Progress Note Date: 06/19/21 History of presenting complaint: This is a pleasant 85-year-old patient of Dr. Pollard. Chronic stable medical conditions include osteoarthritis, hypothyroid, hypertension, depression, restless leg syndrome. CT change showing some nodules [patient has declined any further workup in the past Patient now presented with abdominal pain or rectal bleeding. Computed tomography scan did confirm colon perforation. Patient had prior colon resection. Also was in atrial fibrillation with rapid ventricular rate. On June 16 patient underwent partial colectomy with end colostomy. There was stool in the peritoneal cavity. 06/18/2021: ICU. Patient was extubated yesterday. Remains nothing by mouth. NG tube to low intermittent suction. Has some nausea and some operative site.. No output through the colostomy bag. 06/19/2021: ICU. NG tube to low intermittent suction in place. No output from colostomy bag. Laying in bed. Tired. Sinus rhythm. Awake Review of systems: Was done for constitutional, cardiovascular, GI, pulmonary. relevant finding as above Active Medications Buspirone HCl (Buspirone Hcl 5 Mg Tab) 5 mg PO BID [facility] Last Admin: 06/19/21 10:14 Dose: Not Given Documented by: Enoxaparin Sodium (Enoxaparin 40 Mg/0.4 Ml Syringe) 40 mg SQ DAILY [facility] Last Admin: 06/19/21 10:48 Dose: Not Given Documented by: Hydromorphone HCl (Hydromorphone 0.5 Mg/0.5 Ml Syringe) 0.5 mg IVP Q2HR PRN PRN Reason: Severe Pain Last Admin: 06/19/21 13:28 Dose: 0.5 mg Documented by: Piperacillin Sod/Tazobactam (Sod 3.375 gm/ Sodium Chloride) 100 mls @ 25 mls/hr IVPB Q8H [facility] Last Admin: 06/19/21 13:28 Dose: 25 mls/hr Documented by: Metronidazole 500 mg/ IV (Solution) 100 mls @ 100 mls/hr IVPB Q8HR [facility] Last Admin: 06/19/21 09:53 Dose: 100 mls/hr Documented by: Dextrose/Sodium Chloride (Dextrose 5%-1/2ns Iv Soln) 1,000 mls @ 50 mls/hr IV .Q20H [facility] Last Admin: 06/19/21 13:28 Dose: 50 mls/hr Documented by: Acetaminophen 1,000 mg/ IV (Solution) 100 mls @ 400 mls/hr IVPB Q6HR [facility] Stop: 06/20/21 06:14 Last Admin: 06/19/21 10:44 Dose: 400 mls/hr Documented by: Ketorolac Tromethamine (Ketorolac 15 Mg/Ml 1 Ml Vial) 15 mg IVP Q6HR [facility] Stop: 06/22/21 10:03 Last Admin: 06/19/21 11:32 Dose: 15 mg Documented by: Levothyroxine Sodium (Levothyroxine 50 Mcg Tab) 50 mcg PO DAILY@0630 [facility] Last Admin: 06/19/21 05:30 Dose: 50 mcg Documented by: Metoclopramide HCl (Metoclopramide 5 Mg/Ml 2 Ml Vial) 10 mg IVP Q6HR [facility] Last Admin: 06/19/21 09:52 Dose: 10 mg Documented by: Metoprolol Tartrate (Metoprolol Tartrate 25 Mg Tab) 25 mg PO BID [facility] Last Admin: 06/19/21 10:14 Dose: Not Given Documented by: Mirtazapine (Mirtazapine 15 Mg Tab) 30 mg PO HS [facility] Last Admin: 06/18/21 20:09 Dose: 30 mg Documented by: Miscellaneous Information (Potassium Replacement Protocol 1 Each Misc) 1 each MISCELLANE DAILY PRN; Protocol PRN Reason: Per Protocol Miscellaneous Information (Magnesium Replacement Protocol 1 Each Misc) 1 each MISCELLANE DAILY PRN; Protocol PRN Reason: Per Protocol Morphine Sulfate (Morphine Sulfate 2 Mg/Ml Syringe) 2 mg IV Q4HR PRN PRN Reason: Severe Pain Last Admin: 06/19/21 05:37 Dose: 2 mg Documented by: Naloxone HCl (Naloxone 0.4 Mg/Ml 1 Ml Vial) 0.2 mg IV Q2M PRN PRN Reason: Opioid Reversal Non-Formulary Medication (Mirabegron [Myrbetriq]) 25 mg PO DAILY [facility] Last Admin: 06/19/21 07:56 Dose: Not Given Documented by: Ondansetron HCl (Ondansetron 4 Mg/2 Ml Vial) 4 mg IVP Q6HR PRN PRN Reason: Nausea And Vomiting Last Admin: 06/19/21 11:32 Dose: 4 mg Documented by: Pantoprazole Sodium (Pantoprazole 40 Mg/10 Ml Vial) 40 mg IV DAILY [facility] Last Admin: 06/19/21 09:52 Dose: 40 mg Documented by: Ropinirole HCl (Ropinirole Hcl 0.25 Mg Tab) 0.5 mg PO [facility] Last Admin: 06/18/21 20:09 Dose: 0.5 mg Documented by: Trazodone HCl (Trazodone Hcl 50 Mg Tab) 50 mg PO [facility] Last Admin: 06/18/21 20:09 Dose: 50 mg Documented by: Past medical history to include: Osteoarthritis, hypothyroid, hypertension, depression, restless leg syndrome, atrial fibrillation Social history: Lives alone. Uses a walker. No history of alcohol or smoking. On examination: VITAL SIGNS: 98.5, 82, 18, 128.57, 98% on room air GENERAL APPEARANCE:, laying in bed, awake, tired HEENT: Normal external appearance of nose and ear. NG tube to suction EYES: Pupils equal. Conjunctiva normal. NECK: JVD not raised. Mass not palpable. RESPIRATORY: Respiratory effort normal. Lungs clear to auscultation. CARDIOVASCULAR: First and second sounds normal. No edema. MUSCULAR skeletal: Evidence of OA ABDOMEN: Soft. Tender. Dressing over the midline incision. Colostomy bag-with no output. Liver and spleen not palpable. Some tenderness. No mass palpable. Bowel sounds present PSYCHIATRY: Answering simple questions INVESTIGATIONS, reviewed in the clinical context: June 19: WBC 11.9 hemoglobin 11.1 platelets 117 sodium 138 potassium 3.4 creatinine 0.49 WBC 13.1 hemoglobin 11.5 platelets 134 potassium 3.2 BUN 20 creatinine 0.62 Computed tomography scan of the abdomen pelvis: June 16] perforation. Pneumoperitoneum. Assessment and plan: -Acute sigmoid perforation, secondary to fecal impaction, followed by partial bowel resection and colostomy Surgery done on June [address] Gallo. Nothing by mouth. NG tube to suction -Secondary peritonitis with fecal soiling from sigmoid perforation IV Flagyl 500 mg every 8, IV Zosyn every 8 -Multiple chronic pulmonary nodules. Patient does not want any further treatment. -Primary osteoarthritis Use pain medications as needed -Hypothyroid Synthroid 50 g daily -Essential hypertension Lopressor 25 mg twice a day -Restless leg syndrome Recurrent 0.5 mg daily at bedtime -Chronic gait dysfunction uses a walker Fall precautions -Depression BuSpar 5 mg twice a day -Chronic insomnia Trazodone 50 mg daily at bedtime -Hypokalemia Replace potassium -Hypoglycemia from poor oral intake: Better Change IV fluids to D5 0.45 at 125 an hour -Acute thrombocytopenia, likely from infection: Follow closely IV fluids. NG tube to suction. Continue IV Flagyl and IV Zosyn. Replace potassium. Follow labs.
[2021-06-19 17:57] LABS: Glucose,Whole Blood 95 mg/dL (75-99)
[2021-06-19] MEDS: MIRTAZAPINE 15 MG TAB PO SCH (22:13)
[2021-06-19] MEDS: traZODone HCL 50 MG TAB PO SCH (22:14)
[2021-06-20] MEDS: HYDROmorphone 0.5 MG/0.5 ML SYRINGE IVP PRN ×3 (00:25→05:05)
[2021-06-20 00:31] LABS: Glucose,Whole Blood 84 mg/dL (75-99)
[2021-06-20] MEDS: ACETAMINOPHEN IV (For NPO) 1,000 MG in EMPTY BAG 1 BAG IVPB SCH ×2 (01:05→05:15)
[2021-06-20] MEDS: MORPHINE SULFATE 2 MG/ML SYRINGE IV PRN ×4 (03:20→21:05)
[2021-06-20] MEDS: PIPERACILLIN-TAZOBACTAM 3.375 GM in SODIUM CHLORIDE 0.9% 100 ML IVPB SCH ×3 (04:13→21:41)
[2021-06-20 04:52] LABS: Basophils % (A) 0 %; Eosinophils # (A) 0.2 k/uL (0-0.7); Eosinophils % (A) 2 %; HCT 34.5 % (34.0-46.0); Lymphocytes # (A) 1.1 k/uL (1.0-4.8); Lymphocytes % (A) 15 %; MCH 30.8 pg (25.0-35.0); MCHC 31.8 g/dL (31.0-37.0); MCV 96.6 fL (80.0-100.0); Mean Platelet Volume 8.4; Monocytes # (A) 0.3 k/uL (0-1.0); Monocytes % (A) 5 %; Neutrophils # (A) 5.4 k/uL (1.3-7.7); Neutrophils % (A) 76 %; Platelet Count 134 k/uL (150-450); RBC 3.57 m/uL (3.80-5.40); RDW 13.7 % (11.5-15.5)
[2021-06-20 05:07] LABS: African American GFR (CKD) >90 (>60 ml/min/1.73 sqM); Anion Gap 3 mmol/L; Blood Urea Nitrogen 15 mg/dL (7-17); Calcium 7.4 mg/dL (8.4-10.2); Carbon Dioxide 23 mmol/L (22-30); Chloride 112 mmol/L (98-107); Glucose 99 mg/dL (74-99); Non-African American GFR(CKD) 85 (>60 ml/min/1.73 sqM); Potassium 3.5 mmol/L (3.5-5.1); Sodium 138 mmol/L (137-145)
[2021-06-20] MEDS: metroNIDAZOLE-NS PMX 500 MG in SALINE 1 100ML.BAG IVPB SCH ×2 (05:43→15:09)
[2021-06-20] MEDS: POTASSIUM CHLORIDE ER 20 MEQ TAB.ER PO SCH ×2 (05:43→06:19)
[2021-06-20] MEDS: LEVOTHYROXINE 50 MCG TAB PO SCH (05:43)
[2021-06-20] MEDS: KETOROLAC 15 MG/ML 1 ML VIAL IVP SCH ×4 (05:44→23:37)
[2021-06-20] MEDS: METOCLOPRAMIDE 5 MG/ML 2 ML VIAL IVP SCH ×4 (05:44→23:39)
[2021-06-20 06:18] LABS: Glucose,Whole Blood 96 mg/dL (75-99)
[2021-06-20] MEDS: ONDANSETRON 4 MG/2 ML VIAL IVP PRN ×3 (08:40→20:26)
[2021-06-20] MEDS: METOPROLOL TARTRATE 25 MG TAB PO SCH ×2 (08:41→21:04)
[2021-06-20] MEDS: busPIRone HCl 5 MG TAB PO SCH ×2 (08:41→21:04)
[2021-06-20] MEDS: ENOXAPARIN 40 MG/0.4 ML SYRINGE SQ SCH (08:41)
[2021-06-20] MEDS: PANTOPRAZOLE 40 MG/10 ML VIAL IV SCH (08:41)
[2021-06-20] MEDS: NON FORMULARY DRUG (Mirabegron [Myrbetriq] 25 MG Tablet) PO SCH (09:00)
--- NOTE | 2021-06-20 10:30 | P.PN ---
Subjective Progress Note Date: 06/20/21 Principal diagnosis: Bowel perforation This is an 85-year-old female with history of chronic atrial fibrillation, history of bowel resection, hysterectomy, right hip surgery, patient was brought into the ER on 06/16 with acute onset of abdominal pain and rectal bleeding. Computed tomography scan of the abdomen and pelvis showed perforation and free air suggestive of bowel rupture. Patient was also noted to be tachycardic, she was in atrial fibrillation with RVR, and she was noted to have leukocytosis. Patient underwent surgery yesterday by Dr. barney, patient had partial colectomy and end colostomy and mobilization of splenic flexure. There was evidence of stool present beneath that peritoneal surface along the left gutter the patient underwent blunt dissection, and a drainage of abscess cavity and the perforation was basically through a defect in the lateral wall of the descending colon. Postoperatively, the patient was sent to the intensive care unit, intubated and mechanically ventilated. Patient could not be extubated in the recovery room. I saw this patient this morning, and I was made aware of her ventilator settings last night. Today the patient is on assist control rate of 14 volume 400 FiO2 30% and PEEP of 5. ABG showed a pO2 of 142 pCO2 of 32 pH of 7.40 and this was on 40% FiO2. Basic metabolic profile was relatively unremarkable except for low potassium of 3.3 and last night she had a lactic acid of 2.1 patient was noted to be hemodynamically stable, and after evaluating the patient, I discontinued her propofol which was a 55 mcg/kg/m, she was earlier on norepinephrine at 0.08 mcg/kg/m, patient was awakened, placed on a short trial of pressure support of 8 and CPAP, clinically she was noted to tolerate the weaning mode quite well, hence I proceeded to extubating the patient to a nasal cannula. Chest x-ray prior to extubation showed mostly basilar atelectasis, no evidence of infiltrate, and no evidence of pulmonary edema. Progress note dated 06/18/2021. This is a 85-year-old female was admitted to the hospital on June 16, with abdominal pain. She went to the operating room on June 16, for bowel perforation. She ended up with a colectomy, and end colostomy, and mobilization of the splenic flexure. Today, she is postop day #2. She also has a history of atrial fibrillation, previous bowel resection, and degenerative joint disease. She is currently resting comfortably. She's on room air. An NG tube is in plac e. She's getting saline at 100 mL an hour. She's also getting Zosyn and Flagyl with antibiotics prophylactically. The surgery was done by Dr. Byers. She had surgery on June 16, and was extubated from the mechanical ventilator yesterday, June 17. White count 13.1, hemoglobin 11.5, hematocrit 35.2, and platelet count 134,000. Sodium 141, potassium 3.2, chlorides 116, CO2 21, anion gap 4, BUN 20, and creatinine 0.62. Microbiology is currently negative. No chest x-ray noted from today. Clinically, the patient looks pretty good. Progress note dated 06/19/2021. 85-year-old female, again in the ICU. She was admitted to the hospital June 16 with abdominal pain. She went to the operating room on June 16 for bowel perforation. She ended up with a colectomy and end colostomy and mobilization of her splenic flexure. Today is postop day #3. She's getting an echocardiogram today. She has a history of atrial fibrillation, previous bowel resection, and degenerative joint disease. Currently, she's not receiving any supplemental oxygen. She's had an NG tube in place. She's getting D5.45 at 125 mL an hour. She is on Zosyn and Flagyl. White count 11.9, hemoglobin 11.1, h ematocrit 34.5, platelet count 117,000. Sodium 138, potassium 3.4, chlorides 112, CO2 23, anion gap 3, BUN 15, and creatinine 0.49. Chest x-ray shows some bibasilar atelectasis and small effusions. The patient is seen today 06/20/2021 in the intensive care unit. She is currently awake and alert. She is still having quite a bit of abdominal pain. Abdominal x-ray pending. Postoperative day #4 of her colectomy and end colostomy. Abdominal incision with kenan intact. Ostomy is functioning today. White count 7.0. Hemoglobin 11.0. Platelet count 134. Sodium 138. Potassium 3.5. Bicarb 23. Creatinine 0.55. D5 and half-normal saline at 50 MLS per hour. Lovenox for DVT prophylaxis. Antibiotics in the form of Flagyl and Zosyn. NG tube was discontinued. Remains nothing by mouth. Objective - Vital Signs Vital signs: Vital Signs Temp 98.1 F 06/20/21 02:00 Pulse 96 06/20/21 02:00 Resp 16 06/20/21 02:00 BP 144/70 06/20/21 02:00 Pulse Ox 97 06/20/21 02:00 Intake & Output 06/19/21 06/20/21 06/20/21 18:59 06:59 18:59 Intake Total 1100 350 Output Total 505 400 Balance 595 -50 Intake: IV 1100 250 Dextrose 5%-0.45% NaCl 1, 800 50 000 ml @ 50 mls/hr IV . Q20H [facility] Rx#:[id number] Piperacillin-Tazobactam 3 100 100 .375 gm In Sodium Chloride 0.9% 100 ml @ 25 mls/hr IVPB Q8H [facility] Rx#: [id number] metroNIDAZOLE-NS PMX 500 200 100 mg In Saline 1 100ml.bag @ 100 mls/hr IVPB Q8HR [facility] Rx#:[id number] Intake, IV Titration 100 Amount ACETAMINOPHEN IV (For NPO 100 ) 1,000 mg In Empty Bag 1 bag @ 400 mls/hr IVPB Q6HR [facility] Rx#:[id number] Output: Urine 505 400 Other: Voiding Method Indwelling Catheter Indwelling Catheter ABP, PAP, CO, CI - Last Documented Arterial Blood Pressure 122/47 - Exam GENERAL EXAM: Alert, pleasant 85-year-old female patient, on room air, fairly comfortable in no apparent distress. HEAD: Normocephalic. EYES: Normal reaction of pupils, equal size. NOSE: Clear with pink turbinates. THROAT: No erythema or exudates. NECK: No masses, no JVD. CHEST: No chest wall deformity. LUNGS: Equal air entry with no crackles, wheeze, rhonchi or dullness. CVS: S1 and S2 normal with no audible murmur, regular rhythm. ABDOMEN: Abdominal incision clean dry well approximated. Kenan intact. Ostomy functioning. SPINE: No scoliosis or deformity SKIN: No rashes CENTRAL NERVOUS SYSTEM: No focal deficits, tone is normal in all 4 extremities. EXTREMITIES: There is no peripheral edema. No clubbing, no cyanosis. Peripheral pulses are intact. - Labs CBC & Chem 7: 06/20/21 04:32 06/20/21 04:32 Labs: Abnormal Lab Results - Last 24 Hours (Table) 06/19/21 06/20/21 06/20/21 Range/Units 11:31 04:32 04:32 RBC 3.57 L (3.80-5.40) m/uL Hgb 11.0 L (11.4-16.0) gm/dL Plt Count 134 L (150-450) k/uL Chloride 112 H (98-107) mmol/L POC Glucose (mg/dL) 113 H (75-99) mg/dL Calcium 7.4 L (8.4-10.2) mg/dL Microbiology - Last 24 Hours (Table) 06/16/21 20:23 Gram Stain - Final Sputum Sputum Culture - Final Leatha albicans Assessment and Plan Assessment: 1 Bowel perforation, status post exploratory laparotomy, partial colectomy with end colostomy and mobilization of splenic flexure. Postoperative day #4 2 Routine postoperative ventilator management, intubated on 06/16/2021, extubated on 06/17/2021, currently on room air 3 History of atrial fibrillation with rapid ventricular response 4 History of previous bowel resection 5 History of degenerative joint disease Plan: The patient was seen and evaluated by Dr. Rodriguez Still having some abdominal discomfort NG tube had been removed Abdominal x-ray pending Stable from the pulmonary standpoint and on room air Adequate pain control Encourage increased use the incentive spirometer Increase activity as tolerated We'll continue to follow I, the cosigning physician, performed a history & physical examination of the patient. Lungs sounds are clear. Maintaining good O2 saturations in the 90s on room air. I discussed the assessment and plan of care with my nurse practitioner, Felicitas Mcmillan. I attest to the above note as dictated by her.
--- NOTE | 2021-06-20 11:15 | XR ---
EXAMINATION TYPE: XR abdomen 2V DATE OF EXAM: 06/20/2021 COMPARISON: NONE HISTORY: Pain TECHNIQUE: One view abdominal series FINDINGS: The osseous structures are intact. The bowel gas pattern is nonspecific. Bibasilar infiltrate and sm all effusion. Scoliosis with degenerative changes spine. Surgical clips clips and brooke. Postoperat rosalie change right hip. Arthropathy left hip. Diffuse osteopenia. Surgical changes sutures in the pelvi s. Vascular calcifications. Calcified lymph nodes in the hilum. IMPRESSION: 1. Nonspecific abdomen. No diagnostic evidence of obstruction. 2. Bibasilar infiltrate and small effusion.
[2021-06-20 11:42] LABS: Glucose,Whole Blood 89 mg/dL (75-99)
--- NOTE | 2021-06-20 12:41 | P.PN ---
<Anna Ramos - Last Filed: 06/20/21 12:34> Subjective Progress Note Date: 06/20/21 CHIEF COMPLAINT: Colon perforation HISTORY OF PRESENT ILLNESS: Patient is postop day #4 status post partial colectomy with end colostomy and mobilization of splenic flexure. Patient is in the ICU. Her NG tube was discontinued yesterday. Patient complaining of more abdominal pain. Abdominal x-ray was completed showing nonspecific abdomen. No diagnostic evidence of obstruction. By basilar infiltrate and small effusion. Patient is complaining of nausea. She is spitting up clearish phlegm. Her ostomy is not functioning at. She is afebrile. Her white count has normalized to 7. PHYSICAL EXAM: VITAL SIGNS: Reviewed. GENERAL: Well-developed in no acute distress. HEENT: No sclera icterus. Extraocular movements grossly intact. Moist buccal mucosa. Head is atraumatic, normocephalic. ABDOMEN: Soft. Nondistended. Diffuse tenderness. Incision clean dry and intact. ostomy pink NEUROLOGIC: Alert and oriented. Cranial nerves II through XII grossly intact. ASSESSMENT: 1. Colon perforation status post partial colectomy with end colostomy and mobilization of splenic flexure PLAN: -Computed tomography scan of abdomen and pelvis without contrast for further evaluation of patient's abdominal pain -Continue pain medication -Continue antiemetics -Continue ICU management -Continue supportive care -continue IV antibiotics -Encouraged patient to use incentive spirometer -Encouraged patient to increase activity level -GI prophylaxis Protonix and DVT prophylaxis Lovenox Physician Supervisor Grips note has been reviewed by physician. Signing provider agrees with the documented findings, assessment, and plan of care. Objective - Vital Signs Vital signs: Vital Signs Temp 98.5 F 06/20/21 08:00 Pulse 84 06/20/21 08:00 Resp 14 06/20/21 08:00 BP 145/65 06/20/21 08:00 Pulse Ox 98 06/20/21 08:00 Intake & Output 06/19/21 06/20/21 06/20/21 18:59 06:59 18:59 Intake Total 1100 350 Output Total 505 400 Balance 595 -50 Intake: IV 1100 250 Dextrose 5%-0.45% NaCl 1, 800 50 000 ml @ 50 mls/hr IV . Q20H [facility] Rx#:[id number] Piperacillin-Tazobactam 3 100 100 .375 gm In Sodium Chloride 0.9% 100 ml @ 25 mls/hr IVPB Q8H [facility] Rx#: [id number] metroNIDAZOLE-NS PMX 500 200 100 mg In Saline 1 100ml.bag @ 100 mls/hr IVPB Q8HR [facility] Rx#:[id number] Intake, IV Titration 100 Amount ACETAMINOPHEN IV (For NPO 100 ) 1,000 mg In Empty Bag 1 bag @ 400 mls/hr IVPB Q6HR [facility] Rx#:[id number] Output: Urine 505 400 Other: Voiding Method Indwelling Catheter Indwelling Catheter Indwelling Catheter ABP, PAP, CO, CI - Last Documented Arterial Blood Pressure 122/46 - Labs CBC & Chem 7: 06/20/21 04:32 06/20/21 04:32 Labs: Abnormal Lab Results - Last 24 Hours (Table) 06/20/21 06/20/21 Range/Units 04:32 04:32 RBC 3.57 L (3.80-5.40) m/uL Hgb 11.0 L (11.4-16.0) gm/dL Plt Count 134 L (150-450) k/uL Chloride 112 H (98-107) mmol/L Calcium 7.4 L (8.4-10.2) mg/dL Microbiology - Last 24 Hours (Table) 06/16/21 20:23 Gram Stain - Final Sputum Sputum Culture - Final Leatha albicans <Tye Byers - Last Filed: 06/20/21 17:43> Subjective As above. Patient having slightly more abdominal discomfort than anticipated. Pain is diffuse but seems to be more around the ostomy site. We'll order CT abdomen and pelvis at this time. Continue nothing by mouth. Continue antibiotics. Objective - Vital Signs Vital signs: Vital Signs Temp 98.5 F 06/20/21 14:00 Pulse 82 06/20/21 14:00 Resp 20 06/20/21 14:00 BP 180/79 06/20/21 14:00 Pulse Ox 93 L 06/20/21 14:00 Intake & Output 06/19/21 06/20/21 06/20/21 18:59 06:59 18:59 Intake Total 1100 350 250 Output Total 505 400 300 Balance 595 -50 -50 Weight 62 kg Intake: IV 1100 250 250 Dextrose 5%-0.45% NaCl 1, 800 50 50 000 ml @ 50 mls/hr IV . Q20H [facility] Rx#:[id number] Piperacillin-Tazobactam 3 100 100 100 .375 gm In Sodium Chloride 0.9% 100 ml @ 25 mls/hr IVPB Q8H [facility] Rx#: [id number] metroNIDAZOLE-NS PMX 500 200 100 100 mg In Saline 1 100ml.bag @ 100 mls/hr IVPB Q8HR [facility] Rx#:[id number] Intake, IV Titration 100 Amount ACETAMINOPHEN IV (For NPO 100 ) 1,000 mg In Empty Bag 1 bag @ 400 mls/hr IVPB Q6HR [facility] Rx#:[id number] Output: Urine 505 400 300 Other: Voiding Method Indwelling Catheter Indwelling Catheter Indwelling Catheter # Voids 1 ABP, PAP, CO, CI - Last Documented Arterial Blood Pressure 122/46 - Labs CBC & Chem 7: 06/20/21 04:32 06/20/21 04:32 Labs: Abnormal Lab Results - Last 24 Hours (Table) 06/20/21 06/20/21 Range/Units 04:32 04:32 RBC 3.57 L (3.80-5.40) m/uL Hgb 11.0 L (11.4-16.0) gm/dL Plt Count 134 L (150-450) k/uL Chloride 112 H (98-107) mmol/L Calcium 7.4 L (8.4-10.2) mg/dL Assessment and Plan (1) Colon perforation Current Visit: Yes Status: Acute Code(s): K63.1 - PERFORATION OF INTESTINE (NONTRAUMATIC) SNOMED Code(s): 50156515
[2021-06-20 14:01] VITALS: BMI 23.4
--- NOTE | 2021-06-20 14:42 | CT ---
EXAMINATION TYPE: CT abdomen pelvis wo con DATE OF EXAM: 06/20/2021 COMPARISON: CT 06/16/2021 HISTORY: GI bleed, weak CT DLP: 494.6 mGycm Automated exposure control for dose reduction was used. TECHNIQUE: Helical acquisition of images from the lung bases through the pelvis. FINDINGS: There is been interval development of bilateral pleural effusions. Metallic densities noted through the aorta. There are coronary artery calcifications. Lack of contrast could compromise sensi tivity. Surgical brooke are present along the anterior midline. There are anasarca changes, subcutan eous fat shows some scattered areas of subcutaneous emphysema likely postoperative LUNG BASES: Probable compressive atelectatic changes are present, air bronchograms are noted, difficu lt to exclude pneumonia at the lung bases, calcified nodule is present, calcified subcarinal right hi lar nodes are seen. AORTA: No significant abnormality is appreciated. LIVER/GB: No significant change is appreciated. PANCREAS: No significant abnormality is seen. SPLEEN: Multiple punctate calcifications present within the spleen consistent with old granulomatous disease seen. ADRENALS: No significant abnormality is seen. KIDNEYS: No significant change is seen, nonobstructive calculus present at the lower pole the left ki dney. . REPRODUCTIVE ORGANS: Not seen. URINARY BLADDER: Air bubbles in the nondependent portion of the urinary bladder likely due to prior catheterization, correlate. BOWEL: Interval partial colectomy, retained fecal debris is present within the rectum, retained feca l debris present within the transverse colon, surgical clips present towards the right: As on prior. There is an ostomy in the left lower quadrant. Multiple metallic densities, bowel suture noted.. Some fluid attenuation is present in the presacral space which is developed in the interval. At the surgi suresh site there is amorphous soft tissue, no evident bowel obstruction. FREE AIR: Irving improved since prior, there is some residual free air along the left lateral paracolic gutter region. ASCITES: None visible. PELVIC ADENOPATHY: None visualized. RETROPERITONEAL ADENOPATHY: No Retroperitoneal Adenopathy visible. OSSEOUS STRUCTURES: No significant interval change is seen, postop change noted to the right hip. IMPRESSION: INTERVAL DEVELOPMENT BILATERAL PLEURAL EFFUSIONS, CORRELATE TO EXCLUDE PNEUMONIA VERSUS COMPRESSIVE A TELECTASIS OR EDEMA. POSTOP CHANGES. RETAINED STOOL DESCRIBED. NONCONTRAST EXAM.
--- NOTE | 2021-06-20 15:02 | PN ---
PROGRESS NOTE Garima is an 85-year-old lady that is admitted to ICU following a bowel perforation and surgery for the same. I have been consulted because of atrial fibrillation. This morning, she is feeling better. NG tube is out. Remains in sinus rhythm. On exam: Afebrile. Heart rate is 90 beats per minute, blood pressure 140/72 respiratory is 18, O2 saturation is 97% on room air. There is no jugular venous distention. Chest exam reveals diminished air entry at the bases. Heart exam reveals first and second heart sounds. Systolic murmur at the left lower sternal border. Exam of extremities reveals mild edema. Labs show a hemoglobin of 11, potassium is 3.5 creatinine is 0.5. ASSESSMENT: Paroxysmal atrial fibrillation. PLAN: Patient remains in sinus rhythm and we will continue current medications. MMODL / IJN: [id number] /
--- NOTE | 2021-06-20 16:26 | P.PN ---
Progress Note - Text Progress Note Date: 06/20/21 History of presenting complaint: This is a pleasant 85-year-old patient of Dr. Pollard. Chronic stable medical conditions include osteoarthritis, hypothyroid, hypertension, depression, restless leg syndrome. CT change showing some nodules [patient has declined any further workup in the past Patient now presented with abdominal pain or rectal bleeding. Computed tomography scan did confirm colon perforation. Patient had prior colon resection. Also was in atrial fibrillation with rapid ventricular rate. On June 16 patient underwent partial colectomy with end colostomy. There was stool in the peritoneal cavity. 06/18/2021: ICU. Patient was extubated yesterday. Remains nothing by mouth. NG tube to low intermittent suction. Has some nausea and some operative site.. No output through the colostomy bag. 06/19/2021: ICU. NG tube to low intermittent suction in place. No output from colostomy bag. Laying in bed. Tired. Sinus rhythm. Awake 06/20/2021: ICU: NG tube discontinued. On ice chips. Not performed a colostomy bag. Sinus rhythm. Awake. Review of systems: Was done for constitutional, cardiovascular, GI, pulmonary. relevant finding as above Active Medications Buspirone HCl (Buspirone Hcl 5 Mg Tab) 5 mg PO BID [facility] Last Admin: 06/20/21 08:41 Dose: 5 mg Documented by: Enoxaparin Sodium (Enoxaparin 40 Mg/0.4 Ml Syringe) 40 mg SQ DAILY [facility] Last Admin: 06/20/21 08:41 Dose: 40 mg Documented by: Hydromorphone HCl (Hydromorphone 0.5 Mg/0.5 Ml Syringe) 0.5 mg IVP Q2HR PRN PRN Reason: Severe Pain Last Admin: 06/20/21 05:05 Dose: 0.5 mg Documented by: Piperacillin Sod/Tazobactam (Sod 3.375 gm/ Sodium Chloride) 100 mls @ 25 mls/hr IVPB Q8H [facility] Last Admin: 06/20/21 12:41 Dose: 25 mls/hr Documented by: Metronidazole 500 mg/ IV (Solution) 100 mls @ 100 mls/hr IVPB Q8HR [facility] Last Admin: 06/20/21 15:09 Dose: 100 mls/hr Documented by: Dextrose/Sodium Chloride (Dextrose 5%-1/2ns Iv Soln) 1,000 mls @ 50 mls/hr IV .Q20H [facility] Last Admin: 06/19/21 17:00 Dose: 50 mls/hr Documented by: Ketorolac Tromethamine (Ketorolac 15 Mg/Ml 1 Ml Vial) 15 mg IVP Q6HR [facility] Stop: 06/22/21 10:03 Last Admin: 06/20/21 12:29 Dose: 15 mg Documented by: Levothyroxine Sodium (Levothyroxine 50 Mcg Tab) 50 mcg PO DAILY@0630 [facility] Last Admin: 06/20/21 05:43 Dose: 50 mcg Documented by: Metoclopramide HCl (Metoclopramide 5 Mg/Ml 2 Ml Vial) 10 mg IVP Q6HR [facility] Last Admin: 06/20/21 12:29 Dose: 10 mg Documented by: Metoprolol Tartrate (Metoprolol Tartrate 25 Mg Tab) 25 mg PO BID [facility] Last Admin: 06/20/21 08:41 Dose: 25 mg Documented by: Mirtazapine (Mirtazapine 15 Mg Tab) 30 mg PO HS [facility] Last Admin: 06/19/21 22:13 Dose: 30 mg Documented by: Miscellaneous Information (Potassium Replacement Protocol 1 Each Misc) 1 each MISCELLANE DAILY PRN; Protocol PRN Reason: Per Protocol Miscellaneous Information (Magnesium Replacement Protocol 1 Each Misc) 1 each MISCELLANE DAILY PRN; Protocol PRN Reason: Per Protocol Morphine Sulfate (Morphine Sulfate 2 Mg/Ml Syringe) 2 mg IV Q4HR PRN PRN Reason: Severe Pain Last Admin: 06/20/21 15:08 Dose: 2 mg Documented by: Naloxone HCl (Naloxone 0.4 Mg/Ml 1 Ml Vial) 0.2 mg IV Q2M PRN PRN Reason: Opioid Reversal Non-Formulary Medication (Mirabegron [Myrbetriq]) 25 mg PO DAILY [facility] Last Admin: 06/20/21 09:00 Dose: Not Given Documented by: Ondansetron HCl (Ondansetron 4 Mg/2 Ml Vial) 4 mg IVP Q6HR PRN PRN Reason: Nausea And Vomiting Last Admin: 06/20/21 15:08 Dose: 4 mg Documented by: Pantoprazole Sodium (Pantoprazole 40 Mg/10 Ml Vial) 40 mg IV DAILY [facility] Last Admin: 06/20/21 08:41 Dose: 40 mg Documented by: Ropinirole HCl (Ropinirole Hcl 0.25 Mg Tab) 0.5 mg PO HS [facility] Last Admin: 06/19/21 22:13 Dose: 0.5 mg Documented by: Trazodone HCl (Trazodone Hcl 50 Mg Tab) 50 mg PO HS [facility] Last Admin: 06/19/21 22:14 Dose: 50 mg Documented by: Past medical history to include: Osteoarthritis, hypothyroid, hypertension, depression, restless leg syndrome, atrial fibrillation Social history: Lives alone. Uses a walker. No history of alcohol or smoking. On examination: VITAL SIGNS: 98.5, 92, 20, 1 45 x 65, 93% on room air GENERAL APPEARANCE:, laying in bed, awake, HEENT: Normal external appearance of nose and ear. EYES: Pupils equal. Conjunctiva normal. NECK: JVD not raised. Mass not palpable. RESPIRATORY: Respiratory effort normal. Lungs clear to auscultation. CARDIOVASCULAR: First and second sounds normal. No edema. MUSCULAR skeletal: Evidence of OA ABDOMEN: Soft. Decreased Tender. Dressing over the midline incision. Colostomy bag-with no output. Liver and spleen not palpable. Some tenderness. No mass palpable. Bowel sounds present PSYCHIATRY: Answering simple questions INVESTIGATIONS, reviewed in the clinical context: June 20: WBC 7 hemoglobin 11 platelets 134and 3.5 creatinine 0.55 June 19: WBC 11.9 hemoglobin 11.1 platelets 117 sodium 138 potassium 3.4 creatinine 0.49 WBC 13.1 hemoglobin 11.5 platelets 134 potassium 3.2 BUN 20 creatinine 0.62 Computed tomography scan of the abdomen pelvis: June 16] perforation. Pneumoperitoneum. Assessment and plan: -Acute sigmoid perforation, secondary to fecal impaction, followed by partial bowel resection and colostomy Surgery done on June [address] Gallo. Ice chips. NG tube discontinued on June 20 -Secondary peritonitis with fecal soiling from sigmoid perforation IV Flagyl 500 mg every 8, IV Zosyn every 8 -Multiple chronic pulmonary nodules. Patient does not want any further treatment. -Primary osteoarthritis Use pain medications as needed -Hypothyroid Synthroid 50 g daily -Essential hypertension Lopressor 25 mg twice a day -Restless leg syndrome Recurrent 0.5 mg daily at bedtime -Chronic gait dysfunction uses a walker Fall precautions -Depression BuSpar 5 mg twice a day -Chronic insomnia Trazodone 50 mg daily at bedtime -Hypokalemia Replace potassium -Hypoglycemia from poor oral intake: Better Change IV fluids to D5 0.45 at 125 an hour -Acute thrombocytopenia, likely from infection: Follow closely IV fluids. NG tube discontinued. Continue IV Flagyl and IV Zosyn. Ice chips
[2021-06-20] MEDS: DEXTROSE 5%-0.45% NACL 1,000 ML IV SCH (18:00)
[2021-06-20] MEDS: traZODone HCL 50 MG TAB PO SCH (21:04)
[2021-06-20] MEDS: MIRTAZAPINE 15 MG TAB PO SCH (21:42)
[2021-06-21 00:30] LABS: Glucose,Whole Blood 74 mg/dL (75-99)
[2021-06-21 02:12] LABS: Glucose,Whole Blood 74 mg/dL (75-99)
[2021-06-21] MEDS: metroNIDAZOLE-NS PMX 500 MG in SALINE 1 100ML.BAG IVPB SCH ×3 (02:14→16:46)
[2021-06-21] MEDS: MORPHINE SULFATE 2 MG/ML SYRINGE IV PRN ×4 (03:39→19:17)
[2021-06-21] MEDS: PIPERACILLIN-TAZOBACTAM 3.375 GM in SODIUM CHLORIDE 0.9% 100 ML IVPB SCH ×3 (04:47→20:12)
[2021-06-21 05:42] LABS: Glucose,Whole Blood 79 mg/dL (75-99)
[2021-06-21] MEDS: LEVOTHYROXINE 50 MCG TAB PO SCH (05:43)
[2021-06-21] MEDS: KETOROLAC 15 MG/ML 1 ML VIAL IVP SCH ×3 (05:52→17:40)
[2021-06-21] MEDS: METOCLOPRAMIDE 5 MG/ML 2 ML VIAL IVP SCH ×3 (05:53→17:40)
[2021-06-21] MEDS: ENOXAPARIN 40 MG/0.4 ML SYRINGE SQ SCH (07:27)
[2021-06-21 08:04] LABS: ALT 23 U/L (4-34); AST 51 U/L (14-36); African American GFR (CKD) >90 (>60 ml/min/1.73 sqM); Albumin 2.1 g/dL (3.5-5.0); Albumin/Globulin Ratio 1.1; Alkaline Phosphatase 132 U/L (38-126); Anion Gap 5 mmol/L; Blood Urea Nitrogen 13 mg/dL (7-17); Calcium 7.5 mg/dL (8.4-10.2); Carbon Dioxide 23 mmol/L (22-30); Chloride 112 mmol/L (98-107); Glucose 82 mg/dL (74-99); Magnesium 1.6 mg/dL (1.6-2.3); Non-African American GFR(CKD) 88 (>60 ml/min/1.73 sqM); Phosphorus 1.8 mg/dL (2.5-4.5); Potassium 3.3 mmol/L (3.5-5.1); Sodium 140 mmol/L (137-145); Total Bilirubin 0.5 mg/dL (0.2-1.3); Total Protein 4.1 g/dL (6.3-8.2)
[2021-06-21] MEDS: busPIRone HCl 5 MG TAB PO SCH ×2 (08:19→20:00)
[2021-06-21] MEDS: METOPROLOL TARTRATE 25 MG TAB PO SCH ×2 (08:19→20:00)
[2021-06-21] MEDS: POTASSIUM CHLORIDE ER 20 MEQ TAB.ER PO SCH ×2 (08:19→08:35)
[2021-06-21] MEDS: PANTOPRAZOLE 40 MG/10 ML VIAL IV SCH (08:20)
[2021-06-21] MEDS: NON FORMULARY DRUG (Mirabegron [Myrbetriq] 25 MG Tablet) PO SCH (08:22)
[2021-06-21] MEDS ORDERED: POTASSIUM CHLORIDE 10 MEQ in WATER FOR INJECTION 1 100ML.BAG IVPB SCH (08:45)
[2021-06-21 11:04] LABS: Glucose,Whole Blood 90 mg/dL (75-99)
--- NOTE | 2021-06-21 11:04 | P.PN ---
Subjective Progress Note Date: 06/21/21 Principal diagnosis: Bowel perforation. This is an 85-year-old female with history of chronic atrial fibrillation, history of bowel resection, hysterectomy, right hip surgery, patient was brought into the ER on 06/16 with acute onset of abdominal pain and rectal bleeding. Computed tomography scan of the abdomen and pelvis showed perforation and free air suggestive of bowel rupture. Patient was also noted to be tachycardic, she was in atrial fibrillation with RVR, and she was noted to have leukocytosis. Patient underwent surgery yesterday by Dr. barney, patient had partial colectomy and end colostomy and mobilization of splenic flexure. There was evidence of stool present beneath that peritoneal surface along the left gutter the patient underwent blunt dissection, and a drainage of abscess cavity and the perforation was basically through a defect in the lateral wall of the descending colon. Postoperatively, the patient was sent to the intensive care unit, intubated and mechanically ventilated. Patient could not be extubated in the recovery room. I saw this patient this morning, and I was made aware of her ventilator settings last night. Today the patient is on assist control rate of 14 volume 400 FiO2 30% and PEEP of 5. ABG showed a pO2 of 142 pCO2 of 32 pH of 7.40 and this was on 40% FiO2. Basic metabolic profile was relatively unremarkable except for low potassium of 3.3 and last night she had a lactic acid of 2.1 patient was noted to be hemodynamically stable, and after evaluating the patient, I discontinued her propofol which was a 55 mcg/kg/m, she was earlier on norepinephrine at 0.08 mcg/kg/m, patient was awakened, placed on a short trial of pressure support of 8 and CPAP, clinically she was noted to tolerate the weaning mode quite well, hence I proceeded to extubating the patient to a nasal cannula. Chest x-ray prior to extubation showed mostly basilar atelectasis, no evidence of infiltrate, and no evidence of pulmonary edema. Progress note dated 06/18/2021. This is a 85-year-old female was admitted to the hospital on June 16, with abdominal pain. She went to the operating room on June 16, for bowel perforation. She ended up with a colectomy, and end colostomy, and mobilization of the splenic flexure. Today, she is postop day #2. She also has a history of atrial fibrillation, previous bowel resection, and degenerative joint disease. She is currently resting comfortably. She's on room air. An NG tube is in sara ce. She's getting saline at 100 mL an hour. She's also getting Zosyn and Flagyl with antibiotics prophylactically. The surgery was done by Dr. Byers. She had surgery on June 16, and was extubated from the mechanical ventilator yesterday, June 17. White count 13.1, hemoglobin 11.5, hematocrit 35.2, and platelet count 134,000. Sodium 141, potassium 3.2, chlorides 116, CO2 21, anion gap 4, BUN 20, and creatinine 0.62. Microbiology is currently negative. No chest x-ray noted from today. Clinically, the patient looks pretty good. Progress note dated 06/19/2021. 85-year-old female, again in the ICU. She was admitted to the hospital June 16 with abdominal pain. She went to the operating room on June 16 for bowel perforation. She ended up with a colectomy and end colostomy and mobilization of her splenic flexure. Today is postop day #3. She's getting an echocardiogram today. She has a history of atrial fibrillation, previous bowel resection, and degenerative joint disease. Currently, she's not receiving any supplemental oxygen. She's had an NG tube in place. She's getting D5.45 at 125 mL an hour. She is on Zosyn and Flagyl. White count 11.9, hemoglobin 11.1, hematocrit 34.5, platelet count 117,000. Sodium 138, potassium 3.4, chlorides 112, CO2 23, anion gap 3, BUN 15, and creatinine 0.49. Chest x-ray shows some bibasilar atelectasis and small effusions. The patient is seen today 06/20/2021 in the intensive care unit. She is currently awake and alert. She is still having quite a bit of abdominal pain. Abdominal x-ray pending. Postoperative day #4 of her colectomy and end colostomy. Abdominal incision with brooke intact. Ostomy is functioning today. White count 7.0. Hemoglobin 11.0. Platelet count 134. Sodium 138. Potassium 3.5. Bicarb 23. Creatinine 0.55. D5 and half-normal saline at 50 MLS per hour. Lovenox for DVT prophylaxis. Antibiotics in the form of Flagyl and Zosyn. NG tube was discontinued. Remains nothing by mouth. Progress note dated 06/21/2021. The patient was transferred out of the intensive care unit. She is postop day 5, status post colectomy and end colostomy. She's not having near as much abdominal pain and she was having yesterday. She's feeling much better. She's on room air. She's receiving dextrose with half-normal saline at 50 mL an hour. She's not doing very well on her incentive spirometer, but she is able to take nice deep breaths. She states the pain is much better. She's not having any respiratory issues. Sodium 140, potassium 3.3, chlorides 112, CO2 23, anion gap 5, BUN 13, creatinine 0.49. The patient had a repeat computed tomography scan of the abdomen yesterday which showed bilateral pleural effusions, compressive atelectasis, postop changes, and retained stool. Objective - Vital Signs Vital signs: Vital Signs Temp 98.8 F 06/21/21 05:00 Pulse 76 06/21/21 05:00 Resp 20 06/21/21 05:00 BP 150/67 06/21/21 05:00 Pulse Ox 93 L 06/21/21 05:00 Intake & Output 06/20/21 06/21/21 06/21/21 18:59 06:59 18:59 Intake Total 300 0 Output Total 370 70 Balance -70 -70 Weight 62 kg Intake: IV 300 Dextrose 5%-0.45% NaCl 1, 100 000 ml @ 50 mls/hr IV . Q20H [facility] Rx#:[id number] Piperacillin-Tazobactam 3 100 .375 gm In Sodium Chloride 0.9% 100 ml @ 25 mls/hr IVPB Q8H [facility] Rx#: [id number] metroNIDAZOLE-NS PMX 500 100 mg In Saline 1 100ml.bag @ 100 mls/hr IVPB Q8HR [facility] Rx#:[id number] Oral 0 Output: Urine 370 70 Other: Voiding Method Indwelling Catheter Indwelling Catheter Bedside Commode # Voids 1 2 ABP, PAP, CO, CI - Last Documented Arterial Blood Pressure 122/46 - Exam No acute distress, oriented 3.No supplemental oxygen. HEENT examination is grossly unremarkable. Neck supple. Full range of motion. No adenopathy thyromegaly or neck vein distention. Cardiovascular examination reveals regular rhythm rate. S1-S2 normal. No S3 or S4. A soft systolic murmurs noted. Heart sounds are distant. Heart rate 76 bpm. Lungs reveal diminished bilateral breath sounds. Scattered rhonchi are noted. No wheezes or crackles. Abdomen is soft. No bowel sounds. Colostomy is noted. Minimal tenderness on palpation. Extremities are intact. No cyanosis clubbing or edema. Skin is without rash or lesion. Neurologic examination is brief but nonfocal. - Labs CBC & Chem 7: 06/20/21 04:32 06/21/21 07:02 Labs: Abnormal Lab Results - Last 24 Hours (Table) 06/21/21 06/21/21 06/21/21 Range/Units 00:28 01:59 07:02 Potassium 3.3 L (3.5-5.1) mmol/L Chloride 112 H (98-107) mmol/L Creatinine 0.49 L (0.52-1.04) mg/dL POC Glucose (mg/dL) 74 L 74 L (75-99) mg/dL Calcium 7.5 L (8.4-10.2) mg/dL Phosphorus 1.8 L (2.5-4.5) mg/dL AST 51 H (14-36) U/L Alkaline Phosphatase 132 H (38-126) U/L Total Protein 4.1 L (6.3-8.2) g/dL Albumin 2.1 L (3.5-5.0) g/dL Assessment and Plan Assessment: Postop day #5, status post exploratory laparotomy, partial colectomy with end colostomy and mobilization of splenic flexure, secondary to bowel perforation. Routine postoperative ventilator management, status post intubation on June 16, and subsequent extubation on June 17. History of atrial fibrillation with RVR. History of previous bowel resection. History of degenerative joint disease. Plan: Plan dated 06/18/2021. The patient remains on Zosyn and Flagyl empirically for possible abdominal sepsis. NG tube in place. No supplemental oxygen at this time. We do encourage the patient to use the incentive spirometer every hour while awake. In addition, we recommend deep breathing, coughing, clearing secretions. Labs, x-rays, and medications are all reviewed. Prognosis remains guarded. The patient will continue to be monitored, and managed in the intensive care unit. We will continue to follow and make recommendations where appropriate. Plan dated 06/19/2021. The patient remains on Zosyn and Flagyl empirically. NG tube remains in place. The patient is not receiving any supplemental oxygen. Labs, x-rays, and medications are all reviewed. We encouraged to take deep breaths, cough, and clear secretions. She's not doing a very good job with BiPAP. In addition, she is not doing a very good job using the incentive spirometer. We will encourage her more. We will continue to follow make recommendations and suggestions where appropriate. Prognosis is guarded. Plan dated 06/21/2021. Currently, the patient is doing much better. She is able take nice deep breaths. She states that her abdominal pain is much improved. The patient denies any chest discomfort or difficulty breathing. She is not coughing or wheezing. All in all, the patient appears to be doing much better. Continue to follow. The CAT scan was reviewed. Nothing on the CAT scan was suggestive of a problem. Labs are reviewed. Microbiology is currently on negative. She remains on Zosyn and Flagyl. Time with Patient: Less than 30
--- NOTE | 2021-06-21 11:35 | P.PN ---
Subjective This is a 85-year-old female with a past medical history of hypertension, aortic regurgitation, hypothyroidism, arthritis. No history of coronary artery disease, cardiac catheterization 09/2020 revealed normal coronary arteries. She follows with Dr. Chavez at [facility] and also has seen Dr. Pan in the office. We are on consult for episode of atrial fibrillation in the OR. Patient presents to emergency department with abdominal pain found to have colon perforation. She is status post partial colectomy with end colostomy and mobilization of splenic flexure on 06/16/2021 Dr. Byers. In terms of patient's atrial fibrillation, there was one brief episode with patient went into atrial fibrillation. She is maintaining sinus mechanism since this time. She is currently maintained on metoprolol tartrate 25 mg twice a day. Telemetry revie wed patient is maintaining sinus mechanism with heart rates 70s80s. GENERAL: Well-appearing, well-nourished and in no acute distress. NECK: Supple without JVD or thyromegaly. LUNGS: Breath sounds clear to auscultation bilaterally. Respiration equal and unlabored. No wheezes, rales or rhonchi. HEART: Regular rate and rhythm without murmurs, rubs or gallops. S1 and S2 heard. EXTREMITIES: Normal range of motion, no edema. No clubbing or cyanosis. Peripheral pulses intact. ASSESSMENT Paroxysmal atrial fibrillation Hypertension Aortic Regurgitation Hypothyroidism History of arthritis PLAN We will continue metoprolol tartrate 25mg BID. We will continue to hold off on anticoagulation at this time due to patient not having any further episodes of atrial fibrillation this admission. Patient is stable from cardiology perspective. We will follow the patient as needed. Please reach out with further questions or concerns. Patient to follow up with Dr. Pan as an outpatient in 1- 2 weeks. Nurse Practitioner note has been reviewed, I agree with a documented findings and plan of care. Patient was seen and examined. Objective - Vital Signs Vital signs: Vital Signs Temp 98.8 F 06/21/21 05:00 Pulse 76 06/21/21 05:00 Resp 20 06/21/21 05:00 BP 150/67 06/21/21 05:00 Pulse Ox 93 L 06/21/21 05:00 Intake & Output 06/20/21 06/21/21 06/21/21 18:59 06:59 18:59 Intake Total 300 0 Output Total 370 70 Balance -70 -70 Weight 62 kg Intake: IV 300 Dextrose 5%-0.45% NaCl 1, 100 000 ml @ 50 mls/hr IV . Q20H [facility] Rx#:[id number] Piperacillin-Tazobactam 3 100 .375 gm In Sodium Chloride 0.9% 100 ml @ 25 mls/hr IVPB Q8H [facility] Rx#: [id number] metroNIDAZOLE-NS PMX 500 100 mg In Saline 1 100ml.bag @ 100 mls/hr IVPB Q8HR [facility] Rx#:[id number] Oral 0 Output: Urine 370 70 Other: Voiding Method Indwelling Catheter Indwelling Catheter Bedside Commode # Voids 1 2 ABP, PAP, CO, CI - Last Documented Arterial Blood Pressure 122/46 - Labs CBC & Chem 7: 06/20/21 04:32 06/21/21 07:02 Labs: Abnormal Lab Results - Last 24 Hours (Table) 06/21/21 06/21/21 06/21/21 Range/Units 00:28 01:59 07:02 Potassium 3.3 L (3.5-5.1) mmol/L Chloride 112 H (98-107) mmol/L Creatinine 0.49 L (0.52-1.04) mg/dL POC Glucose (mg/dL) 74 L 74 L (75-99) mg/dL Calcium 7.5 L (8.4-10.2) mg/dL Phosphorus 1.8 L (2.5-4.5) mg/dL AST 51 H (14-36) U/L Alkaline Phosphatase 132 H (38-126) U/L Total Protein 4.1 L (6.3-8.2) g/dL Albumin 2.1 L (3.5-5.0) g/dL
[2021-06-21] MEDS: HYDROmorphone 0.5 MG/0.5 ML SYRINGE IVP PRN ×3 (11:41→21:15)
--- NOTE | 2021-06-21 13:32 | P.PN ---
Progress Note - Text Progress Note Date: 06/21/21 History of presenting complaint: This is a pleasant 85-year-old patient of Dr. Pollard. Chronic stable medical conditions include osteoarthritis, hypothyroid, hypertension, depression, restless leg syndrome. CT change showing some nodules [patient has declined any further workup in the past Patient now presented with abdominal pain or rectal bleeding. Computed tomography scan did confirm colon perforation. Patient had prior colon resection. Also was in atrial fibrillation with rapid ventricular rate. On June 16 patient underwent partial colectomy with end colostomy. There was stool in the peritoneal cavity. 06/18/2021: ICU. Patient was extubated yesterday. Remains nothing by mouth. NG tube to low intermittent suction. Has some nausea and some operative site.. No output through the colostomy bag. 06/19/2021: ICU. NG tube to low intermittent suction in place. No output from colostomy bag. Laying in bed. Tired. Sinus rhythm. Awake 06/20/2021: ICU: NG tube discontinued. On ice chips. Not performed a colostomy bag. Sinus rhythm. Awake. 06/21/2021: Laying in bed. Awake. Nothing by mouth. Small amount through colostomy bag overnight. Some of chronic pain. Review of systems: Was done for constitutional, cardiovascular, GI, pulmonary. relevant finding as above Active Medications Buspirone HCl (Buspirone Hcl 5 Mg Tab) 5 mg PO BID [facility] Last Admin: 06/21/21 08:19 Dose: 5 mg Documented by: Enoxaparin Sodium (Enoxaparin 40 Mg/0.4 Ml Syringe) 40 mg SQ DAILY [facility] Last Admin: 06/21/21 07:27 Dose: Not Given Documented by: Hydromorphone HCl (Hydromorphone 0.5 Mg/0.5 Ml Syringe) 0.5 mg IVP Q2HR PRN PRN Reason: Severe Pain Last Admin: 06/21/21 11:41 Dose: 0.5 mg Documented by: Piperacillin Sod/Tazobactam (Sod 3.375 gm/ Sodium Chloride) 100 mls @ 25 mls/hr IVPB Q8H [facility] Last Admin: 06/21/21 04:47 Dose: 25 mls/hr Documented by: Metronidazole 500 mg/ IV (Solution) 100 mls @ 100 mls/hr IVPB Q8HR [facility] Last Admin: 06/21/21 08:19 Dose: 100 mls/hr Documented by: Dextrose/Sodium Chloride (Dextrose 5%-1/2ns Iv Soln) 1,000 mls @ 50 mls/hr IV .Q20H [facility] Last Admin: 06/20/21 18:00 Dose: Not Given Documented by: Potassium Phosphate 10 mmol/ (Sodium Chloride) 253.3333 mls @ 125 mls/hr IV Q2H [facility] Stop: 06/21/21 14:59 Magnesium Sulfate/Dextrose 1 (gm/ IV Solution) 100 mls @ 100 mls/hr IVPB Q1H [facility] Stop: 06/21/21 16:59 Ketorolac Tromethamine (Ketorolac 15 Mg/Ml 1 Ml Vial) 15 mg IVP Q6HR [facility] Stop: 06/22/21 10:03 Last Admin: 06/21/21 05:52 Dose: 15 mg Documented by: Levothyroxine Sodium (Levothyroxine 50 Mcg Tab) 50 mcg PO DAILY@0630 [facility] Last Admin: 06/21/21 05:43 Dose: 50 mcg Documented by: Metoclopramide HCl (Metoclopramide 5 Mg/Ml 2 Ml Vial) 10 mg IVP Q6HR [facility] Last Admin: 06/21/21 05:53 Dose: 10 mg Documented by: Metoprolol Tartrate (Metoprolol Tartrate 25 Mg Tab) 25 mg PO BID [facility] Last Admin: 06/21/21 08:19 Dose: 25 mg Documented by: Mirtazapine (Mirtazapine 15 Mg Tab) 30 mg PO HS [facility] Last Admin: 06/20/21 21:42 Dose: 30 mg Documented by: Miscellaneous Information (Potassium Replacement Protocol 1 Each Misc) 1 each MISCELLANE DAILY PRN; Protocol PRN Reason: Per Protocol Miscellaneous Information (Magnesium Replacement Protocol 1 Each Misc) 1 each MISCELLANE DAILY PRN; Protocol PRN Reason: Per Protocol Morphine Sulfate (Morphine Sulfate 2 Mg/Ml Syringe) 2 mg IV Q4HR PRN PRN Reason: Severe Pain Last Admin: 06/21/21 09:49 Dose: 2 mg Documented by: Naloxone HCl (Naloxone 0.4 Mg/Ml 1 Ml Vial) 0.2 mg IV Q2M PRN PRN Reason: Opioid Reversal Non-Formulary Medication (Mirabegron [Myrbetriq]) 25 mg PO DAILY [facility] Last Admin: 06/21/21 08:22 Dose: Not Given Documented by: Ondansetron HCl (Ondansetron 4 Mg/2 Ml Vial) 4 mg IVP Q6HR PRN PRN Reason: Nausea And Vomiting Last Admin: 06/20/21 20:26 Dose: 4 mg Documented by: Pantoprazole Sodium (Pantoprazole 40 Mg/10 Ml Vial) 40 mg IV DAILY [facility] Last Admin: 06/21/21 08:20 Dose: 40 mg Documented by: Ropinirole HCl (Ropinirole Hcl 0.25 Mg Tab) 0.5 mg PO [facility] Last Admin: 06/20/21 21:04 Dose: 0.5 mg Documented by: Trazodone HCl (Trazodone Hcl 50 Mg Tab) 50 mg PO [facility] Last Admin: 06/20/21 21:04 Dose: 50 mg Documented by: Past medical history to include: Osteoarthritis, hypothyroid, hypertension, depression, restless leg syndrome, atrial fibrillation Social history: Lives alone. Uses a walker. No history of alcohol or smoking. On examination: VITAL SIGNS: 98.4, 74, 16, 170/66, 92% room air GENERAL APPEARANCE:, laying in bed, awake, HEENT: Normal external appearance of nose and ear. EYES: Pupils equal. Conjunctiva normal. NECK: JVD not raised. Mass not palpable. RESPIRATORY: Respiratory effort normal. Lungs clear to auscultation. CARDIOVASCULAR: First and second sounds normal. No edema. MUSCULAR skeletal: Evidence of OA ABDOMEN: Soft. Decreased Tender. Dressing over the midline incision. Colostomy bag-. Liver and spleen not palpable. No mass palpable. Bowel sounds present PSYCHIATRY: Answering simple questions INVESTIGATIONS, reviewed in the clinical context: June 21: Potassium 3.3 creatinine 0.49 Computed tomography scan abdomen [June 20:]: Fecal retention June 20: WBC 7 hemoglobin 11 platelets 134and 3.5 creatinine 0.55 June 19: WBC 11.9 hemoglobin 11.1 platelets 117 sodium 138 potassium 3.4 creatinine 0.49 WBC 13.1 hemoglobin 11.5 platelets 134 potassium 3.2 BUN 20 creatinine 0.62 Computed tomography scan of the abdomen pelvis: June 16] perforation. Pneumoperitoneum. Assessment and plan: -Acute sigmoid perforation, secondary to fecal impaction, followed by partial bowel resection and colostomy Surgery done on June [address] Gallo. Ice chips. NG tube discontinued on June 20 -Secondary peritonitis with fecal soiling from sigmoid perforation IV Flagyl 500 mg every 8, IV Zosyn every 8 -Multiple chronic pulmonary nodules. Patient does not want any further treatment. -Primary osteoarthritis Use pain medications as needed -Hypothyroid Synthroid 50 g daily -Essential hypertension Lopressor 25 mg twice a day -Restless leg syndrome Recurrent 0.5 mg daily at bedtime -Chronic gait dysfunction uses a walker Fall precautions -Depression BuSpar 5 mg twice a day -Chronic insomnia Trazodone 50 mg daily at bedtime -Hypokalemia Replace potassium -Paroxysmal atrial fibrillation On Lopressor -Hypoglycemia from poor oral intake: Better Change IV fluids to D5 0.45 at 125 an hour -Acute thrombocytopenia, likely from infection: Follow closely IV fluids. Continue IV Flagyl and IV Zosyn. Discussed with patient. Follow with surgery.
--- NOTE | 2021-06-21 14:00 | P.PN ---
<Anna Ramos - Last Filed: 06/21/21 13:47> Subjective Progress Note Date: 06/21/21 CHIEF COMPLAINT: Colon perforation HISTORY OF PRESENT ILLNESS: Patient is postop day #5 status post partial colectomy with end colostomy and mobilization of splenic flexure. Patient was transferred out of the ICU yesterday. She is currently on a regular medical floor. Patient reports that her pain is better controlled today. She does have nausea. Ostomy is functioning. Afebrile. Sodium 140 potassium 3.3 creatinine 0.49 magnesium 1.6 Computed tomography scan of pelvis shows interval development of bilateral pleural effusions correlate to exclude pneumonia versus compressive atelectasis or edema. Postoperative changes. Retained stool. PHYSICAL EXAM: VITAL SIGNS: Reviewed. GENERAL: Well-developed in no acute distress. HEENT: No sclera icterus. Extraocular movements grossly intact. Moist buccal mucosa. Head is atraumatic, normocephalic. ABDOMEN: Soft. Nondistended. Mild tenderness with palpation. Incision clean dry and intact. ostomy pink . Stool and air present in ostomy bag NEUROLOGIC: Alert and oriented. Cranial nerves II through XII grossly intact. ASSESSMENT: 1. Colon perforation status post partial colectomy with end colostomy and mobilization of splenic flexure PLAN: -Patient is scheduled for PICC line placement and to start TPN for nutrition support -Patient receiving potassium and magnesium supplement -Keep patient nothing by mouth -Continue pain medication -Continue antiemetics -continue IV antibiotics -Encouraged patient to use incentive spirometer -Encouraged patient to increase activity level -GI prophylaxis Protonix and DVT prophylaxis Lovenox Physician Laboratory Chief note has been reviewed by physician. Signing provider agrees with the documented findings, assessment, and plan of care. Objective - Vital Signs Vital signs: Vital Signs Temp 98.4 F 06/21/21 11:39 Pulse 74 06/21/21 11:39 Resp 16 06/21/21 11:39 BP 170/66 06/21/21 11:39 Pulse Ox 92 L 06/21/21 11:39 Intake & Output 06/20/21 06/21/21 06/21/21 18:59 06:59 18:59 Intake Total 300 0 Output Total 370 70 Balance -70 -70 Weight 62 kg Intake: IV 300 Dextrose 5%-0.45% NaCl 1, 100 000 ml @ 50 mls/hr IV . Q20H [facility] Rx#:[id number] Piperacillin-Tazobactam 3 100 .375 gm In Sodium Chloride 0.9% 100 ml @ 25 mls/hr IVPB Q8H [facility] Rx#: [id number] metroNIDAZOLE-NS PMX 500 100 mg In Saline 1 100ml.bag @ 100 mls/hr IVPB Q8HR [facility] Rx#:[id number] Oral 0 Output: Urine 370 70 Other: Voiding Method Indwelling Catheter Indwelling Catheter Bedside Commode # Voids 1 2 ABP, PAP, CO, CI - Last Documented Arterial Blood Pressure 122/46 - Labs CBC & Chem 7: 06/20/21 04:32 06/21/21 07:02 Labs: Abnormal Lab Results - Last 24 Hours (Table) 06/21/21 06/21/21 06/21/21 Range/Units 00:28 01:59 07:02 Potassium 3.3 L (3.5-5.1) mmol/L Chloride 112 H (98-107) mmol/L Creatinine 0.49 L (0.52-1.04) mg/dL POC Glucose (mg/dL) 74 L 74 L (75-99) mg/dL Calcium 7.5 L (8.4-10.2) mg/dL Phosphorus 1.8 L (2.5-4.5) mg/dL AST 51 H (14-36) U/L Alkaline Phosphatase 132 H (38-126) U/L Total Protein 4.1 L (6.3-8.2) g/dL Albumin 2.1 L (3.5-5.0) g/dL <Tye Byers - Last Filed: 06/21/21 16:42> Subjective As above. Patient is doing well today. Pain is much improved. Ostomy is now putting out stool. Will begin diet at this time. Continue increasing activity. Objective - Vital Signs Vital signs: Vital Signs Temp 98.4 F 06/21/21 11:39 Pulse 74 06/21/21 11:39 Resp 16 06/21/21 11:39 BP 170/66 06/21/21 11:39 Pulse Ox 92 L 06/21/21 11:39 Intake & Output 06/20/21 06/21/21 06/21/21 18:59 06:59 18:59 Intake Total 300 0 Output Total 370 70 Balance -70 -70 Weight 62 kg Intake: IV 300 Dextrose 5%-0.45% NaCl 1, 100 000 ml @ 50 mls/hr IV . Q20H [facility] Rx#:[id number] Piperacillin-Tazobactam 3 100 .375 gm In Sodium Chloride 0.9% 100 ml @ 25 mls/hr IVPB Q8H [facility] Rx#: [id number] metroNIDAZOLE-NS PMX 500 100 mg In Saline 1 100ml.bag @ 100 mls/hr IVPB Q8HR [facility] Rx#:[id number] Oral 0 Output: Urine 370 70 Other: Voiding Method Indwelling Catheter Indwelling Catheter Bedside Commode # Voids 1 2 ABP, PAP, CO, CI - Last Documented Arterial Blood Pressure 122/46 - Labs CBC & Chem 7: 06/20/21 04:32 06/21/21 07:02 Labs: Abnormal Lab Results - Last 24 Hours (Table) 06/21/21 06/21/21 06/21/21 Range/Units 00:28 01:59 07:02 Potassium 3.3 L (3.5-5.1) mmol/L Chloride 112 H (98-107) mmol/L Creatinine 0.49 L (0.52-1.04) mg/dL POC Glucose (mg/dL) 74 L 74 L (75-99) mg/dL Calcium 7.5 L (8.4-10.2) mg/dL Phosphorus 1.8 L (2.5-4.5) mg/dL AST 51 H (14-36) U/L Alkaline Phosphatase 132 H (38-126) U/L Total Protein 4.1 L (6.3-8.2) g/dL Albumin 2.1 L (3.5-5.0) g/dL Assessment and Plan (1) Colon perforation Current Visit: Yes Status: Acute Code(s): K63.1 - PERFORATION OF INTESTINE (NONTRAUMATIC) SNOMED Code(s): 22271606
[2021-06-21] MEDS ORDERED: LIDOCAINE 1% INJ 10MG/ML (20 ML MDV) SQ ONE (14:04)
[2021-06-21] MEDS: POTASSIUM PHOSPHATE 10 MMOL in SODIUM CHLORIDE 0.9% 250 ML IV SCH ×2 (14:31→17:40)
[2021-06-21] MEDS: DEXTROSE 5%-0.45% NACL 1,000 ML IV SCH (16:35)
[2021-06-21 17:46] LABS: Glucose,Whole Blood 66 mg/dL (75-99)
[2021-06-21 18:20] LABS: Glucose,Whole Blood 80 mg/dL (75-99)
[2021-06-21] MEDS: MAGNESIUM SULFATE-D5W PMX 1 GM in DEXTROSE/WATER 1 100ML.BAG IVPB SCH ×2 (19:57→22:13)
[2021-06-21] MEDS: traZODone HCL 50 MG TAB PO SCH (19:59)
[2021-06-21] MEDS: MIRTAZAPINE 15 MG TAB PO SCH (19:59)
[2021-06-22 00:06] LABS: Glucose,Whole Blood 115 mg/dL (75-99)
[2021-06-22] MEDS: METOCLOPRAMIDE 5 MG/ML 2 ML VIAL IVP SCH ×4 (00:30→17:33)
[2021-06-22] MEDS: KETOROLAC 15 MG/ML 1 ML VIAL IVP SCH ×2 (00:31→06:10)
[2021-06-22] MEDS: metroNIDAZOLE-NS PMX 500 MG in SALINE 1 100ML.BAG IVPB SCH ×3 (00:32→17:08)
[2021-06-22] MEDS: PIPERACILLIN-TAZOBACTAM 3.375 GM in SODIUM CHLORIDE 0.9% 100 ML IVPB SCH ×3 (04:37→21:19)
[2021-06-22] MEDS: MORPHINE SULFATE 2 MG/ML SYRINGE IV PRN ×3 (05:06→19:18)
[2021-06-22 06:02] LABS: Glucose,Whole Blood 103 mg/dL (75-99)
[2021-06-22] MEDS: LEVOTHYROXINE 50 MCG TAB PO SCH (06:10)
[2021-06-22 07:01] LABS: Basophils % (A) 0 %; Eosinophils # (A) 0.2 k/uL (0-0.7); Eosinophils % (A) 3 %; HCT 36.5 % (34.0-46.0); HGB 11.9 gm/dL (11.4-16.0); Lymphocytes # (A) 1.3 k/uL (1.0-4.8); Lymphocytes % (A) 16 %; MCHC 32.7 g/dL (31.0-37.0); MCV 94.7 fL (80.0-100.0); Mean Platelet Volume 7.9; Monocytes # (A) 0.5 k/uL (0-1.0); Monocytes % (A) 6 %; Neutrophils # (A) 5.9 k/uL (1.3-7.7); Neutrophils % (A) 73 %; Platelet Count 215 k/uL (150-450); RBC 3.86 m/uL (3.80-5.40); RDW 13.8 % (11.5-15.5); WBC 8.1 k/uL (3.8-10.6)
[2021-06-22 07:45] LABS: ALT 24 U/L (4-34); AST 45 U/L (14-36); African American GFR (CKD) >90 (>60 ml/min/1.73 sqM); Albumin 2.3 g/dL (3.5-5.0); Albumin/Globulin Ratio 1.1; Alkaline Phosphatase 173 U/L (38-126); Anion Gap 6 mmol/L; Blood Urea Nitrogen 8 mg/dL (7-17); Calcium 7.6 mg/dL (8.4-10.2); Carbon Dioxide 25 mmol/L (22-30); Chloride 107 mmol/L (98-107); Globulin 2.1 g/dL; Glucose 94 mg/dL (74-99); Magnesium 1.8 mg/dL (1.6-2.3); Non-African American GFR(CKD) >90 (>60 ml/min/1.73 sqM); Phosphorus 2.5 mg/dL (2.5-4.5); Potassium 3.4 mmol/L (3.5-5.1); Sodium 138 mmol/L (137-145); Total Bilirubin 0.5 mg/dL (0.2-1.3); Total Protein 4.4 g/dL (6.3-8.2)
[2021-06-22] MEDS: busPIRone HCl 5 MG TAB PO SCH ×2 (08:17→21:18)
[2021-06-22] MEDS: PANTOPRAZOLE 40 MG/10 ML VIAL IV SCH (08:17)
[2021-06-22] MEDS: METOPROLOL TARTRATE 25 MG TAB PO SCH (08:17)
[2021-06-22] MEDS: ENOXAPARIN 40 MG/0.4 ML SYRINGE SQ SCH (08:17)
[2021-06-22] MEDS: NON FORMULARY DRUG (Mirabegron [Myrbetriq] 25 MG Tablet) PO SCH (08:18)
[2021-06-22] MEDS ORDERED: POTASSIUM CHLORIDE ER 20 MEQ TAB.ER PO STA (08:19)
[2021-06-22] MEDS: DEXTROSE 5%-0.45% NACL 1,000 ML IV SCH (08:20)
[2021-06-22] MEDS ORDERED: MAGNESIUM SULFATE-D5W PMX 1 GM in DEXTROSE/WATER 1 100ML.BAG IVPB ONE (09:00)
[2021-06-22] MEDS: HYDROmorphone 0.5 MG/0.5 ML SYRINGE IVP PRN ×3 (10:24→23:21)
--- NOTE | 2021-06-22 10:42 | P.PN ---
Subjective Progress Note Date: 06/22/21 Principal diagnosis: Bowel perforation. This is an 85-year-old female with history of chronic atrial fibrillation, history of bowel resection, hysterectomy, right hip surgery, patient was brought into the ER on 06/16 with acute onset of abdominal pain and rectal bleeding. Computed tomography scan of the abdomen and pelvis showed perforation and free air suggestive of bowel rupture. Patient was also noted to be tachycardic, she was in atrial fibrillation with RVR, and she was noted to have leukocytosis. Patient underwent surgery yesterday by Dr. barney, patient had partial colectomy and end colostomy and mobilization of splenic flexure. There was evidence of stool present beneath that peritoneal surface along the left gutter the patient underwent blunt dissection, and a drainage of abscess cavity and the perforation was basically through a defect in the lateral wall of the descending colon. Postoperatively, the patient was sent to the intensive care unit, intubated and mechanically ventilated. Patient could not be extubated in the recovery room. I saw this patient this morning, and I was made aware of her ventilator settings last night. Today the patient is on assist control rate of 14 volume 400 FiO2 30% and PEEP of 5. ABG showed a pO2 of 142 pCO2 of 32 pH of 7.40 and this was on 40% FiO2. Basic metabolic profile was relatively unremarkable except for low potassium of 3.3 and last night she had a lactic acid of 2.1 patient was noted to be hemodynamically stable, and after evaluating the patient, I discontinued her propofol which was a 55 mcg/kg/m, she was earlier on norepinephrine at 0.08 mcg/kg/m, patient was awakened, placed on a short trial of pressure support of 8 and CPAP, clinically she was noted to tolerate the weaning mode quite well, hence I proceeded to extubating the patient to a nasal cannula. Chest x-ray prior to extubation showed mostly basilar atelectasis, no evidence of infiltrate, and no evidence of pulmonary edema. Progress note dated 06/18/2021. This is a 85-year-old female was admitted to the hospital on June 16, with abdominal pain. She went to the operating room on June 16, for bowel perforation. She ended up with a colectomy, and end colostomy, and mobilization of the splenic flexure. Today, she is postop day #2. She also has a history of atrial fibrillation, previous bowel resection, and degenerative joint disease. She is currently resting comfortably. She's on room air. An NG tube is in sara ce. She's getting saline at 100 mL an hour. She's also getting Zosyn and Flagyl with antibiotics prophylactically. The surgery was done by Dr. Byers. She had surgery on June 16, and was extubated from the mechanical ventilator yesterday, June 17. White count 13.1, hemoglobin 11.5, hematocrit 35.2, and platelet count 134,000. Sodium 141, potassium 3.2, chlorides 116, CO2 21, anion gap 4, BUN 20, and creatinine 0.62. Microbiology is currently negative. No chest x-ray noted from today. Clinically, the patient looks pretty good. Progress note dated 06/19/2021. 85-year-old female, again in the ICU. She was admitted to the hospital June 16 with abdominal pain. She went to the operating room on June 16 for bowel perforation. She ended up with a colectomy and end colostomy and mobilization of her splenic flexure. Today is postop day #3. She's getting an echocardiogram today. She has a history of atrial fibrillation, previous bowel resection, and degenerative joint disease. Currently, she's not receiving any supplemental oxygen. She's had an NG tube in place. She's getting D5.45 at 125 mL an hour. She is on Zosyn and Flagyl. White count 11.9, hemoglobin 11.1, hematocrit 34.5, platelet count 117,000. Sodium 138, potassium 3.4, chlorides 112, CO2 23, anion gap 3, BUN 15, and creatinine 0.49. Chest x-ray shows some bibasilar atelectasis and small effusions. The patient is seen today 06/20/2021 in the intensive care unit. She is currently awake and alert. She is still having quite a bit of abdominal pain. Abdominal x-ray pending. Postoperative day #4 of her colectomy and end colostomy. Abdominal incision with brooke intact. Ostomy is functioning today. White count 7.0. Hemoglobin 11.0. Platelet count 134. Sodium 138. Potassium 3.5. Bicarb 23. Creatinine 0.55. D5 and half-normal saline at 50 MLS per hour. Lovenox for DVT prophylaxis. Antibiotics in the form of Flagyl and Zosyn. NG tube was discontinued. Remains nothing by mouth. Progress note dated 06/21/2021. The patient was transferred out of the intensive care unit. She is postop day 5, status post colectomy and end colostomy. She's not having near as much abdominal pain and she was having yesterday. She's feeling much better. She's on room air. She's receiving dextrose with half-normal saline at 50 mL an hour. She's not doing very well on her incentive spirometer, but she is able to take nice deep breaths. She states the pain is much better. She's not having any respiratory issues. Sodium 140, potassium 3.3, chlorides 112, CO2 23, anion gap 5, BUN 13, creatinine 0.49. The patient had a repeat computed tomography scan of the abdomen yesterday which showed bilateral pleural effusions, compressive atelectasis, postop changes, and retained stool. Progress note dated 06/22/2021. 85-year-old female postop day #6, status post colectomy and end colostomy. The patient was in the ICU for a number days, was transferred to couple days ago. She doing much better. Currently on room air. She's not having near as much abdominal pain or any abdominal pain we saw her last in the ICU. The patient doesn't do particularly well on the incentive spirometer. She denies any shortness of breath. Her pain is well-controlled. CBC is completely normal including hemoglobin, hematocrit, white blood cells, and platelet count. Sodium 138, potassium 3.4, chlorides 107, CO2 25, anion gap 6, BUN 8, creatinine 0.44. Objective - Vital Signs Vital signs: Vital Signs Temp 98.1 F 06/22/21 05:00 Pulse 89 06/22/21 05:00 Resp 16 06/22/21 05:00 BP 176/68 06/22/21 05:00 Pulse Ox 90 L 06/22/21 05:00 Intake & Output 06/21/21 06/22/21 06/22/21 18:59 06:59 18:59 Intake Total 1070 Balance 1070 Intake: IV 520 Dextrose 5%-0.45% NaCl 1, 120 000 ml @ 50 mls/hr IV . Q20H [facility] Rx#:[id number] Piperacillin-Tazobactam 3 200 .375 gm In Sodium Chloride 0.9% 100 ml @ 25 mls/hr IVPB Q8H [facility] Rx#: [id number] metroNIDAZOLE-NS PMX 500 200 mg In Saline 1 100ml.bag @ 100 mls/hr IVPB Q8HR [facility] Rx#:[id number] Intake, IV Titration 550 Amount Magnesium Sulfate-D5w Pmx 100 1 gm In Dextrose/Water 1 100ml.bag @ 100 mls/hr IVPB Q1H [facility] Rx#: [id number] Potassium Phosphate 10 250 mmol In Sodium Chloride 0 .9% 250 ml @ 125 mls/hr IV Q2H [facility] Rx#:[id number] metroNIDAZOLE-NS PMX 500 200 mg In Saline 1 100ml.bag @ 100 mls/hr IVPB Q8HR [facility] Rx#:[id number] Other: Voiding Method Bedside Commode Bedside Commode # Voids 2 0 # Bowel Movements 0 ABP, PAP, CO, CI - Last Documented Arterial Blood Pressure 122/46 - Exam No acute distress, oriented 3.No supplemental oxygen. Room air saturation 93%. HEENT examination is grossly unremarkable. Neck supple. Full range of motion. No adenopathy thyromegaly or neck vein distention. Cardiovascular examination reveals regular rhythm rate. S1-S2 normal. No S3 or S4. A soft systolic murmurs noted. Heart sounds are distant. Heart rate 89 bpm. Lungs reveal diminished bilateral breath sounds. Scattered rhonchi are noted. No wheezes or crackles. Breath sounds are improved. Abdomen is soft. No bowel sounds. Colostomy is noted. Minimal tenderness on palpation. Extremities are intact. No cyanosis clubbing or edema. Skin is without rash or lesion. Neurologic examination is brief but nonfocal. - Labs CBC & Chem 7: 06/22/21 06:19 06/22/21 06:19 Labs: Abnormal Lab Results - Last 24 Hours (Table) 06/21/21 06/22/21 06/22/21 Range/Units 17:45 00:05 06:00 Potassium (3.5-5.1) mmol/L Creatinine (0.52-1.04) mg/dL POC Glucose (mg/dL) 66 L 115 H 103 H (75-99) mg/dL Calcium (8.4-10.2) mg/dL AST (14-36) U/L Alkaline Phosphatase (38-126) U/L Total Protein (6.3-8.2) g/dL Albumin (3.5-5.0) g/dL 06/22/21 Range/Units 06:19 Potassium 3.4 L (3.5-5.1) mmol/L Creatinine 0.44 L (0.52-1.04) mg/dL POC Glucose (mg/dL) (75-99) mg/dL Calcium 7.6 L (8.4-10.2) mg/dL AST 45 H (14-36) U/L Alkaline Phosphatase 173 H (38-126) U/L Total Protein 4.4 L (6.3-8.2) g/dL Albumin 2.3 L (3.5-5.0) g/dL Assessment and Plan Assessment: Postop day #6, status post exploratory laparotomy, partial colectomy with end colostomy and mobilization of splenic flexure, secondary to bowel perforation. Routine postoperative ventilator management, status post intubation on June 16, and subsequent extubation on June 17. History of atrial fibrillation with RVR. History of previous bowel resection. History of degenerative joint disease. Plan: Plan dated 06/18/2021. The patient remains on Zosyn and Flagyl empirically for possible abdominal sepsis. NG tube in place. No supplemental oxygen at this time. We do encourage the patient to use the incentive spirometer every hour while awake. In addition, we recommend deep breathing, coughing, clearing secretions. Labs, x-rays, and medications are all reviewed. Prognosis remains guarded. The patient will continue to be monitored, and managed in the intensive care unit. We will continue to follow and make recommendations where appropriate. Plan dated 06/19/2021. The patient remains on Zosyn and Flagyl empirically. NG tube remains in place. The patient is not receiving any supplemental oxygen. Labs, x-rays, and medications are all reviewed. We encouraged to take deep breaths, cough, and clear secretions. She's not doing a very good job with BiPAP. In addition, she is not doing a very good job using the incentive spirometer. We will encourage her more. We will continue to follow make recommendations and suggestions where appropriate. Prognosis is guarded. Plan dated 06/21/2021. Currently, the patient is doing much better. She is able take nice deep breaths. She states that her abdominal pain is much improved. The patient de nies any chest discomfort or difficulty breathing. She is not coughing or wheezing. All in all, the patient appears to be doing much better. Continue to follow. The CAT scan was reviewed. Nothing on the CAT scan was suggestive of a problem. Labs are reviewed. Microbiology is currently on negative. She remains on Zosyn and Flagyl. Plan dated 06/22/2021. The patient's doing well. The patient remains on Zosyn and Flagyl. Additional recommendations and suggestions are forthcoming. I encouraged the patient to deep breathe, cough, clear secretions. We also recommended the patient use the incentive spirometer every hour. We'll continue to follow. Prognosis is guarded. Discharge per surgery. Time with Patient: Less than 30
[2021-06-22] MEDS ORDERED: METOPROLOL TARTRATE 25 MG TAB PO STA (11:07)
[2021-06-22] MEDS: POTASSIUM CHLORIDE 20 MEQ in WATER FOR INJECTION 1 100ML.BAG IVPB SCH ×2 (11:43→14:14)
[2021-06-22] MEDS ORDERED: MVI, ADULT NO.4 WITH VIT K 10 ML, TRACE (CONC-1ML/DOSE) 1 ML in AMINO ACID 5%-D15W+LYTE... IV SCH ×3 (12:00)
[2021-06-22 12:46] LABS: Glucose,Whole Blood 224 mg/dL (75-99)
--- NOTE | 2021-06-22 13:21 | P.PN ---
Subjective This is a 85-year-old female with a past medical history of hypertension, aortic regurgitation, hypothyroidism, arthritis. No history of coronary artery disease, cardiac catheterization 09/2020 revealed normal coronary arteries. She follows with Dr. Chavez at [facility] and also has seen Dr. Pan in the office. We are on consult for episode of atrial fibrillation in the OR. Patient presents to emergency department with abdominal pain found to have colon perforation. She is status post partial colectomy with end colostomy and mobilization of splenic flexure on 06/16/2021 Dr. Byers. Her echocardiogram revealed EF 45-50%, mild aortic regurgiation, moderate mitral regurgitation, mild tricuspid regurgitation In terms of patient's atrial fibrillation, there was one brief episode with patient went into atrial fibrillation. She was maintaining sinus mechanism, however, today she was sitting on the commode, was bearing down to have a bowel movement. She went back into atrial fibrillation with rapid ventricular response HR up to 130s. She was given an extra dose of metoprolol tartrate 25mg. She converted back to sinus mechanism HR 80s-90s. She did have feelings of palpitations and shortness of breath. She currently does feel nauseous. Due to patient not having another previous episode of atrial fibrillation until today, anticoagulation was not started. GENERAL: In no acute distress. NECK: Supple without JVD or thyromegaly. LUNGS: Breath sounds clear to auscultation bilaterally. Respiration equal and unlabored. No wheezes, rales or rhonchi. HEART: Regular rate and rhythm, Systolic murmur at apex. No rubs or gallops. S1 and S2 heard. EXTREMITIES: Normal range of motion, 2+ bilateral pitting edema. No clubbing or cyanosis. Peripheral pulses intact. 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 Will start Eliquis 2.5mg BID Consult case management for Eliquis coverage Further recommendations based on clinical course. Patient to follow up with Dr. Pan as an outpatient in 1-2 weeks. Nurse Practitioner note has been reviewed, I agree with a documented findings and plan of care. Patient was seen and examined. Objective - Vital Signs Vital signs: Vital Signs Temp 98.1 F 06/22/21 05:00 Pulse 89 06/22/21 05:00 Resp 16 06/22/21 05:00 BP 176/68 06/22/21 05:00 Pulse Ox 90 L 06/22/21 05:00 Intake & Output 06/21/21 06/22/21 06/22/21 18:59 06:59 18:59 Intake Total 1070 Balance 1070 Intake: IV 520 Dextrose 5%-0.45% NaCl 1, 120 000 ml @ 50 mls/hr IV . Q20H RAMÍREZ Rx#:[id number] Piperacillin-Tazobactam 3 200 .375 gm In Sodium Chloride 0.9% 100 ml @ 25 mls/hr IVPB Q8H RAMÍREZ Rx#: [id number] metroNIDAZOLE-NS PMX 500 200 mg In Saline 1 100ml.bag @ 100 mls/hr IVPB Q8HR RAMÍREZ Rx#:[id number] Intake, IV Titration 550 Amount Magnesium Sulfate-D5w Pmx 100 1 gm In Dextrose/Water 1 100ml.bag @ 100 mls/hr IVPB Q1H RAMÍREZ Rx#: [id number] Potassium Phosphate 10 250 mmol In Sodium Chloride 0 .9% 250 ml @ 125 mls/hr IV Q2H RAMÍREZ Rx#:[id number] metroNIDAZOLE-NS PMX 500 200 mg In Saline 1 100ml.bag @ 100 mls/hr IVPB Q8HR RAMÍREZ Rx#:[id number] Other: Voiding Method Bedside Commode Bedside Commode # Voids 2 0 # Bowel Movements 0 ABP, PAP, CO, CI - Last Documented Arterial Blood Pressure 122/46 - Labs CBC & Chem 7: 06/22/21 06:19 06/22/21 06:19 Labs: Abnormal Lab Results - Last 24 Hours (Table) 06/21/21 06/22/21 06/22/21 Range/Units 17:45 00:05 06:00 Potassium (3.5-5.1) mmol/L Creatinine (0.52-1.04) mg/dL POC Glucose (mg/dL) 66 L 115 H 103 H (75-99) mg/dL Calcium (8.4-10.2) mg/dL AST (14-36) U/L Alkaline Phosphatase (38-126) U/L Total Protein (6.3-8.2) g/dL Albumin (3.5-5.0) g/dL 06/22/21 Range/Units 06:19 Potassium 3.4 L (3.5-5.1) mmol/L Creatinine 0.44 L (0.52-1.04) mg/dL POC Glucose (mg/dL) (75-99) mg/dL Calcium 7.6 L (8.4-10.2) mg/dL AST 45 H (14-36) U/L Alkaline Phosphatase 173 H (38-126) U/L Total Protein 4.4 L (6.3-8.2) g/dL Albumin 2.3 L (3.5-5.0) g/dL
--- NOTE | 2021-06-22 14:44 | P.PN ---
Subjective Progress Note Date: 06/22/21 CHIEF COMPLAINT: Colon perforation HISTORY OF PRESENT ILLNESS: Patient is postop day #6 status post partial colectomy with end colostomy and mobilization of splenic flexure. Patient currently in regular medical floor. Patient went into A. fib RVR after being up with physical therapy and she had a large bowel movement per her rectum and had increase in stool output through her ostomy. Patient reports that her abdominal pain was slightly better today. She denies any vomiting. She did have some cheryl sea. She was able to use small amount of her full liquid diet. Afebrile. WBC is 8.1 hemoglobin 11.9 magnesium potassium 3.4 and magnesium 1.8 patient starting TPN today for nutrition support. Patient seen and examined with Dr. ibarra who is covering for Dr. Byers PHYSICAL EXAM: VITAL SIGNS: Reviewed. GENERAL: Well-developed in no acute distress. HEENT: No sclera icterus. Extraocular movements grossly intact. Moist buccal mucosa. Head is atraumatic, normocephalic. ABDOMEN: Soft. Nondistended. Mild tenderness with palpation. Incision clean dry and intact. ostomy pink . Stool and air present in ostomy bag NEUROLOGIC: Alert and oriented. Cranial nerves II through XII grossly intact. ASSESSMENT: 1. Colon perforation status post partial colectomy with end colostomy and mob ilization of splenic flexure PLAN: -Patient started TPN today for nutrition support -Continue full liquid diet -Replace potassium and magnesium -Continue pain medication -Continue antiemetics -continue IV antibiotics -Encouraged patient to use incentive spirometer -Encouraged patient to increase activity level -Okay to start anticoagulation from surgical standpoint -GI prophylaxis Protonix and DVT prophylaxis Physician Methods Time Analyst note has been reviewed by physician. Signing provider agrees with the documented findings, assessment, and plan of care. Objective - Vital Signs Vital signs: Vital Signs Temp 97.9 F 06/22/21 13:00 Pulse 94 06/22/21 13:00 Resp 17 06/22/21 13:00 BP 165/83 06/22/21 13:00 Pulse Ox 94 L 06/22/21 13:00 Intake & Output 06/21/21 06/22/21 06/22/21 18:59 06:59 18:59 Intake Total 1070 Balance 1070 Weight 62 kg Intake: IV 520 Dextrose 5%-0.45% NaCl 1, 120 000 ml @ 50 mls/hr IV . Q20H RAMÍREZ Rx#:[id number] Piperacillin-Tazobactam 3 200 .375 gm In Sodium Chloride 0.9% 100 ml @ 25 mls/hr IVPB Q8H RAMÍREZ Rx#: [id number] metroNIDAZOLE-NS PMX 500 200 mg In Saline 1 100ml.bag @ 100 mls/hr IVPB Q8HR RAMÍREZ Rx#:[id number] Intake, IV Titration 550 Amount Magnesium Sulfate-D5w Pmx 100 1 gm In Dextrose/Water 1 100ml.bag @ 100 mls/hr IVPB Q1H RAMÍREZ Rx#: [id number] Potassium Phosphate 10 250 mmol In Sodium Chloride 0 .9% 250 ml @ 125 mls/hr IV Q2H RAMÍREZ Rx#:[id number] metroNIDAZOLE-NS PMX 500 200 mg In Saline 1 100ml.bag @ 100 mls/hr IVPB Q8HR RAMÍREZ Rx#:[id number] Other: Voiding Method Bedside Commode Bedside Commode Bedside Commode # Voids 2 0 # Bowel Movements 0 ABP, PAP, CO, CI - Last Documented Arterial Blood Pressure 122/46 - Labs CBC & Chem 7: 06/22/21 06:19 06/22/21 06:19 Labs: Abnormal Lab Results - Last 24 Hours (Table) 06/21/21 06/22/21 06/22/21 Range/Units 17:45 00:05 06:00 Potassium (3.5-5.1) mmol/L Creatinine (0.52-1.04) mg/dL POC Glucose (mg/dL) 66 L 115 H 103 H (75-99) mg/dL Calcium (8.4-10.2) mg/dL AST (14-36) U/L Alkaline Phosphatase (38-126) U/L Total Protein (6.3-8.2) g/dL Albumin (3.5-5.0) g/dL 06/22/21 06/22/21 Range/Units 06:19 12:45 Potassium 3.4 L (3.5-5.1) mmol/L Creatinine 0.44 L (0.52-1.04) mg/dL POC Glucose (mg/dL) 224 H (75-99) mg/dL Calcium 7.6 L (8.4-10.2) mg/dL AST 45 H (14-36) U/L Alkaline Phosphatase 173 H (38-126) U/L Total Protein 4.4 L (6.3-8.2) g/dL Albumin 2.3 L (3.5-5.0) g/dL
[2021-06-22] MEDS: FAT EMULSION 20% 250 ML in EMPTY BAG 1 BAG IV SCH (16:29)
--- NOTE | 2021-06-22 16:37 | P.PN ---
Progress Note - Text Progress Note Date: 06/22/21 History of presenting complaint: This is a pleasant 85-year-old patient of Dr. Pollard. Chronic stable medical conditions include osteoarthritis, hypothyroid, hypertension, depression, restless leg syndrome. CT change showing some nodules [patient has declined any further workup in the past Patient now presented with abdominal pain or rectal bleeding. Computed tomography scan did confirm colon perforation. Patient had prior colon resection. Also was in atrial fibrillation with rapid ventricular rate. On June 16 patient underwent partial colectomy with end colostomy. There was stool in the peritoneal cavity. 06/18/2021: ICU. Patient was extubated yesterday. Remains nothing by mouth. NG tube to low intermittent suction. Has some nausea and some operative site.. No output through the colostomy bag. 06/19/2021: ICU. NG tube to low intermittent suction in place. No output from colostomy bag. Laying in bed. Tired. Sinus rhythm. Awake 06/20/2021: ICU: NG tube discontinued. On ice chips. Not performed a colostomy bag. Sinus rhythm. Awake. 06/21/2021: Laying in bed. Awake. Nothing by mouth. Small amount through colostomy bag overnight. Some of chronic pain. 06/22/2021: Sitting up in a chair. More comfortable. Tolerating a full liquid diet. Some output through the colostomy. Having some abdominal pain. Review of systems: Was done for constitutional, cardiovascular, GI, pulmonary. relevant finding as above Active Medications Apixaban (Apixaban 2.5 Mg Tablet) 2.5 mg PO BID [facility]; Protocol Buspirone HCl (Buspirone Hcl 5 Mg Tab) 5 mg PO BID [facility] Last Admin: 06/22/21 08:17 Dose: 5 mg Documented by: Hydromorphone HCl (Hydromorphone 0.5 Mg/0.5 Ml Syringe) 0.5 mg IVP Q2HR PRN PRN Reason: Severe Pain Last Admin: 06/22/21 10:24 Dose: 0.5 mg Documented by: Piperacillin Sod/Tazobactam (Sod 3.375 gm/ Sodium Chloride) 100 mls @ 25 mls/hr IVPB Q8H [facility] Last Admin: 06/22/21 12:45 Dose: 25 mls/hr Documented by: Metronidazole 500 mg/ IV (Solution) 100 mls @ 100 mls/hr IVPB Q8HR [facility] Last Admin: 06/22/21 08:16 Dose: 100 mls/hr Documented by: Fat Emulsion Intravenous 250 (ml/ IV Solution) 250 mls @ 21 mls/hr IV MoWeFr [facility] Last Admin: 06/22/21 16:29 Dose: 21 mls/hr Documented by: Parenteral Vitamin Supplement 10 ml/ Zinc/Copper/Manganese/Selenium 1 ml/ Amino Ac/Electrol/Dextrose/Calcium 1,011 mls @ 30 mls/hr IV .Q24H [facility] Stop: 06/23/21 11:59 Last Admin: 06/22/21 16:26 Dose: 30 mls/hr Documented by: Parenteral Vitamin Supplement 10 ml/ Zinc/Copper/Manganese/Selenium 1 ml/ Amino Ac/Electrol/Dextrose/Calcium 1,011 mls @ 65 mls/hr IV .BY DURATION [facility] Amino Ac/Electrol/Dextrose/Calcium (Clinimix E 5%-D15% Solution) 1,000 mls @ 65 mls/hr IV .BY DURATION [facility] Sodium Chloride (Saline 0.9%) 1,000 mls @ 50 mls/hr IV .Q20H [facility] Levothyroxine Sodium (Levothyroxine 50 Mcg Tab) 50 mcg PO DAILY@0630 [facility] Last Admin: 06/22/21 06:10 Dose: 50 mcg Documented by: Metoclopramide HCl (Metoclopramide 5 Mg/Ml 2 Ml Vial) 10 mg IVP Q6HR [facility] Last Admin: 06/22/21 12:45 Dose: 10 mg Documented by: Metoprolol Tartrate (Metoprolol Tartrate 50 Mg Tab) 50 mg PO BID [facility] Mirtazapine (Mirtazapine 15 Mg Tab) 30 mg PO HS [facility] Last Admin: 06/21/21 19:59 Dose: 30 mg Documented by: Miscellaneous Information (Potassium Replacement Protocol 1 Each Misc) 1 each MISCELLANE DAILY PRN; Protocol PRN Reason: Per Protocol Miscellaneous Information (Magnesium Replacement Protocol 1 Each Misc) 1 each MISCELLANE DAILY PRN; Protocol PRN Reason: Per Protocol Morphine Sulfate (Morphine Sulfate 2 Mg/Ml Syringe) 2 mg IV Q4HR PRN PRN Reason: Severe Pain Last Admin: 06/22/21 14:13 Dose: 2 mg Documented by: Naloxone HCl (Naloxone 0.4 Mg/Ml 1 Ml Vial) 0.2 mg IV Q2M PRN PRN Reason: Opioid Reversal Non-Formulary Medication (Mirabegron [Myrbetriq]) 25 mg PO DAILY [facility] Last Admin: 06/22/21 08:18 Dose: Not Given Documented by: Ondansetron HCl (Ondansetron 4 Mg/2 Ml Vial) 4 mg IVP Q6HR PRN PRN Reason: Nausea And Vomiting Last Admin: 06/20/21 20:26 Dose: 4 mg Documented by: Pantoprazole Sodium (Pantoprazole 40 Mg/10 Ml Vial) 40 mg IV DAILY [facility] Last Admin: 06/22/21 08:17 Dose: 40 mg Documented by: Ropinirole HCl (Ropinirole Hcl 0.25 Mg Tab) 0.5 mg PO HS [facility] Last Admin: 06/21/21 19:59 Dose: 0.5 mg Documented by: Sodium Chloride (Sodium Chloride 0.9% Flush 10 Ml Syringe) 10 ml IV Q4HR PRN PRN Reason: PICC Line Sodium Chloride (Sodium Chloride 0.9% Flush 10 Ml Syringe) 10 ml IV WEEKLY [facility] Sodium Chloride (Sodium Chloride 0.9% Flush 10 Ml Syringe) 20 ml IV Q4HR PRN PRN Reason: PICC Line Trazodone HCl (Trazodone Hcl 50 Mg Tab) 50 mg PO HS [facility] Last Admin: 06/21/21 19:59 Dose: 50 mg Documented by: Past medical history to include: Osteoarthritis, hypothyroid, hypertension, depression, restless leg syndrome, atrial fibrillation Social history: Lives alone. Uses a walker. No history of alcohol or smoking. On examination: VITAL SIGNS: 98.1, 89, 16, 1 65/83, 94% on room air GENERAL APPEARANCE:, Sitting up in a chair, eating breakfast, not in distress HEENT: Normal external appearance of nose and ear. EYES: Pupils equal. Conjunctiva normal. NECK: JVD not raised. Mass not palpable. RESPIRATORY: Respiratory effort normal. Lungs clear to auscultation. CARDIOVASCULAR: First and second sounds normal. No edema. MUSCULAR skeletal: Evidence of OA ABDOMEN: Soft. Tender Dressing over the midline incision. Colostomy bag-. Liver and spleen not palpable. No mass palpable. Bowel sounds present PSYCHIATRY: Answering simple questions INVESTIGATIONS, reviewed in the clinical context: June 22: WBC 8.1 hemoglobin 11.9 platelets 215 potassium 3.4 creatinine 0.44 June 21: Potassium 3.3 creatinine 0.49 Computed tomography scan abdomen [June 20:]: Fecal retention June 20: WBC 7 hemoglobin 11 platelets 134and 3.5 creatinine 0.55 June 19: WBC 11.9 hemoglobin 11.1 platelets 117 sodium 138 potassium 3.4 creatinine 0.49 WBC 13.1 hemoglobin 11.5 platelets 134 potassium 3.2 BUN 20 creatinine 0.62 Computed tomography scan of the abdomen pelvis: June 16] perforation. Pneumoperitoneum. Assessment and plan: -Acute sigmoid perforation, secondary to fecal impaction, followed by partial bowel resection and colostomy Surgery / June [address] Byers. Full liquid diet. -Secondary peritonitis with fecal soiling from sigmoid perforation IV Flagyl 500 mg every 8, IV Zosyn every 8 -Multiple chronic pulmonary nodules. Patient does not want any further treatment. -Primary osteoarthritis Use pain medications as needed -Hypothyroid Synthroid 50 g daily -Essential hypertension Lopressor 25 mg twice a day -Restless leg syndrome Requip 0.5 mg daily at bedtime -Chronic gait dysfunction uses a walker Fall precautions -Depression BuSpar 5 mg twice a day -Chronic insomnia Trazodone 50 mg daily at bedtime -Hypokalemia Follow and replace potassium -Paroxysmal atrial fibrillation On Lopressor -Hypoglycemia from poor oral intake: Better Change IV fluids to D5 0.45 at 125 an hour -Acute thrombocytopenia, likely from infection: Follow closely IV fluids. Continue IV Flagyl and IV Zosyn. Full liquid diet. Replace potassium. Follow labs. Patient not ready for discharge.
[2021-06-22] MEDS: SODIUM CHLORIDE 0.9% 1,000 ML IV SCH (17:09)
[2021-06-22 17:38] LABS: Glucose,Whole Blood 108 mg/dL (75-99)
[2021-06-22] MEDS: METOPROLOL TARTRATE 50 MG TAB PO SCH (21:17)
[2021-06-22] MEDS: APIXABAN 2.5 MG TABLET PO SCH (21:17)
[2021-06-22] MEDS: traZODone HCL 50 MG TAB PO SCH (21:18)
[2021-06-22] MEDS: ONDANSETRON 4 MG/2 ML VIAL IVP PRN (21:19)
[2021-06-22] MEDS: MIRTAZAPINE 15 MG TAB PO SCH (21:22)
[2021-06-23] MEDS: metroNIDAZOLE-NS PMX 500 MG in SALINE 1 100ML.BAG IVPB SCH ×4 (00:44→15:43)
[2021-06-23] MEDS: METOCLOPRAMIDE 5 MG/ML 2 ML VIAL IVP SCH ×4 (00:44→17:46)
[2021-06-23] MEDS: MORPHINE SULFATE 2 MG/ML SYRINGE IV PRN ×5 (00:45→22:17)
[2021-06-23 01:26] LABS: Glucose,Whole Blood 158 mg/dL (75-99)
[2021-06-23] MEDS: PIPERACILLIN-TAZOBACTAM 3.375 GM in SODIUM CHLORIDE 0.9% 100 ML IVPB SCH ×2 (04:47→12:10)
[2021-06-23] MEDS: HYDROmorphone 0.5 MG/0.5 ML SYRINGE IVP PRN ×4 (05:04→19:15)
[2021-06-23 05:58] LABS: Glucose,Whole Blood 161 mg/dL (75-99)
[2021-06-23] MEDS: LEVOTHYROXINE 50 MCG TAB PO SCH (06:07)
[2021-06-23 07:15] LABS: African American GFR (CKD) >90 (>60 ml/min/1.73 sqM); Anion Gap 3 mmol/L; Blood Urea Nitrogen 8 mg/dL (7-17); Calcium 7.6 mg/dL (8.4-10.2); Carbon Dioxide 28 mmol/L (22-30); Chloride 105 mmol/L (98-107); Glucose 147 mg/dL (74-99); Magnesium 1.9 mg/dL (1.6-2.3); Non-African American GFR(CKD) >90 (>60 ml/min/1.73 sqM); Phosphorus 2.7 mg/dL (2.5-4.5); Potassium 3.7 mmol/L (3.5-5.1); Sodium 136 mmol/L (137-145)
[2021-06-23] MEDS: METOPROLOL TARTRATE 50 MG TAB PO SCH ×2 (08:10→22:16)
[2021-06-23] MEDS: PANTOPRAZOLE 40 MG/10 ML VIAL IV SCH (08:10)
[2021-06-23] MEDS: busPIRone HCl 5 MG TAB PO SCH ×2 (08:11→22:16)
[2021-06-23] MEDS: APIXABAN 2.5 MG TABLET PO SCH ×2 (08:11→22:16)
[2021-06-23] MEDS: NON FORMULARY DRUG (Mirabegron [Myrbetriq] 25 MG Tablet) PO SCH (08:12)
[2021-06-23] MEDS: SODIUM CHLORIDE 0.9% 1,000 ML IV SCH (10:46)
[2021-06-23 11:45] LABS: Glucose,Whole Blood 106 mg/dL (75-99)
[2021-06-23] MEDS: 1: MVI, ADULT NO.4 WITH VIT K 10 ML, TRACE (CONC-1ML/DOSE) 1 ML in AMINO ACID 5%-D15W+LY IV SCH ×3 (12:09)
--- NOTE | 2021-06-23 15:45 | P.PN ---
Progress Note - Text Progress Note Date: 06/23/21 History of presenting complaint: This is a pleasant 85-year-old patient of Dr. Pollard. Chronic stable medical conditions include osteoarthritis, hypothyroid, hypertension, depression, restless leg syndrome. CT change showing some nodules [patient has declined any further workup in the past Patient now presented with abdominal pain or rectal bleeding. Computed tomography scan did confirm colon perforation. Patient had prior colon resection. Also was in atrial fibrillation with rapid ventricular rate. On June 16 patient underwent partial colectomy with end colostomy. There was stool in the peritoneal cavity. 06/18/2021: ICU. Patient was extubated yesterday. Remains nothing by mouth. NG tube to low intermittent suction. Has some nausea and some operative site.. No output through the colostomy bag. 06/19/2021: ICU. NG tube to low intermittent suction in place. No output from colostomy bag. Laying in bed. Tired. Sinus rhythm. Awake 06/20/2021: ICU: NG tube discontinued. On ice chips. Not performed a colostomy bag. Sinus rhythm. Awake. 06/21/2021: Laying in bed. Awake. Nothing by mouth. Small amount through colostomy bag overnight. Some of chronic pain. 06/22/2021: Sitting up in a chair. More comfortable. Tolerating a full liquid diet. Some output through the colostomy. Having some abdominal pain. 06/23/2021: Sitting up in bed. Eating a breakfast. Some colostomy output. Decreased abdominal pain. Review of systems: Was done for constitutional, cardiovascular, GI, pulmonary. relevant finding as above Active Medications Apixaban (Apixaban 2.5 Mg Tablet) 2.5 mg PO BID [facility]; Protocol Last Admin: 06/23/21 08:11 Dose: 2.5 mg Documented by: Buspirone HCl (Buspirone Hcl 5 Mg Tab) 5 mg PO BID [facility] Last Admin: 06/23/21 08:11 Dose: 5 mg Documented by: Hydromorphone HCl (Hydromorphone 0.5 Mg/0.5 Ml Syringe) 0.5 mg IVP Q2HR PRN PRN Reason: Severe Pain Last Admin: 06/23/21 09:49 Dose: 0.5 mg Documented by: Metronidazole 500 mg/ IV (Solution) 100 mls @ 100 mls/hr IVPB Q8HR [facility] Last Admin: 06/23/21 15:43 Dose: 100 mls/hr Documented by: Fat Emulsion Intravenous 250 (ml/ IV Solution) 250 mls @ 21 mls/hr IV MoWeFr [facility] Last Admin: 06/22/21 16:29 Dose: 21 mls/hr Documented by: Parenteral Vitamin Supplement 10 ml/ Zinc/Copper/Manganese/Selenium 1 ml/ Amino Ac/Electrol/Dextrose/Calcium 1,011 mls @ 65 mls/hr IV .BY DURATION [facility] Amino Ac/Electrol/Dextrose/Calcium (Clinimix E 5%-D15% Solution) 1,000 mls @ 65 mls/hr IV .BY DURATION [facility] Last Admin: 06/23/21 12:09 Dose: 65 mls/hr Documented by: Sodium Chloride (Saline 0.9%) 1,000 mls @ 50 mls/hr IV .Q20H [facility] Last Admin: 06/23/21 10:46 Dose: Not Given Documented by: Levothyroxine Sodium (Levothyroxine 50 Mcg Tab) 50 mcg PO DAILY@0630 [facility] Last Admin: 06/23/21 06:07 Dose: 50 mcg Documented by: Metoclopramide HCl (Metoclopramide 5 Mg/Ml 2 Ml Vial) 10 mg IVP Q6HR [facility] Last Admin: 06/23/21 11:27 Dose: 10 mg Documented by: Metoprolol Tartrate (Metoprolol Tartrate 50 Mg Tab) 50 mg PO BID [facility] Last Admin: 06/23/21 08:10 Dose: 50 mg Documented by: Mirtazapine (Mirtazapine 15 Mg Tab) 30 mg PO HS [facility] Last Admin: 06/22/21 21:22 Dose: 30 mg Documented by: Miscellaneous Information (Potassium Replacement Protocol 1 Each Misc) 1 each MISCELLANE DAILY PRN; Protocol PRN Reason: Per Protocol Miscellaneous Information (Magnesium Replacement Protocol 1 Each Misc) 1 each MISCELLANE DAILY PRN; Protocol PRN Reason: Per Protocol Morphine Sulfate (Morphine Sulfate 2 Mg/Ml Syringe) 2 mg IV Q4HR PRN PRN Reason: Severe Pain Last Admin: 06/23/21 12:08 Dose: 2 mg Documented by: Naloxone HCl (Naloxone 0.4 Mg/Ml 1 Ml Vial) 0.2 mg IV Q2M PRN PRN Reason: Opioid Reversal Non-Formulary Medication (Mirabegron [Myrbetriq]) 25 mg PO DAILY [facility] Last Admin: 06/23/21 08:12 Dose: Not Given Documented by: Ondansetron HCl (Ondansetron 4 Mg/2 Ml Vial) 4 mg IVP Q6HR PRN PRN Reason: Nausea And Vomiting Last Admin: 06/22/21 21:19 Dose: 4 mg Documented by: Pantoprazole Sodium (Pantoprazole 40 Mg/10 Ml Vial) 40 mg IV DAILY [facility] Last Admin: 06/23/21 08:10 Dose: 40 mg Documented by: Ropinirole HCl (Ropinirole Hcl 0.25 Mg Tab) 0.5 mg PO HS [facility] Last Admin: 06/22/21 21:23 Dose: 0.5 mg Documented by: Sodium Chloride (Sodium Chloride 0.9% Flush 10 Ml Syringe) 10 ml IV Q4HR PRN PRN Reason: PICC Line Sodium Chloride (Sodium Chloride 0.9% Flush 10 Ml Syringe) 10 ml IV WEEKLY [facility] Sodium Chloride (Sodium Chloride 0.9% Flush 10 Ml Syringe) 20 ml IV Q4HR PRN PRN Reason: PICC Line Trazodone HCl (Trazodone Hcl 50 Mg Tab) 50 mg PO [facility] Last Admin: 06/22/21 21:18 Dose: 50 mg Documented by: Past medical history to include: Osteoarthritis, hypothyroid, hypertension, depression, restless leg syndrome, atrial fibrillation Social history: Lives alone. Uses a walker. No history of alcohol or smoking. On examination: VITAL SIGNS: 98.6, 95, 18, 10/02/1934, 95% room air GENERAL APPEARANCE:, Sitting up in bed, eating breakfast, not in distress HEENT: Normal external appearance of nose and ear. EYES: Pupils equal. Conjunctiva normal. NECK: JVD not raised. Mass not palpable. RESPIRATORY: Respiratory effort normal. Lungs clear to auscultation. CARDIOVASCULAR: First and second sounds normal. No edema. MUSCULAR skeletal: Evidence of OA ABDOMEN: Soft. Tender Dressing over the midline incision. Colostomy bag-. Liver and spleen not palpable. No mass palpable. Bowel sounds present PSYCHIATRY: Answering simple questions INVESTIGATIONS, reviewed in the clinical context: June 23: Sodium 136 potassium 3.7 creatinine 0.45 June 22: WBC 8.1 hemoglobin 11.9 platelets 215 potassium 3.4 creatinine 0.44 June 21: Potassium 3.3 creatinine 0.49 Computed tomography scan abdomen [June 20:]: Fecal retention June 20: WBC 7 hemoglobin 11 platelets 134and 3.5 creatinine 0.55 June 19: WBC 11.9 hemoglobin 11.1 platelets 117 sodium 138 potassium 3.4 creatinine 0.49 WBC 13.1 hemoglobin 11.5 platelets 134 potassium 3.2 BUN 20 creatinine 0.62 Computed tomography scan of the abdomen pelvis: June 16] perforation. Pneumoperitoneum. Assessment and plan: -Acute sigmoid perforation, secondary to fecal impaction, followed by partial bowel resection and colostomy Surgery / June [address] Byers. Full liquid diet. -Secondary peritonitis with fecal soiling from sigmoid perforation IV Flagyl 500 mg every 8, IV Zosyn every 8 -Multiple chronic pulmonary nodules. Patient does not want any further treatment. -Primary osteoarthritis Use pain medications as needed -Hypothyroid Synthroid 50 g daily -Essential hypertension Lopressor 25 mg twice a day -Restless leg syndrome Requip 0.5 mg daily at bedtime -Chronic gait dysfunction uses a walker Fall precautions -Depression BuSpar 5 mg twice a day -Chronic insomnia Trazodone 50 mg daily at bedtime -Hypokalemia Follow and replace potassium -Paroxysmal atrial fibrillation On Lopressor -Hypoglycemia from poor oral intake: Better Change IV fluids to D5 0.45 at 125 an hour -Acute thrombocytopenia, likely from infection: Follow closely IV fluids. Continue IV Flagyl and IV Zosyn. Full liquid diet. Continue current treatment plan.
--- NOTE | 2021-06-23 16:12 | P.PN ---
Subjective Progress Note Date: 06/23/21 CHIEF COMPLAINT: Colon perforation HISTORY OF PRESENT ILLNESS: The patient is a 85-year-old male with spontaneous colon perforation status post colectomy and colostomy creation. She is started on TPN. She is tolerating full liquid diet, "I don't like the oatmeal." Nurse is at bedside and reports moderate stools with flatus. ROS: No reports of nausea and vomiting. No fevers or chills. No new chest pain. PHYSICAL EXAM: VITAL SIGNS: Reviewed CONSTITUTIONAL: Well developed and in no acute distress. EYES: Conjuctivae without sclera icterus. Extraocular movements grossly intact. HEAD, EARS, NOSE, THROAT: Moist buccal mucosa. Head is atraumatic, normocephalic. Hears conversational speech. No nasal drainage. NECK: No gross thyroidomegaly. No jugular venous distention. RESPIRATORY: Non-labored respirations and equal bilateral excursions. CARDIOVASCULAR: Palpable 2+ radial pulses. ABDOMEN: Dressing clean dry and intact. Soft. No peritonitis. Ostomy patent MUSCULOSKELETAL: No gross deformity of the lower extremities noted. No clubbing. No cyanosis. SKIN: Good skin turgor. Well perfused. NEUROLOGIC: Cranial nerves II through XII grossly intact. No focal or lateralizing signs. PSYCH: Appropriate affect. Alert and oriented to person, place and time. CLINICAL LABS: Reviewed. White blood cell count normal at 8.1. Hemoglobin stable 11.9. ASSESSMENT: 1. Colonic perforation status post colectomy. PLAN: 1. Increase diet to low fiber 2. Wean TPN following tolerating diet. Objective - Vital Signs Vital signs: Vital Signs Temp 98.6 F 06/23/21 04:50 Pulse 85 06/23/21 08:04 Resp 18 06/23/21 08:04 BP 128/73 06/23/21 08:04 Pulse Ox 95 06/23/21 08:04 Intake & Output 06/22/21 06/23/21 06/23/21 18:59 06:59 18:59 Intake Total 400 1010 Output Total 200 800 500 Balance 200 210 -500 Weight 62 kg Intake: IV 300 200 Piperacillin-Tazobactam 3 100 100 .375 gm In Sodium Chloride 0.9% 100 ml @ 25 mls/hr IVPB Q8H [facility] Rx#: [id number] metroNIDAZOLE-NS PMX 500 200 100 mg In Saline 1 100ml.bag @ 100 mls/hr IVPB Q8HR [facility] Rx#:[id number] Intake, IV Titration 100 810 Amount Fat Emulsion 20% 250 ml 250 In Empty Bag 1 bag @ 21 mls/hr IV MoWeFr [facility] Rx#: [id number] Mvi, Adult No.4 with Vit 360 K 10 ml Trace (Conc-1Ml/ Dose) 1 ml In Amino Acid 5%-D15w+Lytes*E* 1,000 ml @ 30 mls/hr IV .Q24H [facility] Rx#:[id number] Sodium Chloride 0.9% 1, 100 200 000 ml @ 50 mls/hr IV . Q20H [facility] Rx#:[id number] Output: Urine 200 800 500 Other: Voiding Method Bedside Commode Bedside Commode Bedside Commode Diaper Bedpan Diaper # Voids 1 1 1 ABP, PAP, CO, CI - Last Documented Arterial Blood Pressure 122/46 - Labs CBC & Chem 7: 06/22/21 06:19 06/23/21 05:22 Labs: Abnormal Lab Results - Last 24 Hours (Table) 06/22/21 06/23/21 06/23/21 Range/Units 17:35 01:25 05:22 Sodium 136 L (137-145) mmol/L Creatinine 0.45 L (0.52-1.04) mg/dL Glucose 147 H (74-99) mg/dL POC Glucose (mg/dL) 108 H 158 H (75-99) mg/dL Calcium 7.6 L (8.4-10.2) mg/dL 06/23/21 06/23/21 Range/Units 05:55 11:42 Sodium (137-145) mmol/L Creatinine (0.52-1.04) mg/dL Glucose (74-99) mg/dL POC Glucose (mg/dL) 161 H 106 H (75-99) mg/dL Calcium (8.4-10.2) mg/dL Assessment and Plan (1) Colon perforation Current Visit: Yes Status: Acute Code(s): K63.1 - PERFORATION OF INTESTINE (NONTRAUMATIC) SNOMED Code(s): 02027347 (2) GI bleed Current Visit: Yes Status: Acute Code(s): K92.2 - GASTROINTESTINAL HEMORRHAGE, UNSPECIFIED SNOMED Code(s): 67219116
[2021-06-23 17:52] LABS: Glucose,Whole Blood 142 mg/dL (75-99)
[2021-06-23] MEDS: traZODone HCL 50 MG TAB PO SCH (22:16)
[2021-06-23] MEDS: MIRTAZAPINE 15 MG TAB PO SCH (22:31)
[2021-06-24 00:01] LABS: Glucose,Whole Blood 142 mg/dL (75-99)
[2021-06-24] MEDS: METOCLOPRAMIDE 5 MG/ML 2 ML VIAL IVP SCH ×5 (00:01→22:59)
[2021-06-24] MEDS: metroNIDAZOLE-NS PMX 500 MG in SALINE 1 100ML.BAG IVPB SCH (00:02)
[2021-06-24] MEDS: HYDROmorphone 0.5 MG/0.5 ML SYRINGE IVP PRN ×5 (00:03→22:59)
[2021-06-24] MEDS: MORPHINE SULFATE 2 MG/ML SYRINGE IV PRN ×4 (02:43→22:11)
[2021-06-24] MEDS: 1: MVI, ADULT NO.4 WITH VIT K 10 ML, TRACE (CONC-1ML/DOSE) 1 ML in AMINO ACID 5%-D15W+LY IV SCH ×6 (04:37→22:05)
[2021-06-24 05:30] LABS: African American GFR (CKD) >90 (>60 ml/min/1.73 sqM); Anion Gap 4 mmol/L; Blood Urea Nitrogen 13 mg/dL (7-17); Calcium 7.8 mg/dL (8.4-10.2); Carbon Dioxide 28 mmol/L (22-30); Chloride 105 mmol/L (98-107); Glucose 154 mg/dL (74-99); Magnesium 1.7 mg/dL (1.6-2.3); Non-African American GFR(CKD) >90 (>60 ml/min/1.73 sqM); Phosphorus 3.3 mg/dL (2.5-4.5); Potassium 3.9 mmol/L (3.5-5.1); Sodium 137 mmol/L (137-145)
[2021-06-24] MEDS: SODIUM CHLORIDE 0.9% 1,000 ML IV SCH (05:52)
[2021-06-24] MEDS: LEVOTHYROXINE 50 MCG TAB PO SCH (05:52)
[2021-06-24 06:34] LABS: Glucose,Whole Blood 130 mg/dL (75-99)
[2021-06-24] MEDS: APIXABAN 2.5 MG TABLET PO SCH ×2 (07:19→22:07)
[2021-06-24] MEDS: busPIRone HCl 5 MG TAB PO SCH ×2 (07:19→22:07)
[2021-06-24] MEDS: PANTOPRAZOLE 40 MG/10 ML VIAL IV SCH (07:19)
[2021-06-24] MEDS: METOPROLOL TARTRATE 50 MG TAB PO SCH ×2 (07:20→22:08)
[2021-06-24] MEDS: NON FORMULARY DRUG (Mirabegron [Myrbetriq] 25 MG Tablet) PO SCH (07:21)
--- NOTE | 2021-06-24 11:29 | P.PN ---
Subjective Progress Note Date: 06/24/21 This is a 85-year-old female with a past medical history of hypertension, aortic regurgitation, hypothyroidism, arthritis. No history of coronary artery disease, cardiac catheterization 09/2020 revealed normal coronary arteries. She follows with Dr. Chavez at [facility] and also has seen Dr. Pan in the office. We are on consult for episodes of paroxysmal atrial fibrillation. Patient presents to emergency department with abdominal pain found to have colon perforation. She is status post partial colectomy with end colostomy and mobilization of splenic flexure on 06/16/2021 Dr. Byers. Her echocardiogram revealed EF 45-50%, mild aortic regurgiation, moderate mitral regurgitation, mild tricuspid regurgitation. 06/24/2021 Upon examination the patient is resting in a chair. Planes of abdominal discomfort. Denies any complaints of chest discomfort or palpitations. She is currently maintaining sinus mechanism had brief paroxysmal atrial fibrillation throughout the day yesterday. She is currently on Eliquis 2.5 mg by mouth twice a day and metoprolol titrate 50 mg by mouth twice a day. Vital signs this morninF, heart rate 83, respiratory rate 18, blood pressure 149/70, oxygen saturation 97% on room air. Objective - Vital Signs Vital signs: Vital Signs Temp 98.0 F 06/24/21 07:17 Pulse 83 06/24/21 07:17 Resp 18 06/24/21 07:17 BP 149/70 06/24/21 07:17 Pulse Ox 97 06/24/21 07:17 Intake & Output 06/23/21 06/24/21 06/24/21 18:59 06:59 18:59 Intake Total 2185 1900 Output Total 500 500 Balance 1685 1900 -500 Intake: IV 800 100 Dextrose 5%-0.45% NaCl 1, 400 000 ml @ 50 mls/hr IV . Q20H [facility] Rx#:[id number] Piperacillin-Tazobactam 3 200 .375 gm In Sodium Chloride 0.9% 100 ml @ 25 mls/hr IVPB Q8H [facility] Rx#: [id number] metroNIDAZOLE-NS PMX 500 200 100 mg In Saline 1 100ml.bag @ 100 mls/hr IVPB Q8HR [facility] Rx#:[id number] Intake, IV Titration 605 1600 Amount Amino Acid 5%-D15w+Lytes* 455 1000 E* 1,000 ml @ 65 mls/hr IV .BY DURATION [facility] Rx#: [id number] Mvi, Adult No.4 with Vit 150 K 10 ml Trace (Conc-1Ml/ Dose) 1 ml In Amino Acid 5%-D15w+Lytes*E* 1,000 ml @ 65 mls/hr IV .BY DURATION [facility] Rx#: [id number] Sodium Chloride 0.9% 1, 600 000 ml @ 50 mls/hr IV . Q20H [facility] Rx#:[id number] Oral 780 200 Output: Urine 500 500 Other: Voiding Method Bedside Commode Bedside Commode Bedside Commode Bedpan Diaper # Voids 6 8 2 # Bowel Movements 2 ABP, PAP, CO, CI - Last Documented Arterial Blood Pressure 122/46 - Exam GENERAL: In no acute distress. NECK: Supple without JVD or thyromegaly. LUNGS: Breath sounds clear to auscultation bilaterally. Respiration equal and unlabored. No wheezes, rales or rhonchi. HEART: Regular rate and rhythm, Systolic murmur at apex. No rubs or gallops. S1 and S2 heard. EXTREMITIES: 2+ bilateral pitting edema. Chronic skin changes noted bilateral lower legs. No clubbing or cyanosis. Peripheral pulses intact. 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 Patient is maintaining sinus mechanism at this time. She is anticoa gulated. We will continue to follow the patient provide further recommendations accordingly. The above dictated assessment and findings were discussed with signing physician. The impression and plan of care have been directed as dictated. Evonne Plaza, Nurse Practitioner, acting as scribe for signing physician.
[2021-06-24] MEDS: FUROSEMIDE 10 MG/ML 2 ML VIAL IV SCH ×2 (11:51→17:03)
[2021-06-24 12:23] LABS: Glucose,Whole Blood 103 mg/dL (75-99)
--- NOTE | 2021-06-24 12:42 | P.PN ---
Subjective Progress Note Date: 06/24/21 CHIEF COMPLAINT: Colon perforation HISTORY OF PRESENT ILLNESS: The patient is a 85-year-old male with spontaneous colon perforation status post colectomy and colostomy creation. She is on TPN. She is tolerating a low fiber diet. She is at the bedside commode. ROS: No reports of nausea and vomiting. No fevers or chills. No new chest pain. PHYSICAL EXAM: VITAL SIGNS: Reviewed CONSTITUTIONAL: Well developed and in no acute distress. EYES: Conjuctivae without sclera icterus. Extraocular movements grossly intact. HEAD, EARS, NOSE, THROAT: Moist buccal mucosa. Head is atraumatic, normoce phalic. Hears conversational speech. No nasal drainage. NECK: No gross thyroidomegaly. No jugular venous distention. RESPIRATORY: Non-labored respirations and equal bilateral excursions. CARDIOVASCULAR: Palpable 2+ radial pulses. ABDOMEN: Dressing intact. Soft. No peritonitis. MUSCULOSKELETAL: No gross deformity of the lower extremities noted. No clubbing. No cyanosis. SKIN: Good skin turgor. Well perfused. NEUROLOGIC: Cranial nerves II through XII grossly intact. No focal or lateral izing signs. PSYCH: Appropriate affect. Alert and oriented to person, place and time. CLINICAL LABS: Reviewed. White blood cell count normal at 8.1. Hemoglobin stable 11.9. ASSESSMENT: 1. Colonic perforation status post colectomy. PLAN: 1. Continue low fiber diet 2. Wean TPN Objective - Vital Signs Vital signs: Vital Signs Temp 98.0 F 06/24/21 07:17 Pulse 83 06/24/21 07:17 Resp 18 06/24/21 07:17 BP 149/70 06/24/21 07:17 Pulse Ox 97 06/24/21 07:17 Intake & Output 06/23/21 06/24/21 06/24/21 18:59 06:59 18:59 Intake Total 2185 1900 Output Total 500 500 Balance 1685 1900 -500 Intake: IV 800 100 Dextrose 5%-0.45% NaCl 1, 400 000 ml @ 50 mls/hr IV . Q20H [facility] Rx#:[id number] Piperacillin-Tazobactam 3 200 .375 gm In Sodium Chloride 0.9% 100 ml @ 25 mls/hr IVPB Q8H [facility] Rx#: [id number] metroNIDAZOLE-NS PMX 500 200 100 mg In Saline 1 100ml.bag @ 100 mls/hr IVPB Q8HR [facility] Rx#:[id number] Intake, IV Titration 605 1600 Amount Amino Acid 5%-D15w+Lytes* 455 1000 E* 1,000 ml @ 65 mls/hr IV .BY DURATION [facility] Rx#: [id number] Mvi, Adult No.4 with Vit 150 K 10 ml Trace (Conc-1Ml/ Dose) 1 ml In Amino Acid 5%-D15w+Lytes*E* 1,000 ml @ 65 mls/hr IV .BY DURATION [facility] Rx#: [id number] Sodium Chloride 0.9% 1, 600 000 ml @ 50 mls/hr IV . Q20H [facility] Rx#:[id number] Oral 780 200 Output: Urine 500 500 Other: Voiding Method Bedside Commode Bedside Commode Bedside Commode Bedpan Diaper # Voids 6 8 2 # Bowel Movements 2 ABP, PAP, CO, CI - Last Documented Arterial Blood Pressure 122/46 - Labs CBC & Chem 7: 06/22/21 06:19 06/24/21 04:19 Labs: Abnormal Lab Results - Last 24 Hours (Table) 06/23/21 06/23/21 06/24/21 Range/Units 17:51 23:58 04:19 Creatinine 0.38 L (0.52-1.04) mg/dL Glucose 154 H (74-99) mg/dL POC Glucose (mg/dL) 142 H 142 H (75-99) mg/dL Calcium 7.8 L (8.4-10.2) mg/dL 06/24/21 06/24/21 Range/Units 06:22 12:21 Creatinine (0.52-1.04) mg/dL Glucose (74-99) mg/dL POC Glucose (mg/dL) 130 H 103 H (75-99) mg/dL Calcium (8.4-10.2) mg/dL Assessment and Plan (1) Colon perforation Current Visit: Yes Status: Acute Code(s): K63.1 - PERFORATION OF INTESTINE (NONTRAUMATIC) SNOMED Code(s): 17568244 (2) GI bleed Current Visit: Yes Status: Acute Code(s): K92.2 - GASTROINTESTINAL HEMORRHAGE, UNSPECIFIED SNOMED Code(s): 95816980
--- NOTE | 2021-06-24 14:12 | P.PN ---
Progress Note - Text Progress Note Date: 06/24/21 History of presenting complaint: This is a pleasant 85-year-old patient of Dr. Pollard. Chronic stable medical conditions include osteoarthritis, hypothyroid, hypertension, depression, restless leg syndrome. CT change showing some nodules [patient has declined any further workup in the past Patient now presented with abdominal pain or rectal bleeding. Computed tomography scan did confirm colon perforation. Patient had prior colon resection. Also was in atrial fibrillation with rapid ventricular rate. On June 16 patient underwent partial colectomy with end colostomy. There was stool in the peritoneal cavity. 06/18/2021: ICU. Patient was extubated yesterday. Remains nothing by mouth. NG tube to low intermittent suction. Has some nausea and some operative site.. No output through the colostomy bag. 06/19/2021: ICU. NG tube to low intermittent suction in place. No output from colostomy bag. Laying in bed. Tired. Sinus rhythm. Awake 06/20/2021: ICU: NG tube discontinued. On ice chips. Not performed a colostomy bag. Sinus rhythm. Awake. 06/21/2021: Laying in bed. Awake. Nothing by mouth. Small amount through colostomy bag overnight. Some of chronic pain. 06/22/2021: Sitting up in a chair. More comfortable. Tolerating a full liquid diet. Some output through the colostomy. Having some abdominal pain. 06/23/2021: Sitting up in bed. Eating a breakfast. Some colostomy output. Decreased abdominal pain. 06/24/2021: Extending in a chair. Eating some. Colostomy output present. Significant edema present. TPN started yesterday. Review of systems: Was done for constitutional, cardiovascular, GI, pulmonary. relevant finding as above Active Medications Apixaban (Apixaban 2.5 Mg Tablet) 2.5 mg PO BID [facility]; Protocol Last Admin: 06/24/21 07:19 Dose: 2.5 mg Documented by: Buspirone HCl (Buspirone Hcl 5 Mg Tab) 5 mg PO BID [facility] Last Admin: 06/24/21 07:19 Dose: 5 mg Documented by: Furosemide (Furosemide 10 Mg/Ml 2 Ml Vial) 20 mg IV Q6HR [facility] Stop: 06/24/21 18:01 Last Admin: 06/24/21 11:51 Dose: 20 mg Documented by: Hydromorphone HCl (Hydromorphone 0.5 Mg/0.5 Ml Syringe) 0.5 mg IVP Q2HR PRN PRN Reason: Severe Pain Last Admin: 06/24/21 13:15 Dose: 0.5 mg Documented by: Fat Emulsion Intravenous 250 (ml/ IV Solution) 250 mls @ 21 mls/hr IV MoWeFr [facility] Last Admin: 06/22/21 16:29 Dose: 21 mls/hr Documented by: Parenteral Vitamin Supplement 10 ml/ Zinc/Copper/Manganese/Selenium 1 ml/ Amino Ac/Electrol/Dextrose/Calcium 1,011 mls @ 65 mls/hr IV .BY DURATION [facility] Last Admin: 06/24/21 04:37 Dose: 65 mls/hr Documented by: Amino Ac/Electrol/Dextrose/Calcium (Clinimix E 5%-D15% Solution) 1,000 mls @ 65 mls/hr IV .BY DURATION [facility] Last Admin: 06/23/21 12:09 Dose: 65 mls/hr Documented by: Magnesium Sulfate/Dextrose 1 (gm/ IV Solution) 100 mls @ 100 mls/hr IVPB Q1H [facility] Stop: 06/24/21 14:29 Levothyroxine Sodium (Levothyroxine 50 Mcg Tab) 50 mcg PO DAILY@0630 [facility] Last Admin: 06/24/21 05:52 Dose: 50 mcg Documented by: Metoclopramide HCl (Metoclopramide 5 Mg/Ml 2 Ml Vial) 10 mg IVP Q6HR [facility] Last Admin: 06/24/21 11:51 Dose: 10 mg Documented by: Metoprolol Tartrate (Metoprolol Tartrate 50 Mg Tab) 50 mg PO BID [facility] Last Admin: 06/24/21 07:20 Dose: 50 mg Documented by: Mirtazapine (Mirtazapine 15 Mg Tab) 30 mg PO [facility] Last Admin: 06/23/21 22:31 Dose: 30 mg Documented by: Miscellaneous Information (Potassium Replacement Protocol 1 Each Misc) 1 each MISCELLANE DAILY PRN; Protocol PRN Reason: Per Protocol Miscellaneous Information (Magnesium Replacement Protocol 1 Each Misc) 1 each MISCELLANE DAILY PRN; Protocol PRN Reason: Per Protocol Morphine Sulfate (Morphine Sulfate 2 Mg/Ml Syringe) 2 mg IV Q4HR PRN PRN Reason: Severe Pain Last Admin: 06/24/21 09:35 Dose: 2 mg Documented by: Naloxone HCl (Naloxone 0.4 Mg/Ml 1 Ml Vial) 0.2 mg IV Q2M PRN PRN Reason: Opioid Reversal Non-Formulary Medication (Mirabegron [Myrbetriq]) 25 mg PO DAILY [facility] Last Admin: 06/24/21 07:21 Dose: Not Given Documented by: Ondansetron HCl (Ondansetron 4 Mg/2 Ml Vial) 4 mg IVP Q6HR PRN PRN Reason: Nausea And Vomiting Last Admin: 06/22/21 21:19 Dose: 4 mg Documented by: Ropinirole HCl (Ropinirole Hcl 0.25 Mg Tab) 0.5 mg PO [facility] Last Admin: 06/23/21 22:16 Dose: 0.5 mg Documented by: Trazodone HCl (Trazodone Hcl 50 Mg Tab) 50 mg [address] [facility] Last Admin: 06/23/21 22:16 Dose: 50 mg Documented by: Past medical history to include: Osteoarthritis, hypothyroid, hypertension, depression, restless leg syndrome, atrial fibrillation Social history: Lives alone. Uses a walker. No history of alcohol or smoking. On examination: VITAL SIGNS: 98, 83, 18, 149/70, 97% room air GENERAL APPEARANCE:, Declining a chair, awake HEENT: Normal external appearance of nose and ear. EYES: Pupils equal. Conjunctiva normal. NECK: JVD not raised. Mass not palpable. RESPIRATORY: Respiratory effort normal. Lungs decreased breath sounds. CARDIOVASCULAR: First and second sounds normal. Edema present MUSCULAR skeletal: Evidence of OA ABDOMEN: Soft. Dressing over the midline incision. Colostomy bag-. Liver and spleen not palpable. No mass palpable. Bowel sounds present PSYCHIATRY: Answering simple questions INVESTIGATIONS, reviewed in the clinical context: June 24: Sodium 137 potassium 3.9 creatinine 0.38 June 22: WBC 8.1 hemoglobin 11.9 platelets 215 potassium 3.4 creatinine 0.44 Computed tomography scan abdomen [June 20:]: Fecal retention June 19: WBC 11.9 hemoglobin 11.1 platelets 117 sodium 138 potassium 3.4 creatinine 0.49 WBC 13.1 hemoglobin 11.5 platelets 134 potassium 3.2 BUN 20 creatinine 0.62 Computed tomography scan of the abdomen pelvis: June 16] perforation. Pneumoperitoneum. Assessment and plan: -Acute sigmoid perforation, secondary to fecal impaction, followed by partial bowel resection and colostomy Surgery / June [address] Byers. Advanced to low fiber diet today. -Fluid overload with significant edema.: New today IV Lasix 20 mg 2 today. Dom wrap. DC IV fluids. -Secondary peritonitis with fecal soiling from sigmoid perforation IV Flagyl 500 mg every 8, IV Zosyn every 8 -Multiple chronic pulmonary nodules. Patient does not want any further treatment. -Primary osteoarthritis Use pain medications as needed -Hypothyroid Synthroid 50 g daily -Essential hypertension Lopressor 25 mg twice a day -Restless leg syndrome Requip 0.5 mg daily at bedtime -Chronic gait dysfunction uses a walker Fall precautions -Depression BuSpar 5 mg twice a day -Chronic insomnia Trazodone 50 mg daily at bedtime -Hypokalemia Follow and replace potassium -Paroxysmal atrial fibrillation On Lopressor -Hypoglycemia from poor oral intake: Better Change IV fluids to D5 0.45 at 125 an hour -Acute thrombocytopenia, likely from infection: Follow closely -Mild protein calorie malnutrition. TPN and lipids Continue IV Flagyl and IV Zosyn. DC IV fluids. IV Lasix 20 mg 2. Other medications to continue.
[2021-06-24] MEDS: MAGNESIUM SULFATE-D5W PMX 1 GM in DEXTROSE/WATER 1 100ML.BAG IVPB SCH ×2 (14:45→15:40)
[2021-06-24 17:37] LABS: Glucose,Whole Blood 138 mg/dL (75-99)
[2021-06-24] MEDS: MIRTAZAPINE 15 MG TAB PO SCH (22:07)
[2021-06-24] MEDS: traZODone HCL 50 MG TAB PO SCH (22:09)
[2021-06-25 00:18] LABS: Glucose,Whole Blood 177 mg/dL (75-99)
[2021-06-25] MEDS: MORPHINE SULFATE 2 MG/ML SYRINGE IV PRN (03:37)
[2021-06-25] MEDS: METOCLOPRAMIDE 5 MG/ML 2 ML VIAL IVP SCH ×3 (05:15→18:30)
[2021-06-25] MEDS: HYDROmorphone 0.5 MG/0.5 ML SYRINGE IVP PRN ×4 (05:15→16:28)
[2021-06-25] MEDS: LEVOTHYROXINE 50 MCG TAB PO SCH (05:15)
[2021-06-25 06:46] LABS: Glucose,Whole Blood 129 mg/dL (75-99)
[2021-06-25 07:55] LABS: African American GFR (CKD) >90 (>60 ml/min/1.73 sqM); Anion Gap 5 mmol/L; Blood Urea Nitrogen 19 mg/dL (7-17); Calcium 8.1 mg/dL (8.4-10.2); Carbon Dioxide 31 mmol/L (22-30); Chloride 99 mmol/L (98-107); Glucose 140 mg/dL (74-99); Non-African American GFR(CKD) >90 (>60 ml/min/1.73 sqM); Potassium 3.8 mmol/L (3.5-5.1); Sodium 135 mmol/L (137-145)
[2021-06-25 07:56] LABS: Phosphorus 3.4 mg/dL (2.5-4.5)
[2021-06-25] MEDS: NON FORMULARY DRUG (Mirabegron [Myrbetriq] 25 MG Tablet) PO SCH (08:08)
[2021-06-25] MEDS: METOPROLOL TARTRATE 50 MG TAB PO SCH ×2 (08:13→21:18)
[2021-06-25] MEDS: busPIRone HCl 5 MG TAB PO SCH ×2 (08:13→21:18)
[2021-06-25] MEDS: APIXABAN 2.5 MG TABLET PO SCH ×2 (08:13→21:17)
--- NOTE | 2021-06-25 10:26 | XR ---
EXAMINATION TYPE: XR chest 1V portable DATE OF EXAM: 06/25/2021 COMPARISON: 06/19/2021 HISTORY: Shortness of breath TECHNIQUE: Single frontal view of the chest is obtained. FINDINGS: Postoperative change overlying the cervical spine. Left-sided PICC line. Bilateral infiltr ate and pleural effusion with diffuse interstitial pattern. Atherosclerotic change aorta. No pneumoth orax. NG tube is been removed. Surgical clips in the abdomen. IMPRESSION: 1. Bilateral infiltrate and pleural effusion. Mild central venous congestion not excluded.
[2021-06-25] MEDS: HYDROcodone/APAP 5-325MG 1 EACH TAB PO PRN ×2 (10:35→18:38)
--- NOTE | 2021-06-25 11:02 | P.PN ---
Subjective Progress Note Date: 06/25/21 CHIEF COMPLAINT: Colon perforation HISTORY OF PRESENT ILLNESS: Patient is status post partial colectomy with end colostomy and mobilization of splenic flexure. Patient's ostomy is functioning. She is tolerating diet. Her pain is controlled. Patient is eating small amount. Afebrile. Sodium 135 BUN 19 creatinine 0.44 Patient seen and examined with Dr. Bach who is covering for Dr. Byers PHYSICAL EXAM: VITAL SIGNS: Reviewed. GENERAL: Well-developed in no acute distress. HEENT: No sclera icterus. Extraocular movements grossly intact. Moist buccal mucosa. Head is atraumatic, normocephalic. ABDOMEN: Soft. Nondistended. Mild tenderness with palpation. Incision clean dry and intact. ostomy pink . Stool and air present in ostomy bag NEUROLOGIC: Alert and oriented. Cranial nerves II through XII grossly intact. ASSESSMENT: 1. Colon perforation status post partial colectomy with end colostomy and mobilization of splenic flexure PLAN: -Continue low fiber diet -Start to wean off TPN -Add [place] for pain control. Transition patient to oral pain medication. -Continue antiemetics PRN -Continue incentive spirometer -Encouraged patient to increase activity level -Continue to work with PT OT -GI prophylaxis Protonix and DVT prophylaxis Eliquis Physician Mutuel Cashier note has been reviewed by physician. Signing provider agrees with the documented findings, assessment, and plan of care. Objective - Vital Signs Vital signs: Vital Signs Temp 97.9 F 06/25/21 05:00 Pulse 92 06/25/21 05:00 Resp 16 06/25/21 05:00 BP 135/71 06/25/21 05:00 Pulse Ox 95 06/25/21 05:00 Intake & Output 06/24/21 06/25/21 06/25/21 18:59 06:59 18:59 Intake Total 2080 1000 Output Total 2400 1200 Balance -320 -200 Intake: IV 350 Dextrose 5%-0.45% NaCl 1, 350 000 ml @ 50 mls/hr IV . Q20H [facility] Rx#:[id number] Intake, IV Titration 980 1000 Amount Amino Acid 5%-D15w+Lytes* 780 E* 1,000 ml @ 65 mls/hr IV .BY DURATION [facility] Rx#: [id number] Magnesium Sulfate-D5w Pmx 200 1 gm In Dextrose/Water 1 100ml.bag @ 100 mls/hr IVPB Q1H [facility] Rx#: [id number] Mvi, Adult No.4 with Vit 1000 K 10 ml Trace (Conc-1Ml/ Dose) 1 ml In Amino Acid 5%-D15w+Lytes*E* 1,000 ml @ 65 mls/hr IV .BY DURATION [facility] Rx#: [id number] Oral 750 Output: Urine 2400 1200 Other: Voiding Method Bedside Commode Bedside Commode # Voids 12 # Bowel Movements 2 ABP, PAP, CO, CI - Last Documented Arterial Blood Pressure 122/46 - Labs CBC & Chem 7: 06/22/21 06:19 06/25/21 06:51 Labs: Abnormal Lab Results - Last 24 Hours (Table) 06/24/21 06/24/21 06/25/21 Range/Units 12:21 17:35 00:16 Sodium (137-145) mmol/L Carbon Dioxide (22-30) mmol/L BUN (7-17) mg/dL Creatinine (0.52-1.04) mg/dL Glucose (74-99) mg/dL POC Glucose (mg/dL) 103 H 138 H 177 H (75-99) mg/dL Calcium (8.4-10.2) mg/dL 06/25/21 06/25/21 Range/Units 06:45 06:51 Sodium 135 L (137-145) mmol/L Carbon Dioxide 31 H (22-30) mmol/L BUN 19 H (7-17) mg/dL Creatinine 0.44 L (0.52-1.04) mg/dL Glucose 140 H (74-99) mg/dL POC Glucose (mg/dL) 129 H (75-99) mg/dL Calcium 8.1 L (8.4-10.2) mg/dL
[2021-06-25 11:50] LABS: Glucose,Whole Blood 115 mg/dL (75-99)
[2021-06-25] MEDS: FAT EMULSION 20% 250 ML in EMPTY BAG 1 BAG IV SCH (13:00)
[2021-06-25] MEDS ORDERED: 1: MVI, ADULT NO.4 WITH VIT K 10 ML, TRACE (CONC-1ML/DOSE) 1 ML, SODIUM CHLORIDE 4MEQ/ML IV SCH ×4 (13:00)
--- NOTE | 2021-06-25 17:06 | P.PN ---
Progress Note - Text Progress Note Date: 06/25/21 History of presenting complaint: This is a pleasant 85-year-old patient of Dr. Pollard. Chronic stable medical conditions include osteoarthritis, hypothyroid, hypertension, depression, restless leg syndrome. CT change showing some nodules [patient has declined any further workup in the past Patient now presented with abdominal pain or rectal bleeding. Computed tomography scan did confirm colon perforation. Patient had prior colon resection. Also was in atrial fibrillation with rapid ventricular rate. On June 16 patient underwent partial colectomy with end colostomy. There was stool in the peritoneal cavity. 06/18/2021: ICU. Patient was extubated yesterday. Remains nothing by mouth. NG tube to low intermittent suction. Has some nausea and some operative site.. No output through the colostomy bag. 06/19/2021: ICU. NG tube to low intermittent suction in place. No output from colostomy bag. Laying in bed. Tired. Sinus rhythm. Awake 06/20/2021: ICU: NG tube discontinued. On ice chips. Not performed a colostomy bag. Sinus rhythm. Awake. 06/21/2021: Laying in bed. Awake. Nothing by mouth. Small amount through colostomy bag overnight. Some of chronic pain. 06/22/2021: Sitting up in a chair. More comfortable. Tolerating a full liquid diet. Some output through the colostomy. Having some abdominal pain. 06/23/2021: Sitting up in bed. Eating a breakfast. Some colostomy output. Decreased abdominal pain. Had bouts of atrial fibrillation. 06/24/2021: Extending in a chair. Eating some. Colostomy output present. Significant edema present. TPN started yesterday. 06/25/2021: Patient had fluid overload. Received IV Lasix. Breathing a bit better today. Some shortness of breath. Has got lower extremity Dom wraps. TPN dose is being decreased. Tired. Output to the colostomy bag. Eating about 25%. Review of systems: Was done for constitutional, cardiovascular, GI, pulmonary. relevant finding as above Active Medications Hydrocodone Bitart/Acetaminophen (Hydrocodone/Apap 5-325mg 1 Each Tab) 1 each PO Q6HR PRN PRN Reason: Pain Last Admin: 06/25/21 10:35 Dose: 1 each Documented by: Apixaban (Apixaban 2.5 Mg Tablet) 2.5 mg PO BID [facility]; Protocol Last Admin: 06/25/21 08:13 Dose: 2.5 mg Documented by: Buspirone HCl (Buspirone Hcl 5 Mg Tab) 5 mg PO BID [facility] Last Admin: 06/25/21 08:13 Dose: 5 mg Documented by: Furosemide (Furosemide 10 Mg/Ml 2 Ml Vial) 20 mg IV Q12HR [facility] Stop: 06/25/21 21:01 Levothyroxine Sodium (Levothyroxine 50 Mcg Tab) 50 mcg PO DAILY@0630 [facility] Last Admin: 06/25/21 05:15 Dose: 50 mcg Documented by: Metoclopramide HCl (Metoclopramide 5 Mg/Ml 2 Ml Vial) 10 mg IVP Q6HR [facility] Last Admin: 06/25/21 13:09 Dose: 10 mg Documented by: Metoprolol Tartrate (Metoprolol Tartrate 50 Mg Tab) 50 mg PO BID [facility] Last Admin: 06/25/21 08:13 Dose: 50 mg Documented by: Mirtazapine (Mirtazapine 15 Mg Tab) 30 mg PO [facility] Last Admin: 06/24/21 22:07 Dose: 30 mg Documented by: Miscellaneous Information (Potassium Replacement Protocol 1 Each Misc) 1 each MISCELLANE DAILY PRN; Protocol PRN Reason: Per Protocol Miscellaneous Information (Magnesium Replacement Protocol 1 Each Misc) 1 each MISCELLANE DAILY PRN; Protocol PRN Reason: Per Protocol Naloxone HCl (Naloxone 0.4 Mg/Ml 1 Ml Vial) 0.2 mg IV Q2M PRN PRN Reason: Opioid Reversal Non-Formulary Medication (Mirabegron [Myrbetriq]) 25 mg PO DAILY [facility] Last Admin: 06/25/21 08:08 Dose: Not Given Documented by: Ondansetron HCl (Ondansetron 4 Mg/2 Ml Vial) 4 mg IVP Q6HR PRN PRN Reason: Nausea And Vomiting Last Admin: 06/22/21 21:19 Dose: 4 mg Documented by: Ropinirole HCl (Ropinirole Hcl 0.25 Mg Tab) 0.5 mg PO [facility] Last Admin: 06/24/21 22:07 Dose: 0.5 mg Documented by: Trazodone HCl (Trazodone Hcl 50 Mg Tab) 50 mg PO [facility] Last Admin: 06/24/21 22:09 Dose: 50 mg Documented by: Past medical history to include: Osteoarthritis, hypothyroid, hypertension, depression, restless leg syndrome, atrial fibrillation Social history: Lives alone. Uses a walker. No history of alcohol or smoking. On examination: VITAL SIGNS: 98.1, 95, 16, 142/84, 94% room air GENERAL APPEARANCE:, Reclining in bed, awake HEENT: Normal external appearance of nose and ear. EYES: Pupils equal. Conjunctiva normal. NECK: JVD not raised. Mass not palpable. RESPIRATORY: Respiratory effort increased. Lungs decreased breath sounds. CARDIOVASCULAR: First and second sounds normal. Edema present MUSCULAR skeletal: Evidence of OA ABDOMEN: Soft. Dressing over the midline incision. Colostomy bag-. Liver and spleen not palpable. No mass palpable. Bowel sounds present PSYCHIATRY: Answering simple questions INVESTIGATIONS, reviewed in the clinical context: June 25: 2134 potassium 3.8 BUN 19 creatinine 0.44 Chest x-ray film [June 25]: Some pulmonary edema June 24: Sodium 137 potassium 3.9 creatinine 0.38 June 22: WBC 8.1 hemoglobin 11.9 platelets 215 potassium 3.4 creatinine 0.44 Computed tomography scan abdomen [June 20:]: Fecal retention June 19: WBC 11.9 hemoglobin 11.1 platelets 117 sodium 138 potassium 3.4 creatinine 0.49 WBC 13.1 hemoglobin 11.5 platelets 134 potassium 3.2 BUN 20 creatinine 0.62 Computed tomography scan of the abdomen pelvis: June 16] perforation. Pne umoperitoneum. Assessment and plan: -Acute sigmoid perforation, secondary to fecal impaction, followed by partial bowel resection and colostomy Surgery / June [address] Byers. Low fiber diet -Fluid overload with significant edema.: Slow to respond IV Lasix 20 mg 2 today. Dom wrap. -Secondary peritonitis with fecal soiling from sigmoid perforation IV Flagyl 500 mg every 8, IV Zosyn every 8 -Multiple chronic pulmonary nodules. Patient does not want any further treatment. -Primary osteoarthritis Use pain medications as needed -Hypothyroid Synthroid 50 g daily -Essential hypertension Lopressor 25 mg twice a day -Restless leg syndrome Requip 0.5 mg daily at bedtime -Chronic gait dysfunction uses a walker Fall precautions -Depression BuSpar 5 mg twice a day -Chronic insomnia Trazodone 50 mg daily at bedtime -Hypokalemia Follow and replace potassium -Paroxysmal atrial fibrillation On Lopressor -Hypoglycemia from poor oral intake: Better Change IV fluids to D5 0.45 at 125 an hour -Acute thrombocytopenia, likely from infection: Follow closely -Mild protein calorie malnutrition. TPN and lipids Continue IV Flagyl and IV Zosyn. Give another 2 doses of IV Lasix 20 mg 2. TPN and lipids to be cutback. Prognosis guarded.
[2021-06-25 18:11] LABS: Glucose,Whole Blood 121 mg/dL (75-99)
[2021-06-25] MEDS: FUROSEMIDE 10 MG/ML 2 ML VIAL IV SCH ×2 (18:29→21:17)
[2021-06-25] MEDS: traZODone HCL 50 MG TAB PO SCH (21:18)
[2021-06-25] MEDS: MIRTAZAPINE 15 MG TAB PO SCH (21:18)
[2021-06-26] MEDS: HYDROcodone/APAP 5-325MG 1 EACH TAB PO PRN ×6 (00:36→21:41)
[2021-06-26] MEDS: METOCLOPRAMIDE 5 MG/ML 2 ML VIAL IVP SCH ×5 (00:37→23:12)
[2021-06-26 06:16] LABS: African American GFR (CKD) >90 (>60 ml/min/1.73 sqM); Anion Gap 5 mmol/L; Blood Urea Nitrogen 20 mg/dL (7-17); Calcium 8.5 mg/dL (8.4-10.2); Carbon Dioxide 28 mmol/L (22-30); Chloride 101 mmol/L (98-107); Glucose 98 mg/dL (74-99); Magnesium 1.9 mg/dL (1.6-2.3); Non-African American GFR(CKD) 89 (>60 ml/min/1.73 sqM); Phosphorus 3.6 mg/dL (2.5-4.5); Potassium 4.1 mmol/L (3.5-5.1); Sodium 134 mmol/L (137-145)
[2021-06-26] MEDS: LEVOTHYROXINE 50 MCG TAB PO SCH (06:17)
[2021-06-26] MEDS: METOPROLOL TARTRATE 50 MG TAB PO SCH ×2 (09:09→20:23)
[2021-06-26] MEDS: APIXABAN 2.5 MG TABLET PO SCH ×2 (09:09→20:23)
[2021-06-26] MEDS: busPIRone HCl 5 MG TAB PO SCH ×2 (09:09→20:23)
[2021-06-26] MEDS: NON FORMULARY DRUG (Mirabegron [Myrbetriq] 25 MG Tablet) PO SCH (09:10)
--- NOTE | 2021-06-26 09:49 | IR ---
EXAMINATION TYPE: IR cvc insert >=5 years DATE OF EXAM: 06/22/2021 COMPARISON: NONE CLINICAL HISTORY: Needs long-term intravenous access for total parenteral nutrition. PROCEDURE: Hand hygiene obtained with soap and water and alcohol-based hand rub. After informed consent, the skin overlying the left brachial vein was localized with ultrasound and n oted to be compressible and patent. An ultrasound image was obtained and submitted on the patient's chart. The overlying skin was prepped and draped and Lidocaine was used for local anesthesia. A ski n madeline was made with a scalpel. Access was gained to the vein under ultrasound guidance with a 21 ga uge needle and a 0.018 inch wire was advanced. Access site was dilated with Peel-Away sheath and cat heter tailored to the appropriate length and advanced such that the distal tip is at the cavoatrial j unction. Spot image was obtained verifying placement. Catheter was fixed to the skin and a sterile dressing was placed following hemostasis. Catheter was aspirated and flushed with saline. Patient w as discharged in stable condition without complication.Maximal barrier technique is utilized. Ultras ound image is documented on the chart. Ultrasound used with sterile technique. Fluoro time and fluoroscopic images submitted to document procedure: 110 intraoperative C-arm images document the procedure, 0.5 minutes fluoroscopy time IMPRESSION: STATUS POST ULTRASOUND AND FLUOROSCOPIC GUIDED PICC LINE PLACEMENT, READY FOR USE. THIS PROCEDURE WAS PERFORMED BY THE UNDERSIGNED.
--- NOTE | 2021-06-26 11:44 | P.PN ---
Subjective Progress Note Date: 06/26/21 CHIEF COMPLAINT: Colon perforation HISTORY OF PRESENT ILLNESS: Patient is status post partial colectomy with end colostomy and mobilization of splenic flexure. Patient's ostomy is functioning. Patient is complaining of abdominal pain. The [place] was being given every 6 hours and not lasting long enough. That the frequency has been adjusted. She is eating only a small amount of food. Denies any nausea or vomiting. TPN discontinued yesterday. Afebrile. Heart rate 102 Sodium 134 creatinine 0.48 patient did have some fluid overload yesterday. Medicine service to give IV Lasix. Patient denies shortness of breath Patient seen and examined with Dr. Bach who is covering for Dr. Byers PHYSICAL EXAM: VITAL SIGNS: Reviewed. GENERAL: Well-developed in no acute distress. HEENT: No sclera icterus. Extraocular movements grossly intact. Moist buccal mucosa. Head is atraumatic, normocephalic. ABDOMEN: Soft. Nondistended. Mild tenderness with palpation at incision site. Incision clean dry and intact. ostomy pink . Stool and air present in ostomy bag NEUROLOGIC: Alert and oriented. Cranial nerves II through XII grossly intact. ASSESSMENT: 1. Colon perforation status post partial colectomy with end colostomy and mobilization of splenic flexure PLAN: -Continue low fiber diet -Change frequency of [place] to every 4 hours as needed for pain -Continue incentive spirometer -Encouraged patient to increase activity level -Continue to work with PT OT -GI prophylaxis Protonix and DVT prophylaxis Eliquis Physician Supply Chain Buyer note has been reviewed by physician. Signing provider agrees with the documented findings, assessment, and plan of care. Objective - Vital Signs Vital signs: Vital Signs Temp 98.2 F 06/26/21 06:41 Pulse 70 06/26/21 09:10 Resp 16 06/26/21 08:40 BP 152/67 06/26/21 09:10 Pulse Ox 92 L 06/26/21 06:41 Intake & Output 06/25/21 06/26/21 06/26/21 18:59 06:59 18:59 Intake Total 1470.417 Output Total 900 630 60 Balance 570.417 -630 -60 Weight 62 kg Intake: Intake, IV Titration 1350.417 Amount Amino Acid 5%-D15w+Lytes* 850.417 E* 1,000 ml @ 65 mls/hr IV .BY DURATION [facility] Rx#: [id number] Sodium Chloride 4Meq/ml 500 Vial 20 meq In Amino Acid 5%-D15w+Lytes*E* 1,000 ml @ 65 mls/hr IV .BY DURATION [facility] Rx#: [id number] Oral 120 Output: Urine 900 600 Stool 30 60 Other: Voiding Method Bedside Commode Bedside Commode Bedside Commode External Catheter External Catheter External Catheter ABP, PAP, CO, CI - Last Documented Arterial Blood Pressure 122/46 - Labs CBC & Chem 7: 06/22/21 06:19 06/26/21 05:32 Labs: Abnormal Lab Results - Last 24 Hours (Table) 06/25/21 06/25/21 06/26/21 Range/Units 11:47 18:10 05:32 Sodium 134 L (137-145) mmol/L BUN 20 H (7-17) mg/dL Creatinine 0.48 L (0.52-1.04) mg/dL POC Glucose (mg/dL) 115 H 121 H (75-99) mg/dL
--- NOTE | 2021-06-26 18:57 | P.PN ---
Progress Note - Text Progress Note Date: 06/26/21 History of presenting complaint: This is a pleasant 85-year-old patient of Dr. Pollard. Chronic stable medical conditions include osteoarthritis, hypothyroid, hypertension, depression, restless leg syndrome. CT change showing some nodules [patient has declined any further workup in the past Patient now presented with abdominal pain or rectal bleeding. Computed tomography scan did confirm colon perforation. Patient had prior colon resection. Also was in atrial fibrillation with rapid ventricular rate. On June 16 patient underwent partial colectomy with end colostomy. There was stool in the peritoneal cavity. 06/18/2021: ICU. Patient was extubated yesterday. Remains nothing by mouth. NG tube to low intermittent suction. Has some nausea and some operative site.. No output through the colostomy bag. 06/19/2021: ICU. NG tube to low intermittent suction in place. No output from colostomy bag. Laying in bed. Tired. Sinus rhythm. Awake 06/20/2021: ICU: NG tube discontinued. On ice chips. Not performed a colostomy bag. Sinus rhythm. Awake. 06/21/2021: Laying in bed. Awake. Nothing by mouth. Small amount through colostomy bag overnight. Some of chronic pain. 06/22/2021: Sitting up in a chair. More comfortable. Tolerating a full liquid diet. Some output through the colostomy. Having some abdominal pain. 06/23/2021: Sitting up in bed. Eating a breakfast. Some colostomy output. Decreased abdominal pain. Had bouts of atrial fibrillation. 06/24/2021: Extending in a chair. Eating some. Colostomy output present. Significant edema present. TPN started yesterday. 06/25/2021: Patient had fluid overload. Received IV Lasix. Breathing a bit better today. Some shortness of breath. Has got lower extremity Dom wraps. TPN dose is being decreased. Tired. Output to the colostomy bag. Eating about 25%. 06/26/2021: 80 was going on. Breathing is better. Eating about 25%. TPN was discontinued yesterday. Discussed with the patient. Review of systems: Was done for constitutional, cardiovascular, GI, pulmonary. relevant finding as above Active Medications Hydrocodone Bitart/Acetaminophen (Hydrocodone/Apap 5-325mg 1 Each Tab) 1 each PO Q4HR PRN PRN Reason: Pain Last Admin: 06/26/21 18:00 Dose: 1 each Documented by: Apixaban (Apixaban 2.5 Mg Tablet) 2.5 mg PO BID [facility]; Protocol Last Admin: 06/26/21 09:09 Dose: 2.5 mg Documented by: Buspirone HCl (Buspirone Hcl 5 Mg Tab) 5 mg PO BID [facility] Last Admin: 06/26/21 09:09 Dose: 5 mg Documented by: Levothyroxine Sodium (Levothyroxine 50 Mcg Tab) 50 mcg PO DAILY@0630 [facility] Last Admin: 06/26/21 06:17 Dose: 50 mcg Documented by: Metoclopramide HCl (Metoclopramide 5 Mg/Ml 2 Ml Vial) 10 mg IVP Q6HR [facility] Last Admin: 06/26/21 18:01 Dose: 10 mg Documented by: Metoprolol Tartrate (Metoprolol Tartrate 50 Mg Tab) 50 mg PO BID [facility] Last Admin: 06/26/21 09:09 Dose: 50 mg Documented by: Mirtazapine (Mirtazapine 15 Mg Tab) 30 mg PO [facility] Last Admin: 06/25/21 21:18 Dose: 30 mg Documented by: Miscellaneous Information (Potassium Replacement Protocol 1 Each Misc) 1 each MISCELLANE DAILY PRN; Protocol PRN Reason: Per Protocol Miscellaneous Information (Magnesium Replacement Protocol 1 Each Misc) 1 each MISCELLANE DAILY PRN; Protocol PRN Reason: Per Protocol Naloxone HCl (Naloxone 0.4 Mg/Ml 1 Ml Vial) 0.2 mg IV Q2M PRN PRN Reason: Opioid Reversal Non-Formulary Medication (Mirabegron [Myrbetriq]) 25 mg PO DAILY [facility] Last Admin: 06/26/21 09:10 Dose: Not Given Documented by: Ondansetron HCl (Ondansetron 4 Mg/2 Ml Vial) 4 mg IVP Q6HR PRN PRN Reason: Nausea And Vomiting Last Admin: 06/22/21 21:19 Dose: 4 mg Documented by: Ropinirole HCl (Ropinirole Hcl 0.25 Mg Tab) 0.5 mg PO [facility] Last Admin: 06/25/21 21:18 Dose: 0.5 mg Documented by: Trazodone HCl (Trazodone Hcl 50 Mg Tab) 50 mg PO [facility] Last Admin: 06/25/21 21:18 Dose: 50 mg Documented by: Past medical history to include: Osteoarthritis, hypothyroid, hypertension, depression, restless leg syndrome, atrial fibrillation Social history: Lives alone. Uses a walker. No history of alcohol or smoking. On examination: VITAL SIGNS: 97.7, 98, 16, 146-79, 95% on room air GENERAL APPEARANCE:, Reclining in bed, awake HEENT: Normal external appearance of nose and ear. EYES: Pupils equal. Conjunctiva normal. NECK: JVD not raised. Mass not palpable. RESPIRATORY: Respiratory effort increased. Lungs decreased breath sounds. CARDIOVASCULAR: First and second sounds normal. Much improved edema MUSCULAR skeletal: Evidence of OA ABDOMEN: Soft. Dressing over the midline incision. Colostomy bag-. Liver and spleen not palpable. No mass palpable. Bowel sounds present PSYCHIATRY: Answering simple questions INVESTIGATIONS, reviewed in the clinical context: June 26: Potassium 4.1 BUN 20 creatinine 0.48 June 25: 2135 potassium 3.8 BUN 19 creatinine 0.44 Chest x-ray film [June 25]: Some pulmonary edema June 24: Sodium 137 potassium 3.9 creatinine 0.38 June 22: WBC 8.1 hemoglobin 11.9 platelets 215 potassium 3.4 creatinine 0.44 Computed tomography scan abdomen [June 20:]: Fecal retention June 19: WBC 11.9 hemoglobin 11.1 platelets 117 sodium 138 potassium 3.4 creatinine 0.49 WBC 13.1 hemoglobin 11.5 platelets 134 potassium 3.2 BUN 20 creatinine 0.62 Computed tomography scan of the abdomen pelvis: June 16] perforation. Pneumoperitoneum. Assessment and plan: -Acute sigmoid perforation, secondary to fecal impaction, followed by partial bowel resection and colostomy Surgery / June [address] Byers. Low fiber diet -Fluid overload with significant edema.: Better IV Lasix given Dom wrap. -Secondary peritonitis with fecal soiling from sigmoid perforation IV Flagyl 500 mg every 8, IV Zosyn every 8 -Multiple chronic pulmonary nodules. Patient does not want any further treatment. -Primary osteoarthritis Use pain medications as needed -Hypothyroid Synthroid 50 g daily -Essential hypertension Lopressor 25 mg twice a day -Restless leg syndrome Requip 0.5 mg daily at bedtime -Chronic gait dysfunction uses a walker Fall precautions -Depression BuSpar 5 mg twice a day -Chronic insomnia Trazodone 50 mg daily at bedtime -Hypokalemia Follow and replace potassium -Paroxysmal atrial fibrillation On Lopressor -Hypoglycemia from poor oral intake: Better -Acute thrombocytopenia, likely from infection: Follow closely -Mild protein calorie malnutrition. TPN and lipids-discontinued. Antibiotics discontinued. TPN discontinued. IV Dilaudid discontinued. Discussed with the patient. Possible discharge tomorrow. Prognosis guarded.
[2021-06-26] MEDS: MIRTAZAPINE 15 MG TAB PO SCH (20:23)
[2021-06-26] MEDS: traZODone HCL 50 MG TAB PO SCH (20:23)
[2021-06-27] MEDS: HYDROcodone/APAP 5-325MG 1 EACH TAB PO PRN ×3 (02:15→12:38)
[2021-06-27] MEDS: METOCLOPRAMIDE 5 MG/ML 2 ML VIAL IVP SCH ×2 (04:55→12:38)
[2021-06-27 07:13] LABS: African American GFR (CKD) >90 (>60 ml/min/1.73 sqM); Anion Gap 3 mmol/L; Blood Urea Nitrogen 17 mg/dL (7-17); Calcium 8.4 mg/dL (8.4-10.2); Carbon Dioxide 28 mmol/L (22-30); Chloride 104 mmol/L (98-107); Glucose 92 mg/dL (74-99); Magnesium 1.9 mg/dL (1.6-2.3); Non-African American GFR(CKD) 85 (>60 ml/min/1.73 sqM); Phosphorus 3.3 mg/dL (2.5-4.5); Sodium 135 mmol/L (137-145)
[2021-06-27 07:51] VITALS: RESP 16
[2021-06-27] MEDS: APIXABAN 2.5 MG TABLET PO SCH (08:29)
[2021-06-27] MEDS: METOPROLOL TARTRATE 50 MG TAB PO SCH (08:30)
[2021-06-27] MEDS: busPIRone HCl 5 MG TAB PO SCH (08:30)
[2021-06-27] MEDS: LEVOTHYROXINE 50 MCG TAB PO SCH (08:30)
[2021-06-27] MEDS: NON FORMULARY DRUG (Mirabegron [Myrbetriq] 25 MG Tablet) PO SCH (08:32)
--- NOTE | 2021-06-27 11:35 | P.PN ---
Subjective Progress Note Date: 06/27/21 CHIEF COMPLAINT: Colon perforation HISTORY OF PRESENT ILLNESS: Patient is status post partial colectomy with end colostomy and mobilization of splenic flexure. Patient's ostomy is functioning. Patient does have abdominal pain. But reports that it is better controlled with the [place]. They do have to cut up the [place] for her to swallow it. Ostomy is functioning. She is tolerating diet. Patient's appetite is slowly increasing. Denies any nausea or vomiting. Afebrile. Patient is to be discharged to [facility] later today. PHYSICAL EXAM: VITAL SIGNS: Reviewed. GENERAL: Well-developed in no acute distress. HEENT: No sclera icterus. Extraocular movements grossly intact. Moist buccal mucosa. Head is atraumatic, normocephalic. ABDOMEN: Soft. Nondistended. Incision clean dry and intact. ostomy pink . Stool and air present in ostomy bag NEUROLOGIC: Alert and oriented. Cranial nerves II through XII grossly intact. ASSESSMENT: 1. Colon perforation status post partial colectomy with end colostomy and mobilization of splenic flexure PLAN: -Patient can be discharged from surgical standpoint -Nurse to remove every other staple from incision prior to discharge -Continue low fiber diet -Continue pain medication as needed -Continue incentive spirometer -Encouraged patient to increase activity level -GI prophylaxis Protonix and DVT prophylaxis Eliquis Physician Senior Statistician note has been reviewed by physician. Signing provider agrees with the documented findings, assessment, and plan of care. Objective - Vital Signs Vital signs: Vital Signs Temp 98.2 F 06/27/21 06:44 Pulse 96 06/27/21 06:44 Resp 16 06/27/21 06:44 BP 146/70 06/27/21 06:44 Pulse Ox 91 L 06/27/21 06:44 Intake & Output 06/26/21 06/27/21 06/27/21 18:59 06:59 18:59 Intake Total 160 870 Output Total 90 300 Balance 70 870 -300 Intake: Oral 160 870 Output: Stool 90 300 Other: Voiding Method Bedside Commode Bedside Commode Bedside Commode External Catheter # Voids 2 2 1 # Bowel Movements 30 ABP, PAP, CO, CI - Last Documented Arterial Blood Pressure 122/46 - Labs CBC & Chem 7: 06/22/21 06:19 06/27/21 06:39 Labs: Abnormal Lab Results - Last 24 Hours (Table) 06/27/21 Range/Units 06:39 Sodium 135 L (137-145) mmol/L
[2021-06-27 12:46] VITALS: BP 130/72; PULSE 98; TEMP 98.1
--- NOTE | 2021-06-27 14:18 | P.DS ---
Providers Date of admission: 06/16/21 15:45 Expected date of discharge: 06/27/21 Attending physician: Nakul Toledo Consults: 06/16/21 12:18 Consult Physician Routine Consulting Provider: Tye Byers Consult Reason/Comments: Free air under the diaphragm Do you want consulting provider notified?: Yes 06/16/21 16:35 Consult Physician Routine Consulting Provider: April Martinez Consult Reason/Comments: vent mgmt Do you want consulting provider notified?: Yes 06/17/21 10:12 Consult Physician Routine Consulting Provider: Luis Fernando Griffith Consult Reason/Comments: history of afib/management Do you want consulting provider notified?: Yes Primary care physician: Eliza Pollard [facility] Course: History of presenting complaint: This is a pleasant 85-year-old patient of Dr. Pollard. Chronic stable medical conditions include osteoarthritis, hypothyroid, hypertension, depression, restless leg syndrome. CT chest showing some nodules [patient has declined any further workup in the past Patient now presented with abdominal pain / rectal bleeding. Computed tomography scan did confirm colon perforation. Patient had prior colon resection. Also was in atrial fibrillation with rapid ventricular rate. On June 16 patient underwent partial colectomy with end colostomy. There was stool in the peritoneal cavity. Patient received IV Zosyn and IV Flagyl. Computed course. Also received TPN and lipids. Oral intake is slowly picked up. Did go into fluid overload received IV Lasix. Colostomy bag is functioning. On weak. Patient had paroxysmal atrial fibrillation. On anticoagulation. Cardiomyopathy felt to be nonischemic. 06/27/2021: Laying in bed. Breathing stable. Eating was gone down. Eating about 25%. Colostomy working. Care was discussed with the patient. Questions answered. Discussion and discharge planning more than 35 minutes Consultation: Cardiology associates Dr. Rodriguez and partners from pulmonary Dr. Gallo from general surgery Past medical history to include: Osteoarthritis, hypothyroid, hypertension, depression, restless leg syndrome, atrial fibrillation Social history: Lives alone. Uses a walker. No history of alcohol or smoking. On examination: VITAL SIGNS: 88.1, 98, 16, 1:30/72, 95% room air GENERAL APPEARANCE:, Sitting up in bed, awake HEENT: Normal external appearance of nose and ear. EYES: Pupils equal. Conjunctiva normal. NECK: JVD not raised. Mass not palpable. RESPIRATORY: Respiratory effort increased. Lungs decreased breath sounds. CARDIOVASCULAR: First and second sounds normal. Much improved edema MUSCULAR skeletal: Evidence of OA ABDOMEN: Soft. Dressing over the midline incision. Colostomy bag-. Liver and spleen not palpable. No mass palpable. Bowel sounds present PSYCHIATRY: Answering questions appropriately INVESTIGATIONS, reviewed in the clinical context: June 27: 2134 potassium 4 BUN 72 creatinine 0.55 Chest x-ray film [June 25]: Some pulmonary edema June 22: WBC 8.1 hemoglobin 11.9 platelets 215 potassium 3.4 creatinine 0.44 Computed tomography scan abdomen [June 20:]: Fecal retention June 19: WBC 11.9 hemoglobin 11.1 platelets 117 sodium 138 potassium 3.4 creatinine 0.49 WBC 13.1 hemoglobin 11.5 platelets 134 potassium 3.2 BUN 20 creatinine 0.62 Computed tomography scan of the abdomen pelvis: June 16] perforation. Pneumoperitoneum. Assessment and plan: -Acute sigmoid perforation, secondary to fecal impaction, followed by partial bowel resection and colostomy Surgery / June [address] Byers. Low fiber diet -Fluid overload with significant edema.: Better IV Lasix given Dom wrap. -Secondary peritonitis with fecal soiling from sigmoid perforation IV Flagyl 500 mg every 8, IV Zosyn every 8: Completed course -Multiple chronic pulmonary nodules. Patient does not want any further treatment. -Primary osteoarthritis Use pain medications as needed -Hypothyroid Synthroid 50 g daily -Essential hypertension Lopressor 25 mg twice a day -Restless leg syndrome Requip 0.5 mg daily at bedtime -Chronic gait dysfunction uses a walker Fall precautions -Depression BuSpar 5 mg twice a day -Chronic insomnia Trazodone 50 mg daily at bedtime -Hypokalemia Follow and replace potassium -Paroxysmal atrial fibrillation On Lopressor. Eliquis 2.5 mg twice a day -Hypoglycemia from poor oral intake: Improved -Acute thrombocytopenia, likely from infection: Follow closely -Mild protein calorie malnutrition. TPN and lipids-discontinued. Disposition: rehab at [facility] Labs: CBC, CMP: 5 days Patient Condition at Discharge: Fair Plan - Discharge Summary New Discharge Prescriptions: New Apixaban [Eliquis] 2.5 mg PO BID 30 Days #60 tab traZODone HCL [Desyrel] 50 mg PO HS tab Metoprolol Tartrate [Lopressor] 50 mg PO BID tab HYDROcodone/APAP 5-325MG [[place] 5-325] 1 tab PO Q6HR PRN 3 Days #12 tab PRN Reason: Pain Continue rOPINIRole HCL [Requip] 0.25 - 0.5 mg PO HS Sulindac [Clinoril] 150 mg PO BID Omeprazole 20 mg PO [facility] Mirtazapine 30 mg PO HS busPIRone HCl [Buspar] 5 mg PO BID Diclofenac Sodium [Voltaren Gel] 4 gram TOPICAL QID PRN PRN Reason: Pain Levothyroxine Sodium [Synthroid] 50 mcg PO DAILY #30 tab Vit C/E/Zn/Coppr/Lutein/Zeaxan [Preservision Areds 2 Softgel] 1 cap PO BID Pregabalin [Lyrica] 75 mg PO BID #6 cap Mirabegron [Myrbetriq] 25 mg PO DAILY Discontinued Metoprolol Tartrate [Lopressor] 25 mg PO BID Acetaminophen-Codeine 300-30mg [Tylenol w/codeine #3] 1 tab PO Q6H PRN PRN Reason: Pain traZODone HCL 50 - 100 mg PO HS Docusate [Colace] 100 mg PO BID Lactobacillus Acidophilus [Acidophilus Probiotic] 1 cap PO DAILY Discharge Medication List Diclofenac Sodium [Voltaren Gel] 4 gram TOPICAL QID PRN 09/19/20 [History] Mirtazapine 30 mg PO HS 09/19/20 [History] Omeprazole 20 mg PO -KFST 09/19/20 [History] Sulindac [Clinoril] 150 mg PO BID 09/19/20 [History] busPIRone HCl [Buspar] 5 mg PO BID 09/19/20 [History] rOPINIRole HCL [Requip] 0.25 - 0.5 mg PO HS 09/19/20 [History] Levothyroxine Sodium [Synthroid] 50 mcg PO DAILY #30 tab 09/21/20 [Rx] Mirabegron [Myrbetriq] 25 mg PO DAILY 06/16/21 [History] Vit C/E/Zn/Coppr/Lutein/Zeaxan [Preservision Areds 2 Softgel] 1 cap PO BID 06/16/21 [History] Apixaban [Eliquis] 2.5 mg PO BID 30 Days #60 tab 06/22/21 [Rx] HYDROcodone/APAP 5-325MG [[place] 5-325] 1 tab PO Q6HR PRN 3 Days #12 tab 06/27/21 [Rx] Metoprolol Tartrate [Lopressor] 50 mg PO BID tab 06/27/21 [Rx] Pregabalin [Lyrica] 75 mg PO BID #6 cap 06/27/21 [Rx] traZODone HCL [Desyrel] 50 mg PO HS tab 06/27/21 [Rx] Follow up Appointment(s)/Referral(s): Tye Byers MD [Medical Doctor] - 1 Week Nicolás Pan MD [STAFF PHYSICIAN] - 2 Weeks Eliza Pollard MD [Primary Care Provider] - 1-2 days Activity/Diet/Wound Care/Special Instructions: chopped diet - low fiber
== END 2021-06-27 15:30 | disposition home or self-care (01) | DRG 853 ==
LOC: EC 05:04 → 6NMEDSUR 05:31 → 2SICU 15:44 → OBSVTOIN 15:45 → 2SICU 16:22 → 5NMEDONC 06-20 18:03
PROVIDERS: ADMIT Hospitalist; ATTEND Hospitalist
PROC: 0D1L0Z4 Bypass Transverse Colon to Cutaneous, Open Approach (ICD-10-PCS; 2021-06-16)
PROC: 0DTL0ZZ Resection of Transverse Colon, Open Approach (ICD-10-PCS; 2021-06-16)
PROC: 3E033XZ Introduction of Vasopressor into Peripheral Vein, Percutaneous Approach (ICD-10-PCS; 2021-06-17)
PROC: 02HV33Z Insertion of Infusion Device into Superior Vena Cava, Percutaneous Approach (ICD-10-PCS; principal; 2021-06-26)
PROC: B5181ZA Fluoroscopy of Superior Vena Cava using Low Osmolar Contrast, Guidance (ICD-10-PCS; 2021-06-26)
DX: A41.9 Sepsis, unspecified organism (principal); K63.1 Perforation of intestine (nontraumatic); J95.821 Acute postprocedural respiratory failure; R65.21 Severe sepsis with septic shock; K65.9 Peritonitis, unspecified; Z20.822 Contact with and (suspected) exposure to COVID-19; E44.1 Mild protein-calorie malnutrition; I48.20 Chronic atrial fibrillation, unspecified; I47.1 Supraventricular tachycardia; J90 Pleural effusion, not elsewhere classified; J98.11 Atelectasis; K92.2 Gastrointestinal hemorrhage, unspecified; E03.9 Hypothyroidism, unspecified; E16.2 Hypoglycemia, unspecified; E87.6 Hypokalemia; E87.70 Fluid overload, unspecified; F32.9 Major depressive disorder, single episode, unspecified; F41.9 Anxiety disorder, unspecified; F51.04 Psychophysiologic insomnia; G25.81 Restless legs syndrome; G89.29 Other chronic pain; Y83.8 Other surgical procedures as the cause of abnormal reaction of the patient, or of later complication, without mention of misadventure at the time of the procedure; Y92.230 Patient room in hospital as the place of occurrence of the external cause; K56.41 Fecal impaction; M19.91 Primary osteoarthritis, unspecified site; Z90.710 Acquired absence of both cervix and uterus; Z79.899 Other long term (current) drug therapy; Z79.890 Hormone replacement therapy; Z79.01 Long term (current) use of anticoagulants; I48.0 Paroxysmal atrial fibrillation; I10 Essential (primary) hypertension; K21.9 Gastro-esophageal reflux disease without esophagitis; I08.0 Rheumatic disorders of both mitral and aortic valves; D69.59 Other secondary thrombocytopenia; I25.5 Ischemic cardiomyopathy
CPT/HCPCS: 36415; 36573; 71045; 74019; 74176; 80048; 80053; 81001; 82330; 82805; 83605; 83690; 83735; 84100; 84132; 84478; 84484; 85025; 85610; 85730; 86850; 86900; 86901; 87070; 87205; 87635; 88307; 93005; 93306; 94002; 94003; 99285

== ENCOUNTER 2021-09-29 22:13 | Emergency (ER) | payer MEDICARE ==
--- NOTE | 2021-09-29 23:33 | XR ---
EXAMINATION TYPE: XR KUB DATE OF EXAM: 09/29/2021 COMPARISON: NONE HISTORY: Prolapsed colostomy TECHNIQUE: Single view FINDINGS: There is no sign of intestinal obstruction or pneumoperitoneum. Fecal pattern is normal. Th ere is right hip prosthesis. There is elongated density left lower quadrant that could be prolapsed c olostomy. This measures 8 x 7 cm. There are clips from cholecystectomy. There is mild lumbar dextrosc oliosis. IMPRESSION: Nonacute bowel gas pattern. Left lower quadrant density consistent with colostomy prolaps e.
[2021-09-29 23:40] LABS: Basophils # (A) 0.1 k/uL (0-0.2); Basophils % (A) 1 %; Eosinophils # (A) 0.3 k/uL (0-0.7); Eosinophils % (A) 6 %; HCT 38.7 % (34.0-46.0); HGB 12.5 gm/dL (11.4-16.0); Lymphocytes # (A) 2.7 k/uL (1.0-4.8); Lymphocytes % (A) 48 %; MCH 30.1 pg (25.0-35.0); MCHC 32.2 g/dL (31.0-37.0); MCV 93.6 fL (80.0-100.0); Mean Platelet Volume 8.4; Monocytes # (A) 0.7 k/uL (0-1.0); Monocytes % (A) 12 %; Neutrophils # (A) 1.6 k/uL (1.3-7.7); Neutrophils % (A) 29 %; Platelet Count 182 k/uL (150-450); RBC 4.13 m/uL (3.80-5.40); RDW 13.6 % (11.5-15.5); WBC 5.6 k/uL (3.8-10.6)
[2021-09-29 23:46] LABS: Appearance,Urine Clear (Clear); Bilirubin,Urine Negative (Negative); Blood,Urine Negative (Negative); Color,Urine Yellow; Glucose,Urine (UA) Negative (Negative); Ketones,Urine Negative (Negative); Leukocyte Esterase,Urine Small (Negative); Mucus,Urine Rare /hpf; Nitrite,Urine Negative (Negative); PH, Urine 5.5 (5.0-8.0); Protein,Urine Negative (Negative); RBC,Urine <1 /hpf (0-5); Specific Gravity,Urine 1.009 (1.001-1.035); Squamous Epithelial Cell,Urine 1 /hpf (0-4); Urobilinogen,Urine <2.0 mg/dL (<2.0); WBC,Urine 2 /hpf (0-5)
[2021-09-29 23:49] LABS: Potassium 3.8 mmol/L (3.5-5.1); Total Bilirubin 0.5 mg/dL (0.2-1.3); Total Protein 6.8 g/dL (6.3-8.2)
--- NOTE | 2021-09-30 00:05 | ED ---
General Adult HPI - General Chief complaint: Abdominal Pain Stated complaint: Abdominal pain Time Seen by Provider: 09/29/21 22:28 Source: patient Mode of arrival: ambulatory Limitations: no limitations - History of Present Illness Initial comments: Patient is an 86-year-old woman complaining that her colostomy appears to be protruding. The patient states she is still having some fluid and gas coming from the colostomy. She is not having abdominal pain. No fever or chills. No nausea or vomiting. -: hour(s) Severity scale (1-10): 0 Consistency: constant Improves with: none Worsens with: none Associated Symptoms: denies other symptoms Treatments Prior to Arrival: none - Related Data Home Medications Medication Instructions Recorded Confirmed Diclofenac Sodium [Voltaren Gel] 4 gram TOPICAL QID PRN 09/19/20 10/01/21 Mirtazapine 30 mg PO HS 09/19/20 10/01/21 Omeprazole 20 mg PO AC-BRKFST 09/19/20 10/01/21 Sulindac [Clinoril] 150 mg PO BID 09/19/20 10/01/21 busPIRone HCl [Buspar] 5 mg PO BID 09/19/20 10/01/21 rOPINIRole HCL [Requip] 0.25 - 0.5 mg PO HS 09/19/20 10/01/21 Mirabegron [Myrbetriq] 25 mg PO DAILY 06/16/21 10/01/21 Vit C/E/Zn/Coppr/Lutein/Zeaxan 1 cap PO BID 06/16/21 10/01/21 [Preservision Areds 2 Softgel] Acetaminophen-Codeine 300-30mg 1 tab PO Q6H PRN 10/01/21 10/01/21 [Tylenol w/codeine #3] traZODone HCL [Desyrel] 50 - 100 mg PO HS 10/01/21 10/01/21 Previous Rx's Medication Instructions Recorded Levothyroxine Sodium [Synthroid] 50 mcg PO DAILY #30 tab 09/21/20 Metoprolol Tartrate [Lopressor] 50 mg PO BID tab 06/27/21 Pregabalin [Lyrica] 75 mg PO BID #6 cap 06/27/21 Allergies Allergy/AdvReac Type Severity Reaction Status Date / Time diazepam [From Valium] AdvReac Confusion Verified 10/01/21 13:24 Review of Systems ROS Statement: Those systems with pertinent positive or pertinent negative responses have been documented in the HPI. ROS Other: All systems not noted in ROS Statement are negative. Constitutional: Denies: fever, chills, weakness Respiratory: Denies: cough, dyspnea Cardiovascular: Denies: chest pain, palpitations, edema Gastrointestinal: Denies: abdominal pain, nausea, vomiting, constipation, melena Genitourinary: Denies: dysuria, hematuria Musculoskeletal: Denies: back pain Skin: Denies: rash Neurological: Denies: headache, weakness, numbness Past Medical History Past Medical History: Atrial Fibrillation, Osteoarthritis (OA) Additional Past Medical History / Comment(s): colostomy 06/2021 History of Any Multi-Drug Resistant Organisms: None Reported Date of last positivie culture/infection: 2017 MDRO Source:: stool Past Surgical History: Bowel Resection, Hysterectomy, Orthopedic Surgery Additional Past Surgical History / Comment(s): Neck sx, right hip sx, colostomy 06/2021 Past Anesthesia/Blood Transfusion Reactions: No Reported Reaction Past Psychological History: No Psychological Hx Reported Smoking Status: Never smoker Past Alcohol Use History: None Reported Past Drug Use History: None Reported General Exam General appearance: alert, in no apparent distress Head exam: Present: atraumatic, normocephalic Eye exam: Present: normal appearance Neck exam: Present: normal inspection Respiratory exam: Present: normal lung sounds bilaterally. Absent: respiratory distress, wheezes, rales, rhonchi, stridor Cardiovascular Exam: Present: regular rate, normal rhythm, normal heart sounds. Absent: systolic murmur, diastolic murmur, rubs, gallop GI/Abdominal exam: Present: soft, other (There is colostomy in the left upper quadrant with protrusion of approximately 3 inch segment of large bowel.). Absent: distended, tenderness, guarding, rebound, rigid, mass Extremities exam: Present: normal inspection, normal capillary refill. Absent: pedal edema, calf tenderness Back exam: Present: normal inspection. Absent: CVA tenderness (R), CVA tende rness (L) Neurological exam: Present: alert Skin exam: Present: warm, dry, intact, normal color. Absent: rash Course Vital Signs 09/29/21 09/30/21 22:18 00:35 Temperature 98 F 98.0 F Pulse Rate 84 83 Respiratory 17 20 Rate Blood Pressure 175/76 159/73 O2 Sat by Pulse 94 L 94 L Oximetry Medical Decision Making - Medical Decision Making Case is discussed with Dr. Bach, covering for Dr. Byers. He states that as long as the patient is not appearing obstructed, patient should see Dr. Byers in the clinic on Friday for further evaluation and treatment. I discussed the appropriate follow-up as well as return parameters with patient. - Lab Data Result diagrams: 09/29/21 23:05 09/29/21 23:05 Lab Results 09/29/21 09/29/21 09/29/21 Range/Units 23:05 23:05 23:05 WBC 5.6 (3.8-10.6) k/uL RBC 4.13 (3.80-5.40) m/uL Hgb 12.5 (11.4-16.0) gm/dL Hct 38.7 (34.0-46.0) % MCV 93.6 (80.0-100.0) fL MCH 30.1 (25.0-35.0) pg MCHC 32.2 (31.0-37.0) g/dL RDW 13.6 (11.5-15.5) % Plt Count 182 (150-450) k/uL MPV 8.4 Neutrophils % 29 % Lymphocytes % 48 % Monocytes % 12 % Eosinophils % 6 % Basophils % 1 % Neutrophils # 1.6 (1.3-7.7) k/uL Lymphocytes # 2.7 (1.0-4.8) k/uL Monocytes # 0.7 (0-1.0) k/uL Eosinophils # 0.3 (0-0.7) k/uL Basophils # 0.1 (0-0.2) k/uL Sodium 138 (137-145) mmol/L Potassium 3.8 (3.5-5.1) mmol/L Chloride 103 (98-107) mmol/L Carbon Dioxide 28 (22-30) mmol/L Anion Gap 7 mmol/L BUN 23 H (7-17) mg/dL Creatinine 0.85 (0.52-1.04) mg/dL Est GFR (CKD-EPI)AfAm 71 (>60 ml/min/1.73 sqM) Est GFR (CKD-EPI)NonAf 62 (>60 ml/min/1.73 sqM) Glucose 115 H (74-99) mg/dL Plasma Lactic Acid Frandy 1.2 (0.7-2.0) mmol/L Calcium 9.0 (8.4-10.2) mg/dL Total Bilirubin 0.5 (0.2-1.3) mg/dL AST 34 (14-36) U/L ALT 25 (4-34) U/L Alkaline Phosphatase 154 H (38-126) U/L Troponin I (0.000-0.034) ng/mL Total Protein 6.8 (6.3-8.2) g/dL Albumin 4.0 (3.5-5.0) g/dL Amylase 71 (30-110) U/L Lipase 136 (23-300) U/L Urine Color Urine Appearance (Clear) Urine pH (5.0-8.0) Ur Specific [place] (1.001-1.035) Urine Protein (Negative) Urine Glucose (UA) (Negative) Urine Ketones (Negative) Urine Blood (Negative) Urine Nitrite (Negative) Urine Bilirubin (Negative) Urine Urobilinogen (<2.0) mg/dL Ur Leukocyte Esterase (Negative) Urine RBC (0-5) /hpf Urine WBC (0-5) /hpf Ur Squamous Epith Cells (0-4) /hpf Urine Mucus (None) /hpf 09/29/21 09/29/21 Range/Units 23:05 23:32 WBC (3.8-10.6) k/uL RBC (3.80-5.40) m/uL Hgb (11.4-16.0) gm/dL Hct (34.0-46.0) % MCV (80.0-100.0) fL MCH (25.0-35.0) pg MCHC (31.0-37.0) g/dL RDW (11.5-15.5) % Plt Count (150-450) k/uL MPV Neutrophils % % Lymphocytes % % Monocytes % % Eosinophils % % Basophils % % Neutrophils # (1.3-7.7) k/uL Lymphocytes # (1.0-4.8) k/uL Monocytes # (0-1.0) k/uL Eosinophils # (0-0.7) k/uL Basophils # (0-0.2) k/uL Sodium (137-145) mmol/L Potassium (3.5-5.1) mmol/L Chloride (98-107) mmol/L Carbon Dioxide (22-30) mmol/L Anion Gap mmol/L BUN (7-17) mg/dL Creatinine (0.52-1.04) mg/dL Est GFR (CKD-EPI)AfAm (>60 ml/min/1.73 sqM) Est GFR (CKD-EPI)NonAf (>60 ml/min/1.73 sqM) Glucose (74-99) mg/dL Plasma Lactic Acid Frandy (0.7-2.0) mmol/L Calcium (8.4-10.2) mg/dL Total Bilirubin (0.2-1.3) mg/dL AST (14-36) U/L ALT (4-34) U/L Alkaline Phosphatase (38-126) U/L Troponin I <0.012 (0.000-0.034) ng/mL Total Protein (6.3-8.2) g/dL Albumin (3.5-5.0) g/dL Amylase (30-110) U/L Lipase (23-300) U/L Urine Color Yellow Urine Appearance Clear (Clear) Urine pH 5.5 (5.0-8.0) Ur Specific [place] 1.009 (1.001-1.035) Urine Protein Negative (Negative) Urine Glucose (UA) Negative (Negative) Urine Ketones Negative (Negative) Urine Blood Negative (Negative) Urine Nitrite Negative (Negative) Urine Bilirubin Negative (Negative) Urine Urobilinogen <2.0 (<2.0) mg/dL Ur Leukocyte Esterase Small H (Negative) Urine RBC <1 (0-5) /hpf Urine WBC 2 (0-5) /hpf Ur Squamous Epith Cells 1 (0-4) /hpf Urine Mucus Rare H (None) /hpf Disposition Clinical Impression: Colostomy prolapse Disposition: HOME SELF-CARE Condition: Good Instructions (If sedation given, give patient instructions): Abdominal Pain (ED) Is patient prescribed a controlled substance at d/c from ED?: No Referrals: Eliza Pollard MD [Primary Care Provider] - 1-2 days Tye Byers MD [Medical Doctor] - 1-2 days
[2021-09-30 00:38] VITALS: BP 159/73; PULSE 83; RESP 20; TEMP 98
== END 2021-09-30 00:38 | disposition home or self-care (01) ==
LOC: EC 22:13
DX: K94.09 Other complications of colostomy (principal); I48.91 Unspecified atrial fibrillation; M19.90 Unspecified osteoarthritis, unspecified site; Z79.899 Other long term (current) drug therapy; Z88.8 Allergy status to other drugs, medicaments and biological substances
CPT/HCPCS: 36415; 74018; 80053; 81001; 82150; 83605; 83690; 84484; 85025; 93005; 99284

== ENCOUNTER 2021-10-29 01:54 | Inpatient (IN) | payer MEDICARE ==
[2021-10-29] MEDS ORDERED: SODIUM CHLORIDE 0.9% 1,000 ML IV STA ×2 (01:57)
[2021-10-29] MEDS ORDERED: ONDANSETRON 4 MG/2 ML VIAL IVP STA (01:57)
[2021-10-29] MEDS ORDERED: MORPHINE SULFATE 4 MG/ML SYRINGE IV STA (01:57)
--- NOTE | 2021-10-29 01:58 | ED ---
Abdominal Pain HPI - General Stated Complaint: Abd Pain Time Seen by Provider: 10/29/21 01:57 Source: RN notes reviewed, old records reviewed Mode of arrival: EMS Limitations: no limitations - History of Present Illness Initial Comments: This is a 86-year-old female to the emergency department for evaluation today. Patient is safe for evaluation of no stoma output. Patient recently had surgery for a prolapsed stoma here at this hospital. Patient denies any pain is on day 3 of really no output. Patient has some abdominal pain but not significant. No nausea vomiting. No recent change in medications and no other significant complaints MD Complaint: abdominal pain -: days(s) (3) Location: epigastric (At ostomy site) Radiation: epigastric Migration to: epigastric Severity: moderate Severity scale (1-10): 6 Quality: fullness Consistency: constant Improves With: nothing Worsens With: nothing Context: other (none) Associated Symptoms: nausea Treatments Prior to Arrival: other (none) - Related Data Home Medications Medication Instructions Recorded Confirmed Diclofenac Sodium [Voltaren Gel] 4 gram TOPICAL QID PRN 09/19/20 10/01/21 Mirtazapine 30 mg PO HS 09/19/20 10/01/21 Omeprazole 20 mg PO AC-BRKFST 09/19/20 10/01/21 Sulindac [Clinoril] 150 mg PO BID 09/19/20 10/01/21 busPIRone HCl [Buspar] 5 mg PO BID 09/19/20 10/01/21 rOPINIRole HCL [Requip] 0.25 - 0.5 mg PO HS 09/19/20 10/01/21 Mirabegron [Myrbetriq] 25 mg PO DAILY 06/16/21 10/01/21 Vit C/E/Zn/Coppr/Lutein/Zeaxan 1 cap PO BID 06/16/21 10/01/21 [Preservision Areds 2 Softgel] Acetaminophen-Codeine 300-30mg 1 tab PO Q6H PRN 10/01/21 10/01/21 [Tylenol w/codeine #3] traZODone HCL [Desyrel] 50 - 100 mg PO HS 10/01/21 10/01/21 Previous Rx's Medication Instructions Recorded Levothyroxine Sodium [Synthroid] 50 mcg PO DAILY #30 tab 09/21/20 Metoprolol Tartrate [Lopressor] 50 mg PO BID tab 06/27/21 Pregabalin [Lyrica] 75 mg PO BID #6 cap 06/27/21 Allergies Allergy/AdvReac Type Severity Reaction Status Date / Time diazepam [From Valium] AdvReac Confusion Verified 10/29/21 02:02 Review of Systems ROS Statement: Those systems with pertinent positive or pertinent negative responses have been documented in the HPI. ROS Other: All systems not noted in ROS Statement are negative. Past Medical History Past Medical History: Atrial Fibrillation, Osteoarthritis (OA) Additional Past Medical History / Comment(s): colostomy 06/2021 History of Any Multi-Drug Resistant Organisms: None Reported Date of last positivie culture/infection: 2016 MDRO Source:: stool Past Surgical History: Bowel Resection, Hysterectomy, Orthopedic Surgery Additional Past Surgical History / Comment(s): Neck sx, right hip sx, colostomy 06/2021 Past Anesthesia/Blood Transfusion Reactions: No Reported Reaction Past Psychological History: No Psychological Hx Reported Smoking Status: Never smoker Past Alcohol Use History: None Reported Past Drug Use History: None Reported - Past Family History Father Family Medical History: COPD Additional Family Medical History / Comment(s): Father was a smoker. He of emphysema at the age of 74 yrs. Mother Family Medical History: No Reported History Additional Family Medical History / Comment(s): Mother was healthy. General Exam - General Exam Comments Initial Comments: Stoma bag does appear to be dry General appearance: alert, in no apparent distress Head exam: Present: atraumatic, normocephalic, normal inspection Eye exam: Present: normal appearance, PERRL, EOMI. Absent: scleral icterus, conjunctival injection, periorbital swelling ENT exam: Present: normal exam, mucous membranes moist Neck exam: Present: normal inspection. Absent: tenderness, meningismus, lymphadenopathy Respiratory exam: Present: normal lung sounds bilaterally. Absent: respiratory distress, wheezes, rales, rhonchi, stridor Cardiovascular Exam: Present: regular rate, normal rhythm, normal heart sounds. Absent: systolic murmur, diastolic murmur, rubs, gallop, clicks GI/Abdominal exam: Present: soft, normal bowel sounds. Absent: distended, tenderness, guarding, rebound, rigid Extremities exam: Present: normal inspection, full ROM, normal capillary refill. Absent: tenderness, pedal edema, joint swelling, calf tenderness Back exam: Present: normal inspection Neurological exam: Present: alert, oriented X3, CN II-XII intact Psychiatric exam: Present: normal affect, normal mood Skin exam: Present: warm, dry, intact, normal color. Absent: rash Course Vital Signs 10/29/21 01:59 Temperature 97.7 F Pulse Rate 90 Respiratory 18 Rate Blood Pressure 153/75 O2 Sat by Pulse 96 Oximetry - Reevaluation(s) Reevaluation #1: 10/29/21 03:43 Medical record is reviewed Reevaluation #2: 10/29/21 03:43 Patient is in no acute distress symptoms are improved Reevaluation #3: 10/29/21 03:43 Patient informed results and questions have been answered - Consultations Consultation #1: spoke w [facility] who will admit this patient with surgical eval Medical Decision Making - Medical Decision Making 86 female to the emergency department for evaluation. Patient presents today to the ER for evaluation of a diminished stool output well put from stoma. Patient does have a significant small bowel obstruction will admit for surgical evaluation and treatment - Lab Data Result diagrams: 10/29/21 02:21 10/29/21 02:21 Lab Results 10/29/21 10/29/21 10/29/21 Range/Units 02:21 02:21 02:21 WBC 17.6 H (3.8-10.6) k/uL RBC 4.58 (3.80-5.40) m/uL Hgb 13.3 (11.4-16.0) gm/dL Hct 41.6 (34.0-46.0) % MCV 91.0 (80.0-100.0) fL MCH 29.1 (25.0-35.0) pg MCHC 31.9 (31.0-37.0) g/dL RDW 13.4 (11.5-15.5) % Plt Count 276 (150-450) k/uL MPV 7.7 Neutrophils % 83 % Lymphocytes % 8 % Monocytes % 6 % Eosinophils % 1 % Basophils % 1 % Neutrophils # 14.5 H (1.3-7.7) k/uL Lymphocytes # 1.4 (1.0-4.8) k/uL Monocytes # 1.0 (0-1.0) k/uL Eosinophils # 0.3 (0-0.7) k/uL Basophils # 0.1 (0-0.2) k/uL Sodium 138 (137-145) mmol/L Potassium 3.7 (3.5-5.1) mmol/L Chloride 104 (98-107) mmol/L Carbon Dioxide 30 (22-30) mmol/L Anion Gap 4 mmol/L BUN 21 H (7-17) mg/dL Creatinine 0.69 (0.52-1.04) mg/dL Est GFR (CKD-EPI)AfAm >90 (>60 ml/min/1.73 sqM) Est GFR (CKD-EPI)NonAf 78 (>60 ml/min/1.73 sqM) Glucose 144 H (74-99) mg/dL Plasma Lactic Acid Frandy 1.5 (0.7-2.0) mmol/L Calcium 8.9 (8.4-10.2) mg/dL Total Bilirubin 0.9 (0.2-1.3) mg/dL AST 48 H (14-36) U/L ALT 22 (4-34) U/L Alkaline Phosphatase 164 H (38-126) U/L Total Protein 7.0 (6.3-8.2) g/dL Albumin 3.9 (3.5-5.0) g/dL Amylase 72 (30-110) U/L Lipase 89 (23-300) U/L Urine Color Urine Appearance (Clear) Urine pH (5.0-8.0) Ur Specific [place] (1.001-1.035) Urine Protein (Negative) Urine Glucose (UA) (Negative) Urine Ketones (Negative) Urine Blood (Negative) Urine Nitrite (Negative) Urine Bilirubin (Negative) Urine Urobilinogen (<2.0) mg/dL Ur Leukocyte Esterase (Negative) Urine RBC (0-5) /hpf Urine WBC (0-5) /hpf Ur Squamous Epith Cells (0-4) /hpf Amorphous Sediment (None) /hpf Urine Bacteria (None) /hpf Urine Mucus (None) /hpf 10/29/21 Range/Units 04:02 WBC (3.8-10.6) k/uL RBC (3.80-5.40) m/uL Hgb (11.4-16.0) gm/dL Hct (34.0-46.0) % MCV (80.0-100.0) fL MCH (25.0-35.0) pg MCHC (31.0-37.0) g/dL RDW (11.5-15.5) % Plt Count (150-450) k/uL MPV Neutrophils % % Lymphocytes % % Monocytes % % Eosinophils % % Basophils % % Neutrophils # (1.3-7.7) k/uL Lymphocytes # (1.0-4.8) k/uL Monocytes # (0-1.0) k/uL Eosinophils # (0-0.7) k/uL Basophils # (0-0.2) k/uL Sodium (137-145) mmol/L Potassium (3.5-5.1) mmol/L Chloride (98-107) mmol/L Carbon Dioxide (22-30) mmol/L Anion Gap mmol/L BUN (7-17) mg/dL Creatinine (0.52-1.04) mg/dL Est GFR (CKD-EPI)AfAm (>60 ml/min/1.73 sqM) Est GFR (CKD-EPI)NonAf (>60 ml/min/1.73 sqM) Glucose (74-99) mg/dL Plasma Lactic Acid [place] (0.7-2.0) mmol/L Calcium (8.4-10.2) mg/dL Total Bilirubin (0.2-1.3) mg/dL AST (14-36) U/L ALT (4-34) U/L Alkaline Phosphatase (38-126) U/L Total Protein (6.3-8.2) g/dL Albumin (3.5-5.0) g/dL Amylase (30-110) U/L Lipase (23-300) U/L Urine Color Yellow Urine Appearance Cloudy H (Clear) Urine pH 7.5 (5.0-8.0) Ur Specific [place] 1.029 (1.001-1.035) Urine Protein Negative (Negative) Urine Glucose (UA) Negative (Negative) Urine Ketones Negative (Negative) Urine Blood Negative (Negative) Urine Nitrite Negative (Negative) Urine Bilirubin Negative (Negative) Urine Urobilinogen <2.0 (<2.0) mg/dL Ur Leukocyte Esterase Small H (Negative) Urine RBC 1 (0-5) /hpf Urine WBC 4 (0-5) /hpf Ur Squamous Epith Cells 1 (0-4) /hpf Amorphous Sediment Rare H (None) /hpf Urine Bacteria Rare H (None) /hpf Urine Mucus Rare H (None) /hpf - Radiology Data Radiology results: report reviewed (CT head and pelvis positive for small bowel obstruction), image reviewed Disposition Clinical Impression: Abdominal pain, Small bowel obstruction Disposition: ADMITTED IP TO THIS [facility] Condition: Fair Is patient prescribed a controlled substance at d/c from ED?: No Referrals: Eliza Pollard MD [Primary Care Provider] - 1-2 days
[2021-10-29] MEDS ORDERED: PROCHLORPERAZINE INJ 10 MG/2 ML VIAL IVP STA (02:03)
[2021-10-29 02:30] LABS: Basophils # (A) 0.1 k/uL (0-0.2); Basophils % (A) 1 %; Eosinophils # (A) 0.3 k/uL (0-0.7); Eosinophils % (A) 1 %; HCT 41.6 % (34.0-46.0); HGB 13.3 gm/dL (11.4-16.0); Lymphocytes # (A) 1.4 k/uL (1.0-4.8); Lymphocytes % (A) 8 %; MCH 29.1 pg (25.0-35.0); MCHC 31.9 g/dL (31.0-37.0); Mean Platelet Volume 7.7; Monocytes % (A) 6 %; Neutrophils # (A) 14.5 k/uL (1.3-7.7); Neutrophils % (A) 83 %; Platelet Count 276 k/uL (150-450); RBC 4.58 m/uL (3.80-5.40); RDW 13.4 % (11.5-15.5); WBC 17.6 k/uL (3.8-10.6)
[2021-10-29 02:48] LABS: ALT 22 U/L (4-34); AST 48 U/L (14-36); African American GFR (CKD) >90 (>60 ml/min/1.73 sqM); Albumin 3.9 g/dL (3.5-5.0); Alkaline Phosphatase 164 U/L (38-126); Amylase 72 U/L (30-110); Anion Gap 4 mmol/L; Blood Urea Nitrogen 21 mg/dL (7-17); Calcium 8.9 mg/dL (8.4-10.2); Carbon Dioxide 30 mmol/L (22-30); Chloride 104 mmol/L (98-107); Glucose 144 mg/dL (74-99); Lipase 89 U/L (23-300); Non-African American GFR(CKD) 78 (>60 ml/min/1.73 sqM); Sodium 138 mmol/L (137-145); Total Bilirubin 0.9 mg/dL (0.2-1.3)
[2021-10-29 02:49] LABS: Potassium 3.7 mmol/L (3.5-5.1)
--- NOTE | 2021-10-29 04:07 | CT ---
EXAMINATION TYPE: CT abdomen pelvis w con DATE OF EXAM: 10/29/2021 COMPARISON: 06/20/2021 HISTORY: no stool in colostomy CT DLP: 780.20 mGycm Automated exposure control for dose reduction was used. CONTRAST: Performed with IV Contrast, patient injected with 100 mL of Isovue 300. Images obtained from the diaphragm to the floor the pelvis with IV contrast. The lung bases are clear of consolidation. There is minimal subsegmental atelectasis and nodular infi ltrate at the posterior lung bases. There are calcified splenic granulomata. Heart size is normal. Th ere is 6 mm calcified granuloma right lower lobe. There is no pericardial effusion. There is no pleur al effusion. There is some dilation of the biliary tree. There is dilation of the intrahepatic bile ducts. There a re clips from cholecystectomy. The common bile duct is 16 mm. There is no evidence of pancreatic mass . There is no adrenal mass. Kidneys show satisfactory contrast opacification. There is no hydronephrosi s. There is possible 4 mm calculus lower pole left kidney. Ureters are not dilated. Delayed images sh ow normal renal excretion. Bladder distends smoothly. There is right hip prosthesis. There is no ingu inal hernia. There are multiple dilated air and fluid-filled small bowel loops throughout the abdomen. The termina l ileum is not dilated. There are surgical clips in the lateral right abdomen apparently in the small bowel. The cecum is low in the pelvis. Transition point not identified with certainty. Small bowel i s dilated up to 3 cm. There are numerous fluid levels. There is no evidence of free air. There is col ostomy in the left mid abdomen. There is apparent rectal stump. There are spondylotic changes in the lumbar spine. There is no significant compression deformity. The bony pelvis is intact. The hip joints are intact. There is metal artifact from right hip prosthesis. IMPRESSION: Dilated small bowel suggestive of distal mechanical small bowel obstruction. Transition point not fabrizio ntified. Follow-up recommended. Numerous tiny noncalcified nodular densities in the lower lung gutierrez measuring up to 7 mm of uncerta in significance. There is clearing of the pleural effusions and basilar pulmonary extensive infiltrates compared to ol d exam. Multiple tiny nodular pulmonary densities are also present on the old CT scan.
[2021-10-29 04:17] LABS: Amorphous Sediment,Urine Rare /hpf; Appearance,Urine Cloudy (Clear); Bacteria,Urine Rare /hpf; Bilirubin,Urine Negative (Negative); Blood,Urine Negative (Negative); Color,Urine Yellow; Glucose,Urine (UA) Negative (Negative); Ketones,Urine Negative (Negative); Leukocyte Esterase,Urine Small (Negative); Mucus,Urine Rare /hpf; Nitrite,Urine Negative (Negative); PH, Urine 7.5 (5.0-8.0); Protein,Urine Negative (Negative); RBC,Urine 1 /hpf (0-5); Specific Gravity,Urine 1.029 (1.001-1.035); Squamous Epithelial Cell,Urine 1 /hpf (0-4); Urobilinogen,Urine <2.0 mg/dL (<2.0); WBC,Urine 4 /hpf (0-5)
[2021-10-29] MEDS ORDERED: NALOXONE 0.4 MG/ML 1 ML VIAL IV PRN (04:35)
[2021-10-29] MEDS: PANTOPRAZOLE 40 MG/10 ML VIAL IV SCH (07:28)
[2021-10-29] MEDS: SODIUM CHLORIDE 0.9% 1,000 ML IV SCH ×2 (10:23→16:14)
[2021-10-29] MEDS: ONDANSETRON 4 MG/2 ML VIAL IVP PRN ×2 (11:11→20:22)
[2021-10-29] MEDS: MORPHINE SULFATE 4 MG/ML SYRINGE IV PRN ×3 (11:12→20:29)
[2021-10-29] MEDS ORDERED: Acetaminophen-Codeine 300-30mg TAB PO PRN (11:32)
[2021-10-29] MEDS ORDERED: DICLOFENAC SODIUM GEL 100 GM TUBE TOPICAL PRN (11:32)
[2021-10-29] MEDS: METOPROLOL TARTRATE 50 MG TAB PO SCH ×3 (12:01→22:47)
--- NOTE | 2021-10-29 12:26 | P.GSCN ---
<Anna Ramos - Last Filed: 10/29/21 12:13> History of Present Illness Consult date: 10/29/21 History of present illness: CHIEF COMPLAINT: Abdominal pain HISTORY OF PRESENT ILLNESS: This is a 86-year-old female presented to the hospital with complaints of abdominal pain for the past 4 days. Patient reports that she has not had any output through her colostomy for about 4 days. She had nausea and vomiting. Her last episode of vomiting was yesterday. She's had prior abdominal surgeries. Patient had colostomy prolapse with ischemia and required revision of colostomy with partial colectomy on 10/02/2021. In June 2021 patient had partial colectomy with end colostomy for colon perforation. As well as a history of hysterectomy. Patient had computed tomography scan abdomen and pelvis that did reveal dilated small bowel suggestive of distal mechanical small bowel obstruction. Transition point not identified. Surgical service consultation for small bowel obstruction. Patient is currently nothing by mouth. PAST MEDICAL HISTORY: See list. PAST SURGICAL HISTORY: See list. MEDICATIONS: See list. ALLERGIES: See list. SOCIAL HISTORY: No illicit drug use. REVIEW OF SYSTEMS: CONSTITUTIONAL: Denies fever or chills. HEENT: Denies blurred vision, vision changes, or eye pain. Denies hemoptysis CARDIOVASCULAR: Denies chest pain or pressure. RESPIRATORY: No shortness of breath. GASTROINTESTINAL: See HPI for pertinent findings HEMATOLOGIC: Denies bleeding disorders. GENITOURINARY: Denies any blood in urine or increased urinary frequency. SKIN: Denies pruitis. Denies rash. PHYSICAL EXAM: VITAL SIGNS: Reviewed GENERAL: Well-developed in no acute distress. HEENT: No sclera icterus. Extraocular movements grossly intact. Moist buccal mucosa. Head is atraumatic, normocephalic. No nasal drainage. ABDOMEN: Soft. Distended. Abdominal tenderness on the right and upper abdomen. Colostomy bag no stool or air present. Stoma pink. NEUROLOGIC: Alert and oriented. Cranial nerves II through XII grossly intact. LABORATORY DATA: WBC is 17.6 hemoglobin 13.3 platelets 276 Sodium 138 potassium 3.7 creatinine 0.69 Lactic acid 1.5 AST 48 alk phos 164 amylase lipase normal COVID-19 detected IMAGING: Computed tomography scan abdomen and pelvis dilated small bowel suggestive of distal mechanical small bowel obstruction. Transition point not identified. Follow-up recommended. Numerous tiny noncalcified nodular densities in the lower lung gutierrez measuring up to 7 mm of uncertain significance. There is clearing of the pleural effusions and basilar pulmonary extensive infiltrates compared to old exam. Multiple tiny nodule pulmonary densities are also present on the old computed tomography scan. ASSESSMENT: 1. Distal mechanical small bowel obstruction 2. Prior history of abdominal surgeries PLAN: -Keep patient nothing by mouth -Check abdominal x-ray in a.m. -Continue supportive care -If patient starts to vomit would need NG tube placed -Continue antiemetics -Continue pain medication as needed Thank you for this consultation Physician Sas Developer note has been reviewed by physician. Signing provider agrees with the documented findings, assessment, and plan of care. Past Medical History Past Medical History: Atrial Fibrillation, Osteoarthritis (OA) Additional Past Medical History / Comment(s): colostomy 06/2021 History of Any Multi-Drug Resistant Organisms: None Reported Year Discovered:: 2017 MDRO Source:: stool Past Surgical History: Bowel Resection, Hysterectomy, Orthopedic Surgery Additional Past Surgical History / Comment(s): Neck sx, right hip sx, colostomy 06/2021 Past Anesthesia/Blood Transfusion Reactions: No Reported Reaction Past Psychological History: No Psychological Hx Reported Additional Psychological History / Comment(s): Pt resides alone. Her srikanth, Lor normally assists with pt's care, however, she is down in [place] August until December. Pt uses a cane to ambulate. Her srikanth has her medications organized. 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 She has friends who drive her to appts or her srikanth drives her. Pt and friend who is here with her would like pt to have home care set up after discharge. Smoking Status: Never smoker Past Alcohol Use History: None Reported Past Drug Use History: None Reported - Past Family History Father Family Medical History: COPD Additional Family Medical History / Comment(s): Father was a smoker. He of emphysema at the age of 74 yrs. Mother Family Medical History: No Reported History Additional Family Medical History / Comment(s): Mother was healthy. Medications and Allergies Home Medications Medication Instructions Recorded Confirmed Type Diclofenac Sodium [Voltaren Gel] 4 gram TOPICAL QID PRN 09/19/20 10/29/21 History Mirtazapine 30 mg PO HS 09/19/20 10/29/21 History Omeprazole 20 mg PO AC-BRKFST 09/19/20 10/29/21 History Sulindac [Clinoril] 150 mg PO BID 09/19/20 10/29/21 History busPIRone HCl [Buspar] 5 mg PO BID 09/19/20 10/29/21 History rOPINIRole HCL [Requip] 0.25 - 0.5 mg PO HS 09/19/20 10/29/21 History Levothyroxine Sodium [Synthroid] 50 mcg PO DAILY #30 tab 09/21/20 10/29/21 Rx Mirabegron [Myrbetriq] 25 mg PO DAILY 06/16/21 10/29/21 History Vit C/E/Zn/Coppr/Lutein/Zeaxan 1 cap PO BID 06/16/21 10/29/21 History [Preservision Areds 2 Softgel] Metoprolol Tartrate [Lopressor] 50 mg PO BID tab 06/27/21 10/29/21 Rx Pregabalin [Lyrica] 75 mg PO BID #6 cap 06/27/21 10/29/21 Rx Acetaminophen-Codeine 300-30mg 1 tab PO Q6H PRN 10/01/21 10/29/21 History [Tylenol w/codeine #3] traZODone HCL [Desyrel] 50 - 100 mg PO HS 10/01/21 10/29/21 History Docusate [Colace] 100 mg PO HS 10/29/21 10/29/21 History Polyethylene Glycol 3350 [Miralax] 17 gm PO HS 10/29/21 10/29/21 History Allergies Allergy/AdvReac Type Severity Reaction Status Date / Time diazepam [From Valium] AdvReac Confusion Verified 10/29/21 07:56 Surgical - Exam Vital Signs Temp Pulse Resp BP Pulse Ox 97.7 F 90 18 153/75 96 10/29/21 01:59 10/29/21 01:59 10/29/21 01:59 10/29/21 01:59 10/29/21 01:59 Results - Labs 10/29/21 02:21 10/29/21 02:21 Abnormal Lab Results - Last 24 Hours (Table) 10/29/21 10/29/21 10/29/21 Range/Units 02:21 02:21 04:02 WBC 17.6 H (3.8-10.6) k/uL Neutrophils # 14.5 H (1.3-7.7) k/uL BUN 21 H (7-17) mg/dL Glucose 144 H (74-99) mg/dL AST 48 H (14-36) U/L Alkaline Phosphatase 164 H (38-126) U/L Urine Appearance Cloudy H (Clear) Ur Leukocyte Esterase Small H (Negative) Amorphous Sediment Rare H (None) /hpf Urine Bacteria Rare H (None) /hpf Urine Mucus Rare H (None) /hpf Coronavirus (PCR) (Not Detectd) 10/29/21 Range/Units 04:41 WBC (3.8-10.6) k/uL Neutrophils # (1.3-7.7) k/uL BUN (7-17) mg/dL Glucose (74-99) mg/dL AST (14-36) U/L Alkaline Phosphatase (38-126) U/L Urine Appearance (Clear) Ur Leukocyte Esterase (Negative) Amorphous Sediment (None) /hpf Urine Bacteria (None) /hpf Urine Mucus (None) /hpf Coronavirus (PCR) Detected A (Not Detectd) Diabetes panel 10/29/21 Range/Units 02:21 Sodium 138 (137-145) mmol/L Potassium 3.7 (3.5-5.1) mmol/L Chloride 104 (98-107) mmol/L Carbon Dioxide 30 (22-30) mmol/L BUN 21 H (7-17) mg/dL Creatinine 0.69 (0.52-1.04) mg/dL Glucose 144 H (74-99) mg/dL Calcium 8.9 (8.4-10.2) mg/dL AST 48 H (14-36) U/L ALT 22 (4-34) U/L Alkaline Phosphatase 164 H (38-126) U/L Total Protein 7.0 (6.3-8.2) g/dL Albumin 3.9 (3.5-5.0) g/dL Calcium panel 10/29/21 Range/Units 02:21 Calcium 8.9 (8.4-10.2) mg/dL Albumin 3.9 (3.5-5.0) g/dL Pituitary panel 10/29/21 Range/Units 02:21 Sodium 138 (137-145) mmol/L Potassium 3.7 (3.5-5.1) mmol/L Chloride 104 (98-107) mmol/L Carbon Dioxide 30 (22-30) mmol/L BUN 21 H (7-17) mg/dL Creatinine 0.69 (0.52-1.04) mg/dL Glucose 144 H (74-99) mg/dL Calcium 8.9 (8.4-10.2) mg/dL Adrenal panel 10/29/21 Range/Units 02:21 Sodium 138 (137-145) mmol/L Potassium 3.7 (3.5-5.1) mmol/L Chloride 104 (98-107) mmol/L Carbon Dioxide 30 (22-30) mmol/L BUN 21 H (7-17) mg/dL Creatinine 0.69 (0.52-1.04) mg/dL Glucose 144 H (74-99) mg/dL Calcium 8.9 (8.4-10.2) mg/dL Total Bilirubin 0.9 (0.2-1.3) mg/dL AST 48 H (14-36) U/L ALT 22 (4-34) U/L Alkaline Phosphatase 164 H (38-126) U/L Total Protein 7.0 (6.3-8.2) g/dL Albumin 3.9 (3.5-5.0) g/dL <Tye Byers - Last Filed: 10/29/21 16:29> History of Present Illness History of present illness: As above. Patient well-known to our service. Underwent a recent revision of her colostomy. That surgery was performed right through the stoma so should not have led to any intra-abdominal adhesions. CAT scan reviewed and does demonstrate small bowel obstruction. We'll repeat abdominal films tomorrow. Continue nonoperative treatment for now. Surgical - Exam Vital Signs Temp Pulse Resp BP Pulse Ox 97.7 F 90 18 153/75 96 10/29/21 01:59 10/29/21 01:59 10/29/21 01:59 10/29/21 01:59 10/29/21 01:59 Results - Labs 10/29/21 02:21 10/29/21 02:21 Abnormal Lab Results - Last 24 Hours (Table) 10/29/21 10/29/21 10/29/21 Range/Units 02:21 02:21 04:02 WBC 17.6 H (3.8-10.6) k/uL Neutrophils # 14.5 H (1.3-7.7) k/uL D-Dimer (<0.60) mg/L FEU BUN 21 H (7-17) mg/dL Glucose 144 H (74-99) mg/dL AST 48 H (14-36) U/L Alkaline Phosphatase 164 H (38-126) U/L C-Reactive Protein (<1.0) mg/dL Urine Appearance Cloudy H (Clear) Ur Leukocyte Esterase Small H (Negative) Amorphous Sediment Rare H (None) /hpf Urine Bacteria Rare H (None) /hpf Urine Mucus Rare H (None) /hpf Coronavirus (PCR) (Not Detectd) 10/29/21 10/29/21 10/29/21 Range/Units 04:41 12:26 12:26 WBC (3.8-10.6) k/uL Neutrophils # (1.3-7.7) k/uL D-Dimer 3.00 H (<0.60) mg/L FEU BUN (7-17) mg/dL Glucose (74-99) mg/dL AST (14-36) U/L Alkaline Phosphatase (38-126) U/L C-Reactive Protein 1.4 H (<1.0) mg/dL Urine Appearance (Clear) Ur Leukocyte Esterase (Negative) Amorphous Sediment (None) /hpf Urine Bacteria (None) /hpf Urine Mucus (None) /hpf Coronavirus (PCR) Detected A (Not Detectd) Diabetes panel 10/29/21 Range/Units 02:21 Sodium 138 (137-145) mmol/L Potassium 3.7 (3.5-5.1) mmol/L Chloride 104 (98-107) mmol/L Carbon Dioxide 30 (22-30) mmol/L BUN 21 H (7-17) mg/dL Creatinine 0.69 (0.52-1.04) mg/dL Glucose 144 H (74-99) mg/dL Calcium 8.9 (8.4-10.2) mg/dL AST 48 H (14-36) U/L ALT 22 (4-34) U/L Alkaline Phosphatase 164 H (38-126) U/L Total Protein 7.0 (6.3-8.2) g/dL Albumin 3.9 (3.5-5.0) g/dL Calcium panel 10/29/21 Range/Units 02:21 Calcium 8.9 (8.4-10.2) mg/dL Albumin 3.9 (3.5-5.0) g/dL Pituitary panel 10/29/21 Range/Units 02:21 Sodium 138 (137-145) mmol/L Potassium 3.7 (3.5-5.1) mmol/L Chloride 104 (98-107) mmol/L Carbon Dioxide 30 (22-30) mmol/L BUN 21 H (7-17) mg/dL Creatinine 0.69 (0.52-1.04) mg/dL Glucose 144 H (74-99) mg/dL Calcium 8.9 (8.4-10.2) mg/dL Adrenal panel 10/29/21 Range/Units 02:21 Sodium 138 (137-145) mmol/L Potassium 3.7 (3.5-5.1) mmol/L Chloride 104 (98-107) mmol/L Carbon Dioxide 30 (22-30) mmol/L BUN 21 H (7-17) mg/dL Creatinine 0.69 (0.52-1.04) mg/dL Glucose 144 H (74-99) mg/dL Calcium 8.9 (8.4-10.2) mg/dL Total Bilirubin 0.9 (0.2-1.3) mg/dL AST 48 H (14-36) U/L ALT 22 (4-34) U/L Alkaline Phosphatase 164 H (38-126) U/L Total Protein 7.0 (6.3-8.2) g/dL Albumin 3.9 (3.5-5.0) g/dL
[2021-10-29 13:03] LABS: C Reactive Protein 1.4 mg/dL (<1.0)
[2021-10-29 13:08] VITALS: BMI 18.8
--- NOTE | 2021-10-29 13:19 | HP ---
HISTORY AND PHYSICAL DATE OF SERVICE: 10/29/2021 CHIEF COMPLAINTS: Abdominal pain as well as no output from the stoma. HISTORY OF PRESENT ILLNESS: This 86-year-old woman with a past medical history of DJD, history of colostomy, history of atrial fibrillation, being followed by Dr. Pollard in the outpatient setting, is complaining of abdominal pain as well as no output from the stoma for the last 3 days. Evaluation in the ER showed evidence of small-bowel obstruction. The patient is admitted for further evaluation and treatment. COVID is also positive. There is no history of any fever, rigor or chills at this time. PAST MEDICAL HISTORY: History of colostomy, DJD, atrial fibrillation. MEDICATIONS: Home medications are reviewed and include Desyrel, Requip, BuSpar. Doses and other medications are reviewed. ALLERGIES: DIAZEPAM. FAMILY HISTORY: COPD. SOCIAL HISTORY: No history of smoking or alcohol intake. REVIEW OF SYSTEMS: Fourteen-point review of systems negative except as mentioned earlier. PHYSICAL EXAMINATION: Pulse is 107, blood pressure 176/77, respirations 16. HEENT: Conjunctivae normal. NECK: No jugular venous distention. No carotid bruit. CARDIOVASCULAR: S1, S2 irregular. RESPIRATION: Breath sounds diminished at the bases. A few scattered rhonchi. ABDOMEN: Soft. Mild diffuse distention. Colostomy present. LEGS: No edema. No swelling. NERVOUS SYSTEM: No focal deficit. SKIN: No ulcer, rash, bleeding. JOINTS: No active deforming arthropathy. LABS: WBC 17. Hemoglobin is 13.3. ASSESSMENT: 1. Acute small-bowel obstruction. 2. Degenerative joint disease. 3. Atrial fibrillation. 4. History of colostomy. RECOMMENDATIONS AND DISCUSSION: In this 86-year-old woman who presented with multiple complex medical issues, we will monitor the patient closely. Surgical evaluation. The patient is COVID-19 positive. Continue to monitor. Guarded prognosis. Further recommendations to follow. MMODL / IJN: [id number] / MTDD
[2021-10-29 18:33] LABS: Ferritin 29.8 ng/mL (10.0-291.0)
[2021-10-29] MEDS: polyethylene glycoL 3350 17 GM POWD.PACK PO SCH (21:51)
[2021-10-29] MEDS: DOCUSATE 100 MG CAP PO SCH (21:52)
[2021-10-29] MEDS: MIRTAZAPINE 15 MG TAB PO SCH ×2 (22:42→22:49)
[2021-10-29] MEDS: PREGABALIN 75 MG CAP PO SCH ×2 (22:42→22:49)
[2021-10-29] MEDS: ETODOLAC 200 MG CAPSULE PO SCH (22:43)
[2021-10-29] MEDS: traZODone HCL 50 MG TAB PO SCH ×2 (22:43→22:49)
[2021-10-29] MEDS: busPIRone HCl 5 MG TAB PO SCH (22:45)
[2021-10-30] MEDS: MORPHINE SULFATE 4 MG/ML SYRINGE IV PRN ×3 (00:04→06:28)
[2021-10-30] MEDS: SODIUM CHLORIDE 0.9% 1,000 ML IV SCH ×2 (00:08→17:10)
[2021-10-30] MEDS: LEVOTHYROXINE 50 MCG TAB PO SCH (03:34)
[2021-10-30] MEDS: ONDANSETRON 4 MG/2 ML VIAL IVP PRN ×2 (04:11→19:45)
[2021-10-30] MEDS: METOPROLOL TARTRATE 50 MG TAB PO SCH ×2 (07:25→22:48)
[2021-10-30] MEDS: PREGABALIN 75 MG CAP PO SCH ×2 (07:25→22:49)
[2021-10-30] MEDS ORDERED: NON FORMULARY DRUG (Omeprazole [Omeprazole] 20 MG Capsule.Dr) PO SCH (07:30)
[2021-10-30] MEDS: ETODOLAC 200 MG CAPSULE PO SCH ×3 (07:51→22:28)
[2021-10-30] MEDS: busPIRone HCl 5 MG TAB PO SCH ×2 (07:53→22:48)
[2021-10-30] MEDS: PANTOPRAZOLE 40 MG/10 ML VIAL IV SCH (07:56)
[2021-10-30] MEDS: HYDROmorphone 1 MG/ML 1 ML SYRINGE IVP PRN ×4 (08:36→22:14)
[2021-10-30 09:09] LABS: Basophils # (A) 0.07 X 10*3/uL (0.00-0.10); Basophils % (A) 0.7 %; Eosinophils # (A) 0.17 X 10*3/uL (0.04-0.35); Eosinophils % (A) 1.7 %; HGB 12.1 g/dL (12.0-15.0); Immature Grans, Automated 0.4 %; Lymphocytes # (A) 2.01 X 10*3/uL (0.90-5.00); Lymphocytes % (A) 20.2 %; MCH 27.8 pg (27.0-32.0); MCHC 30.3 g/dL (32.0-37.0); Monocytes # (A) 1.16 X 10*3/uL (0.20-1.00); Monocytes % (A) 11.6 %; NRBC Per 100 WBC 0 /100 WBCS (0.0-0.0); Neutrophils # (A) 6.51 X 10*3/uL (1.80-7.70); Neutrophils % (A) 65.4 %; Platelet Count 242 X 10*3/uL (140-440); RBC 4.35 X 10*6/uL (4.10-5.20); RDW 14.5 % (11.5-14.5); WBC 9.96 X 10*3/uL (4.50-10.00)
[2021-10-30 09:25] LABS: African American GFR (CKD) 94.3 (60.0-200.0); Albumin 3.6 g/dL (3.8-4.9); Albumin/Globulin Ratio 1.71 (1.60-3.17); Anion Gap 14.2 mmol/L (10.00-18.00); BUN/Creat Ratio 32.67 Ratio (12.00-20.00); Blood Urea Nitrogen 19.6 mg/dL (9.0-27.0); Calcium 8.6 mg/dL (8.7-10.3); Carbon Dioxide 21.8 mmol/L (20.0-27.5); Globulin 2.1 g/dL (1.6-3.3); Magnesium 1.9 mg/dL (1.5-2.4); Non-African American GFR(CKD) 81.4 (60.0-200.0); Phosphorus 3.1 mg/dL (2.4-5.1); Potassium 4.3 mmol/L (3.5-5.5); Total Bilirubin 0.9 mg/dL (0.30-1.20); Total Protein 5.7 g/dL (6.2-8.2)
--- NOTE | 2021-10-30 12:14 | XR ---
2 view abdomen HISTORY: Follow-up small bowel obstruction comparison prior KUB 10/01/2021, CT 10/29/2021 or graph 2 vi ews the abdomen submitted Surgical clips again noted the right hemiabdomen, surgical bowel suture in the right lower quadrant. Probable vascular calcifications present within the pelvis. Postop change noted the right hip, there is arthropathy in the left hip. There is a spinal curvature, degenerative disc change. Distention of small bowel loops noted. No evident pneumoperitoneum. Lung bases show some minimal patchy density. IMPRESSION: Findings consistent with small bowel obstruction. Postop change and additional findings a liv.
--- NOTE | 2021-10-30 12:48 | P.PN ---
<JenniferdagobertoAnna - Last Filed: 10/30/21 12:41> Subjective Progress Note Date: 10/30/21 CHIEF COMPLAINT: Small bowel obstruction HISTORY OF PRESENT ILLNESS: Patient complaining the abdominal pain is the same as yesterday. She is requiring the IV Dilaudid. She does report nausea. No vomiting. She denies any bowel movement or flatus. Afebrile. WBC normalized from 17.6-9.96 hemoglobin 12.1 creatinine 0.6. Abdominal x-ray findings consistent with small bowel obstruction. PHYSICAL EXAM: VITAL SIGNS: Reviewed. GENERAL: Well-developed in no acute distress. HEENT: No sclera icterus. Extraocular movements grossly intact. Moist buccal mucosa. Head is atraumatic, normocephalic. ABDOMEN: Distended. Diffuse tenderness. NEUROLOGIC: Alert and oriented. Cranial nerves II through XII grossly intact. ASSESSMENT: 1. Distal mechanical small bowel obstruction 2. Covid positive PLAN: -Further recommendations forthcoming per surgeon -Keep patient nothing by mouth -Continue IV fluids -Continue pain medication -Continue antiemetics as needed -Encourage patient to increase activity. Sit at bedside chair. Physician Client Engagement Manager note has been reviewed by physician. Signing provider agrees with the documented findings, assessment, and plan of care. Objective - Vital Signs Vital signs: Vital Signs Temp 98.1 F 10/30/21 10:00 Pulse 95 10/30/21 10:00 Resp 17 10/30/21 10:00 BP 130/72 10/30/21 10:00 Pulse Ox 91 L 10/30/21 10:00 Intake & Output 10/29/21 10/30/21 10/30/21 18:59 06:59 18:59 Weight 49.895 kg Other: Voiding Method Bedside Commode # Voids 2 - Labs CBC & Chem 7: 10/30/21 05:12 10/30/21 05:12 Labs: Abnormal Lab Results - Last 24 Hours (Table) 10/29/21 10/29/21 10/30/21 Range/Units 12:26 12:26 05:12 MCHC 30.3 L (32.0-37.0) g/dL Monocytes # 1.16 H (0.20-1.00) X 10*3/uL D-Dimer 3.00 H (<0.60) mg/L FEU BUN/Creatinine Ratio (12.00-20.00) Ratio Calcium (8.7-10.3) mg/dL Alkaline Phosphatase (41-126) U/L C-Reactive Protein 1.4 H (<1.0) mg/dL Total Protein (6.2-8.2) g/dL Albumin (3.8-4.9) g/dL 10/30/21 Range/Units 05:12 MCHC (32.0-37.0) g/dL Monocytes # (0.20-1.00) X 10*3/uL D-Dimer (<0.60) mg/L FEU BUN/Creatinine Ratio 32.67 H (12.00-20.00) Ratio Calcium 8.6 L (8.7-10.3) mg/dL Alkaline Phosphatase 162 H (41-126) U/L C-Reactive Protein (<1.0) mg/dL Total Protein 5.7 L (6.2-8.2) g/dL Albumin 3.6 L (3.8-4.9) g/dL <Tye Byers - Last Filed: 10/30/21 16:40> Subjective I have personally seen and examined the patient, reviewed the TUBER HELPER /PAs history, exam and MDM and agree with the assessment and plan as written. Based on total visit time, I have performed more than 50% of the visit. As above: The patient was having more abdominal pain and bloating earlier today. She feels nauseous. No vomiting. No bowel function through the ostomy. We'll place nasogastric tube at this time to low intermittent suction. Keep nothing by mouth. We'll follow with you. Objective - Vital Signs Vital signs: Vital Signs Temp 97.9 F 10/30/21 14:00 Pulse 89 10/30/21 14:00 Resp 18 10/30/21 14:00 BP 152/72 10/30/21 14:00 Pulse Ox 92 L 10/30/21 14:00 Intake & Output 10/29/21 10/30/21 10/30/21 18:59 06:59 18:59 Weight 49.895 kg Other: Voiding Method Bedside Commode # Voids 2 - Labs CBC & Chem 7: 10/30/21 05:12 10/30/21 05:12 Labs: Abnormal Lab Results - Last 24 Hours (Table) 10/30/21 10/30/21 Range/Units 05:12 05:12 MCHC 30.3 L (32.0-37.0) g/dL Monocytes # 1.16 H (0.20-1.00) X 10*3/uL BUN/Creatinine Ratio 32.67 H (12.00-20.00) Ratio Calcium 8.6 L (8.7-10.3) mg/dL Alkaline Phosphatase 162 H (41-126) U/L Total Protein 5.7 L (6.2-8.2) g/dL Albumin 3.6 L (3.8-4.9) g/dL
--- NOTE | 2021-10-30 13:44 | P.PN ---
Subjective Progress Note Date: 10/30/21 10/30/2021 Patient is pleasant 86-year-old female who was recently admitted with abdominal pain and showing evidence of small bowel obstruction and is being closely monitored. Patient was also found to be Covid positive. Patient continues with an nothing by mouth for now per surgical services as abdominal x-ray shows continued small bowel obstruction. Patient is also Covid positive and currently on room air. D-dimer done yesterday mildly elevated at 3 and will attempt CTA and also initiate Lovenox. Patient reports passing gas but denies any stool in the ostomy. Patient continues with some abdominal discomfort on exam. Patient denies any shortness of breath, chest pain, or palpitations. Patient is afebrile. Review of systems: Constitutional: No reports of fatigue, fever, or chills Cardiovascular: No reports of chest pain or palpitations Respiratory: No reports of worsening shortness of breath or cough GI: No reports of nausea, no reports of of vomiting, patient is passing gas alth ough no stool in the ostomy and reports continued abdominal discomfort : No reports of dysuria or retention Neurovascular: reports of generalized weakness All medications have been reviewed Active Medications Acetaminophen/Codeine Phosphate (Acetaminophen-Codeine 300-30mg Tab) 1 each PO Q6H PRN PRN Reason: Moderate Pain Buspirone HCl (Buspirone Hcl 5 Mg Tab) 5 mg PO BID [facility] [place] Last Admin: 10/30/21 07:53 Dose: Not Given Documented by: Diclofenac Sodium (Diclofenac Sodium Gel 100 Gm Tube) 4 gm TOPICAL QID PRN; Protocol PRN Reason: Joint Pain Docusate Sodium (Docusate 100 Mg Cap) 100 mg PO HS [facility] [place] Last Admin: 10/29/21 21:52 Dose: Not Given Documented by: Etodolac (Etodolac 200 Mg Capsule) 200 mg PO TID [facility] [place] Last Admin: 10/30/21 07:51 Dose: Not Given Documented by: Hydromorphone HCl (Hydromorphone 1 Mg/Ml 1 Ml Syringe) 1 mg IVP Q3HR PRN PRN Reason: Moderate Breakthrough Pain Last Admin: 10/30/21 13:03 Dose: 1 mg Documented by: Sodium Chloride (Saline 0.9%) 1,000 mls @ 75 mls/hr IV .[id number] [facility] [place] Last Admin: 10/30/21 00:08 Dose: 75 mls/hr Documented by: Levothyroxine Sodium (Levothyroxine 50 Mcg Tab) 50 mcg PO DAILY@0630 [facility] [place] Last Admin: 10/30/21 03:34 Dose: Not Given Documented by: Metoprolol Tartrate (Metoprolol Tartrate 50 Mg Tab) 50 mg PO BID [facility] [place] Last Admin: 10/30/21 07:25 Dose: 50 mg Documented by: Mirtazapine (Mirtazapine 15 Mg Tab) 30 mg PO [facility] Last Admin: 10/29/21 22:49 Dose: Not Given Documented by: Morphine Sulfate (Morphine Sulfate 4 Mg/Ml Syringe) 4 mg IV Q4HR PRN PRN Reason: Severe Pain Last Admin: 10/30/21 06:28 Dose: 4 mg Documented by: Naloxone HCl (Naloxone 0.4 Mg/Ml 1 Ml Vial) 0.2 mg IV Q2M PRN PRN Reason: Opioid Reversal Ondansetron HCl (Ondansetron 4 Mg/2 Ml Vial) 4 mg IVP Q8HR PRN PRN Reason: Nausea And Vomiting Last Admin: 10/30/21 04:11 Dose: 4 mg Documented by: Pantoprazole Sodium (Pantoprazole 40 Mg/10 Ml Vial) 40 mg IV DAILY [facility] [place] Last Admin: 10/30/21 07:56 Dose: 40 mg Documented by: Polyethylene Glycol (Polyethylene Glycol 3350 17 Gm Powd.Pack) 17 gm PO [facility] Last Admin: 10/29/21 21:51 Dose: Not Given Documented by: Pregabalin (Pregabalin 75 Mg Cap) 75 mg PO BID [facility] [place] Last Admin: 10/30/21 07:25 Dose: 75 mg Documented by: Ropinirole HCl (Ropinirole Hcl 0.25 Mg Tab) 0.5 mg PO [facility] Last Admin: 10/29/21 22:49 Dose: Not Given Documented by: Trazodone HCl (Trazodone Hcl 50 Mg Tab) 50 mg PO [facility] Last Admin: 10/29/21 22:49 Dose: Not Given Documented by: PHYSICAL EXAMINATION: GENERAL: The patient is alert and oriented x3, Well developed, well nourished. HEENT: Pupils are round and equally reacting to light. EOMI. does have scleral icterus. No conjunctival pallor. Normocephalic, atraumatic. No pharyngeal erythema. No thyromegaly. CARDIOVASCULAR: S1 and S2 muffled PULMONARY: diminished breath sounds bilaterally with some scattered rhonchi noted. ABDOMEN: soft. Non-tender on exam. non-distended, normoactive bowel sounds. No palpable organomegaly. MUSCULOSKELETAL: No joint swelling or deformity. EXTREMITIES: No cyanosis, clubbing, or pedal edema. NEUROLOGICAL: Gross neurological examination did not reveal any focal deficits. Diffuse weakness SKIN: No rashes. Assessment: Acute small bowel obstruction COVID-19 infection Elevated d-dimer possibly secondary to above Degenerative joint disease Atrial fibrillation history of colostomy GI prophylaxis DVT prophylaxis Full code Plan: Recommend to continue with current medications and management. Patient being closely monitored by surgery for small bowel obstruction. Patient is currently nothing by mouth for surgery recommendations and continuing to monitor closely. Patient reports the passing gas but denies any stool noted in the ostomy. Patient is currently on room air and denies any shortness of breath at this time. D-dimer was mildly elevated at 3.0 and will start Lovenox. Patient is afebrile. Patient is also continued on gentle IV hydration and will continue. Patient underwent abdominal x-ray showing findings consistent with small bowel obstruction. Will discuss further with surgery about treatment plan moving forward. The impression and plan of care has been dictated by Silke Chopra, nurse practitioner as directed. MD Krys I have performed a history and examination and MDM of this patient, discussed t he same with the dictator, and agree with the dictator's assessment and plan as written ,documented as a scribe. Based on total visit time, I have performed more than 50% of the visit. Any additional findings or plans will be noted. Objective - Vital Signs Vital signs: Vital Signs Temp 98.1 F 10/30/21 10:00 Pulse 95 10/30/21 10:00 Resp 17 10/30/21 10:00 BP 130/72 10/30/21 10:00 Pulse Ox 91 L 10/30/21 10:00 Intake & Output 10/29/21 10/30/21 10/30/21 18:59 06:59 18:59 Weight 49.895 kg Other: Voiding Method Bedside Commode # Voids 2 - Labs CBC & Chem 7: 10/30/21 05:12 10/30/21 05:12 Labs: Abnormal Lab Results - Last 24 Hours (Table) 10/29/21 10/29/21 10/30/21 Range/Units 12:26 12:26 05:12 MCHC 30.3 L (32.0-37.0) g/dL Monocytes # 1.16 H (0.20-1.00) X 10*3/uL D-Dimer 3.00 H (<0.60) mg/L FEU BUN/Creatinine Ratio (12.00-20.00) Ratio Calcium (8.7-10.3) mg/dL Alkaline Phosphatase (41-126) U/L C-Reactive Protein 1.4 H (<1.0) mg/dL Total Protein (6.2-8.2) g/dL Albumin (3.8-4.9) g/dL 10/30/21 Range/Units 05:12 MCHC (32.0-37.0) g/dL Monocytes # (0.20-1.00) X 10*3/uL D-Dimer (<0.60) mg/L FEU BUN/Creatinine Ratio 32.67 H (12.00-20.00) Ratio Calcium 8.6 L (8.7-10.3) mg/dL Alkaline Phosphatase 162 H (41-126) U/L C-Reactive Protein (<1.0) mg/dL Total Protein 5.7 L (6.2-8.2) g/dL Albumin 3.6 L (3.8-4.9) g/dL
[2021-10-30] MEDS: ENOXAPARIN 40 MG/0.4 ML SYRINGE SQ SCH (14:46)
--- NOTE | 2021-10-30 16:02 | CT ---
EXAMINATION TYPE: CT angio chest DATE OF EXAM: 10/30/2021 3:25 PM COMPARISON: CT dated 09/19/2020 HISTORY: Elevated d-dimer, covid. CT DLP: 209.2 mGycm Automated exposure control for dose reduction was used. CONTRAST: CTA scan of the thorax is performed with IV Contrast, patient injected with 57ml mL of Isovue 370, pu lmonary embolism protocol. MIP images were performed and reviewed. FINDINGS: Artifactual images. No definite filling defect is seen within the pulmonary trunk, main pulmonary art eries and proximal segmental arteries. The distal segmental and subsegmental arteries mainly in the l ower lobes are suboptimally assessed and tiny pulmonary emboli cannot be excluded at these levels. The pulmonary trunk measures up to 2.5 cm. The ascending aorta measures up to 3.6 cm. Scattered arter ial atherosclerotic calcifications including coronary artery calcifications. Apparent cardiomegaly, p lease correlate with echocardiographic results. Small right-sided pleural effusion with bilateral basal subsegmental pulmonary atelectasis. Scattered multiple variable sized bilateral pulmonary nodules measuring up to 12 mm at the medial aspect of th e right lung base, grossly stable compared to the previous CT scan. Patent trachea and main bronchi. No progressive lymphadenopathy in the chest. The stomach is distended with fluid. This may increase the patient's risk for aspiration. Small perih epatic fluid. Stable splenic calcifications. Atrophic pancreas. Lower cervical anterior fixation. Ost eopenia. Degenerative changes of the visualized spine mainly at the lower thoracic level. No gross ag gressive bone lesion. IMPRESSION: No major or central pulmonary embolism. Tiny peripheral pulmonary emboli cannot be excluded by this C T scan. The described pulmonary changes are nonspecific and could be related to incomplete lung expan jayme however underlying pulmonary edema or subtle pulmonary infection cannot be excluded, please vicki elate clinically. Other incidental findings as described above.
--- NOTE | 2021-10-30 16:28 | US ---
EXAMINATION TYPE: US venous doppler duplex LE DATE OF EXAM: 10/30/2021 4:06 PM COMPARISON: NONE CLINICAL HISTORY: elevated d dimer, covid. Elevated d dimer, covid. Pt states she has had vein stripp ing on both legs. SIDE PERFORMED: Bilateral TECHNIQUE: The lower extremity deep venous system is examined utilizing real time linear array sonog el with graded compression, doppler sonography and color-flow sonography. VESSELS IMAGED: Common Femoral Vein Deep Femoral Vein Greater Saphenous Vein, portion seen in groin * -Pt had vein stripping Femoral Vein Popliteal Vein Small Saphenous Vein * Proximal Calf Veins (* superficial vessels) Right Leg: CFV and femoral vein appear to compress incompletely. Possible chronic echoes along vesse l wall. Color flow shown in all veins imaged. Left Leg: CFV and femoral vein appear to compress incompletely. Possible chronic echoes along vessel wall. Color flow shown in all veins imaged. IMPRESSION: No acute DVT is suspected, nonspecific findings described above could be related to chronometer assembler and adjuster amanuel DVT, nonspecific, follow-up as indicated
--- NOTE | 2021-10-30 17:17 | XR ---
EXAMINATION TYPE: XR chest 1V portable DATE OF EXAM: 10/30/2021 5:07 PM COMPARISON:Chest radiographs from 06/25/2021 TECHNIQUE: XR chest 1V portable Frontal view of the chest. CLINICAL INDICATION:Female, 86 years old with history of ngt placement; FINDINGS: Lungs/Pleura: There is no evidence of pleural effusion, focal consolidation, or pneumothorax. Pulmonary vascularity: Pulmonary vascular congestion. Heart/mediastinum: Cardiomediastinal silhouette is enlarged and stable. Atherosclerotic calcificatio ns are seen in the aorta. Musculoskeletal: No acute osseous pathology. There is fixation hardware in the lower cervical spine. Other: Right upper quadrant cholecystectomy clips. Excreted IV contrast seen within the renal collect ing system on the right. Lines/Tubes: Nasogastric tube with its side-port projecting of the gastroesophageal junction. IMPRESSION: 1. Nasogastric tube with side-port projecting near the gastroesophageal junction consider advancemen t of 5 cm is noted. 2. Mild Pulmonary vascular congestion
[2021-10-30] MEDS: polyethylene glycoL 3350 17 GM POWD.PACK PO SCH (22:25)
[2021-10-30] MEDS: DOCUSATE 100 MG CAP PO SCH (22:25)
[2021-10-30] MEDS: traZODone HCL 50 MG TAB PO SCH (22:49)
[2021-10-30] MEDS: MIRTAZAPINE 15 MG TAB PO SCH (22:49)
[2021-10-31] MEDS: BENZOCAINE SPRAY 1 CAN MUCOUS MEM PRN ×2 (00:14→05:20)
[2021-10-31] MEDS: HYDROmorphone 1 MG/ML 1 ML SYRINGE IVP PRN ×7 (01:27→22:34)
[2021-10-31] MEDS: ONDANSETRON 4 MG/2 ML VIAL IVP PRN ×4 (02:48→22:34)
[2021-10-31] MEDS: SODIUM CHLORIDE 0.9% 1,000 ML IV SCH ×2 (02:49→14:54)
[2021-10-31] MEDS: LEVOTHYROXINE 50 MCG TAB PO SCH (05:19)
[2021-10-31] MEDS: METOPROLOL TARTRATE 50 MG TAB PO SCH ×2 (08:01→20:38)
[2021-10-31] MEDS: ETODOLAC 200 MG CAPSULE PO SCH ×3 (08:01→20:49)
[2021-10-31] MEDS: busPIRone HCl 5 MG TAB PO SCH ×2 (08:01→20:49)
[2021-10-31] MEDS: PREGABALIN 75 MG CAP PO SCH ×2 (08:01→20:38)
[2021-10-31] MEDS: PANTOPRAZOLE 40 MG/10 ML VIAL IV SCH (08:34)
[2021-10-31] MEDS: ENOXAPARIN 40 MG/0.4 ML SYRINGE SQ SCH (08:35)
--- NOTE | 2021-10-31 12:17 | P.PN ---
Subjective Progress Note Date: 10/31/21 Principal diagnosis: Small bowel obstruction Patient does feel somewhat better today after nasogastric tube decompression. She has had over a liter out total. Still no ostomy function however. Vital signs are stable. Objective - Vital Signs Vital signs: Vital Signs Temp 97.3 F L 10/31/21 10:00 Pulse 96 10/31/21 10:00 Resp 18 10/31/21 10:00 BP 150/69 10/31/21 10:00 Pulse Ox 94 L 10/31/21 10:00 Intake & Output 10/30/21 10/31/21 10/31/21 18:59 06:59 18:59 Intake Total 900 Balance 900 Intake: Intake, IV Titration 900 Amount Sodium Chloride 0.9% 1, 900 000 ml @ 75 mls/hr IV . [id number] [facility] Rx#:[id number] Other: Voiding Method Bedside Commode Bedside Commode # Voids 3 1 - Exam Abdomen: Soft, distended, less distended than yesterday, mild diffuse tenderness, no ostomy function - Labs CBC & Chem 7: 10/30/21 05:12 10/30/21 05:12 Assessment and Plan (1) Small bowel obstruction Narrative/Plan: Patient doing somewhat better today. Still no ostomy function however. Will order small bowel series for tomorrow. Discussed case with patient and daughter at length. Surgery may be required if small bowel obstruction persists after small bowel follow-through. Current Visit: Yes Status: Acute Code(s): K56.609 - UNSP INTESTNL OBST, UNSP TO PARTIAL VERSUS COMPLETE OBST SNOMED Code(s): 752280567
[2021-10-31] MEDS: MIRTAZAPINE 15 MG TAB PO SCH (20:49)
[2021-10-31] MEDS: polyethylene glycoL 3350 17 GM POWD.PACK PO SCH (20:49)
[2021-10-31] MEDS: traZODone HCL 50 MG TAB PO SCH (20:49)
[2021-10-31] MEDS: DOCUSATE 100 MG CAP PO SCH (20:49)
--- NOTE | 2021-10-31 21:46 | P.PN ---
Progress Note - Text Progress Note Date: 10/31/21 History of presenting complaint: This is a pleasant 86-year-old patient of Dr.S Pollard. Chronic stable medical conditions include osteoarthritis, hypothyroid, hypertension, depression, restless leg syndrome, paroxysmal atrial fibrillation, nonischemic cardiomyopathy. CT chest showing some nodules patient has declined any further workup in the past In June 2021 presented with colon perforation. underwent partial colectomy with end colostomy. There was stool in the peritoneal cavity. Patient received IV Zosyn and IV Flagyl. Computed course. 10/02/2021 presents with prolapsing a colostomy she's noticed for about a week. Progressively getting worse. admitted for the repair of the same. Done successfully. Presented on October 29 with no output from colostomy for 4 days. October 31: Patient has a NG tube placed yesterday. About 700 mL output but this afternoon. Abdomen distended. Mcclendon catheter. Abdomen tender. Patient tired Active Medications Acetaminophen/Codeine Phosphate (Acetaminophen-Codeine 300-30mg Tab) 1 each PO Q6H PRN PRN Reason: Moderate Pain Benzocaine (Benzocaine [place] 1 Can) 1 spray MUCOUS MEM QID PRN; Protocol PRN Reason: Mouth Irritation Last Admin: 10/31/21 05:20 Dose: 1 spray Documented by: Buspirone HCl (Buspirone Hcl 5 Mg Tab) 5 mg PO BID [facility] Last Admin: 10/31/21 20:49 Dose: Not Given Documented by: Diclofenac Sodium (Diclofenac Sodium Gel 100 Gm Tube) 4 gm TOPICAL QID PRN; Protocol PRN Reason: Joint Pain Docusate Sodium (Docusate 100 Mg Cap) 100 mg PO HS [facility] Last Admin: 10/31/21 20:49 Dose: Not Given Documented by: Enoxaparin Sodium (Enoxaparin 40 Mg/0.4 Ml Syringe) 40 mg SQ DAILY [facility] Last Admin: 10/31/21 08:35 Dose: 40 mg Documented by: Etodolac (Etodolac 200 Mg Capsule) 200 mg PO TID [facility] Last Admin: 10/31/21 20:49 Dose: Not Given Documented by: Hydromorphone HCl (Hydromorphone 1 Mg/Ml 1 Ml Syringe) 1 mg IVP Q3HR PRN PRN Reason: Moderate Breakthrough Pain Last Admin: 10/31/21 18:19 Dose: 1 mg Documented by: Sodium Chloride (Saline 0.9%) 1,000 mls @ 75 mls/hr IV .[id number] [facility] Last Admin: 10/31/21 14:54 Dose: Not Given Documented by: Levothyroxine Sodium (Levothyroxine 50 Mcg Tab) 50 mcg PO DAILY@0630 [facility] Last Admin: 10/31/21 05:19 Dose: 50 mcg Documented by: Metoprolol Tartrate (Metoprolol Tartrate 50 Mg Tab) 50 mg PO BID [facility] Last Admin: 10/31/21 20:38 Dose: 50 mg Documented by: Mirtazapine (Mirtazapine 15 Mg Tab) 30 mg PO [facility] Last Admin: 10/31/21 20:49 Dose: Not Given Documented by: Morphine Sulfate (Morphine Sulfate 4 Mg/Ml Syringe) 4 mg IV Q4HR PRN PRN Reason: Severe Pain Last Admin: 10/30/21 06:28 Dose: 4 mg Documented by: Naloxone HCl (Naloxone 0.4 Mg/Ml 1 Ml Vial) 0.2 mg IV Q2M PRN PRN Reason: Opioid Reversal Ondansetron HCl (Ondansetron 4 Mg/2 Ml Vial) 4 mg IVP Q6HR PRN PRN Reason: Nausea And Vomiting Last Admin: 10/31/21 15:25 Dose: 4 mg Documented by: Pantoprazole Sodium (Pantoprazole 40 Mg/10 Ml Vial) 40 mg IV DAILY [facility] Last Admin: 10/31/21 08:34 Dose: 40 mg Documented by: Polyethylene Glycol (Polyethylene Glycol 3350 17 Gm Powd.Pack) 17 gm PO [facility] Last Admin: 10/31/21 20:49 Dose: Not Given Documented by: Pregabalin (Pregabalin 75 Mg Cap) 75 mg PO BID [facility] Last Admin: 10/31/21 20:38 Dose: 75 mg Documented by: Ropinirole HCl (Ropinirole Hcl 0.25 Mg Tab) 0.5 mg PO [facility] Last Admin: 10/31/21 20:38 Dose: 0.5 mg Documented by: Trazodone HCl (Trazodone Hcl 50 Mg Tab) 50 mg PO [facility] Last Admin: 10/31/21 20:49 Dose: Not Given Documented by: Past medical history to include: Osteoarthritis, hypothyroid, hypertension, depression, restless leg syndrome, paroxysmal atrial fibrillation, lung the details patient is opted not for any further workup. Social history: Lives alone. Uses a walker/walker. No history of alcohol or smoking. Physical examination: VITAL SIGNS: 97.3, 96, 18, 150/69, 94% room air GENERAL: Laying in bed, awake, tired EYES: Pupils equal. Conjunctiva normal. HEENT: External appearance of nose and ears normal, oral cavity dry: NG tube to suction: decreased hearing. NECK: JVD not raised; masses not palpable. HEART: First and second heart sounds are normal; no edema. LUNGS: Respiratory rate normal; decreased breath sounds. ABDOMEN: Soft, distended, tender, colostomy , liver spleen not palpable, no masses palpable. Hyperactive bowel sounds PSYCH: Alert and oriented x3; mood and affect anxious. MUSCULOSKELETAL:No Clubbing/cyanosis;muscles-grossly intact. Evidence of severe OA in several joints INVESTIGATIONS, reviewed in the clinical context: White count 9.9 hemoglobin 12.1 and platelets 242 potassium 4.3 creatinine 0.6 Doppler ultrasound lower extremity: Evidence of chronic DVT Assessment and plan: -Acute bowel obstruction: Slow to respond NG tube -Bowel perforation leading to partial bowel resection and colostomy Surgery / June [address] Byers. Repair of prolapsed September 2021 -Multiple chronic pulmonary nodules. Patient does not want any further treatment. -Primary osteoarthritis [place] multiple joints bilateral Use pain medications as needed -Hypothyroid Synthroid 50 g daily -Essential hypertension Lopressor 25 mg twice a day -Restless leg syndrome Requip 0.5 mg daily at bedtime -Chronic gait dysfunction uses a walker Fall precautions -Depression BuSpar 5 mg twice a day -Chronic insomnia Trazodone 50 mg daily at bedtime -Chronic DVT lower extremity on ultrasound -Paroxysmal atrial fibrillation On Lopressor. Patient has been off eliquis NG tube to suction. Change IV fluid d5.45. Discussed with patient. Follow
[2021-11-01] MEDS: ONDANSETRON 4 MG/2 ML VIAL IVP PRN ×2 (04:37→10:34)
[2021-11-01 04:40] LABS: African American GFR (CKD) >90 (>60 ml/min/1.73 sqM); Anion Gap 12 mmol/L; Blood Urea Nitrogen 14 mg/dL (7-17); Calcium 8.2 mg/dL (8.4-10.2); Carbon Dioxide 20 mmol/L (22-30); Chloride 108 mmol/L (98-107); Glucose 70 mg/dL (74-99); Non-African American GFR(CKD) 83 (>60 ml/min/1.73 sqM); Sodium 140 mmol/L (137-145)
[2021-11-01] MEDS: LEVOTHYROXINE 50 MCG TAB PO SCH (06:17)
[2021-11-01] MEDS: DEXTROSE 5%-0.45% NACL 1,000 ML IV SCH ×3 (06:24→16:18)
[2021-11-01] MEDS: HYDROmorphone 1 MG/ML 1 ML SYRINGE IVP PRN ×5 (06:33→22:16)
[2021-11-01] MEDS: METOPROLOL TARTRATE 50 MG TAB PO SCH ×2 (08:16→21:26)
[2021-11-01] MEDS: PREGABALIN 75 MG CAP PO SCH ×2 (08:16→21:26)
[2021-11-01] MEDS: ENOXAPARIN 40 MG/0.4 ML SYRINGE SQ SCH (08:17)
[2021-11-01] MEDS: PANTOPRAZOLE 40 MG/10 ML VIAL IV SCH (08:18)
[2021-11-01] MEDS: ETODOLAC 200 MG CAPSULE PO SCH ×3 (08:18→21:26)
[2021-11-01] MEDS: BENZOCAINE SPRAY 1 CAN MUCOUS MEM PRN (08:26)
[2021-11-01] MEDS: busPIRone HCl 5 MG TAB PO SCH ×2 (08:26→21:25)
--- NOTE | 2021-11-01 12:03 | XR ---
EXAMINATION TYPE: XR chest 1V portable DATE OF EXAM: 11/01/2021 COMPARISON: Chest x-ray 10/30/2021 HISTORY: Coffee-ground masses TECHNIQUE: Single frontal view of the chest is obtained. FINDINGS: Retained contrast material is seen throughout the thoracic esophagus, stomach, small bowel , small bowel loops are distended as is the stomach. There is an NG tube in place coursing into the s tomach. Postop changes are noted the cervical spine. No evident pneumothorax or pleural effusion. Pat vickie basilar density is noted. Cardiac mediastinal silhouette is stable. IMPRESSION: Small bowel obstruction with contrast material coursing from the proximal thoracic esoph kamron. Possible basilar atelectasis, correlate to exclude pneumonia. A Red level critical message alert has been initiated for Nakul Toledo MD via the [employer] Critical Results System on 11/01/2021 12:00 PM. This message alert has been sent to Nakul Toledo MD via the preferences provided by the clinician for the receipt of Radiology Critical Findings. [email or web address] ID [id number].
[2021-11-01] MEDS ORDERED: IPRATROPIUM-ALBUTEROL 3 ML NEB INHALATION PRN (12:45)
[2021-11-01] MEDS ORDERED: NITROGLYCERIN OINT 1 INCH/GM PACKET TOPICAL STA (12:46)
--- NOTE | 2021-11-01 13:39 | P.PN ---
<Anna Ramos - Last Filed: 11/01/21 13:26> Subjective Progress Note Date: 11/01/21 CHIEF COMPLAINT: Small bowel obstruction HISTORY OF PRESENT ILLNESS: Patient undergoing a small bowel follow-through series. She does have stool noted in her colostomy bag. She has been nauseous and vomiting during the small bowel series. When she presented back to the floor she was hypoxic with oxygen saturation of 70%. Discussed with medicine service they've ordered a chest x-ray and nebulizer treatments. And placed her on a nonrebreather. Patient reports slight improvement in her abdominal pain and bloating. Afebrile. Sodium 140 potassium 3.0 creatinine 0.57 PHYSICAL EXAM: VITAL SIGNS: Reviewed. GENERAL: Well-developed in no acute distress. HEENT: No sclera icterus. Extraocular movements grossly intact. Moist buccal mucosa. Head is atraumatic, normocephalic. ABDOMEN: Distended but slightly less than yesterday. Patient has small amounts brown hard stool in the colostomy bag. NEUROLOGIC: Alert and oriented. Cranial nerves II through XII grossly intact. ASSESSMENT: 1. Distal mechanical small bowel obstruction 2. Covid positive 3. Hypokalemia PLAN: -Further recommendations forthcoming per surgeon after small bowel follow- through series -Continue NG tube for decompression -Keep patient nothing by mouth -Replace potassium -Continue IV fluids -Continue pain medication -Continue antiemetics as needed -DVT prophylaxis Lovenox Physician Laundry Or Dry Cleaners Counter Clerk note has been reviewed by physician. Signing provider agrees with the documented findings, assessment, and plan of care. Objective - Vital Signs Vital signs: Vital Signs Temp 97.8 F 11/01/21 11:20 Pulse 84 11/01/21 12:00 Resp 16 11/01/21 12:00 BP 183/84 11/01/21 12:00 Pulse Ox 92 L 11/01/21 12:00 Intake & Output 10/31/21 11/01/21 11/01/21 18:59 06:59 18:59 Intake Total 900 Output Total 450 200 Balance 450 -200 Weight 49.895 kg Intake: Intake, IV Titration 900 Amount Sodium Chloride 0.9% 1, 900 000 ml @ 75 mls/hr IV . [id number] [facility] Rx#:[id number] Output: Other 450 200 Other: Voiding Method Bedside Commode Toilet Toilet # Voids 1 - Labs CBC & Chem 7: 10/30/21 05:12 11/01/21 04:15 Labs: Abnormal Lab Results - Last 24 Hours (Table) 11/01/21 Range/Units 04:15 Potassium 3.0 L (3.5-5.1) mmol/L Chloride 108 H (98-107) mmol/L Carbon Dioxide 20 L (22-30) mmol/L Glucose 70 L (74-99) mg/dL Calcium 8.2 L (8.4-10.2) mg/dL <Tye Byers - Last Filed: 11/01/21 15:13> Subjective I have personally seen and examined the patient, reviewed the PUMP TECHNICIAN /PAs history, exam and MDM and agree with the assessment and plan as written. Based on total visit time, I have performed more than 50% of the visit. As above: Patient came back from her small bowel follow-through short of breath. Apparently she did have some vomiting while downstairs and x-ray. No witnessed aspiration event. Nasogastric tube was returned to suction. Patient says she is not interested in surgery despite the small bowel series confirming high-grade obstruction. She and I discussed in detail what may happen if she does not proceed with surgery. Patient says she wants to be just let go. Case discussed in detail with her daughter by phone. They are considering hospice measures at this time. Keep nasogastric tube to suction for now. We'll follow with you. Objective - Vital Signs Vital signs: Vital Signs Temp 97.8 F 11/01/21 11:20 Pulse 84 11/01/21 12:00 Resp 16 11/01/21 12:00 BP 183/84 11/01/21 12:00 Pulse Ox 92 L 11/01/21 12:00 Intake & Output 10/31/21 11/01/21 11/01/21 18:59 06:59 18:59 Intake Total 900 Output Total 450 200 Balance 450 -200 Weight 49.895 kg Intake: Intake, IV Titration 900 Amount Sodium Chloride 0.9% 1, 900 000 ml @ 75 mls/hr IV . [id number] [facility] Rx#:[id number] Output: Other 450 200 Other: Voiding Method Bedside Commode Toilet Toilet # Voids 1 - Labs CBC & Chem 7: 10/30/21 05:12 11/01/21 04:15 Labs: Abnormal Lab Results - Last 24 Hours (Table) 11/01/21 Range/Units 04:15 Potassium 3.0 L (3.5-5.1) mmol/L Chloride 108 H (98-107) mmol/L Carbon Dioxide 20 L (22-30) mmol/L Glucose 70 L (74-99) mg/dL Calcium 8.2 L (8.4-10.2) mg/dL Assessment and Plan (1) Small bowel obstruction Current Visit: Yes Status: Acute Code(s): K56.609 - UNSP INTESTNL OBST, UNSP TO PARTIAL VERSUS COMPLETE OBST SNOMED Code(s): 925009232
[2021-11-01] MEDS ORDERED: Potassium Replacement Protocol 1 EACH MISC MISCELLANE PRN (14:17)
--- NOTE | 2021-11-01 14:30 | CDI ---
Documentation Clarification Form Date: 11/01/2021 02:11:04 PM From: Chanel Wilks RN CCDS Admit Date: 10/29/2021 04:35:00 AM Patient Name: Garima Quinteros Visit Number: [id number] Discharge Date: ATTENTION: The Clinical Documentation Specialists (CDI) and [facility] Coding Staff appreciate your assistance in clarifying documentation. Please respond to the clarification below the line at the bottom and electronically sign. The CDI & [facility] Coding staff will review the response and follow-up if needed. Please note: Queries are made part of the Legal Health Record. If you have any questions, please contact the author of this message via ITS. Dr. Nakul Toledo The Registered Dietitian assessments on 10/29 & 11/01 indicates this patient is underweight. Based on this information and the findings below, is there an additional diagnosis that is clinically appropriate for this patient? History/Risk Factors: 86-year-old female presents to the ED with abdominal pain and no output from the stoma for the last three days. Medical History: History of colostomy and small bowel obstructions. 10/29, H&P. Clinical Indicators: Admitting Diagnoses: Acute small bowel obstruction with NG tube for decompression, COVID 19. RD Consult Assessment 10/29:Nutrition Intake poor; Weight 49.895kg Hgt 5ft 4in BMI classification Underweight. Calculated [place] Body weight 54.5kg. Estimated Kcal energy needs: 8617-6607; Estimated Protein Needs: grams/day 54; Estimated Fluid needs: 1ml/Kcal estimated fluid 1362/1635 needs mls /day Current BMI: 18.9 Nutritional diagnosis: Inadequate oral intake related to: SBO; NPO diet order Nutrition Intervention: Increase PO intake from 50% - 75% Meeting 75% of estimated nutritional needs. Tolerating PO diet by discharge. RD to add supplement with diet advancement. Treatment: Dietary Consult: See above Supplements: Monitor diet advancement or need for TPN. Monitor NPO status Is there an additional diagnosis that is clinically appropriate for this patient? [ ] Moderate Protein-Calorie Malnutrition [ ] Severe Protein-Calorie Malnutrition [ ] Other condition, please specify [ ] Unable to Determine Severe protein calorie malnutrition (Template Last Revised: November 2020) MTDD
--- NOTE | 2021-11-01 16:01 | FL ---
EXAMINATION TYPE: FL small bowel follow through DATE OF EXAM: 11/01/2021 COMPARISON: CT dated 10/29/2021 HISTORY: Small bowel obstruction TECHNIQUE: A single contrast study is performed with small bowel follow through. A total of 0 secon ds of fluoroscopic time was utilized during procedure and 9 images obtained. FINDINGS: Hemodialysis Rn image of the abdomen shows dilated small bowel loops, bilateral pelvic phleboliths, right hip arthroplasty, right abdominal surgical clips and anastomotic sutures and marked degenerativ e changes of the dextroscoliotic lumbar spine. A total of 240 mm of Gastrografin was given to the patient via the NG tube. Serial images are obtaine d at 5 minutes, 20 minutes, 35 minutes, 1 hour and 35 minutes, 3 hours and 35 minutes and 6 hours dem onstrate persistent gaseous distention with contrast and very slow progression of the given contrast to through the markedly dilated small bowel loops mainly jejunal loops. This is consistent with high-grade mechanical small bowel obstruction. The small bowel measures up to 6 cm. On retrospect review of the previous CT scan, a definite transition point is identified in the right side of the lower abdomen, image 58, series 202, with complete collapse of the small bowel loo ps distally. There is also high suspicion of closed loop obstruction on the previous CT scan. IMPRESSION: Acute high-grade mechanical small bowel obstruction with a transition point in the right lower abdome n observed on the previous recent CT scan as detailed above. Findings were discussed with the referri ng surgeon.
[2021-11-01] MEDS: POTASSIUM CHLORIDE 10 MEQ in WATER FOR INJECTION 1 100ML.BAG IVPB SCH ×4 (16:41→21:25)
[2021-11-01 16:45] LABS: Glucose,Whole Blood 117 mg/dL (75-99)
--- NOTE | 2021-11-01 19:29 | P.PN ---
Progress Note - Text Progress Note Date: 11/01/21 History of presenting complaint: This is a pleasant 86-year-old patient of Dr.S Pollard. Chronic stable medical conditions include osteoarthritis, hypothyroid, hypertension, depression, restless leg syndrome, paroxysmal atrial fibrillation, nonischemic cardiomyopathy. CT chest showing some nodules patient has declined any further workup in the past In June 2021 presented with colon perforation. underwent partial colectomy with end colostomy. There was stool in the peritoneal cavity. Patient received IV Zosyn and IV Flagyl. Computed course. 10/02/2021 presents with prolapsing a colostomy she's noticed for about a week. Progressively getting worse. admitted for the repair of the same. Done successfully. Presented on October 29 with no output from colostomy for 4 days. October 31: Patient has a NG tube placed yesterday. About 700 mL output but this afternoon. Abdomen distended. Mcclendon catheter. Abdomen tender. Patient tired November 01: [Critical care note] This morning patient been down for a barium small bowel follow-through. Subsequently patient had vomited. I was called to the floor as patient was hypoxic. Patient was placed on high flow oxygen and changed to nonrebreather. Rather tired. Accessory muscles are working. Ordered a stat chest x-ray. Showed some atelectasis/suspicion for aspiration. NG tube remained in place. Spoke to Dr. Gallo from general surgery. He did speak to the patient's daughter. I ordered breathing treatment. Also patient is having chest pain. Troponin and EKG was ordered. Troponin came back negative. Patient maintained on nonrebreather. Active Medications Acetaminophen (Acetaminophen Suppository 650 Mg Supp) 650 mg RECTAL Q4HR PRN PRN Reason: Fever and/ or Pain Acetaminophen/Codeine Phosphate (Acetaminophen-Codeine 300-30mg Tab) 1 each PO Q6H PRN PRN Reason: Moderate Pain Albuterol/Ipratropium (Ipratropium-Albuterol 3 Ml Neb) 3 ml INHALATION RT-TID PRN PRN Reason: Shortness Of Breath Or Wheezing Benzocaine (Benzocaine [place] 1 Can) 1 spray MUCOUS MEM QID PRN; Protocol PRN Reason: Mouth Irritation Last Admin: 11/01/21 08:26 Dose: 1 spray Documented by: Buspirone HCl (Buspirone Hcl 5 Mg Tab) 5 mg PO BID [facility] Last Admin: 11/01/21 08:26 Dose: Not Given Documented by: Diclofenac Sodium (Diclofenac Sodium Gel 100 Gm Tube) 4 gm TOPICAL QID PRN; Protocol PRN Reason: Joint Pain Docusate Sodium (Docusate 100 Mg Cap) 100 mg PO HS [facility] Last Admin: 10/31/21 20:49 Dose: Not Given Documented by: Enoxaparin Sodium (Enoxaparin 40 Mg/0.4 Ml Syringe) 40 mg SQ DAILY [facility] Last Admin: 11/01/21 08:17 Dose: 40 mg Documented by: Etodolac (Etodolac 200 Mg Capsule) 200 mg PO TID [facility] Last Admin: 11/01/21 15:42 Dose: Not Given Documented by: Hydromorphone HCl (Hydromorphone 1 Mg/Ml 1 Ml Syringe) 1 mg IVP Q3HR PRN PRN Reason: Moderate Breakthrough Pain Last Admin: 11/01/21 16:30 Dose: 1 mg Documented by: Dextrose/Sodium Chloride (Dextrose 5%-1/2ns Iv Soln) 1,000 mls @ 125 mls/hr IV .Q8H [facility] Last Admin: 11/01/21 16:18 Dose: 125 mls/hr Documented by: Potassium Chloride 10 meq/ IV (Solution) 100 mls @ 100 mls/hr IVPB Q1HR [facility]; Protocol Stop: 11/01/21 19:59 Last Admin: 11/01/21 17:38 Dose: 100 mls/hr Documented by: Levothyroxine Sodium (Levothyroxine 50 Mcg Tab) 50 mcg PO DAILY@0630 [facility] Last Admin: 11/01/21 06:17 Dose: Not Given Documented by: Metoprolol Tartrate (Metoprolol Tartrate 50 Mg Tab) 50 mg PO BID [facility] Last Admin: 11/01/21 08:16 Dose: 50 mg Documented by: Mirtazapine (Mirtazapine 15 Mg Tab) 30 mg PO [facility] Last Admin: 10/31/21 20:49 Dose: Not Given Documented by: Miscellaneous Information (Potassium Replacement Protocol 1 Each Misc) 1 each [place]IS[place] DAILY PRN; Protocol PRN Reason: Per Protocol Naloxone HCl (Naloxone 0.4 Mg/Ml 1 Ml Vial) 0.2 mg IV Q2M PRN PRN Reason: Opioid Reversal Ondansetron HCl (Ondansetron 4 Mg/2 Ml Vial) 4 mg IVP Q6HR PRN PRN Reason: Nausea And Vomiting Last Admin: 11/01/21 10:34 Dose: 4 mg Documented by: Pantoprazole Sodium (Pantoprazole 40 Mg/10 Ml Vial) 40 mg IV DAILY [facility] Last Admin: 11/01/21 08:18 Dose: 40 mg Documented by: Polyethylene Glycol (Polyethylene Glycol 3350 17 Gm Powd.Pack) 17 gm PO [facility] Last Admin: 10/31/21 20:49 Dose: Not Given Documented by: Pregabalin (Pregabalin 75 Mg Cap) 75 mg PO BID [facility] Last Admin: 11/01/21 08:16 Dose: 75 mg Documented by: Ropinirole HCl (Ropinirole Hcl 0.25 Mg Tab) 0.5 mg PO [facility] Last Admin: 10/31/21 20:38 Dose: 0.5 mg Documented by: Trazodone HCl (Trazodone Hcl 50 Mg Tab) 50 mg PO [facility] Last Admin: 10/31/21 20:49 Dose: Not Given Documented by: Past medical history to include: Osteoarthritis, hypothyroid, hypertension, depression, restless leg syndrome, paroxysmal atrial fibrillation, lung the details patient is opted not for any further workup. Social history: Lives alone. Uses a walker/walker. No history of alcohol or smoking. Physical examination: VITAL SIGNS: 99.5, 84, 26, 159/77, 93% on nonrebreather GENERAL: Propped up in bed, tired, short of breath EYES: Pupils equal. Conjunctiva normal. HEENT: External appearance of nose and ears normal, oral cavity dry: NG tube to suction: decreased hearing. NECK: JVD not raised; masses not palpable. HEART: First and second heart sounds are normal; no edema. LUNGS: Accessory muscles working, Respiratory rate increased; decreased breath sounds. Not able to speak in full sentences ABDOMEN: Soft, distended, tender, colostomy , liver spleen not palpable, no masses palpable. Hyperactive bowel sounds PSYCH: Lethargic arousable. MUSCULOSKELETAL:No Clubbing/cyanosis;muscles-grossly intact. Evidence of severe OA in several joints INVESTIGATIONS, reviewed in the clinical context: November 01: Potassium 3 creatinine 0.57Chest x-ray film personally reviewed by me-some atelectasis Small bowel follow-through: High-grade mechanical small bowel obstruction with a transition point in the right lower quadrant. White count 9.9 hemoglobin 12.1 and platelets 242 potassium 4.3 creatinine 0.6 Doppler ultrasound lower extremity: Evidence of chronic DVT Assessment and plan: -Acute hypoxic respiratory failure from aspiration pneumonitis Nonrebreather. -Aspiration pneumonitis from vomiting Add clindamycin -Acute bowel obstruction, right lower quadrant: Not improving NG tube -Bowel perforation leading to partial bowel resection and colostomy Surgery / June [address] Byers. Repair of prolapsed September 2021 -Multiple chronic pulmonary nodules. Patient does not want any further treatment. -Primary osteoarthritis [place] multiple joints bilateral Use pain medications as needed -Hypothyroid Synthroid 50 g daily -Essential hypertension Lopressor 25 mg twice a day -Restless leg syndrome Requip 0.5 mg daily at bedtime -Chronic gait dysfunction uses a walker Fall precautions -Depression BuSpar 5 mg twice a day -Chronic insomnia Trazodone 50 mg daily at bedtime -Chronic DVT lower extremity on ultrasound -Paroxysmal atrial fibrillation On Lopressor. Patient has been off eliquis -DO NOT RESUSCITATE NG tube to suction to continue. IV clindamycin. Oxygen. Supportive care. Patient DO NOT RESUSCITATE. Patient does not want surgery. Discussed with nurse, patient, Dr. Byers Total time spent for critical care was 40 minutes
[2021-11-01] MEDS: ACETAMINOPHEN SUPPOSITORY 650 MG SUPP RECTAL PRN (20:05)
[2021-11-01] MEDS: DOCUSATE 100 MG CAP PO SCH (21:25)
[2021-11-01] MEDS: traZODone HCL 50 MG TAB PO SCH (21:26)
[2021-11-01] MEDS: polyethylene glycoL 3350 17 GM POWD.PACK PO SCH (21:26)
[2021-11-01] MEDS: MIRTAZAPINE 15 MG TAB PO SCH (21:26)
[2021-11-02] MEDS: CLINDAMYCIN 300 MG in DEXTROSE 5% IN WATER 50 ML IVPB SCH ×6 (03:06→12:38)
[2021-11-02] MEDS: DEXTROSE 5%-0.45% NACL 1,000 ML IV SCH ×2 (03:06→08:16)
[2021-11-02] MEDS: HYDROmorphone 1 MG/ML 1 ML SYRINGE IVP PRN ×4 (03:25→12:06)
[2021-11-02] MEDS: ACETAMINOPHEN SUPPOSITORY 650 MG SUPP RECTAL PRN (03:25)
[2021-11-02] MEDS: LEVOTHYROXINE 50 MCG TAB PO SCH (05:59)
[2021-11-02] MEDS: PANTOPRAZOLE 40 MG/10 ML VIAL IV SCH (08:17)
[2021-11-02 10:21] LABS: African American GFR (CKD) 68 (>60 ml/min/1.73 sqM); Anion Gap 19 mmol/L; Blood Urea Nitrogen 20 mg/dL (7-17); Calcium 9.3 mg/dL (8.4-10.2); Carbon Dioxide 12 mmol/L (22-30); Chloride 116 mmol/L (98-107); Glucose 138 mg/dL (74-99); Non-African American GFR(CKD) 59 (>60 ml/min/1.73 sqM); Sodium 147 mmol/L (137-145)
[2021-11-02 10:23] LABS: Potassium 4.3 mmol/L (3.5-5.1)
[2021-11-02] MEDS: METOPROLOL TARTRATE 50 MG TAB PO SCH (11:07)
[2021-11-02] MEDS: PREGABALIN 75 MG CAP PO SCH (11:07)
[2021-11-02] MEDS: busPIRone HCl 5 MG TAB PO SCH (11:07)
[2021-11-02] MEDS: ENOXAPARIN 40 MG/0.4 ML SYRINGE SQ SCH (11:07)
[2021-11-02] MEDS: ETODOLAC 200 MG CAPSULE PO SCH (11:07)
--- NOTE | 2021-11-02 12:41 | P.PN ---
<Anna Ramos - Last Filed: 11/02/21 12:34> Subjective Progress Note Date: 11/02/21 CHIEF COMPLAINT: Small bowel obstruction HISTORY OF PRESENT ILLNESS: Patient sitting in bed. She complains of feeling thirsty. Her abdomen is softer. She does have stool in her ostomy bag. She is having fevers as high as 101.7. She is on 5 L satting at 91% tachycardic with heart rate 114 . NG tube with 450 ML output this morning. Patient is still requiring the IV pain medication for abdominal pain. Small bowel follow-through x-ray had shown acute high-grade mechanical small bowel extraction with transition point in the right lower abdomen. Dr. Byers discussed findings with patient and family. Patient did not want to proceed with any surgery. Patient and family are considering hospice. PHYSICAL EXAM: VITAL SIGNS: Reviewed. GENERAL: Well-developed in no acute distress. HEENT: No sclera icterus. Extraocular movements grossly intact. Moist buccal mucosa. Head is atraumatic, normocephalic. ABDOMEN: Softer than yesterday. Brown stool in colostomy bag. NEUROLOGIC: Alert and oriented. Cranial nerves II through XII grossly intact. ASSESSMENT: 1. Distal mechanical small bowel obstruction 2. Covid positive 3. Hypokalemia improved 4. Possible aspiration pneumonia PLAN: -Further recommendations forthcoming per surgeon after small bowel follow- through series -Continue NG tube for decompression -Keep patient nothing by mouth -Continue IV fluids -Continue pain medication -Continue antiemetics as needed -DVT prophylaxis Lovenox Physician Internet Researcher note has been reviewed by physician. Signing provider agrees with the documented findings, assessment, and plan of care. Objective - Vital Signs Vital signs: Vital Signs Temp 97.6 F 11/02/21 10:30 Pulse 114 H 11/02/21 10:30 Resp 16 11/02/21 10:30 BP 162/53 11/02/21 10:30 Pulse Ox 91 L 11/02/21 10:30 Intake & Output 11/01/21 11/02/21 11/02/21 18:59 06:59 18:59 Output Total 2600 1075 Balance -2600 -1075 Weight 49.895 kg Output: Gastric Drainage 2600 450 Urine 625 Other: Voiding Method Toilet Indwelling Catheter Indwelling Catheter # Voids 0 - Labs CBC & Chem 7: 10/30/21 05:12 11/02/21 08:43 Labs: Abnormal Lab Results - Last 24 Hours (Table) 10/30/21 11/01/21 11/02/21 Range/Units 05:12 16:43 08:43 Sodium 147 H (137-145) mmol/L Chloride 116 H (98-107) mmol/L Carbon Dioxide 12 L (22-30) mmol/L BUN 20 H (7-17) mg/dL Glucose 138 H (74-99) mg/dL POC Glucose (mg/dL) 117 H (75-99) mg/dL Procalcitonin 0.14 H (0.02-0.09) ng/mL <Tye Byers - Last Filed: 11/02/21 13:22> Subjective I have personally seen and examined the patient, reviewed the MR TEACHER /PAs history, exam and MDM and agree with the assessment and plan as written. Based on total visit time, I have performed more than 50% of the visit. As above: Patient doing about the same today. She says she is having more pain rated at a 9 out of 10 however. Single small hard stool in the ostomy bag. Family is present at the bedside. Patient still declining surgical intervention. Recommend hospice evaluation or comfort care measures. Objective - Vital Signs Vital signs: Vital Signs Temp 97.6 F 11/02/21 10:30 Pulse 114 H 11/02/21 10:30 Resp 16 11/02/21 10:30 BP 162/53 11/02/21 10:30 Pulse Ox 91 L 11/02/21 10:30 Intake & Output 11/01/21 11/02/21 11/02/21 18:59 06:59 18:59 Output Total 2600 1075 Balance -2600 -1075 Weight 49.895 kg Output: Gastric Drainage 2600 450 Urine 625 Other: Voiding Method Toilet Indwelling Catheter Indwelling Catheter # Voids 0 - Labs CBC & Chem 7: 10/30/21 05:12 11/02/21 08:43 Labs: Abnormal Lab Results - Last 24 Hours (Table) 10/30/21 11/01/21 11/02/21 Range/Units 05:12 16:43 08:43 Sodium 147 H (137-145) mmol/L Chloride 116 H (98-107) mmol/L Carbon Dioxide 12 L (22-30) mmol/L BUN 20 H (7-17) mg/dL Glucose 138 H (74-99) mg/dL POC Glucose (mg/dL) 117 H (75-99) mg/dL Procalcitonin 0.14 H (0.02-0.09) ng/mL Assessment and Plan (1) Small bowel obstruction Current Visit: Yes Status: Acute Code(s): K56.609 - UNSP INTESTNL OBST, UNSP TO PARTIAL VERSUS COMPLETE OBST SNOMED Code(s): 945059589
[2021-11-02] MEDS ORDERED: MORPHINE SULFATE (100 MG/2 ML) 100 MG in SODIUM CHLORIDE 0.9% 100 ML IV SCH (13:30)
[2021-11-02] MEDS: SCOPOLAMINE 1.5MG/72HR PATCH TRANSDERM SCH (13:58)
[2021-11-02] MEDS: MORPHINE SULFATE (100 MG/2 ML) 100 MG in SODIUM CHLORIDE 0.9% 100 ML IV SCH (13:58)
--- NOTE | 2021-11-02 16:43 | P.PN ---
Progress Note - Text Progress Note Date: 11/02/21 History of presenting complaint: This is a pleasant 86-year-old patient of Dr.S Pollard. Chronic stable medical conditions include osteoarthritis, hypothyroid, hypertension, depression, restless leg syndrome, paroxysmal atrial fibrillation, nonischemic cardiomyopathy. CT chest showing some nodules patient has declined any further workup in the past In June 2021 presented with colon perforation. underwent partial colectomy with end colostomy. There was stool in the peritoneal cavity. Patient received IV Zosyn and IV Flagyl. Computed course. 10/02/2021 presents with prolapsing a colostomy she's noticed for about a week. Progressively getting worse. admitted for the repair of the same. Done successfully. Presented on October 29 with no output from colostomy for 4 days. October 31: Patient has a NG tube placed yesterday. About 700 mL output but this afternoon. Abdomen distended. Mcclendon catheter. Abdomen tender. Patient tired November 01: [Critical care note] This morning patient been down for a barium small bowel follow-through. Subsequently patient had vomited. I was called to the floor as patient was hypoxic. Patient was placed on high flow oxygen and changed to nonrebreather. Rather tired. Accessory muscles are working. Ordered a stat chest x-ray. Showed some atelectasis/suspicion for aspiration. NG tube remained in place. Spoke to Dr. Gallo from general surgery. He did speak to the patient's daughter. I ordered breathing treatment. Also patient is having chest pain. Troponin and EKG was ordered. Troponin came back negative. Patient maintained on nonrebreather. November 02: Patient remains NG tube in place. Abdomen distended. Tenderness. Uncomfortable. Spoke to Dr. Gallo from surgery. Not a surgical candidate and patient does not want surgery. Hospice would be appropriate. Spoke to the patient and patient's 2 grandsons at the bedside and would otherwise. Proceed with comfort measures. NG tube to remain for comfort measures. Patient's daughter in [place] increase about the same. Patient takes her own decisions. Morphine drip being started. Scopolamine patch ordered. Family does not want hospice consult. Active Medications Benzocaine (Benzocaine [place] 1 Can) 1 spray MUCOUS MEM QID PRN; Protocol PRN Reason: Mouth Irritation Last Admin: 11/01/21 08:26 Dose: 1 spray Documented by: Morphine Sulfate 100 mg/ (Sodium Chloride) 102 mls @ 0 mls/hr IV .Q0M [facility]; Protocol Last Titration: 11/02/21 16:28 Dose: 2 mls/hr, 2 mls/hr Documented by: Naloxone HCl (Naloxone 0.4 Mg/Ml 1 Ml Vial) 0.2 mg IV Q2M PRN PRN Reason: Opioid Reversal Ondansetron HCl (Ondansetron 4 Mg/2 Ml Vial) 4 mg IVP Q6HR PRN PRN Reason: Nausea And Vomiting Last Admin: 11/01/21 10:34 Dose: 4 mg Documented by: Scopolamine (Scopolamine 1.5mg/72hr Patch) 1 patch TRANSDERM Q72H [facility] Last Admin: 11/02/21 13:58 Dose: 1 patch Documented by: Past medical history to include: Osteoarthritis, hypothyroid, hypertension, depression, restless leg syndrome, paroxysmal atrial fibrillation, lung the details patient is opted not for any further workup. Social history: Lives alone. Uses a walker/walker. No history of alcohol or smoking. Physical examination: VITAL SIGNS: 97.6, 114, 16, 16 2 x 53, 91% on 5 L GENERAL: Propped up in bed, tired, short of breath EYES: Pupils equal. Conjunctiva normal. HEENT: External appearance of nose and ears normal, oral cavity dry: NG tube to suction: decreased hearing. NECK: JVD not raised; masses not palpable. HEART: First and second heart sounds are normal; no edema. LUNGS: Respiratory rate increased; decreased breath sounds. ABDOMEN: Soft, distended, tender, colostomy , liver spleen not palpable, no masses palpable. Hyperactive bowel sounds PSYCH: Answering questions. MUSCULOSKELETAL:No Clubbing/cyanosis;muscles-grossly intact. Evidence of severe OA in several joints INVESTIGATIONS, reviewed in the clinical context: November 02: Sodium 147 potassium 4.3 creatinine 0.88 November 01: Potassium 3 creatinine 0.57Chest x-ray film personally reviewed by me-some atelectasis Small bowel follow-through: High-grade mechanical small bowel obstruction with a transition point in the right lower quadrant. White count 9.9 hemoglobin 12.1 and platelets 242 potassium 4.3 creatinine 0.6 Doppler ultrasound lower extremity: Evidence of chronic DVT Assessment and plan: -Acute hypoxic respiratory failure from aspiration pneumonitis: Slow to respond 5 L nasal cannula -Aspiration pneumonitis from vomiting clindamycin -Acute bowel obstruction, right lower quadrant: Not improving NG tube -Bowel perforation leading to partial bowel resection and colostomy Surgery / June [address] Byers. Repair of prolapsed September 2021 -Multiple chronic pulmonary nodules. Patient does not want any further treatment. -Primary osteoarthritis [place] multiple joints bilateral Use pain medications as needed -Hypothyroid Synthroid 50 g daily -Essential hypertension Lopressor 25 mg twice a day -Restless leg syndrome Requip 0.5 mg daily at bedtime -Chronic gait dysfunction uses a walker Fall precautions -Depression BuSpar 5 mg twice a day -Chronic insomnia Trazodone 50 mg daily at bedtime -Chronic DVT lower extremity on ultrasound -Paroxysmal atrial fibrillation On Lopressor. Patient has been off eliquis -DO NOT RESUSCITATE/Comfort Care Patient being changed over to morphine drip. Scopolamine patch. NG tube remained for comfort. Patient told if can be taken out if needed. Questions answered. Family at the bedside. Advanced care planning: This was done with the patient, 2 grandsons at the bedside, and one otherwise. At the nurse. Patient was to proceed with hospice. Several questions answered. NG tube to remain for comfort. DC if patient wants it so. Morphine drip scopolamine patch. Water restricted as needed to keep the mouth moist. Other medications discontinued Time spent for a ACP 30 minutes
--- NOTE | 2021-11-03 11:13 | P.PN ---
Progress Note - Text Progress Note Date: 11/03/21 Patient was made comfort measures yesterday. She is on a morphine drip. Patient unresponsive. She appears quite comfortable. Somewhat agonal breathing. Nasogastric tube remains in place. Agree with plans for comfort measures/hospice since patient declined reexploration.
--- NOTE | 2021-11-03 18:31 | P.PN ---
Progress Note - Text Progress Note Date: 11/03/21 History of presenting complaint: This is a pleasant 86-year-old patient of Dr.S Pollard. Chronic stable medical conditions include osteoarthritis, hypothyroid, hypertension, depression, restless leg syndrome, paroxysmal atrial fibrillation, nonischemic cardiomyopathy. CT chest showing some nodules patient has declined any further workup in the past In June 2021 presented with colon perforation. underwent partial colectomy with end colostomy. There was stool in the peritoneal cavity. Patient received IV Zosyn and IV Flagyl. Computed course. 10/02/2021 presents with prolapsing a colostomy she's noticed for about a week. Progressively getting worse. admitted for the repair of the same. Done successfully. Presented on October 29 with no output from colostomy for 4 days. October 31: Patient has a NG tube placed yesterday. About 700 mL output but this afternoon. Abdomen distended. Mcclendon catheter. Abdomen tender. Patient tired November 01: [Critical care note] This morning patient been down for a barium small bowel follow-through. Subsequently patient had vomited. I was called to the floor as patient was hypoxic. Patient was placed on high flow oxygen and changed to nonrebreather. Rather tired. Accessory muscles are working. Ordered a stat chest x-ray. Showed some atelectasis/suspicion for aspiration. NG tube remained in place. Spoke to Dr. Gallo from general surgery. He did speak to the patient's daughter. I ordered breathing treatment. Also patient is having chest pain. Troponin and EKG was ordered. Troponin came back negative. Patient maintained on nonrebreather. November 02: Patient remains NG tube in place. Abdomen distended. Tenderness. Uncomfortable. Spoke to Dr. Gallo from surgery. Not a surgical candidate and patient does not want surgery. Hospice would be appropriate. Spoke to the patient and patient's 2 grandsons at the bedside and would otherwise. Proceed with comfort measures. NG tube to remain for comfort measures. Patient's daughter in [place] increase about the same. Patient takes her own decisions. Morphine drip being started. Scopolamine patch ordered. Family does not want hospice consult. November 03: Comfort care. Morphine drip. Laying in bed. Mild breathing. Nasal cannula. NG tube was discontinued. Appears comfortable. No family at the bedside. Active Medications Benzocaine (Benzocaine [place] 1 Can) 1 spray MUCOUS MEM QID PRN; Protocol PRN Reason: Mouth Irritation Last Admin: 11/01/21 08:26 Dose: 1 spray Documented by: Morphine Sulfate 100 mg/ (Sodium Chloride) 102 mls @ 0 mls/hr IV .Q0M [facility]; Protocol Last Titration: 11/02/21 18:04 Dose: 3 mls/hr, 3 mls/hr Documented by: Naloxone HCl (Naloxone 0.4 Mg/Ml 1 Ml Vial) 0.2 mg IV Q2M PRN PRN Reason: Opioid Reversal Ondansetron HCl (Ondansetron 4 Mg/2 Ml Vial) 4 mg IVP Q6HR PRN PRN Reason: Nausea And Vomiting Last Admin: 11/01/21 10:34 Dose: 4 mg Documented by: Scopolamine (Scopolamine 1.5mg/72hr Patch) 1 patch TRANSDERM Q72H [facility] Last Admin: 11/02/21 13:58 Dose: 1 patch Documented by: Past medical history to include: Osteoarthritis, hypothyroid, hypertension, depression, restless leg syndrome, paroxysmal atrial fibrillation, lung the details patient is opted not for any further workup. Social history: Lives alone. Uses a walker/walker. No history of alcohol or smoking. Physical examination: VITAL SIGNS: Respiration 18 GENERAL: Laying in bed sedated HEART: First and second heart sounds are normal; no edema. LUNGS: Respiratory rate increased; decreased breath sounds. ABDOMEN: Soft, distended, tender, colostomy , liver spleen not palpable, no masses palpable. Hyperactive bowel sounds PSYCH: Unable to assess. INVESTIGATIONS, reviewed in the clinical context: November 02: Sodium 147 potassium 4.3 creatinine 0.88 November 01: Potassium 3 creatinine 0.57Chest x-ray film personally reviewed by me-some atelectasis Small bowel follow-through: High-grade mechanical small bowel obstruction with a transition point in the right lower quadrant. White count 9.9 hemoglobin 12.1 and platelets 242 potassium 4.3 creatinine 0.6 Doppler ultrasound lower extremity: Evidence of chronic DVT Assessment and plan: -Acute hypoxic respiratory failure from aspiration pneumonitis: Slow to respond 5 L nasal cannula -Aspiration pneumonitis from vomiting -Acute bowel obstruction, right lower quadrant: Not improving NG tube-discontinued -Bowel perforation leading to partial bowel resection and colostomy Surgery / June [address] Byers. Repair of prolapsed September 2021 -Multiple chronic pulmonary nodules. -Primary osteoarthritis [place] multiple joints bilateral -Hypothyroid -Essential hypertension -Restless leg syndrome -Chronic gait dysfunction uses a walker -Depression -Chronic insomnia -Chronic DVT lower extremity on ultrasound -Paroxysmal atrial fibrillation -DO NOT RESUSCITATE/Comfort Care Continue comfort measures. Currently on morphine drip scopolamine patch. NG tube was discontinued. Oxygen. Advanced care planning: This was done with the patient, 2 grandsons at the bedside, and one otherwise. At the nurse. Patient was to proceed with hospice. Several questions answered. NG tube to remain for comfort. DC if patient wants it so. Morphine drip scopolamine patch. Water restricted as needed to keep the mouth moist. Other medications discontinued Time spent for a ACP 30 minutes
[2021-11-04] MEDS: MORPHINE SULFATE (100 MG/2 ML) 100 MG in SODIUM CHLORIDE 0.9% 100 ML IV SCH ×2 (00:52→17:21)
[2021-11-04] MEDS ORDERED: ACETAMINOPHEN SUPPOSITORY 650 MG SUPP RECTAL STA ×2 (08:02→20:11)
--- NOTE | 2021-11-04 09:49 | P.PN ---
Progress Note - Text Progress Note Date: 11/04/21 Patient remains comfort measures at this time. She is unresponsive currently. Agonal breathing. Appears comfortable.
--- NOTE | 2021-11-04 18:09 | P.PN ---
Progress Note - Text Progress Note Date: 11/04/21 History of presenting complaint: This is a pleasant 86-year-old patient of Dr.S Pollard. Chronic stable medical conditions include osteoarthritis, hypothyroid, hypertension, depression, restless leg syndrome, paroxysmal atrial fibrillation, nonischemic cardiomyopathy. CT chest showing some nodules patient has declined any further workup in the past In June 2021 presented with colon perforation. underwent partial colectomy with end colostomy. There was stool in the peritoneal cavity. Patient received IV Zosyn and IV Flagyl. Computed course. 10/02/2021 presents with prolapsing a colostomy she's noticed for about a week. Progressively getting worse. admitted for the repair of the same. Done successfully. Presented on October 29 with no output from colostomy for 4 days. October 31: Patient has a NG tube placed yesterday. About 700 mL output but this afternoon. Abdomen distended. Mcclendon catheter. Abdomen tender. Patient tired November 01: [Critical care note] This morning patient been down for a barium small bowel follow-through. Subsequently patient had vomited. I was called to the floor as patient was hypoxic. Patient was placed on high flow oxygen and changed to nonrebreather. Rather tired. Accessory muscles are working. Ordered a stat chest x-ray. Showed some atelectasis/suspicion for aspiration. NG tube remained in place. Spoke to Dr. Gallo from general surgery. He did speak to the patient's daughter. I ordered breathing treatment. Also patient is having chest pain. Troponin and EKG was ordered. Troponin came back negative. Patient maintained on nonrebreather. November 02: Patient remains NG tube in place. Abdomen distended. Tenderness. Uncomfortable. Spoke to Dr. Gallo from surgery. Not a surgical candidate and patient does not want surgery. Hospice would be appropriate. Spoke to the patient and patient's 2 grandsons at the bedside and would otherwise. Proceed with comfort measures. NG tube to remain for comfort measures. Patient's daughter in [place] increase about the same. Patient takes her own decisions. Morphine drip being started. Scopolamine patch ordered. Family does not want hospice consult. November 03: Comfort care. Morphine drip. Laying in bed. Mild breathing. Nasal cannula. NG tube was discontinued. Appears comfortable. No family at the bedside. November 04: Comfort care. Morphine drip. Mouth breathing. Nasal cannula. No family at the bedside. Daughter is driving up from [place]. Not in distress Active Medications Benzocaine (Benzocaine [place] 1 Can) 1 spray MUCOUS MEM QID PRN; Protocol PRN Reason: Mouth Irritation Last Admin: 11/01/21 08:26 Dose: 1 spray Documented by: Morphine Sulfate 100 mg/ (Sodium Chloride) 102 mls @ 0 mls/hr IV .Q0M [facility]; Protocol Last Admin: 11/04/21 17:21 Dose: 7.75 mls/hr, 7.75 mls/hr Documented by: Naloxone HCl (Naloxone 0.4 Mg/Ml 1 Ml Vial) 0.2 mg IV Q2M PRN PRN Reason: Opioid Reversal Ondansetron HCl (Ondansetron 4 Mg/2 Ml Vial) 4 mg IVP Q6HR PRN PRN Reason: Nausea And Vomiting Last Admin: 11/01/21 10:34 Dose: 4 mg Documented by: Scopolamine (Scopolamine 1.5mg/72hr Patch) 1 patch TRANSDERM Q72H [facility] Last Admin: 11/02/21 13:58 Dose: 1 patch Documented by: Past medical history to include: Osteoarthritis, hypothyroid, hypertension, depression, restless leg syndrome, paroxysmal atrial fibrillation, lung the details patient is opted not for any further workup. Social history: Lives alone. Uses a walker/walker. No history of alcohol or smoking. Physical examination: VITAL SIGNS: Febrile. 24 GENERAL: Laying in bed sedated HEART: First and second heart sounds are normal; no edema. LUNGS: Respiratory rate increased; decreased breath sounds. ABDOMEN: Soft, distended, tender, colostomy , liver spleen not palpable, no masses palpable. Hyperactive bowel sounds PSYCH: Unable to assess. INVESTIGATIONS, reviewed in the clinical context: November 02: Sodium 147 potassium 4.3 creatinine 0.88 November 01: Potassium 3 creatinine 0.57Chest x-ray film personally reviewed by me-some atelectasis Small bowel follow-through: High-grade mechanical small bowel obstruction with a transition point in the right lower quadrant. White count 9.9 hemoglobin 12.1 and platelets 242 potassium 4.3 creatinine 0.6 Doppler ultrasound lower extremity: Evidence of chronic DVT Assessment and plan: -Acute hypoxic respiratory failure from aspiration pneumonitis: Slow to respond 2 L nasal cannula -Aspiration pneumonitis from vomiting -Acute bowel obstruction, right lower quadrant: Not improving NG tube-discontinued -Bowel perforation leading to partial bowel resection and colostomy Surgery / June [address] Byers. Repair of prolapsed September 2021 -Multiple chronic pulmonary nodules. -Primary osteoarthritis [place] multiple joints bilateral -Hypothyroid -Essential hypertension -Restless leg syndrome -Chronic gait dysfunction uses a walker -Depression -Chronic insomnia -Chronic DVT lower extremity on ultrasound -Paroxysmal atrial fibrillation -DO NOT RESUSCITATE/Comfort Care Continue comfort measures. Currently on morphine drip scopolamine patch. Tylenol. Oxygen.
[2021-11-05] MEDS: MORPHINE SULFATE (100 MG/2 ML) 100 MG in SODIUM CHLORIDE 0.9% 100 ML IV SCH ×2 (03:10→14:43)
[2021-11-05] MEDS: SCOPOLAMINE 1.5MG/72HR PATCH TRANSDERM SCH (08:07)
--- NOTE | 2021-11-05 16:25 | P.PN ---
Progress Note - Text Progress Note Date: 11/05/21 History of presenting complaint: This is a pleasant 86-year-old patient of Dr.S Pollard. Chronic stable medical conditions include osteoarthritis, hypothyroid, hypertension, depression, restless leg syndrome, paroxysmal atrial fibrillation, nonischemic cardiomyopathy. CT chest showing some nodules patient has declined any further workup in the past In June 2021 presented with colon perforation. underwent partial colectomy with end colostomy. There was stool in the peritoneal cavity. Patient received IV Zosyn and IV Flagyl. Computed course. 10/02/2021 presents with prolapsing a colostomy she's noticed for about a week. Progressively getting worse. admitted for the repair of the same. Done successfully. Presented on October 29 with no output from colostomy for 4 days. October 31: Patient has a NG tube placed yesterday. About 700 mL output but this afternoon. Abdomen distended. Mcclendon catheter. Abdomen tender. Patient tired November 01: [Critical care note] This morning patient been down for a barium small bowel follow-through. Subsequently patient had vomited. I was called to the floor as patient was hypoxic. Patient was placed on high flow oxygen and changed to nonrebreather. Rather tired. Accessory muscles are working. Ordered a stat chest x-ray. Showed some atelectasis/suspicion for aspiration. NG tube remained in place. Spoke to Dr. Gallo from general surgery. He did speak to the patient's daughter. I ordered breathing treatment. Also patient is having chest pain. Troponin and EKG was ordered. Troponin came back negative. Patient maintained on nonrebreather. November 02: Patient remains NG tube in place. Abdomen distended. Tenderness. Uncomfortable. Spoke to Dr. Gallo from surgery. Not a surgical candidate and patient does not want surgery. Hospice would be appropriate. Spoke to the patient and patient's 2 grandsons at the bedside and would otherwise. Proceed with comfort measures. NG tube to remain for comfort measures. Patient's daughter in [place] increase about the same. Patient takes her own decisions. Morphine drip being started. Scopolamine patch ordered. Family does not want hospice consult. November 03: Comfort care. Morphine drip. Laying in bed. Mild breathing. Nasal cannula. NG tube was discontinued. Appears comfortable. No family at the bedside. November 04: Comfort care. Morphine drip. Mouth breathing. Nasal cannula. No family at the bedside. Daughter is driving up from [place]. Not in distress October 28: Comfort care. On morphine drip. Mouth breathing. Appears comfortable. No family at the bedside. Active Medications Benzocaine (Benzocaine [place] 1 Can) 1 spray MUCOUS MEM QID PRN; Protocol PRN Reason: Mouth Irritation Last Admin: 11/01/21 08:26 Dose: 1 spray Documented by: Morphine Sulfate 100 mg/ (Sodium Chloride) 102 mls @ 0 mls/hr IV .Q0M [facility]; Protocol Last Admin: 11/05/21 14:43 Dose: 11.75 mls/hr, 11.75 mls/hr Documented by: Naloxone HCl (Naloxone 0.4 Mg/Ml 1 Ml Vial) 0.2 mg IV Q2M PRN PRN Reason: Opioid Reversal Ondansetron HCl (Ondansetron 4 Mg/2 Ml Vial) 4 mg IVP Q6HR PRN PRN Reason: Nausea And Vomiting Last Admin: 11/01/21 10:34 Dose: 4 mg Documented by: Scopolamine (Scopolamine 1.5mg/72hr Patch) 1 patch TRANSDERM Q72H [facility] Last Admin: 11/05/21 08:07 Dose: 1 patch Documented by: Past medical history to include: Osteoarthritis, hypothyroid, hypertension, depression, restless leg syndrome, paroxysmal atrial fibrillation, lung the details patient is opted not for any further workup. Social history: Lives alone. Uses a walker/walker. No history of alcohol or smoking. Physical examination: VITAL SIGNS: 100 temperature: 126, 12, 123/61, 92% on 4 L GENERAL: Laying in bed sedated HEART: First and second heart sounds are normal; no edema. LUNGS: Respiratory rate increased; decreased breath sounds. ABDOMEN: Soft, distended, tender, colostomy , liver spleen not palpable, no masses palpable. Hyperactive bowel sounds PSYCH: Unable to assess. INVESTIGATIONS, reviewed in the clinical context: November 02: Sodium 147 potassium 4.3 creatinine 0.88 November 01: Potassium 3 creatinine 0.57Chest x-ray film personally reviewed by me-some atelectasis Small bowel follow-through: High-grade mechanical small bowel obstruction with a transition point in the right lower quadrant. White count 9.9 hemoglobin 12.1 and platelets 242 potassium 4.3 creatinine 0.6 Doppler ultrasound lower extremity: Evidence of chronic DVT Assessment and plan: -Acute hypoxic respiratory failure from aspiration pneumonitis: Slow to respond 4 L nasal cannula -Aspiration pneumonitis from vomiting -Acute bowel obstruction, right lower quadrant: Not improving NG tube-discontinued -Bowel perforation leading to partial bowel resection and colostomy Surgery / June [address] Byers. Repair of prolapsed September 2021 -Multiple chronic pulmonary nodules. -Primary osteoarthritis [place] multiple joints bilateral -Hypothyroid -Essential hypertension -Restless leg syndrome -Chronic gait dysfunction uses a walker -Depression -Chronic insomnia -Chronic DVT lower extremity on ultrasound -Paroxysmal atrial fibrillation -DO NOT RESUSCITATE/Comfort Care Continue comfort measures. Currently on morphine drip scopolamine patch. Tylenol. Oxygen. No family at the bedside
--- NOTE | 2021-11-05 17:22 | P.PN ---
Progress Note - Text Progress Note Date: 11/05/21 Patient seen with her daughter now present at the bedside. Apparently she just arrived in town. Patient appears comfortable. Again agonal breathing with decreased respirations compared to yesterday. No vomiting. Clinical scenario discussed with the patient's daughter and remainder of the family.
[2021-11-06] MEDS: MORPHINE SULFATE (100 MG/2 ML) 100 MG in SODIUM CHLORIDE 0.9% 100 ML IV SCH ×4 (00:01→20:23)
--- NOTE | 2021-11-06 14:41 | P.PN ---
Progress Note - Text Progress Note Date: 11/06/21 Patient reevaluated again today. Has appeared comfortable per the nursing staff overnight. Nonverbal at this time. Still with agonal breathing. Appears comfortable.
--- NOTE | 2021-11-06 23:17 | P.PN ---
Progress Note - Text Progress Note Date: 11/06/21 History of presenting complaint: This is a pleasant 86-year-old patient of Dr.S Pollard. Chronic stable medical conditions include osteoarthritis, hypothyroid, hypertension, depression, restless leg syndrome, paroxysmal atrial fibrillation, nonischemic cardiomyopathy. CT chest showing some nodules patient has declined any further workup in the past In June 2021 presented with colon perforation. underwent partial colectomy with end colostomy. There was stool in the peritoneal cavity. Patient received IV Zosyn and IV Flagyl. Computed course. 10/02/2021 presents with prolapsing a colostomy she's noticed for about a week. Progressively getting worse. admitted for the repair of the same. Done successfully. Presented on October 29 with no output from colostomy for 4 days. October 31: Patient has a NG tube placed yesterday. About 700 mL output but this afternoon. Abdomen distended. Mcclendon catheter. Abdomen tender. Patient tired November 01: [Critical care note] This morning patient been down for a barium small bowel follow-through. Subsequently patient had vomited. I was called to the floor as patient was hypoxic. Patient was placed on high flow oxygen and changed to nonrebreather. Rather tired. Accessory muscles are working. Ordered a stat chest x-ray. Showed some atelectasis/suspicion for aspiration. NG tube remained in place. Spoke to Dr. Gallo from general surgery. He did speak to the patient's daughter. I ordered breathing treatment. Also patient is having chest pain. Troponin and EKG was ordered. Troponin came back negative. Patient maintained on nonrebreather. November 02: Patient remains NG tube in place. Abdomen distended. Tenderness. Uncomfortable. Spoke to Dr. Gallo from surgery. Not a surgical candidate and patient does not want surgery. Hospice would be appropriate. Spoke to the patient and patient's 2 grandsons at the bedside and would otherwise. Proceed with comfort measures. NG tube to remain for comfort measures. Patient's daughter in [place] increase about the same. Patient takes her own decisions. Morphine drip being started. Scopolamine patch ordered. Family does not want hospice consult. November 03: Comfort care. Morphine drip. Laying in bed. Mild breathing. Nasal cannula. NG tube was discontinued. Appears comfortable. No family at the bedside. November 04: Comfort care. Morphine drip. Mouth breathing. Nasal cannula. No family at the bedside. Daughter is driving up from [place]. Not in distress November 05: Comfort care. On morphine drip. Mouth breathing. Appears comfortable. No family at the bedside. November 06: Comfort care. Morphine drip. Breathing slowly. Appears comfortable. No family at the bedside. Active Medications Benzocaine (Benzocaine [place] 1 Can) 1 spray MUCOUS MEM QID PRN; Protocol PRN Reason: Mouth Irritation Last Admin: 11/01/21 08:26 Dose: 1 spray Documented by: Morphine Sulfate 100 mg/ (Sodium Chloride) 102 mls @ 0 mls/hr IV .Q0M [facility]; Protocol Last Admin: 11/06/21 20:23 Dose: 20.75 mls/hr, 20.75 mls/hr Documented by: Naloxone HCl (Naloxone 0.4 Mg/Ml 1 Ml Vial) 0.2 mg IV Q2M PRN PRN Reason: Opioid Reversal Ondansetron HCl (Ondansetron 4 Mg/2 Ml Vial) 4 mg IVP Q6HR PRN PRN Reason: Nausea And Vomiting Last Admin: 11/01/21 10:34 Dose: 4 mg Documented by: Scopolamine (Scopolamine 1.5mg/72hr Patch) [address] [facility] Last Admin: 11/05/21 08:07 Dose: 1 patch Documented by: Past medical history to include: Osteoarthritis, hypothyroid, hypertension, depression, restless leg syndrome, paroxysmal atrial fibrillation, lung the details patient is opted not for any further workup. Social history: Lives alone. Uses a walker/walker. No history of alcohol or smoking. Physical examination: VITAL SIGNS: 100, 126, 20, 123/61, 92% 4 L GENERAL: Laying in bed sedated HEART: First and second heart sounds are normal; no edema. LUNGS: Respiratory rate decreased; decreased breath sounds. ABDOMEN: Soft, distended, tender, colostomy , liver spleen not palpable, no masses palpable. Hyperactive bowel sounds PSYCH: Unable to assess. INVESTIGATIONS, reviewed in the clinical context: November 02: Sodium 147 potassium 4.3 creatinine 0.88 November 01: Potassium 3 creatinine 0.57Chest x-ray film personally reviewed by me-some atelectasis Small bowel follow-through: High-grade mechanical small bowel obstruction with a transition point in the right lower quadrant. White count 9.9 hemoglobin 12.1 and platelets 242 potassium 4.3 creatinine 0.6 Doppler ultrasound lower extremity: Evidence of chronic DVT Assessment and plan: -Acute hypoxic respiratory failure from aspiration pneumonitis: Slow to respond 4 L nasal cannula -Aspiration pneumonitis from vomiting -Acute bowel obstruction, right lower quadrant: Not improving NG tube-discontinued -Bowel perforation leading to partial bowel resection and colostomy Surgery / June [address] Byers. Repair of prolapsed September 2021 -Multiple chronic pulmonary nodules. -Primary osteoarthritis [place] multiple joints bilateral -Hypothyroid -Essential hypertension -Restless leg syndrome -Chronic gait dysfunction uses a walker -Depression -Chronic insomnia -Chronic DVT lower extremity on ultrasound -Paroxysmal atrial fibrillation -DO NOT RESUSCITATE/Comfort Care comfort measures. morphine drip scopolamine patch. Tylenol. Oxygen. No family at the bedside
[2021-11-07] MEDS: MORPHINE SULFATE (100 MG/2 ML) 100 MG in SODIUM CHLORIDE 0.9% 100 ML IV SCH ×5 (01:48→23:14)
[2021-11-07 08:33] VITALS: BP 119/71; PULSE 91; TEMP 97.8
--- NOTE | 2021-11-07 14:35 | P.PN ---
Progress Note - Text Progress Note Date: 11/07/21 History of presenting complaint: This is a pleasant 86-year-old patient of Dr.S Pollard. Chronic stable medical conditions include osteoarthritis, hypothyroid, hypertension, depression, restless leg syndrome, paroxysmal atrial fibrillation, nonischemic cardiomyopathy. CT chest showing some nodules patient has declined any further workup in the past In June 2021 presented with colon perforation. underwent partial colectomy with end colostomy. There was stool in the peritoneal cavity. Patient received IV Zosyn and IV Flagyl. Computed course. 10/02/2021 presents with prolapsing a colostomy she's noticed for about a week. Progressively getting worse. admitted for the repair of the same. Done successfully. Presented on October 29 with no output from colostomy for 4 days. October 31: Patient has a NG tube placed yesterday. About 700 mL output but this afternoon. Abdomen distended. Mcclendon catheter. Abdomen tender. Patient tired November 01: [Critical care note] This morning patient been down for a barium small bowel follow-through. Subsequently patient had vomited. I was called to the floor as patient was hypoxic. Patient was placed on high flow oxygen and changed to nonrebreather. Rather tired. Accessory muscles are working. Ordered a stat chest x-ray. Showed some atelectasis/suspicion for aspiration. NG tube remained in place. Spoke to Dr. Gallo from general surgery. He did speak to the patient's daughter. I ordered breathing treatment. Also patient is having chest pain. Troponin and EKG was ordered. Troponin came back negative. Patient maintained on nonrebreather. November 02: Patient remains NG tube in place. Abdomen distended. Tenderness. Uncomfortable. Spoke to Dr. Gallo from surgery. Not a surgical candidate and patient does not want surgery. Hospice would be appropriate. Spoke to the patient and patient's 2 grandsons at the bedside and would otherwise. Proceed with comfort measures. NG tube to remain for comfort measures. Patient's daughter in [place] increase about the same. Patient takes her own decisions. Morphine drip being started. Scopolamine patch ordered. Family does not want hospice consult. November 03: Comfort care. Morphine drip. Laying in bed. Mild breathing. Nasal cannula. NG tube was discontinued. Appears comfortable. No family at the bedside. November 04: Comfort care. Morphine drip. Mouth breathing. Nasal cannula. No family at the bedside. Daughter is driving up from [place]. Not in distress November 05: Comfort care. On morphine drip. Mouth breathing. Appears comfortable. No family at the bedside. November 06: Comfort care. Morphine drip. Breathing slowly. Appears comfortable. No family at the bedside. November 07: Comfort care. Morphine drip. Breathing a slow down further. No family at the bedside. Active Medications Benzocaine (Benzocaine [place] 1 Can) 1 spray MUCOUS MEM QID PRN; Protocol PRN Reason: Mouth Irritation Last Admin: 11/01/21 08:26 Dose: 1 spray Documented by: Morphine Sulfate 100 mg/ (Sodium Chloride) 102 mls @ 0 mls/hr IV .Q0M [facility]; Protocol Last Admin: 11/07/21 13:44 Dose: 21.75 mls/hr, 21.75 mls/hr Documented by: Naloxone HCl (Naloxone 0.4 Mg/Ml 1 Ml Vial) 0.2 mg IV Q2M PRN PRN Reason: Opioid Reversal Ondansetron HCl (Ondansetron 4 Mg/2 Ml Vial) 4 mg IVP Q6HR PRN PRN Reason: Nausea And Vomiting Last Admin: 11/01/21 10:34 Dose: 4 mg Documented by: Scopolamine (Scopolamine 1.5mg/72hr Patch) 1 patch TRANSDERM Q72H [facility] Last Admin: 11/05/21 08:07 Dose: 1 patch Documented by: Past medical history to include: Osteoarthritis, hypothyroid, hypertension, depression, restless leg syndrome, paroxysmal atrial fibrillation, lung the details patient is opted not for any further workup. Social history: Lives alone. Uses a walker/walker. No history of alcohol or smoking. Physical examination: VITAL SIGNS: 97.8, 91, 18, 119/71, 96% 3 L GENERAL: Laying in bed sedated HEART: First and second heart sounds are normal; no edema. LUNGS: Respiratory rate decreased; decreased breath sounds. PSYCH: Unable to assess. INVESTIGATIONS, reviewed in the clinical context: November 02: Sodium 147 potassium 4.3 creatinine 0.88 November 01: Potassium 3 creatinine 0.57Chest x-ray film personally reviewed by me-some atelectasis Small bowel follow-through: High-grade mechanical small bowel obstruction with a transition point in the right lower quadrant. White count 9.9 hemoglobin 12.1 and platelets 242 potassium 4.3 creatinine 0.6 Doppler ultrasound lower extremity: Evidence of chronic DVT Assessment and plan: -Acute hypoxic respiratory failure from aspiration pneumonitis: Slow to respond 3 L nasal cannula -Aspiration pneumonitis from vomiting -Acute bowel obstruction, right lower quadrant: Not improving NG tube-discontinued -Bowel perforation leading to partial bowel resection and colostomy Surgery / June [address] Byers. Repair of prolapsed September 2021 -Multiple chronic pulmonary nodules. -Primary osteoarthritis [place] multiple joints bilateral -Hypothyroid -Essential hypertension -Restless leg syndrome -Chronic gait dysfunction uses a walker -Depression -Chronic insomnia -Chronic DVT lower extremity on ultrasound -Paroxysmal atrial fibrillation -DO NOT RESUSCITATE/Comfort Care comfort measures. morphine drip scopolamine patch. Oxygen. No family at the bedside
[2021-11-08] MEDS: MORPHINE SULFATE (100 MG/2 ML) 100 MG in SODIUM CHLORIDE 0.9% 100 ML IV SCH ×5 (03:14→22:43)
[2021-11-08 11:21] VITALS: RESP 28
--- NOTE | 2021-11-08 15:48 | P.PN ---
Progress Note - Text Progress Note Date: 11/08/21 History of presenting complaint: This is a pleasant 86-year-old patient of Dr.S Pollard. Chronic stable medical conditions include osteoarthritis, hypothyroid, hypertension, depression, restless leg syndrome, paroxysmal atrial fibrillation, nonischemic cardiomyopathy. CT chest showing some nodules patient has declined any further workup in the past In June 2021 presented with colon perforation. underwent partial colectomy with end colostomy. There was stool in the peritoneal cavity. Patient received IV Zosyn and IV Flagyl. Computed course. 10/02/2021 presents with prolapsing a colostomy she's noticed for about a week. Progressively getting worse. admitted for the repair of the same. Done successfully. Presented on October 29 with no output from colostomy for 4 days. October 31: Patient has a NG tube placed yesterday. About 700 mL output but this afternoon. Abdomen distended. Mcclendon catheter. Abdomen tender. Patient tired November 01: [Critical care note] This morning patient been down for a barium small bowel follow-through. Subsequently patient had vomited. I was called to the floor as patient was hypoxic. Patient was placed on high flow oxygen and changed to nonrebreather. Rather tired. Accessory muscles are working. Ordered a stat chest x-ray. Showed some atelectasis/suspicion for aspiration. NG tube remained in place. Spoke to Dr. Gallo from general surgery. He did speak to the patient's daughter. I ordered breathing treatment. Also patient is having chest pain. Troponin and EKG was ordered. Troponin came back negative. Patient maintained on nonrebreather. November 02: Patient remains NG tube in place. Abdomen distended. Tenderness. Uncomfortable. Spoke to Dr. Gallo from surgery. Not a surgical candidate and patient does not want surgery. Hospice would be appropriate. Spoke to the patient and patient's 2 grandsons at the bedside and would otherwise. Proceed with comfort measures. NG tube to remain for comfort measures. Patient's daughter in [place] increase about the same. Patient takes her own decisions. Morphine drip being started. Scopolamine patch ordered. Family does not want hospice consult. November 03: Comfort care. Morphine drip. Laying in bed. Mild breathing. Nasal cannula. NG tube was discontinued. Appears comfortable. No family at the bedside. November 04: Comfort care. Morphine drip. Mouth breathing. Nasal cannula. No family at the bedside. Daughter is driving up from [place]. Not in distress November 05: Comfort care. On morphine drip. Mouth breathing. Appears comfortable. No family at the bedside. November 06: Comfort care. Morphine drip. Breathing slowly. Appears comfortable. No family at the bedside. November 07: Comfort care. Morphine drip. Breathing a slow down further. No family at the bedside. November 08: Comfort care. morphine drip. Breathing remains slow. Appears comfortable. No family at the bedside. Active Medications Benzocaine (Benzocaine [place] 1 Can) 1 spray MUCOUS MEM QID PRN; Protocol PRN Reason: Mouth Irritation Last Admin: 11/01/21 08:26 Dose: 1 spray Documented by: Morphine Sulfate 100 mg/ (Sodium Chloride) 102 mls @ 0 mls/hr IV .Q0M [facility]; Protocol Last Admin: 11/08/21 14:05 Dose: 23.75 mls/hr, 23.75 mls/hr Documented by: Naloxone HCl (Naloxone 0.4 Mg/Ml 1 Ml Vial) 0.2 mg IV Q2M PRN PRN Reason: Opioid Reversal Ondansetron HCl (Ondansetron 4 Mg/2 Ml Vial) 4 mg IVP Q6HR PRN PRN Reason: Nausea And Vomiting Last Admin: 11/01/21 10:34 Dose: 4 mg Documented by: Scopolamine (Scopolamine 1.5mg/72hr Patch) 1 patch TRANSDERM Q72H [facility] Last Admin: 11/05/21 08:07 Dose: 1 patch Documented by: Past medical history to include: Osteoarthritis, hypothyroid, hypertension, depression, restless leg syndrome, paroxysmal atrial fibrillation, lung the details patient is opted not for any further workup. Social history: Lives alone. Uses a walker/walker. No history of alcohol or smoking. Physical examination: VITAL SIGNS: 12 GENERAL: Laying in bed sedated HEART: First and second heart sounds are normal; no edema. LUNGS: Respiratory rate decreased; decreased breath sounds. PSYCH: Unable to assess. INVESTIGATIONS, reviewed in the clinical context: November 02: Sodium 147 potassium 4.3 creatinine 0.88 November 01: Potassium 3 creatinine 0.57Chest x-ray film personally reviewed by me-some atelectasis Small bowel follow-through: High-grade mechanical small bowel obstruction with a transition point in the right lower quadrant. White count 9.9 hemoglobin 12.1 and platelets 242 potassium 4.3 creatinine 0.6 Doppler ultrasound lower extremity: Evidence of chronic DVT Assessment and plan: -Acute hypoxic respiratory failure from aspiration pneumonitis: Slow to respond 3 L nasal cannula -Aspiration pneumonitis from vomiting -Acute bowel obstruction, right lower quadrant: Not improving NG tube-discontinued -Bowel perforation leading to partial bowel resection and colostomy Surgery / June [address] Byers. Repair of prolapsed September 2021 -Multiple chronic pulmonary nodules. -Primary osteoarthritis [place] multiple joints bilateral -Hypothyroid -Essential hypertension -Restless leg syndrome -Chronic gait dysfunction uses a walker -Depression -Chronic insomnia -Chronic DVT lower extremity on ultrasound -Paroxysmal atrial fibrillation -DO NOT RESUSCITATE/Comfort Care comfort measures. morphine drip scopolamine patch. Oxygen. No family at the bedside
[2021-11-08] MEDS: SCOPOLAMINE 1.5MG/72HR PATCH TRANSDERM SCH (15:54)
[2021-11-09] MEDS: MORPHINE SULFATE (100 MG/2 ML) 100 MG in SODIUM CHLORIDE 0.9% 100 ML IV SCH ×3 (02:59→10:48)
[2021-11-09] MEDS ORDERED: MORPHINE SULFATE (100 MG/2 ML) 500 MG in SODIUM CHLORIDE 0.9% 500 ML 500 ML IV SCH (14:30)
--- NOTE | 2021-11-09 18:55 | P.DS ---
Providers Date of admission: 10/29/21 04:35 Expected date of discharge: 11/09/21 (Patient ) Attending physician: Nakul Toledo Consults: 10/29/21 04:35 Consult Physician Routine Consulting Provider: Tye Byers Consult Reason/Comments: sbo Do you want consulting provider notified?: Yes Primary care physician: Eliza Pollard [facility] Course: History of presenting complaint: This is a pleasant 86-year-old patient of Dr.S Pollard. Chronic stable medical conditions include osteoarthritis, hypothyroid, hypertension, depression, restless leg syndrome, paroxysmal atrial fibrillation, nonischemic cardiomyopathy. CT chest showing some nodules patient has declined any further workup in the past In June 2021 presented with colon perforation. underwent partial colectomy with end colostomy. There was stool in the peritoneal cavity. Patient received IV Zosyn and IV Flagyl. Computed course. 10/02/2021 presents with prolapsing a colostomy she's noticed for about a week. Progressively getting worse. admitted for the repair of the same. Done successfully. Presented on October 29 with no output from colostomy for 4 days. October 31: Patient has a NG tube placed yesterday. About 700 mL output but this afternoon. Abdomen distended. [place] catheter. Abdomen tender. Patient tired November 01: [Critical care note] This morning patient been down for a barium small bowel follow-through. Subsequently patient had vomited. I was called to the floor as patient was hypoxic. Patient was placed on high flow oxygen and changed to nonrebreather. Rather tired. Accessory muscles are working. Ordered a stat chest x-ray. Showed some atelectasis/suspicion for aspiration. NG tube remained in place. Spoke to Dr. Gallo from general surgery. He did speak to the patient's daughter. I ordered breathing treatment. Also patient is having chest pain. Troponin and EKG was ordered. Troponin came back negative. Patient maintained on nonrebreather. November 02: Patient remains NG tube in place. Abdomen distended. Tenderness. Uncomfortable. Spoke to Dr. Gallo from surgery. Not a surgical candidate and patient does not want surgery. Hospice would be appropriate. Spoke to the patient and patient's 2 grandsons at the bedside and would otherwise. Proceed with comfort measures. NG tube to remain for comfort measures. Patient's daughter in [place] increase about the same. Patient takes her own decisions. Morphine drip being started. Scopolamine patch ordered. Family does not want hospice consult. November 03: Comfort care. Morphine drip. Laying in bed. Mild breathing. Nasal cannula. NG tube was discontinued. Appears comfortable. No family at the bedside. November 04: Comfort care. Morphine drip. Mouth breathing. Nasal cannula. No family at the bedside. Daughter is driving up from [place]. Not in distress November 05: Comfort care. On morphine drip. Mouth breathing. Appears comfortable. No family at the bedside. November 06: Comfort care. Morphine drip. Breathing slowly. Appears comfortable. No family at the bedside. November 07: Comfort care. Morphine drip. Breathing a slow down further. No family at the bedside. November 08: Comfort care. morphine drip. Breathing remains slow. Appears comfortable. No family at the bedside. November 09: Soft patient earlier today. Morphine drip. Breathing is really slow down. No family present. Morphine drip. Patient later Current medications reviewed Past medical history to include: Osteoarthritis, hypothyroid, hypertension, depression, restless leg syndrome, paroxysmal atrial fibrillation, lung the details patient is opted not for any further workup. Social history: Lives alone. Uses a walker/walker. No history of alcohol or smoking. Physical examination: VITAL SIGNS: 12 GENERAL: Laying in bed sedated HEART: First and second heart sounds are normal; no edema. LUNGS: Respiratory rate decreased; decreased breath sounds. PSYCH: Unable to assess. INVESTIGATIONS, reviewed in the clinical context: November 02: Sodium 147 potassium 4.3 creatinine 0.88 November 01: Potassium 3 creatinine 0.57Chest x-ray film personally reviewed by me-some atelectasis Small bowel follow-through: High-grade mechanical small bowel obstruction with a transition point in the right lower quadrant. White count 9.9 hemoglobin 12.1 and platelets 242 potassium 4.3 creatinine 0.6 Doppler ultrasound lower extremity: Evidence of chronic DVT Cause of : Aspiration pneumonia Assessment and plan: -Acute hypoxic respiratory failure from aspiration pneumonitis: Slow to respond 3 L nasal cannula -Aspiration pneumonitis from vomiting -Acute bowel obstruction, right lower quadrant: Not improving NG tube-discontinued -Bowel perforation leading to partial bowel resection and colostomy Surgery / June [address] Byers. Repair of prolapsed September 2021 -Multiple chronic pulmonary nodules. -Primary osteoarthritis [place] multiple joints bilateral -Hypothyroid -Essential hypertension -Restless leg syndrome -Chronic gait dysfunction uses a walker -Depression -Chronic insomnia -Chronic DVT lower extremity on ultrasound -Paroxysmal atrial fibrillation Disposition: Patient Patient Condition at Discharge: Fair Plan - Discharge Summary Discharge Rx Participant: No New Discharge Prescriptions: No Action rOPINIRole HCL [Requip] 0.25 - 0.5 mg PO HS Sulindac [Clinoril] 150 mg PO BID Omeprazole 20 mg PO AC-BRKFST Mirtazapine 30 mg PO HS busPIRone HCl [Buspar] 5 mg PO BID Diclofenac Sodium [Voltaren Gel] 4 gram TOPICAL QID PRN PRN Reason: Pain Levothyroxine Sodium [Synthroid] 50 mcg PO DAILY #30 tab Vit C/E/Zn/Coppr/Lutein/Zeaxan [Preservision Areds 2 Softgel] 1 cap PO BID Pregabalin [Lyrica] 75 mg PO BID #6 cap traZODone HCL [Desyrel] 50 - 100 mg PO HS Acetaminophen-Codeine 300-30mg [Tylenol w/codeine #3] 1 tab PO Q6H PRN PRN Reason: Pain Docusate [Colace] 100 mg PO HS Polyethylene Glycol 3350 [Miralax] 17 gm PO HS Mirabegron [Myrbetriq] 25 mg PO DAILY Metoprolol Tartrate [Lopressor] 50 mg PO BID tab Discharge Medication List Diclofenac Sodium [Voltaren Gel] 4 gram TOPICAL QID PRN 09/19/20 [History] Mirtazapine 30 mg PO HS 09/19/20 [History] Omeprazole 20 mg PO AC-BRKFST 09/19/20 [History] Sulindac [Clinoril] 150 mg PO BID 09/19/20 [History] busPIRone HCl [Buspar] 5 mg PO BID 09/19/20 [History] rOPINIRole HCL [Requip] 0.25 - 0.5 mg PO HS 09/19/20 [History] Levothyroxine Sodium [Synthroid] 50 mcg PO DAILY #30 tab 09/21/20 [Rx] Mirabegron [Myrbetriq] 25 mg PO DAILY 06/16/21 [History] Vit C/E/Zn/Coppr/Lutein/Zeaxan [Preservision Areds 2 Softgel] 1 cap PO BID 06/16/21 [History] Metoprolol Tartrate [Lopressor] 50 mg PO BID tab 06/27/21 [Rx] Pregabalin [Lyrica] 75 mg PO BID #6 cap 06/27/21 [Rx] Acetaminophen-Codeine 300-30mg [Tylenol w/codeine #3] 1 tab PO Q6H PRN 10/01/21 [History] traZODone HCL [Desyrel] 50 - 100 mg PO HS 10/01/21 [History] Docusate [Colace] 100 mg PO HS 10/29/21 [History] Polyethylene Glycol 3350 [Miralax] 17 gm PO HS 10/29/21 [History] Follow up Appointment(s)/Referral(s): [facility], [NON-STAFF] - 1 Week Eliza Pollard MD [Primary Care Provider] - 1-2 days
== END 2021-11-09 19:32 | disposition expired | DRG 388 ==
LOC: EC 01:54 → 4SSUR 04:35
PROVIDERS: ADMIT Hospitalist; ATTEND Hospitalist
PROC: 0D9670Z Drainage of Stomach with Drainage Device, Via Natural or Artificial Opening (ICD-10-PCS; principal; 2021-10-30)
DX: K56.699 Other intestinal obstruction unspecified as to partial versus complete obstruction (principal); U07.1 COVID-19; E43 Unspecified severe protein-calorie malnutrition; J69.0 Pneumonitis due to inhalation of food and vomit; J96.01 Acute respiratory failure with hypoxia; I42.8 Other cardiomyopathies; I82.513 Chronic embolism and thrombosis of femoral vein, bilateral; Z68.1 Body mass index [BMI] 19.9 or less, adult; J98.11 Atelectasis; I48.0 Paroxysmal atrial fibrillation; Z43.3 Encounter for attention to colostomy; Z66 Do not resuscitate; Z51.5 Encounter for palliative care; G25.81 Restless legs syndrome; E03.9 Hypothyroidism, unspecified; I10 Essential (primary) hypertension; E87.6 Hypokalemia; F32.A Depression, unspecified; F51.04 Psychophysiologic insomnia; R26.9 Unspecified abnormalities of gait and mobility; H54.61 Unqualified visual loss, right eye, normal vision left eye; M15.9 Polyosteoarthritis, unspecified; R91.8 Other nonspecific abnormal finding of lung field; Z79.890 Hormone replacement therapy; Z79.1 Long term (current) use of non-steroidal anti-inflammatories (NSAID); Z79.899 Other long term (current) drug therapy; Z60.2 Problems related to living alone; Z90.49 Acquired absence of other specified parts of digestive tract; Z87.19 Personal history of other diseases of the digestive system; Z90.710 Acquired absence of both cervix and uterus; Z87.42 Personal history of other diseases of the female genital tract; Z87.39 Personal history of other diseases of the musculoskeletal system and connective tissue; Z98.890 Other specified postprocedural states; Z71.3 Dietary counseling and surveillance; Z88.8 Allergy status to other drugs, medicaments and biological substances; Z82.5 Family history of asthma and other chronic lower respiratory diseases; Z81.2 Family history of tobacco abuse and dependence
CPT/HCPCS: 36415; 71045; 71275; 74019; 74177; 74250; 80048; 80053; 81001; 82150; 82728; 83605; 83615; 83690; 83735; 84100; 84145; 84484; 85025; 85379; 85652; 86140; 87635; 93005; 93970; 96361; 96374; 96375; 99285